=== PATIENT | male | born 1990 | race Caucasian/White ===

== ENCOUNTER 2020-08-09 03:55 | Emergency (ER) | payer MEDICAID, SELFPAY ==
[2020-08-09 04:05] VITALS: BP 119/79; PULSE 90; RESP 16; TEMP 37; O2SAT 97; BMI 29.7
--- NOTE | 2020-08-09 05:03 | CT_ITS ---
EXAMINATION: CTA OF THE NECK AND CT OF THE SOFT TISSUES OF THE NECK WITH IV CONTRAST CLINICAL INFORMATION: Neck erythema and pain. Evaluate for thrombus. History of IV drug abuse. COMPARISON: None TECHNIQUE: Axial images through the neck following 70 mL Omnipaque 350 intravenous contrast according to CTA protocol. Sagittal and coronal and oblique sagittal reconstructions on the technologist workstation were performed. Delayed 72nd soft tissue axial images through the neck were also performed. Sagittal and coronal reconstructed images on the technologist workstation were performed. Patient dose 5 4 2 mg/cm. FINDINGS: CTA: The visualized aortic arch is normal in caliber. The great vessels are normal. The right common, internal and external carotid arteries are patent without stenosis or thrombus. The left common, internal and external carotid arteries are patent without stenosis or thrombus. The vertebral arteries are patent without stenosis or thrombus. The left vertebral artery is dominant. The basilar artery is patent without thrombus or stenosis. Neck CT: There is soft tissue swelling over the left side of the neck with thickening of the skin and stranding of the subcutaneous fat. There may be a small amount of subcutaneous fluid. This is inseparable from the left sternocleidomastoid muscle. There is a small amount of air in the sternocleidomastoid muscle. The focal abscess is not appreciated. The bilateral internal jugular veins appear patent without thrombus. The left external jugular vein appears patent without thrombus. There are small collateral vessels seen in the left lower neck. There is shotty cervical lymphadenopathy. No enlarged lymph nodes are seen. The visualized intracranial structures are normal. There are inflammatory changes in the maxillary sinuses, left greater than right. The naso, king-and hypopharynx and larynx are normal. The salivary glands are normal. The thyroid gland is normal. There is a small superficial soft tissue calcification in the left cheek. Visualized superior mediastinum is normal. The visualized lung apices are clear. There is poor dentition. Bony structures are unremarkable. CT/CT soft tissue neck w con IMPRESSION: Normal CTA of the neck. Soft tissue inflammation of the left lateral neck involving the left sternocleidomastoid muscle. There may be some fluid in the subcutaneous soft tissues. A discrete abscess is not appreciated. The jugular veins are patent.
--- NOTE | 2020-08-09 05:05 | ED_ITS ---
HPI - General Adult General Chief complaint: General Medical Stated complaint: Dental pain Time Seen by Provider: 08/09/20 04:50 Source: patient Mode of arrival: ambulatory History of Present Illness HPI narrative: This is a 30-year-old male who presents complaints of tooth pain at the left upper molar with associated subjective fevers and chills. Patient is an IVDA and has a swelling to the left side of the neck after injection this morning when he says that he open ?messed up?. Otherwise, he denies any shortness of breath, chest pain/palpitations, any GI symptoms, or symptoms. Related Data Previous Rx's Medication Instructions Recorded amoxicillin-pot clavulanate 1 tab PO Q12H 7 Days #14 tab 08/09/20 [Augmentin] doxycycline hyclate 100 mg PO BID 7 Days #14 cap 08/09/20 Allergies Allergy/AdvReac Type Severity Reaction Status Date / Time shrimp [SHRIMP] Allergy Unknown UNKNOWN Verified 08/09/20 08:14 Review of Systems Review of Systems: Pertinent positives and negatives as stated in HPI 10 point review systems is otherwise negative. PMFSH Past Medical History Source: nursing notes reviewed Medical History Asthma IVDU (intravenous drug user) Social History Social History Smoked in Last 30 Days: Yes Use of substances other than those prescribed or required for medical reasons: Yes Substance Use Type: Crack/Cocaine and Opiates Substance Use Frequency: Daily Last Used Substance: Just Prior to Admission Advance Directives: No Advance Directives Information Provided: No Physical Exam Vital Signs: Vital Signs: Last Vital Signs Temp 97.8 F 08/09/20 07:08 Pulse 73 08/09/20 07:08 Resp 16 08/09/20 07:08 BP 100/63 08/09/20 07:08 Pulse Ox 98 08/09/20 07:08 Body Mass Index 29.7 VITAL SIGNS: Reviewed. GENERAL: Well developed, well nourished, in no acute distress. HEAD: Normocephalic/atraumatic, EYES: PERRLA, EOMI EARS: Ext canals without abnormality, TMs non-bulging and non-erythematous NOSE: Nares patent bilateral OROPHARYNX: no oral lesions noted, posterior pharynx clear NECK: Supple, no adenopathy, track ramirez noted along the external jugular at the left neck with slight swelling but no overlying erythema or induration and negative for expanding mass/swelling LUNGS: Normal breath sounds. No adventitious sounds or accessory muscle use. SpO2<97> CARDIOVASCULAR: Regular rate and rhythm without noted murmurs ABDOMEN: Soft, non-tender, non-distended with bowel sounds. MUSCULOSKELETAL: No tenderness, deformities, or effusions noted on gross inspection. EXTREMITIES: No cyanosis, clubbing or edema. SKIN: Inspection of the skin reveals no rashes, multiple track ramirez noted to bilateral upper extremities NEUROLOGIC: Alert and oriented x 4. Strength and sensation to light touch were grossly intact x 4. Course Course Course Narrative: This is a 30-year-old male with history and clinical presentation consistent with a cracked upper tooth on the left side no evidence madeline abscess or purulence and on evaluation of the left neck there is no expanding or pulsatile mass noted and airway is intact without evidence dyspnea or stridor Review of all investigations is negative for any acute findings to suggest systemic infection, and no noted murmurs on clinical exam. All results and findings were discussed with the patient at bedside and patient will be disc harged on antibiotics to cover tooth infection. Signbed out to DR Pearson: f/u CT scan to r/o thrombus/abscess at LEFT neck. Medical Decision Making Lab Data Result diagrams: 08/09/20 05:04 08/09/20 05:04 Labs: Lab Results 08/09/20 08/09/20 08/09/20 Range/Units 05:04 05:04 05:04 WBC 8.9 (4.8-10.8) X10*3/uL RBC 4.62 (4.60-5.80) X10*6/uL Hgb 12.9 L (14.0-18.0) g/dl Hct 38.7 L (42-52) % MCV 83.8 (80-98) fL MCH 27.9 (27.0-33.0) pg MCHC 33.3 (31.0-36.0) g/dl RDW 11.8 (11.0-16.0) % Plt Count 365 (160-400) X10*3/uL MPV 9.5 (9.4-12.4) fL Immature Gran % (Auto) 0.3 (0.0-0.4) % Neut % (Auto) 53.9 (45-73) % Lymph % (Auto) 39.1 (20-40) % [place] % (Auto) 6.2 (2-11) % Eos % (Auto) 0.3 (0-4) % Baso % (Auto) 0.2 (0-2) % Lymph # (Auto) 3.5 (1.2-4.9) X10*3/uL [place] # (Auto) 0.6 (0.1-1.2) X10*3/uL Eos # (Auto) 0.0 (0.0-0.4) X10*3/uL Baso # (Auto) 0.0 (0.0-0.2) X10*3/uL Abs Immat Gran (auto) 0.03 (0.00-0.03) X10*3/uL Absolute Neuts (auto) 4.8 (2.0-8.3) X10*3/uL Absolute Nucleated RBC 0.000 (0.0-0.012) X10*3/uL Nucleated RBC % (auto) 0.0 (0.0-0.2) /100WBC PT 13.3 H (10.8-13.0) SEC INR 1.1 (0.9-1.1) APTT 34.3 (24.1-38.0) SEC Sodium 139 (135-145) mmol/L Potassium 4.0 (3.3-5.1) mmol/l Chloride 102 (96-108) mmol/L Carbon Dioxide 24 (22-29) mmol/L Anion Gap 17 (12-20) BUN 14 (9-16) mg/dL Creatinine 0.79 (0.5-1.4) mg/dL Estim Creat Clear Calc 145.9 Estimated GFR > 60 Random Glucose 79 (60-115) mg/dL Lactic Acid (0.5-2.0) mmol/L Calcium 9.1 (8.4-10.2) mg/dL Total Bilirubin 0.4 (0.0-1.0) mg/dL Direct Bilirubin 0.2 (0.0-0.5) mg/dL AST 35 (5-37) U/L ALT 32 (0-40) U/L Alkaline Phosphatase 70 (39-117) U/L Total Protein 7.7 (6.5-8.0) g/dL Albumin 4.2 (3.5-5.0) g/dL 08/09/20 Range/Units 05:04 WBC (4.8-10.8) X10*3/uL RBC (4.60-5.80) X10*6/uL Hgb (14.0-18.0) g/dl Hct (42-52) % MCV (80-98) fL MCH (27.0-33.0) pg MCHC (31.0-36.0) g/dl RDW (11.0-16.0) % Plt Count (160-400) X10*3/uL MPV (9.4-12.4) fL Immature Gran % (Auto) (0.0-0.4) % Neut % (Auto) (45-73) % Lymph % (Auto) (20-40) % [place] % (Auto) (2-11) % Eos % (Auto) (0-4) % Baso % (Auto) (0-2) % Lymph # (Auto) (1.2-4.9) X10*3/uL [place] # (Auto) (0.1-1.2) X10*3/uL Eos # (Auto) (0.0-0.4) X10*3/uL Baso # (Auto) (0.0-0.2) X10*3/uL Abs Immat Gran (auto) (0.00-0.03) X10*3/uL Absolute Neuts (auto) (2.0-8.3) X10*3/uL Absolute Nucleated RBC (0.0-0.012) X10*3/uL Nucleated RBC % (auto) (0.0-0.2) /100WBC PT (10.8-13.0) SEC INR (0.9-1.1) APTT (24.1-38.0) SEC Sodium (135-145) mmol/L Potassium (3.3-5.1) mmol/l Chloride (96-108) mmol/L Carbon Dioxide (22-29) mmol/L Anion Gap (12-20) BUN (9-16) mg/dL Creatinine (0.5-1.4) mg/dL Estim Creat Clear Calc Estimated GFR Random Glucose (60-115) mg/dL Lactic Acid 1.3 (0.5-2.0) mmol/L Calcium (8.4-10.2) mg/dL Total Bilirubin (0.0-1.0) mg/dL Direct Bilirubin (0.0-0.5) mg/dL AST (5-37) U/L ALT (0-40) U/L Alkaline Phosphatase (39-117) U/L Total Protein (6.5-8.0) g/dL Albumin (3.5-5.0) g/dL Discharge Plan Discharge Clinical Impression: Dental caries into pulp Patient Disposition: Home, Self-Care Instructions: Toothache (ED), Mouth Care (ED) Additional Instructions: 1. Tylenol 1000 mg, orally, every 6 hours as needed pain control. Do not exceed 4000 mg within a 24 hours 2. Ibuprofen 400 mg, orally with milk or food, every 6 hours as needed for pain control. 3. Consider [id number] Anbesol as additional pain relief, but at the end of the day you need to follow-up with a dentist as soon as possible. Prescriptions: New amoxicillin-pot clavulanate [Augmentin] 875-125 mg tablet 1 tab PO Q12H 7 Days Qty: 14 RF: 0 doxycycline hyclate 100 mg capsule 100 mg PO BID 7 Days Qty: 14 RF: 0
[2020-08-09 05:09] LABS: Basophils Percent Auto 0.2 % (0-2); Eosinophils Percent Auto 0.3 % (0-4); Hematocrit 38.7 % (42-52); Hemoglobin 12.9 g/dl (14.0-18.0); Imm Gran Abs Auto 0.03 X10*3/uL (0.00-0.03); Imm Gran Pct Auto 0.3 % (0.0-0.4); Lymphocytes Absolute Auto 3.5 X10*3/uL (1.2-4.9); Lymphocytes Percent Auto 39.1 % (20-40); MANUAL DIFF FLAG NO; Mean Corpuscular HGB Conc 33.3 g/dl (31.0-36.0); Mean Corpuscular Hemoglobin 27.9 pg (27.0-33.0); Mean Corpuscular Volume 83.8 fL (80-98); Mean Platelet Volume 9.5 fL (9.4-12.4); Monocytes Absolute Auto 0.6 X10*3/uL (0.1-1.2); Monocytes Percent Auto 6.2 % (2-11); Neutrophils Absolute Auto 4.8 X10*3/uL (2.0-8.3); Neutrophils Percent Auto 53.9 % (45-73); Platelet Count 365 X10*3/uL (160-400); Red Blood Count 4.62 X10*6/uL (4.60-5.80); Red Cell Distribution Width 11.8 % (11.0-16.0); White Blood Count 8.9 X10*3/uL (4.8-10.8)
[2020-08-09 05:15] LABS: INTERNATIONAL NORM RATIO 1.1 (0.9-1.1); Prothrombin Time 13.3 SEC (10.8-13.0)
[2020-08-09 05:18] LABS: Partial Thromboplastin Time 34.3 SEC (24.1-38.0)
[2020-08-09 05:35] LABS: Lactic Acid 1.3 mmol/L (0.5-2.0)
[2020-08-09 05:41] LABS: Alanine Aminotransferase 32 U/L (0-40); Albumin Level 4.2 g/dL (3.5-5.0); Alkaline Phosphatase 70 U/L (39-117); Anion Gap 17 (12-20); Aspartate Amino Transferase 35 U/L (5-37); Bilirubin Direct 0.2 mg/dL (0.0-0.5); Bilirubin Total 0.4 mg/dL (0.0-1.0); Blood Urea Nitrogen 14 mg/dL (9-16); Calcium 9.1 mg/dL (8.4-10.2); Carbon Dioxide 24 mmol/L (22-29); Chloride 102 mmol/L (96-108); Creatinine Clr Calc Pharmacy 145.9; Estimated Glomerular Filt Rate > 60; Glucose Random 79 mg/dL (60-115); Sodium 139 mmol/L (135-145); Total Protein 7.7 g/dL (6.5-8.0)
[2020-08-09 07:08] VITALS: BP 100/63; PULSE 73; RESP 16; TEMP 36.6; O2SAT 98
[2020-08-09] MEDS: iohexoL 350 MG/ML 100 ML INFUS..BTL IV (08:11)
[2020-08-09] MEDS: Piperacillin Sodium/Tazobactam 3.375 GM in 0.9 % Sodium Chloride 50 ML IV (08:23)
--- NOTE | 2020-08-09 09:15 | MHC.RECOVSUP ---
Recovery Support note: Patient is a 30 year old [place] speaking male who presented to [facility] due to pain related to an injection site. This commercial insurance underwriter and the recovery support nurse met with patient in room 18 of the main ED to discuss his recovery and supports. Patient reports he is currently on methadone and states that this is working out well for him. Patient reports he has good supports in place and is not interested in additional resources at this time.
== END 2020-08-09 09:31 | disposition home or self-care (01) ==
PROVIDERS: Emergency Provider Student in an Organized Health Care Education/Training Program
DX: K02.63 Dental caries on smooth surface penetrating into pulp (principal); F19.90 Other psychoactive substance use, unspecified, uncomplicated
CPT/HCPCS: 36415; 70491; 70498; 80048; 80076; 83605; 85025; 85610; 85730; 87040; 96365; 99284; J2543; Q9967

== ENCOUNTER 2020-08-26 19:34 | Inpatient (IN) | payer MEDICAID, SELFPAY ==
[2020-08-26] VITALS (8 sets, daily range): BP systolic 97–146; BP diastolic 55–90; PULSE 63–94; RESP 12–18; TEMP 36.6–37.3; O2SAT 96–100; BMI 25.9
--- NOTE | ~2020-08-26 | XR_ITS ---
EXAMINATION: XR SOFT TISSUE NECK CLINICAL INDICATION: Broken needle right lower neck COMPARISON: None TECHNIQUE: 2 views of the soft tissue neck were obtained. FINDINGS: Soft tissue films of the neck demonstrate a normal larynx, pharynx and upper trachea. No soft tissue swelling. There is a small metallic needle fragment seen in the right supraclavicular fossa. Visualized lung apices unremarkable XR/XR soft tissue neck IMPRESSION: Linear metallic needle fragment in the right supraclavicular fossa
--- NOTE | 2020-08-26 19:50 | ED_ITS ---
HPI - General Adult General Chief complaint: General Medical Stated complaint: broken needle in the neck Time Seen by Provider: 08/26/20 19:44 Source: patient and EMS Mode of arrival: EMS Limitations: no limitations History of Present Illness HPI narrative: 30-year-old male with past medical history of substance abuse presents via EMS for broken needle in his neck. Patient was injecting a speed ball to the right jugular and the needle broke off at the base of the insulin syringe. He states that he can feel the needle in his neck. Onset (ago): hour(s) (Within the hour of arrival) Location: neck Pain Consistency: constant Relieving factors: none Associated symptoms: denies other symptoms Related Data Previous Rx's Medication Instructions Recorded amoxicillin-pot clavulanate 1 tab PO Q12H 7 Days #14 tab 08/09/20 [Augmentin] doxycycline hyclate 100 mg PO BID 7 Days #14 cap 08/09/20 Allergies Allergy/AdvReac Type Severity Reaction Status Date / Time shrimp [SHRIMP] Allergy Intermediate Swelling Verified 08/26/20 19:43 Review of Systems Review of Systems: Constitutional: No Fever, No Chills ENT/Mouth: No Ear Pain, No Hoarseness, No sore throat Eyes: No Eye Pain, No Swelling, No Redness, No Foreign Body Cardiovascular: No Chest Pain, No SOB Respiratory: No Cough, No Dyspnea Gastrointestinal: No Nausea, No Vomiting, No Diarrhea, No abdominal Pain Genitourinary: No Dysuria, No Hematuria Musculoskeletal: positive neck pain, No Myalgias, No Joint Swelling Skin: Multiple track ramirez to neck, arms consistent with IV drug use, No Skin lacerations, No rash Neuro: No Weakness, No Numbness, No Paresthesias, No Loss of Consciousness, No Dizziness, No Headache Psych: No Anxiety/Panic, No Depression Heme/Lymph: no easy bruising, no Lymphadenopathy Endocrine: No Polyuria, No Polydipsia Yes all other systems are reviewed and are negative PMFSH Past Medical History Attestation statement: The following information was validated with the patient. Source: old records reviewed Medical History Asthma IVDU (intravenous drug user) Social History Social History Alcohol intake: current Alcohol intake frequency: holidays/special occasions only Smoking Status: Current every day smoker Use of substances other than those prescribed or required for medical reasons: Yes Substance Use Type: Crack/Cocaine and Heroin Last Used Substance: Hours (ago) Any prior treatment program specific to substance use: Yes Advance Directives: No Advance Directives Information Provided: No Physical Exam Vital Signs: Vital Signs: Last Vital Signs Temp 98.0 F 08/26/20 22:50 Pulse 72 08/26/20 23:17 Resp 18 08/26/20 23:17 BP 109/69 08/26/20 23:17 Pulse Ox 98 08/26/20 23:17 Body Mass Index 25.9 Appearance: Alert. Oriented X3. Moderate emotional distress. Eyes: Pupils equal, round and reactive to light. ENT: Pharynx normal. Neck: Normal inspection. Neck supple. CVS: Normal heart rate and rhythm. Pulses normal. Respiratory: No respiratory distress. Breath sounds normal. Abdomen: Soft and nontender. Skin: Multiple track ramirez to neck and arms consistent with IV drug use. Skin warm and dry. Normal skin color. Normal skin turgor. Extremities: No lower extremity edema. Neuro: No motor deficit. No sensory deficit. Course Course Course Narrative: 30-year-old male with medical history of substance abuse prese nts with retained foreign body to the right jugular. States that he was injecting his BP fall and the needle broke off in his lodged in his neck. X-ray positive for foreign body. Call out to Dr. Bello. Plan is to prep for OR. Patient updated and agrees with this plan. At 9:39 p.m. at bedside. Patient to be transferred to the OR. Consultations Consultation #1: Eugenia Time: 20:00 Medical Decision Making Differential Diagnosis Differential Diagnosis: Retained foreign body Medical Records Medical records reviewed: Yes I reviewed the patient's medical records. Lab Data Lab results reviewed: Yes I reviewed the patient's lab results. Result diagrams: 08/26/20 20:19 Labs: Lab Results 08/26/20 08/26/20 08/26/20 Range/Units 20:11 20:11 20:12 PT (10.8-13.0) SEC INR (0.9-1.1) APTT (24.1-38.0) SEC Sodium (135-145) mmol/L Potassium (3.3-5.1) mmol/L Chloride (96-108) mmol/L Carbon Dioxide (22-29) mmol/L Anion Gap (12-20) BUN (9-16) mg/dL Creatinine (0.5-1.4) mg/dL Estim Creat Clear Calc Estimated GFR Random Glucose (60-115) mg/dL Calcium (8.4-10.2) mg/dL Total Bilirubin (0.0-1.0) mg/dL Direct Bilirubin (0.0-0.5) mg/dL AST (5-37) U/L ALT (0-40) U/L Alkaline Phosphatase (39-117) U/L Troponin I High Sens (<3.5-35.0) ng/L Total Protein (6.5-8.0) g/dL Albumin (3.5-5.0) g/dL Lipase (8-78) U/L Urine Color YELLOW Urine Appearance HAZY Urine pH 6.0 (5.0-8.0) Ur Specific [place] >= 1.030 H (1.005-1.025) Urine Protein 1+ H (NEG-TRACE) MG/DL Urine Glucose (UA) NEG (NEG) MG/DL Urine Ketones NEG (NEG) MG/DL Urine Blood NEG (NEG) Urine Nitrite NEG (NEG) Ur Leukocyte Esterase NEG (NEG) Urine RBC 0 (0) /HPF Urine WBC 0 (0-4) /HPF Ur Squamous Epith Cells NONE /LPF Calcium Oxalate Crystal 1+ /LPF Urine Bacteria 1+ /LPF Urine Sperm NOTED Urine Opiates Screen POSITIVE H (Not Detect) Ur Barbiturates Screen Not Detected (Not Detect) Ur Phencyclidine Scrn Not Detected (Not Detect) Ur Amphetamines Screen Not Detected (Not Detect) U Benzodiazepines Scrn Not Detected (Not Detect) Urine Cocaine Screen POSITIVE H (Not Detect) U Marijuana (THC) Screen POSITIVE H (Not Detect) COVID-19 ([place]) Negative (Negative) COVID-19 Clin Com See Note Blood Type Antibody Screen 08/26/20 08/26/20 08/26/20 Range/Units 20:19 20:19 20:19 PT 13.9 H (10.8-13.0) SEC INR 1.2 H (0.9-1.1) APTT 31.5 (24.1-38.0) SEC Sodium 138 (135-145) mmol/L Potassium 4.0 (3.3-5.1) mmol/L Chloride 102 (96-108) mmol/L Carbon Dioxide 24 (22-29) mmol/L Anion Gap 16 (12-20) BUN 13 (9-16) mg/dL Creatinine 0.99 (0.5-1.4) mg/dL Estim Creat Clear Calc 100.2 Estimated GFR > 60 Random Glucose 78 (60-115) mg/dL Calcium 8.9 (8.4-10.2) mg/dL Total Bilirubin 0.4 (0.0-1.0) mg/dL Direct Bilirubin 0.2 (0.0-0.5) mg/dL AST 26 (5-37) U/L ALT 21 (0-40) U/L Alkaline Phosphatase 74 (39-117) U/L Troponin I High Sens < 3.5 (<3.5-35.0) ng/L Total Protein 7.6 (6.5-8.0) g/dL Albumin 4.2 (3.5-5.0) g/dL Lipase 12 (8-78) U/L Urine Color Urine Appearance Urine pH (5.0-8.0) Ur Specific [place] (1.005-1.025) Urine Protein (NEG-TRACE) MG/DL Urine Glucose (UA) (NEG) MG/DL Urine Ketones (NEG) MG/DL Urine Blood (NEG) Urine Nitrite (NEG) Ur Leukocyte Esterase (NEG) Urine RBC (0) /HPF Urine WBC (0-4) /HPF Ur Squamous Epith Cells /LPF Calcium Oxalate Crystal /LPF Urine Bacteria /LPF Urine Sperm Urine Opiates Screen (Not Detect) Ur Barbiturates Screen (Not Detect) Ur Phencyclidine Scrn (Not Detect) Ur Amphetamines Screen (Not Detect) U Benzodiazepines Scrn (Not Detect) Urine Cocaine Screen (Not Detect) U Marijuana (THC) Screen (Not Detect) COVID-19 ([place]) (Negative) COVID-19 Clin Com Blood Type Antibody Screen 08/26/20 Range/Units 20:43 PT (10.8-13.0) SEC INR (0.9-1.1) APTT (24.1-38.0) SEC Sodium (135-145) mmol/L Potassium (3.3-5.1) mmol/L Chloride (96-108) mmol/L Carbon Dioxide (22-29) mmol/L Anion Gap (12-20) BUN (9-16) mg/dL Creatinine (0.5-1.4) mg/dL Estim Creat Clear Calc Estimated GFR Random Glucose (60-115) mg/dL Calcium (8.4-10.2) mg/dL Total Bilirubin (0.0-1.0) mg/dL Direct Bilirubin (0.0-0.5) mg/dL AST (5-37) U/L ALT (0-40) U/L Alkaline Phosphatase (39-117) U/L Troponin I High Sens (<3.5-35.0) ng/L Total Protein (6.5-8.0) g/dL Albumin (3.5-5.0) g/dL Lipase (8-78) U/L Urine Color Urine Appearance Urine pH (5.0-8.0) Ur Specific [place] (1.005-1.025) Urine Protein (NEG-TRACE) MG/DL Urine Glucose (UA) (NEG) MG/DL Urine Ketones (NEG) MG/DL Urine Blood (NEG) Urine Nitrite (NEG) Ur Leukocyte Esterase (NEG) Urine RBC (0) /HPF Urine WBC (0-4) /HPF Ur Squamous Epith Cells /LPF Calcium Oxalate Crystal /LPF Urine Bacteria /LPF Urine Sperm Urine Opiates Screen (Not Detect) Ur Barbiturates Screen (Not Detect) Ur Phencyclidine Scrn (Not Detect) Ur Amphetamines Screen (Not Detect) U Benzodiazepines Scrn (Not Detect) Urine Cocaine Screen (Not Detect) U Marijuana (THC) Screen (Not Detect) COVID-19 ([place]) (Negative) COVID-19 Clin Com Blood Type A Positive Antibody Screen NEGATIVE Imaging Data Neck soft tissue x-ray: Attestation: I personally reviewed and interpreted this imaging study as follows: Radiologist's impression: EXAMINATION: XR SOFT TISSUE NECK CLINICAL INDICATION: Broken needle right lower neck COMPARISON: None TECHNIQUE: 2 views of the soft tissue neck were obtained. FINDINGS: Soft tissue films of the neck demonstrate a normal larynx, pharynx and upper trachea. No soft tissue swelling. There is a small metallic needle fragment seen in the right supraclavicular fossa. Visualized lung apices unremarkable XR/XR soft tissue neck IMPRESSION: Linear metallic needle fragment in the right supraclavicular fossa ECG Data Attestation: I personally reviewed and interpreted this ECG as follows: Interpretation: Vent. rate 76 BPM CA interval 128 ms QRS duration 96 ms QT/QTc 404/454 ms P-R-T axes 25 -14 10 Normal sinus rhythm Normal ECG When compared with ECG of 10-APR-2019 13:05, No significant change was found Date August 26, 2020 time 8:27 p.m. Critical Care Time Critical Care Time Critical Care Time: Yes Total Critical Care Time: 45 Attestation: I have personally provided critical care time exclusive of time spent on separately billable procedures. Time includes review of laboratory data, radiology results, discussion with consultants, and monitoring for potential decompensation. Interventions were performed as documented. Discharge Plan Discharge Clinical Impression: Foreign body of neck, Retained foreign body of neck Patient Disposition: Admitted As Inpatient Interventions: Admission Worksheet (ED) Last Done: 08/26/20 21:46 Discharge Date/Time: 08/26/20 21:46
--- NOTE | 2020-08-26 20:07 | ECG_ITS ---
Test Reason : SURGERY Blood Pressure : / mmHG Vent. Rate : 076 BPM Atrial Rate : 076 BPM P-R Int : 128 ms QRS Dur : 096 ms QT Int : 404 ms P-R-T Axes : 025 -14 010 degrees QTc Int : 454 ms Normal sinus rhythm Normal ECG When compared with ECG of 10-APR-2019 13:05, No significant change was found Referred By: Lisa Hernandez Electronically Signed By:KIERRA SONG
[2020-08-26 20:27] LABS: Glucose Urine UA NEG (NEG); Leukocyte Esterase Urine NEG (NEG); Nitrite Urine NEG (NEG); Specific Gravity - Urine >= 1.030 (1.005-1.025); Urine Blood NEG (NEG); Urine Ketones NEG (NEG); Urine Protein 1+ MG/DL (NEG-TRACE)
[2020-08-26 20:28] LABS: Appearance Urine HAZY; Color Urine YELLOW
[2020-08-26 20:31] LABS: INTERNATIONAL NORM RATIO 1.2 (0.9-1.1); Prothrombin Time 13.9 SEC (10.8-13.0)
--- NOTE | 2020-08-26 20:31 | PC.NURSE ---
iv inserted, labs drawn, covid swab performed, cxr performed, ekg done, vss, pt currently watching tv- is aware he will goto surgery, will continue to monitor.
[2020-08-26 20:33] LABS: Partial Thromboplastin Time 31.5 SEC (24.1-38.0)
[2020-08-26 20:34] LABS: Bacteria Urine 1+ /LPF; Calcium Oxalate Crystals Urine 1+ /LPF; RBC Urine 0 /HPF (0); Sperm Urine NOTED; WBC Urine 0 /HPF (0-4)
[2020-08-26 20:56] LABS: COVID-19 Test Negative (Negative)
[2020-08-26 21:05] LABS: Alanine Aminotransferase 21 U/L (0-40); Albumin Level 4.2 g/dL (3.5-5.0); Alkaline Phosphatase 74 U/L (39-117); Anion Gap 16 (12-20); Aspartate Amino Transferase 26 U/L (5-37); Bilirubin Direct 0.2 mg/dL (0.0-0.5); Bilirubin Total 0.4 mg/dL (0.0-1.0); Blood Urea Nitrogen 13 mg/dL (9-16); Calcium 8.9 mg/dL (8.4-10.2); Carbon Dioxide 24 mmol/L (22-29); Chloride 102 mmol/L (96-108); Creatinine Clr Calc Pharmacy 100.2; Estimated Glomerular Filt Rate > 60; Glucose Random 78 mg/dL (60-115); Lipase 12 U/L (8-78); Sodium 138 mmol/L (135-145); Total Protein 7.6 g/dL (6.5-8.0)
[2020-08-26 21:05] LABS: Amphetamine Screen Urine Not Detected (Not Detect); Barbiturates, Urine Not Detected (Not Detect); Benzodiazepines Screen Urine Not Detected (Not Detect); Cannabinoid Screen Urine POSITIVE (Not Detect); Cocaine Screen Urine POSITIVE (Not Detect); Opiate Screen Urine POSITIVE (Not Detect); Phencyclidine Screen Urine Not Detected (Not Detect)
[2020-08-26 21:11] LABS: Troponin-I High Sensitivity < 3.5 ng/L (<3.5-35.0)
--- NOTE | 2020-08-26 21:24 | HO.ANESPROP2 ---
[facility] Past Medical History Medical History Asthma IVDU (intravenous drug user) Social History Social History Alcohol intake: current Alcohol intake frequency: holidays/special occasions only Smoking Status: Current every day smoker Use of substances other than those prescribed or required for medical reasons: Yes Substance Use Type: Crack/Cocaine and Heroin Last Used Substance: Hours (ago) Any prior treatment program specific to substance use: Yes Advance Directives: No Advance Directives Information Provided: No Meds Allergies Allergy/AdvReac Type Severity Reaction Status Date / Time shrimp [SHRIMP] Allergy Intermediate Swelling Verified 08/26/20 19:43 Exam Exam Date and Time: August 26, 20202123 Height,Weight and Vital Signs: Height 5 ft 6 in Weight 73 kg Last Vital Signs Temp 99.1 F 08/26/20 19:43 Pulse 88 08/26/20 19:43 Resp 18 08/26/20 19:43 BP 120/55 L 08/26/20 19:43 Pulse Ox 96 08/26/20 19:43 Pertinent Lab Results Pertinent Lab Results: Laboratory Tests 08/26/20 08/26/20 08/26/20 20:11 20:11 20:12 PT INR APTT Sodium Potassium Chloride Carbon Dioxide Anion Gap BUN Creatinine Estim Creat Clear Calc Estimated GFR Random Glucose Calcium Total Bilirubin Direct Bilirubin AST ALT Alkaline Phosphatase Troponin I High Sens Total Protein Albumin Lipase Urine Color YELLOW Urine Appearance HAZY Urine pH 6.0 Ur Specific [place] >= 1.030 H Urine Protein 1+ H Urine Glucose (UA) NEG Urine Ketones NEG Urine Blood NEG Urine Nitrite NEG Ur Leukocyte Esterase NEG Urine RBC 0 Urine WBC 0 Ur Squamous Epith Cells NONE Calcium Oxalate Crystal 1+ Urine Bacteria 1+ Urine Sperm NOTED Urine Opiates Screen POSITIVE H Ur Barbiturates Screen Not Detected Ur Phencyclidine Scrn Not Detected Ur Amphetamines Screen Not Detected U Benzodiazepines Scrn Not Detected Urine Cocaine Screen POSITIVE H U Marijuana (THC) Screen POSITIVE H COVID-19 (NAKUL) Negative COVID-19 Clin Com See Note Blood Type 08/26/20 08/26/20 08/26/20 20:19 20:19 20:19 PT 13.9 H INR 1.2 H APTT 31.5 Sodium 138 Potassium 4.0 Chloride 102 Carbon Dioxide 24 Anion Gap 16 BUN 13 Creatinine 0.99 Estim Creat Clear Calc 100.2 Estimated GFR > 60 Random Glucose 78 Calcium 8.9 Total Bilirubin 0.4 Direct Bilirubin 0.2 AST 26 ALT 21 Alkaline Phosphatase 74 Troponin I High Sens < 3.5 Total Protein 7.6 Albumin 4.2 Lipase 12 Urine Color Urine Appearance Urine pH Ur Specific [place] Urine Protein Urine Glucose (UA) Urine Ketones Urine Blood Urine Nitrite Ur Leukocyte Esterase Urine RBC Urine WBC Ur Squamous Epith Cells Calcium Oxalate Crystal Urine Bacteria Urine Sperm Urine Opiates Screen Ur Barbiturates Screen Ur Phencyclidine Scrn Ur Amphetamines Screen U Benzodiazepines Scrn Urine Cocaine Screen U Marijuana (THC) Screen COVID-19 (NAKUL) COVID-19 Clin Com Blood Type 08/26/20 20:43 PT INR APTT Sodium Potassium Chloride Carbon Dioxide Anion Gap BUN Creatinine Estim Creat Clear Calc Estimated GFR Random Glucose Calcium Total Bilirubin Direct Bilirubin AST ALT Alkaline Phosphatase Troponin I High Sens Total Protein Albumin Lipase Urine Color Urine Appearance Urine pH Ur Specific [place] Urine Protein Urine Glucose (UA) Urine Ketones Urine Blood Urine Nitrite Ur Leukocyte Esterase Urine RBC Urine WBC Ur Squamous Epith Cells Calcium Oxalate Crystal Urine Bacteria Urine Sperm Urine Opiates Screen Ur Barbiturates Screen Ur Phencyclidine Scrn Ur Amphetamines Screen U Benzodiazepines Scrn Urine Cocaine Screen U Marijuana (THC) Screen COVID-19 (NAKUL) COVID-19 Clin Com Blood Type A Positive Airway Mallampati Class: II TM Dist: >3cm Neck ROM: Full Loose/Missing/Broken Teeth: No Heart: RRR Lungs: CTA Assessment and Plan Assessment Anesthesia Assessment: Anesthesia Plan Discussed and Chart Reviewed Final Anesthetic Review NPO: Yes ASA Class: III and Emergency Final Preanesthetic Review: No Changes in Pt Med Stat, Meds/Allgs Chart Reviewed and Consent Obtained/Reviewed Patient Risk: Intermediate Procedure Risk: Low Anesthetic Plan Anesthetic Plan: GA Disposition: Standard PACU
--- NOTE | 2020-08-26 21:27 | MHC.SHP ---
Pre-Procedural Eval Section B Chief Complaint: broken needle in the neck Allergies: Allergies Allergy/AdvReac Type Severity Reaction Status Date / Time shrimp [SHRIMP] Allergy Intermediate Swelling Verified 08/26/20 19:43 Plan I have reviewed the history and physical and performed a pertinent physical examination on my patient. No changes have occurred unless specified.
--- NOTE | 2020-08-26 21:28 | P.HPVS_ITS ---
History of Present Illness History of Present Illness Date of Service: 08/26/20 Chief complaint: broken needle in the neck Narrative: Marc Johnson is a 30 year old male who earlier this evening was doing a speed ball and noted a needle to break off in the neck. He immediatedly reported to ER. Needle noted on xray Review of Systems Review of Systems: Yes all other systems are reviewed and are negative Constitutional: Constitutional: Reports no additional constitutional complaints ENT: Reports Normal hearing present Cardiovascular: Cardiovascular: Denies chest pain, Denies chest pain at rest, Denies chest pain with activity and Denies pedal edema Respiratory: Respiratory: Denies cough Gastrointestinal: Gastrointestinal: Denies abdominal pain Musculoskeletal: Musculoskeletal: Denies abnormal gait, Denies muscle cramps and Denies radiating pain into limb Integumentary/Breasts: Skin/Breast: Denies skin ulcer and Denies wounds Neurologic: Reports Normal hearing present and Denies abnormal gait Psychiatric: Psychiatric: Reports no additional psychiatric complaints [facility], [facility] Past Medical History Medical History Asthma IVDU (intravenous drug user) Social History Social History Alcohol intake: current Alcohol intake frequency: holidays/special occasions only Smoking Status: Current every day smoker Use of substances other than those prescribed or required for medical reasons: Yes Substance Use Type: Crack/Cocaine and Heroin Last Used Substance: Hours (ago) Any prior treatment program specific to substance use: Yes Advance Directives: No Advance Directives Information Provided: No Meds Allergies Allergy/AdvReac Type Severity Reaction Status Date / Time shrimp [SHRIMP] Allergy Intermediate Swelling Verified 08/26/20 19:43 Physical Exam Vital Signs: Vital Signs: Last Vital Signs Temp 99.1 F 08/26/20 19:43 Pulse 88 08/26/20 19:43 Resp 18 08/26/20 19:43 BP 120/55 L 08/26/20 19:43 Pulse Ox 96 08/26/20 19:43 Body Mass Index 25.9 Const: General: cooperative, healthy appearing and comfortable Orientation/consciousness: oriented to person, oriented to place and oriented to time HENMT: Head: Yes normal to inspection Neck: Neck: Yes normal visual inspection Carotids: no bruits Chest: Chest palpation & inspection: normal inspection of the chest Resp: Effort & Inspection: normal respiratory effort and able to speak in complete sentences Auscultation: clear to auscultation bilaterally, no crackles, no rales, no rhonchi and no wheezes Cardio: Rate: regular rate Rhythm: regular rhythm Heart sounds: S1 normal heart sound present and S2 normal heart sound present Bruits: no carotid bruits Peripheral pulses: Peripheral pulses 2+ throughout GI: Inspection: Yes normal to inspection Skin: Other: right neck track ramirez, indurated area Wounds: no wounds Hair: normal Neuro: General: oriented to person, oriented to place and oriented to time Cranial nerves: Yes CN's II-XII intact bilaterally and Yes Normal hearing present Cognition (Neuro): normal cognition Motor exam (neuro): 5/5 motor strength present throughout Extrem: Other: venous exam: No significant superficial varicosities or spider telangiectasias, minimal edema General: No clubbing, No cyanosis and No edema Psych: Appearance: grossly normal Mental Status: mental status grossly normal Speech and movement: Normal speech and movement present Results Results Labs: BMP 08/26/20 20:19 Sodium 138 Potassium 4.0 Chloride 102 Carbon Dioxide 24 BUN 13 Creatinine 0.99 Calcium 8.9 Liver Function 08/26/20 Range/Units 20:19 Total Bilirubin 0.4 (0.0-1.0) mg/dL Direct Bilirubin 0.2 (0.0-0.5) mg/dL AST 26 (5-37) U/L ALT 21 (0-40) U/L Alkaline Phosphatase 74 (39-117) U/L Albumin 4.2 (3.5-5.0) g/dL Urine 08/26/20 Range/Units 20:11 Urine Color YELLOW Urine Appearance HAZY Urine pH 6.0 (5.0-8.0) Ur Specific [place] >= 1.030 H (1.005-1.025) Urine Protein 1+ H (NEG-TRACE) MG/DL Urine Glucose (UA) NEG (NEG) MG/DL Assessment and Plan (1) Foreign body of neck: Status: Acute Right neck foreign body, most likely needle. Will need operative exploration due to location. Risk/benefits discussed with patient. OR team and Anesthesia notified. 50 minutes was spent with direct discussion with the patient, record assessment, ordering and reviewing imaging, independent assessment of imaging, and management of services, and operative planning.
--- NOTE | 2020-08-26 21:41 | PC.NURSE ---
patients significant other is in the ED waiting room for updates to be given when surgery is completed, surgeon was notified, her name is mahsa reeves.
--- NOTE | 2020-08-26 22:44 | W.PM.OPN ---
Operative Note Operative Note Date of Service: 08/26/20 Narrative: Operative note by [facility] Preoperative diagnosis: Right neck foreign body Postoperative diagnosis: Same Procedure: 1. Right neck exploration 2. Exposure of jugular vein and carotid artery 3. Removal of foreign body Surgeon:Nik Bello M.D. Research Environmental Scientist: María Anesthesia: General Specimens: 1 Drains: None Estimated blood loss: 25 mL Indications: 30-year-old gentleman presented to the emergency room with recent injection in the right neck of illegal drugs. He says it was a ?speed ball? needle was identified on x-ray. He now presents for operative intervention and removal of foreign body. Risks benefits complications were discussed in detail with the patient. He understood and consented. Procedure in detail: Patient was taken to the operating room prior to which timeout was called for patient identification site verification. Right neck was prepped and draped in standard surgical fashion. Incision was carried out over the external jugular in the premarked area which he had identified as the location of injection. There was noted to be multiple track ramirez in that area. Approximately a 5 cm incision was created. This was then expanded and external jugular vein was identified. We then loosened the tissue and fascia. Needle was a easily identified and removed. We opened up down to the external jugular and identified the carotid. No other foreign material was identified. Wound was irrigated thoroughly. Local was infiltrated in the subcu tissue. Deep layer was reapproximated using a 3-0 Vicryl suture. Skin was closed using a 4-0 running subcuticular stitch. Steri-Strips and a sterile dressing were applied. At the end of the case sponge instrument counts were correct. Patient tolerated the procedure well was returned to recovery with stable vitals. This note is constructed using voice recognition software. While every effort has been made to ensure accuracy, post exchange manager errors may have been included. Thank you for allowing me to participate in the care of your patient. Yours sincerely, Nik Bello MD, FACS, R.P.V.I.
[2020-08-26] MEDS: oxyCODONE HCl Immed Release 5 MG TABLET PO (22:58)
[2020-08-27] MEDS: 0.9 % Sodium Chloride Flush 3 ML SYRINGE IVFLUSH ×2 (00:39→08:01)
[2020-08-27] MEDS: Dextrose 5 % and 0.9 % NaCl 1,000 ML 80 ML IVCONT (01:24)
--- NOTE | 2020-08-27 01:43 | PC.NURSE ---
PT arrived to the unit 2315 via stretcher from OR. PT alert and oriented x 3. RR is regular. C/O soreness at the surgical site at the right side of the neck. PT states he is homeless and is staying at the snf on [facility] and has been there for 3-4 months. Pt states he has been doing heroin for a few years now and usually shoots up in his neck. PT states he does not want to do it anymore and is going to try to stop and wants to get in to a program. PT not on tele and hospital consult was put in. PT is resting comfortably and has had a few sandwiches and 2 ice creams. D5NS running at 80ml/hr and refused Heparin SQ.
[2020-08-27 03:13] VITALS: BP 102/47; PULSE 61; RESP 18; TEMP 36.9; O2SAT 96
[2020-08-27] MEDS: ceFAZolin Sodium/Dextrose,Iso 2 GM/50 ML PIGGYBACK IV (04:21)
[2020-08-27 06:01] LABS: MANUAL DIFF FLAG NO
[2020-08-27 06:10] LABS: Basophils Percent Auto 0.4 % (0-2); Eosinophils Absolute Auto 0.1 X10*3/uL (0.0-0.4); Eosinophils Percent Auto 1.1 % (0-4); Hemoglobin 11.3 g/dl (14.0-18.0); Imm Gran Abs Auto 0.03 X10*3/uL (0.00-0.03); Imm Gran Pct Auto 0.4 % (0.0-0.4); Lymphocytes Absolute Auto 3.4 X10*3/uL (1.2-4.9); Mean Corpuscular HGB Conc 32.3 g/dl (31.0-36.0); Mean Corpuscular Hemoglobin 27.6 pg (27.0-33.0); Mean Corpuscular Volume 85.6 fL (80-98); Mean Platelet Volume 10.2 fL (9.4-12.4); Monocytes Absolute Auto 0.6 X10*3/uL (0.1-1.2); Neutrophils Absolute Auto 3.7 X10*3/uL (2.0-8.3); Neutrophils Percent Auto 47.1 % (45-73); Platelet Count 317 X10*3/uL (160-400); Red Blood Count 4.09 X10*6/uL (4.60-5.80); Red Cell Distribution Width 12.8 % (11.0-16.0); White Blood Count 7.9 X10*3/uL (4.8-10.8)
[2020-08-27 07:58] VITALS: BP 105/66; PULSE 57; RESP 20; TEMP 36.5; O2SAT 99
[2020-08-27] MEDS: Heparin Sodium,Porcine 5,000 UNIT/ML VIAL 5000 UNIT SUBCUT (07:59)
[2020-08-27] MEDS: Morphine Sulfate 2 MG/ML CARTRIDGE IVPUSH (08:00)
--- NOTE | 2020-08-27 09:25 | HO.POSTANES ---
Post Anesthesia Evaluation Post Anesthesia Evaluation Vital Signs: Vital Signs Temp Pulse Resp BP Pulse Ox 08/27/20 07:58 97.7 F 57 20 105/66 99 08/27/20 03:13 98.5 F 61 18 102/47 L 96 08/26/20 23:17 72 18 109/69 98 08/26/20 23:05 70 18 123/72 98 08/26/20 23:00 70 18 116/70 98 08/26/20 22:55 65 18 113/71 98 08/26/20 22:50 98.0 F 63 12 109/69 100 08/26/20 22:41 97.8 F 74 18 97/57 L 97 08/26/20 21:50 98.4 F 71 17 111/72 98 Anesthesia: General Endotracheal-GETA Mental Status: Awake Pain Control: Satisfactory Nausea/Vomiting: None Hydration: Adequate Anesthesia-Related Issues: No Anes. Related Issues
--- NOTE | 2020-08-27 09:42 | MHC.CM.PN ---
MALE 30 DX POST OP PT IS INDEPENDENT, HOMELESS, ON METHADONE WITH NO PCP. NO HCP. DP RESUME METHADONE PROGRAM. PT WILL REQUIRE A CAB @ [place]. CM WILL FOLLOW.
--- NOTE | 2020-08-27 09:51 | PM.DS ---
DS: Providers Provider Date of Service: 08/27/20 Date of admission: 08/26/20 21:26 Primary care physician: Unknown Physician Consults: 08/26/20 22:40 Consult to Hospitalist Routine Consulting Provider: Hospitalist DS: Diagnosis Discharge Diagnosis (1) Foreign body of neck: Status: Acute DS: Medications Discharge Medications Home Medications: Previous Rx's Medication Instructions Recorded amoxicillin-pot clavulanate 1 tab PO Q12H 7 Days #14 tab 08/09/20 [Augmentin] doxycycline hyclate 100 mg PO BID 7 Days #14 cap 08/09/20 DS: Summary Hospital Course Hospital Course: s/p removal foreign body right neck. observed overnight. He was hemodynamically stable. Right neck appeared to be healing well. He was discharged home. Plan was for 2 week follow-up with me. Time Spent with Patient Time attestation: Total time spent providing and/or coordinating discharge services: Discharge coordination time: Greater than 30 minutes Physical Exam Vital Signs: Vital Signs: Last Vital Signs Temp 97.7 F 08/27/20 07:58 Pulse 57 08/27/20 07:58 Resp 20 08/27/20 07:58 BP 105/66 08/27/20 07:58 Pulse Ox 99 08/27/20 07:58 Body Mass Index 25.9 Const: General: cooperative, healthy appearing and no acute distress Orientation/consciousness: oriented to person, oriented to place and oriented to time HENMT: Head: Yes normal to inspection Neck: Other: right neck incision well healing Neck: Yes normal visual inspection and Yes full ROM Carotids: no bruits Chest: Chest palpation & inspection: normal inspection of the chest Resp: Effort & Inspection: normal respiratory effort and able to speak in complete sentences Auscultation: clear to auscultation bilaterally Cardio: Rate: regular rate Heart sounds: S1 normal heart sound present and S2 normal heart sound present GI: Inspection: Yes normal to inspection Skin: General skin exam: no rashes or lesions noted Wounds: no wounds Neuro: General: oriented to person, oriented to place, oriented to time and CN's II-XI intact bilaterally Extrem: General: Yes normal to inspection, Yes full ROM and Yes no clubbing, cyanosis or edema Psych: Appearance: grossly normal and well kempt Speech and movement: Normal speech and movement present Affect: normal affect DS: Data Data Completed and Pending Pending studies at discharge: Pending at discharge 08/26/20 22:48 Surgical [PTH] Routine Labs on day of discharge: Laboratory Tests 08/26/20 08/26/20 08/26/20 20:11 20:11 20:12 WBC RBC Hgb Hct MCV MCH MCHC RDW Plt Count MPV Immature Gran % (Auto) Neut % (Auto) Lymph % (Auto) Hale % (Auto) Eos % (Auto) Baso % (Auto) Lymph # (Auto) Hale # (Auto) Eos # (Auto) Baso # (Auto) Abs Immat Gran (auto) Absolute Neuts (auto) Absolute Nucleated RBC Nucleated RBC % (auto) PT INR APTT Sodium Potassium Chloride Carbon Dioxide Anion Gap BUN Creatinine Estim Creat Clear Calc Estimated GFR Random Glucose Calcium Total Bilirubin Direct Bilirubin AST ALT Alkaline Phosphatase Troponin I High Sens Total Protein Albumin Lipase Urine Color YELLOW Urine Appearance HAZY Urine pH 6.0 Ur Specific [place] >= 1.030 H Urine Protein 1+ H Urine Glucose (UA) NEG Urine Ketones NEG Urine Blood NEG Urine Nitrite NEG Ur Leukocyte Esterase NEG Urine RBC 0 Urine WBC 0 Ur Squamous Epith Cells NONE Calcium Oxalate Crystal 1+ Urine Bacteria 1+ Urine Sperm NOTED Urine Opiates Screen POSITIVE H Ur Barbiturates Screen Not Detected Ur Phencyclidine Scrn Not Detected Ur Amphetamines Screen Not Detected U Benzodiazepines Scrn Not Detected Urine Cocaine Screen POSITIVE H U Marijuana (THC) Screen POSITIVE H COVID-19 (NAKUL) Negative COVID-19 Clin Com See Note Blood Type Antibody Screen 08/26/20 08/26/20 08/26/20 20:19 20:19 20:19 WBC RBC Hgb Hct MCV MCH MCHC RDW Plt Count MPV Immature Gran % (Auto) Neut % (Auto) Lymph % (Auto) Hale % (Auto) Eos % (Auto) Baso % (Auto) Lymph # (Auto) Hale # (Auto) Eos # (Auto) Baso # (Auto) Abs Immat Gran (auto) Absolute Neuts (auto) Absolute Nucleated RBC Nucleated RBC % (auto) PT 13.9 H INR 1.2 H APTT 31.5 Sodium 138 Potassium 4.0 Chloride 102 Carbon Dioxide 24 Anion Gap 16 BUN 13 Creatinine 0.99 Estim Creat Clear Calc 100.2 Estimated GFR > 60 Random Glucose 78 Calcium 8.9 Total Bilirubin 0.4 Direct Bilirubin 0.2 AST 26 ALT 21 Alkaline Phosphatase 74 Troponin I High Sens < 3.5 Total Protein 7.6 Albumin 4.2 Lipase 12 Urine Color Urine Appearance Urine pH Ur Specific [place] Urine Protein Urine Glucose (UA) Urine Ketones Urine Blood Urine Nitrite Ur Leukocyte Esterase Urine RBC Urine WBC Ur Squamous Epith Cells Calcium Oxalate Crystal Urine Bacteria Urine Sperm Urine Opiates Screen Ur Barbiturates Screen Ur Phencyclidine Scrn Ur Amphetamines Screen U Benzodiazepines Scrn Urine Cocaine Screen U Marijuana (THC) Screen COVID-19 (NAKUL) COVID-19 Clin Com Blood Type Antibody Screen 08/26/20 08/27/20 20:43 05:30 WBC 7.9 RBC 4.09 L Hgb 11.3 L Hct 35.0 L MCV 85.6 MCH 27.6 MCHC 32.3 RDW 12.8 Plt Count 317 MPV 10.2 Immature Gran % (Auto) 0.4 Neut % (Auto) 47.1 Lymph % (Auto) 43.0 H Hale % (Auto) 8.0 Eos % (Auto) 1.1 Baso % (Auto) 0.4 Lymph # (Auto) 3.4 Hale # (Auto) 0.6 Eos # (Auto) 0.1 Baso # (Auto) 0.0 Abs Immat Gran (auto) 0.03 Absolute Neuts (auto) 3.7 Absolute Nucleated RBC 0.000 Nucleated RBC % (auto) 0.0 PT INR APTT Sodium Potassium Chloride Carbon Dioxide Anion Gap BUN Creatinine Estim Creat Clear Calc Estimated GFR Random Glucose Calcium Total Bilirubin Direct Bilirubin AST ALT Alkaline Phosphatase Troponin I High Sens Total Protein Albumin Lipase Urine Color Urine Appearance Urine pH Ur Specific [place] Urine Protein Urine Glucose (UA) Urine Ketones Urine Blood Urine Nitrite Ur Leukocyte Esterase Urine RBC Urine WBC Ur Squamous Epith Cells Calcium Oxalate Crystal Urine Bacteria Urine Sperm Urine Opiates Screen Ur Barbiturates Screen Ur Phencyclidine Scrn Ur Amphetamines Screen U Benzodiazepines Scrn Urine Cocaine Screen U Marijuana (THC) Screen COVID-19 (NAKUL) COVID-19 Clin Com Blood Type A Positive Antibody Screen NEGATIVE Discharge Plan Discharge Patient Disposition: Home, Self-Care Referrals: Physician,Unknown [Primary Care Provider] - Discharge Medications: Continued amoxicillin-pot clavulanate [Augmentin] 875-125 mg tablet 1 tab PO Q12H 7 Days Qty: 14 RF: 0 doxycycline hyclate 100 mg capsule 100 mg PO BID 7 Days Qty: 14 RF: 0 Discharge Orders: Discharge Order (Routine); Ordered 08/27/20 Ordered By: Nik Bello Diet: advance to usual diet Activity on Discharge: As tolerated Stand Alone Forms: Patient Portal Discharge page Activity Restrictions/Additional Instructions: May shower tomorrow Remove strips in 5 days See me in 2 weeks Visit Report Forms: Patient Portal Discharge page Care Plan Goals: wound to heal Health Concerns: stop IV drug abuse Plan of Treatment: Discuss with patient Refer for services if agrees
--- NOTE | 2020-08-27 09:54 | MHC.CM.PN ---
DC today via [employer] [facility] to Methadone clinic [address] [place] [address]. Voucher for Taxi has been provided for transport.
--- NOTE | 2020-08-27 10:19 | PM.EVENT ---
Event Note Date of Service: 08/27/20 Event Note: 30/m with IV drug use who attempted speed ball via right IJ and needle broke into neck. He was taken to surgery for removal post ask to see in case he goes into withdrawal. He is on Methadone. Saw him briefly as he's been discharged. He is doing well with no signs of withdrawal. exam: PFSH: IV drug use on methadone No alcohol ue Family:he says unremarkable. Past surgery: he mention no surgery other last night to remove needle General: AO X 3, no acute distress Resp: CTA bilateral CVS: S1,S2,RRR GI: +BS, NT, no distention Skin: No rash Neuro: motor grossly intact Psych: appropriate affect Labs reviewed and unreamarkable. A/P: 1. Foreign body (needle) large into the neck--removed by surgery. 2. Opiate dependence--to continue methadone. Counseled on cessation of illegal substance use.
== END 2020-08-27 10:30 | disposition home or self-care (01) | DRG 351 ==
LOC: HO.ED 21:39 → HO.IMC 22:15
PROVIDERS: Nurse Practitioner Family; Admitting Provider Surgery Vascular Surgery; Emergency Provider Internal Medicine; Visit Provider Surgery Vascular Surgery
PROC: 0JC40ZZ Extirpation of Matter from Right Neck Subcutaneous Tissue and Fascia, Open Approach (ICD-10-PCS; CPT 35301; principal; 2020-08-26 21:00)
DX: M79.5 Residual foreign body in soft tissue (principal); F11.10 Opioid abuse, uncomplicated; F17.210 Nicotine dependence, cigarettes, uncomplicated; Z20.822 Contact with and (suspected) exposure to COVID-19
CPT/HCPCS: 20100; 36415; 70360; 80048; 80076; 80307; 81001; 83690; 84484; 85025; 85610; 85730; 86850; 86900; 86901; 87635; 88300; 90471; 90715; 93005; 99285; 99291; J0690; J2270; J2405; J3010

== ENCOUNTER 2021-07-09 04:08 | Inpatient (IN) | payer OTHER, MEDICAID, SELFPAY ==
--- NOTE | 2021-07-09 | ECG_ITS ---
Test Reason : MED CLEAEANCE Blood Pressure : / mmHG Vent. Rate : 064 BPM Atrial Rate : 064 BPM P-R Int : 112 ms QRS Dur : 084 ms QT Int : 386 ms P-R-T Axes : 040 001 013 degrees QTc Int : 398 ms Normal sinus rhythm with sinus arrhythmia Normal ECG When compared with ECG of 26-AUG-2020 20:27, QT has shortened Referred By: Teddy Hein Electronically Signed By:SHWETA CHRISTIAN MD
[2021-07-09 04:19] VITALS: BP 117/62; PULSE 81; PULSE 86; RESP 20; TEMP 36.7; O2SAT 100; O2SAT 98; BMI 31.3
[2021-07-09 05:03] LABS: Appearance Urine CLEAR; Color Urine YELLOW; Glucose Urine UA NEG (NEG); Leukocyte Esterase Urine NEG (NEG); Nitrite Urine NEG (NEG); Urine Blood NEG (NEG); Urine Ketones NEG (NEG); Urine Protein NEG (NEG-TRACE)
[2021-07-09 05:11] LABS: COVID-19 Test Negative (Negative)
[2021-07-09 05:29] LABS: MANUAL DIFF FLAG NO
[2021-07-09 05:31] LABS: Basophils Percent Auto 0.6 % (0-2); Eosinophils Absolute Auto 0.3 X10*3/uL (0.0-0.4); Eosinophils Percent Auto 4.4 % (0-4); Hematocrit 29.6 % (42.0-52.0); Hemoglobin 9.3 g/dl (14.0-18.0); Imm Gran Abs Auto 0.02 X10*3/uL (0.00-0.03); Imm Gran Pct Auto 0.3 % (0.0-0.4); Lymphocytes Absolute Auto 2.1 X10*3/uL (1.2-4.9); Lymphocytes Percent Auto 30.4 % (20-40); Mean Corpuscular HGB Conc 31.4 g/dl (31.0-36.0); Mean Corpuscular Hemoglobin 24.2 pg (27.0-33.0); Mean Corpuscular Volume 77.1 fL (80.0-98.0); Mean Platelet Volume 9.5 fL (9.4-12.4); Monocytes Absolute Auto 0.5 X10*3/uL (0.1-1.2); Monocytes Percent Auto 7.9 % (2-11); Neutrophils Absolute Auto 3.9 x10*3/uL (2.0-8.3); Neutrophils Percent Auto 56.4 % (45-73); Platelet Count 366 X10*3/uL (160-400); Red Blood Count 3.84 X10*6/uL (4.60-5.80); Red Cell Distribution Width 13.7 % (11.0-16.0); White Blood Count 6.8 X10*3/uL (4.8-10.8)
[2021-07-09 05:34] LABS: Amphetamine Screen Urine Not Detected (Not Detect); Barbiturates, Urine Not Detected (Not Detect); Benzodiazepines Screen Urine Not Detected (Not Detect); Cannabinoid Screen Urine Not Detected (Not Detect); Cocaine Screen Urine POSITIVE (Not Detect); Fentanyl, urine POSITIVE (Not Detect); Opiate Screen Urine POSITIVE (Not Detect); Phencyclidine Screen Urine Not Detected (Not Detect)
[2021-07-09 05:36] LABS: Prothrombin Time 11.7 SEC (9.9-13.0)
[2021-07-09 05:55] LABS: Ethanol < 10 mg/dL
[2021-07-09 05:58] LABS: Acetaminophen LAB < 1 mcg/mL (<30); Alanine Aminotransferase 27 U/L (0-40); Albumin Level 3.6 g/dL (3.5-5.0); Alkaline Phosphatase 84 U/L (39-117); Anion Gap 12 (12-20); Aspartate Amino Transferase 29 U/L (5-37); Bilirubin Direct < 0.2 mg/dL (0.0-0.5); Bilirubin Total 0.2 mg/dL (0.0-1.0); Blood Urea Nitrogen 20 mg/dL (9-16); Calcium 8.7 mg/dL (8.4-10.2); Carbon Dioxide 24 mmol/L (22-29); Chloride 107 mmol/L (96-108); Creatinine Clr Calc Pharmacy 113.6; Estimated Glomerular Filt Rate > 60; Glucose Random 113 mg/dL (60-115); Magnesium 2.1 mg/dL (1.6-2.6); Potassium 3.7 mmol/L (3.3-5.1); Salicylate < 5.0 mg/dL (15-30); Sodium 139 mmol/L (135-145); Total Protein 7.2 g/dL (6.5-8.0)
--- NOTE | 2021-07-09 06:01 | ED.PSYCH ---
HPI - Psych General Chief Complaint: Psychiatric Symptoms <Teddy Hein MD - Last Filed: 07/09/21 06:10> Stated Complaint: BLISTER X4 DAYS <Teddy Hein MD - Last Filed: 07/09/21 06:10> Time Seen by Provider: 07/09/21 05:54 <Teddy Hein MD - Last Filed: 07/09/21 06:10> Source: patient <Teddy Hein MD - Last Filed: 07/09/21 06:10> Mode of arrival: EMS <Teddy Hein MD - Last Filed: 07/09/21 06:10> Limitations: no limitations <Teddy Hein MD - Last Filed: 07/09/21 06:10> History of Present Illness HPI Narrative: 31-year-old male who presents emergency department for evaluation of suicidal ideation and blisters on his feet. The patient is homeless and does have a history of polysubstance abuse. He told the nurses that he tried to kill himself twice today. He states that he overdosed but was given Narcan by a bystander. He states that he mixed heroin with cocaine in when dex and tried to injected into his arm to poison himself. States that he did this at around 5:00 p.m.. He also states that he has blisters on his feet that are painful. He denied fever, chills, chest pain, shortness of breath, nausea, vomiting, abdominal pain, frequency, urgency or dysuria. <Teddy Hein MD - Last Filed: 07/09/21 06:10> Related Data Home Medications: Home Medications Medication Instructions Recorded Confirmed No Known Home Meds 07/09/21 07/09/21 <Teddy Hein MD - Last Filed: 07/09/21 06:10> Allergies/Adverse Reactions: Allergies Allergy/AdvReac Type Severity Reaction Status Date / Time shrimp [SHRIMP] Allergy Intermediate Swelling Verified 07/09/21 04:24 <Teddy Hein MD - Last Filed: 07/09/21 06:10> Review of Systems Review of Systems: Yes all other systems are reviewed and are negative <Teddy Hein MD - Last Filed: 07/09/21 06:10> [facility] Past Medical History Medical History: Medical History Asthma IVDU (intravenous drug user) <Teddy Hein MD - Last Filed: 07/09/21 06:10> Social History Social History: Social History Household Members: Other Household Members Other:: lives in a halfway Housing: Homeless Do you presently have visiting nurse or other home services: No Alcohol intake: current Alcohol intake frequency: holidays/special occasions only Substance Use Type: Crack/Cocaine, Heroin and Opiates Advance Directives: No service: No Current occupational status: unemployed <Teddy Hein MD - Last Filed: 07/09/21 06:10> Physical Exam Vital Signs: Vital Signs: Last Vital Signs Temp 98.1 F 07/09/21 04:19 Pulse 86 07/09/21 04:19 Resp 20 07/09/21 04:19 BP 117/62 07/09/21 04:19 Pulse Ox 98 07/09/21 04:19 BMI result Body Mass Index 31.3 <Teddy Hein MD - Last Filed: 07/09/21 06:10> Vital Signs: Last Vital Signs Temp 98.1 F 07/09/21 04:19 Pulse 86 07/09/21 04:19 Resp 20 07/09/21 04:19 BP 117/62 07/09/21 04:19 Pulse Ox 98 07/09/21 04:19 BMI result Body Mass Index 31.3 <LYN Gutierrez - Last Filed: 07/09/21 10:59> Const: Other: Awake, alert, male patient, he does not appear to be distress, he is cooperative and answers all questions appropriately. <Teddy Hein MD - Last Filed: 07/09/21 06:10> HENMT: Head: Yes normal to inspection, Yes normocephalic and Yes atraumatic <Teddy Hein MD - Last Filed: 07/09/21 06:10> Ears: external ears normal <Teddy Hein MD - Last Filed: 07/09/21 06:10> General nose exam: Normal external nose present <Teddy Hein MD - Last Filed: 07/09/21 06:10> Face and sinus: Yes normal facial exam <MD Lawanda Childs Last Filed: 07/09/21 06:10> Mouth: Normal oral and palatal mucosa present <MD Lawanda Childs Last Filed: 07/09/21 06:10> Throat: Yes posterior oropharynx normal <Teddy Hein MD - Last Filed: 07/09/21 06:10> Eyes: General: appearance normal, both eyes and all related structures <Teddy Hein MD - Last Filed: 07/09/21 06:10> Pupils: Equal, round and reactive pupils present <MD Lawanda Childs Last Filed: 07/09/21 06:10> Neck: Neck: Yes normal visual inspection, Yes no lymphadenopathy, Yes trachea midline and Yes supple <Teddy Hein MD - Last Filed: 07/09/21 06:10> Chest: Chest palpation & inspection: normal inspection of the chest and normal palpation of entire chest wall <MD Lawanda Childs Last Filed: 07/09/21 06:10> Resp: Effort & Inspection: normal respiratory effort and able to speak in complete sentences <Teddy Hein MD - Last Filed: 07/09/21 06:10> Auscultation: clear to auscultation bilaterally <Teddy Hein MD - Last Filed: 07/09/21 06:10> Cardio: Rate: regular rate <MD Lawanda Childs Last Filed: 07/09/21 06:10> Rhythm: regular rhythm <MD Lawanda Childs Last Filed: 07/09/21 06:10> Heart sounds: S1 normal heart sound present, S2 normal heart sound present and no murmurs <MD Lawanda Childs Last Filed: 07/09/21 06:10> GI: Inspection: Yes normal to inspection <MD Lawanda Childs Last Filed: 07/09/21 06:10> Palpation (GI): Soft to palpation, nontender and no guarding <Teddy Hein MD - Last Filed: 07/09/21 06:10> Auscultation: normal bowel sounds <Teddy Hein MD - Last Filed: 07/09/21 06:10> : General: Yes no CVA tenderness <Teddy Hein MD - Last Filed: 07/09/21 06:10> Back/Spine/Pelvis: Back: no CVA tenderness <Teddy Hein MD - Last Filed: 07/09/21 06:10> Skin: Other: Track ramirez to both arms <Teddy Hein MD - Last Filed: 07/09/21 06:10> Neuro: Cranial nerves: Yes CN's II-XII intact bilaterally and Yes Equal, round and reactive pupils present <Teddy Hein MD - Last Filed: 07/09/21 06:10> Cognition (Neuro): normal cognition <Teddy Hein MD - Last Filed: 07/09/21 06:10> Motor exam (neuro): 5/5 motor strength present throughout <Teddy Hein MD - Last Filed: 07/09/21 06:10> Extrem: Other: Patient has multiple track ramirez on both arms, I do not see any obvious cellulitis or abscess formations at this time. The patient feet were tender to palpation, he does have calluses on the feet but no obvious blisters or cellulitis <Teddy Hein MD - Last Filed: 07/09/21 06:10> Psych: Appearance: grossly normal <Teddy Hein MD - Last Filed: 07/09/21 06:10> Speech and movement: Normal speech and movement present <Teddy Hein MD - Last Filed: 07/09/21 06:10> Affect: normal affect <Teddy Hein MD - Last Filed: 07/09/21 06:10> Attitude: cooperative <Teddy Hein MD - Last Filed: 07/09/21 06:10> Thought process: Normal thought process present <Teddy Hein MD - Last Filed: 07/09/21 06:10> Thought content: Suicidality present and no homicidality <Teddy Hein MD - Last Filed: 07/09/21 06:10> Course Course Course Narrative: 31-year-old male with a history polysubstance abuse, homelessness who presents emergency department stating that he tried to kill himself twice today by overdosing and injecting when neck is into his arms. Patient also complains of blisters on his feet. Initial vital signs were normal. Physical examination did reveal track ramirez on his arms and he does have tenderness to palpation of his feet but no obvious cellulitis. The patient's blisters are most likely secondary to him being homeless. Following tests were ordered: CBC, BMP, liver panel, drug screen urine, urinalysis, magnesium, acetaminophen salicylate alcohol levels, PT INR, COVID-19. 0608: Laboratory evaluation: Patient has anemia with an H&H of 9.3 and 29.7 with a low MCV. This is most likely secondary to malnutrition and iron deficiency. PT/INR was normal. CMP revealed an elevated BUN of 20 otherwise was unremarkable. Urinalysis was negative. Urine tox screen was positive for opiates, fentanyl and cocaine. Salicylate, acetaminophen and alcohol levels were below detectable limits. COVID-19 was negative. Patient was medically cleared and a N consult was ordered. <Teddy Hein MD - Last Filed: 07/09/21 06:10> Reevaluation(s) Reevaluation #1: Physician observation started at 6:08am. Patient placed in physician observation because patient is awaiting [facility] evaluation for the possible need of inpatient psych admission. At the time observation was started patient's vital signs were stable. Patient is alert. Neuro exam is difficult to assess, patient not cooperative. CV: RRR and lungs are clear. Will continue to monitor. <LYN Gutierrez - Last Filed: 07/09/21 10:59> Reevaluation #2: 9 am - Physician observation continued. [facility] went in to evaluate the patient and he became agitated. He yelled and cursed at them that he did not want to talk right. They will try again later. Will continue to monitor. <LYN Gutierrez - Last Filed: 07/09/21 10:59> MDM - Psych Lab Data Result diagrams: : 07/09/21 05:24 07/09/21 05:24 <Teddy Hein MD - Last Filed: 07/09/21 06:10> Labs: Lab Results 07/09/21 07/09/21 07/09/21 Range/Units 04:38 04:38 04:38 WBC (4.8-10.8) X10*3/uL RBC (4.60-5.80) X10*6/uL Hgb (14.0-18.0) g/dl Hct (42.0-52.0) % MCV (80.0-98.0) fL MCH (27.0-33.0) pg MCHC (31.0-36.0) g/dl RDW (11.0-16.0) % Plt Count (160-400) X10*3/uL MPV (9.4-12.4) fL Immature Gran % (Auto) (0.0-0.4) % Neut % (Auto) (45-73) % Lymph % (Auto) (20-40) % [place] % (Auto) (2-11) % Eos % (Auto) (0-4) % Baso % (Auto) (0-2) % Lymph # (Auto) (1.2-4.9) X10*3/uL [place] # (Auto) (0.1-1.2) X10*3/uL Eos # (Auto) (0.0-0.4) X10*3/uL Baso # (Auto) (0.0-0.2) X10*3/uL Abs Immat Gran (auto) (0.00-0.03) X10*3/uL Absolute Neuts (auto) (2.0-8.3) x10*3/uL Absolute Nucleated RBC (0.0-0.012) X10*3/uL Nucleated RBC % (auto) (0.0-0.2) /100WBC PT (9.9-13.0) SEC INR (0.9-1.1) Sodium (135-145) mmol/L Potassium (3.3-5.1) mmol/L Chloride (96-108) mmol/L Carbon Dioxide (22-29) mmol/L Anion Gap (12-20) BUN (9-16) mg/dL Creatinine (0.5-1.4) mg/dL Estim Creat Clear Calc Estimated GFR Random Glucose (60-115) mg/dL Calcium (8.4-10.2) mg/dL Magnesium (1.6-2.6) mg/dL Total Bilirubin (0.0-1.0) mg/dL Direct Bilirubin (0.0-0.5) mg/dL AST (5-37) U/L ALT (0-40) U/L Alkaline Phosphatase (39-117) U/L Total Protein (6.5-8.0) g/dL Albumin (3.5-5.0) g/dL Urine Color YELLOW Urine Appearance CLEAR Urine pH 7.0 (5.0-8.0) Ur Specific [place] 1.020 (1.005-1.025) Urine Protein NEG (NEG-TRACE) MG/DL Urine Glucose (UA) NEG (NEG) MG/DL Urine Ketones NEG (NEG) MG/DL Urine Blood NEG (NEG) Urine Nitrite NEG (NEG) Ur Leukocyte Esterase NEG (NEG) Salicylates (15-30) mg/dL Urine Opiates Screen POSITIVE H (Not Detect) Urine Fentanyl Screen POSITIVE H (Not Detect) Acetaminophen (<30) mcg/mL Ur Barbiturates Screen Not Detected (Not Detect) Ur Phencyclidine Scrn Not Detected (Not Detect) Ur Amphetamines Screen Not Detected (Not Detect) U Benzodiazepines Scrn Not Detected (Not Detect) Urine Cocaine Screen POSITIVE H (Not Detect) U Marijuana (THC) Screen Not Detected (Not Detect) Ethyl Alcohol mg/dL COVID-19 (NAKUL) Negative (Negative) COVID-19 Clin Com See Note 07/09/21 07/09/21 07/09/21 Range/Units 05:24 05:24 05:24 WBC 6.8 (4.8-10.8) X10*3/uL RBC 3.84 L (4.60-5.80) X10*6/uL Hgb 9.3 L (14.0-18.0) g/dl Hct 29.6 L (42.0-52.0) % MCV 77.1 L (80.0-98.0) fL MCH 24.2 L (27.0-33.0) pg MCHC 31.4 (31.0-36.0) g/dl RDW 13.7 (11.0-16.0) % Plt Count 366 (160-400) X10*3/uL MPV 9.5 (9.4-12.4) fL Immature Gran % (Auto) 0.3 (0.0-0.4) % Neut % (Auto) 56.4 (45-73) % Lymph % (Auto) 30.4 (20-40) % [place] % (Auto) 7.9 (2-11) % Eos % (Auto) 4.4 H (0-4) % Baso % (Auto) 0.6 (0-2) % Lymph # (Auto) 2.1 (1.2-4.9) X10*3/uL [place] # (Auto) 0.5 (0.1-1.2) X10*3/uL Eos # (Auto) 0.3 (0.0-0.4) X10*3/uL Baso # (Auto) 0.0 (0.0-0.2) X10*3/uL Abs Immat Gran (auto) 0.02 (0.00-0.03) X10*3/uL Absolute Neuts (auto) 3.9 (2.0-8.3) x10*3/uL Absolute Nucleated RBC 0.000 (0.0-0.012) X10*3/uL Nucleated RBC % (auto) 0.0 (0.0-0.2) /100WBC PT (9.9-13.0) SEC INR (0.9-1.1) Sodium 139 (135-145) mmol/L Potassium 3.7 (3.3-5.1) mmol/L Chloride 107 (96-108) mmol/L Carbon Dioxide 24 (22-29) mmol/L Anion Gap 12 (12-20) BUN 20 H (9-16) mg/dL Creatinine 1.03 (0.5-1.4) mg/dL Estim Creat Clear Calc 113.6 Estimated GFR > 60 Random Glucose 113 D (60-115) mg/dL Calcium 8.7 (8.4-10.2) mg/dL Magnesium 2.1 (1.6-2.6) mg/dL Total Bilirubin 0.2 (0.0-1.0) mg/dL Direct Bilirubin < 0.2 (0.0-0.5) mg/dL AST 29 (5-37) U/L ALT 27 (0-40) U/L Alkaline Phosphatase 84 (39-117) U/L Total Protein 7.2 (6.5-8.0) g/dL Albumin 3.6 (3.5-5.0) g/dL Urine Color Urine Appearance Urine pH (5.0-8.0) Ur Specific [place] (1.005-1.025) Urine Protein (NEG-TRACE) MG/DL Urine Glucose (UA) (NEG) MG/DL Urine Ketones (NEG) MG/DL Urine Blood (NEG) Urine Nitrite (NEG) Ur Leukocyte Esterase (NEG) Salicylates < 5.0 L (15-30) mg/dL Urine Opiates Screen (Not Detect) Urine Fentanyl Screen (Not Detect) Acetaminophen < 1 (<30) mcg/mL Ur Barbiturates Screen (Not Detect) Ur Phencyclidine Scrn (Not Detect) Ur Amphetamines Screen (Not Detect) U Benzodiazepines Scrn (Not Detect) Urine Cocaine Screen (Not Detect) U Marijuana (THC) Screen (Not Detect) Ethyl Alcohol < 10 mg/dL COVID-19 (NAKUL) (Negative) COVID-19 Clin Com 07/09/21 Range/Units 05:24 WBC (4.8-10.8) X10*3/uL RBC (4.60-5.80) X10*6/uL Hgb (14.0-18.0) g/dl Hct (42.0-52.0) % MCV (80.0-98.0) fL MCH (27.0-33.0) pg MCHC (31.0-36.0) g/dl RDW (11.0-16.0) % Plt Count (160-400) X10*3/uL MPV (9.4-12.4) fL Immature Gran % (Auto) (0.0-0.4) % Neut % (Auto) (45-73) % Lymph % (Auto) (20-40) % [place] % (Auto) (2-11) % Eos % (Auto) (0-4) % Baso % (Auto) (0-2) % Lymph # (Auto) (1.2-4.9) X10*3/uL [place] # (Auto) (0.1-1.2) X10*3/uL Eos # (Auto) (0.0-0.4) X10*3/uL Baso # (Auto) (0.0-0.2) X10*3/uL Abs Immat Gran (auto) (0.00-0.03) X10*3/uL Absolute Neuts (auto) (2.0-8.3) x10*3/uL Absolute Nucleated RBC (0.0-0.012) X10*3/uL Nucleated RBC % (auto) (0.0-0.2) /100WBC PT 11.7 (9.9-13.0) SEC INR 1.0 (0.9-1.1) Sodium (135-145) mmol/L Potassium (3.3-5.1) mmol/L Chloride (96-108) mmol/L Carbon Dioxide (22-29) mmol/L Anion Gap (12-20) BUN (9-16) mg/dL Creatinine (0.5-1.4) mg/dL Estim Creat Clear Calc Estimated GFR Random Glucose (60-115) mg/dL Calcium (8.4-10.2) mg/dL Magnesium (1.6-2.6) mg/dL Total Bilirubin (0.0-1.0) mg/dL Direct Bilirubin (0.0-0.5) mg/dL AST (5-37) U/L ALT (0-40) U/L Alkaline Phosphatase (39-117) U/L Total Protein (6.5-8.0) g/dL Albumin (3.5-5.0) g/dL Urine Color Urine Appearance Urine pH (5.0-8.0) Ur Specific [place] (1.005-1.025) Urine Protein (NEG-TRACE) MG/DL Urine Glucose (UA) (NEG) MG/DL Urine Ketones (NEG) MG/DL Urine Blood (NEG) Urine Nitrite (NEG) Ur Leukocyte Esterase (NEG) Salicylates (15-30) mg/dL Urine Opiates Screen (Not Detect) Urine Fentanyl Screen (Not Detect) Acetaminophen (<30) mcg/mL Ur Barbiturates Screen (Not Detect) Ur Phencyclidine Scrn (Not Detect) Ur Amphetamines Screen (Not Detect) U Benzodiazepines Scrn (Not Detect) Urine Cocaine Screen (Not Detect) U Marijuana (THC) Screen (Not Detect) Ethyl Alcohol mg/dL COVID-19 (NAKUL) (Negative) COVID-19 Clin Com <Teddy Hein MD - Last Filed: 07/09/21 06:10> Lab Results 07/09/21 07/09/21 07/09/21 Range/Units 04:38 04:38 04:38 WBC (4.8-10.8) X10*3/uL RBC (4.60-5.80) X10*6/uL Hgb (14.0-18.0) g/dl Hct (42.0-52.0) % MCV (80.0-98.0) fL MCH (27.0-33.0) pg MCHC (31.0-36.0) g/dl RDW (11.0-16.0) % Plt Count (160-400) X10*3/uL MPV (9.4-12.4) fL Immature Gran % (Auto) (0.0-0.4) % Neut % (Auto) (45-73) % Lymph % (Auto) (20-40) % [place] % (Auto) (2-11) % Eos % (Auto) (0-4) % Baso % (Auto) (0-2) % Lymph # (Auto) (1.2-4.9) X10*3/uL [place] # (Auto) (0.1-1.2) X10*3/uL Eos # (Auto) (0.0-0.4) X10*3/uL Baso # (Auto) (0.0-0.2) X10*3/uL Abs Immat Gran (auto) (0.00-0.03) X10*3/uL Absolute Neuts (auto) (2.0-8.3) x10*3/uL Absolute Nucleated RBC (0.0-0.012) X10*3/uL Nucleated RBC % (auto) (0.0-0.2) /100WBC PT (9.9-13.0) SEC INR (0.9-1.1) Sodium (135-145) mmol/L Potassium (3.3-5.1) mmol/L Chloride (96-108) mmol/L Carbon Dioxide (22-29) mmol/L Anion Gap (12-20) BUN (9-16) mg/dL Creatinine (0.5-1.4) mg/dL Estim Creat Clear Calc Estimated GFR Random Glucose (60-115) mg/dL Calcium (8.4-10.2) mg/dL Magnesium (1.6-2.6) mg/dL Total Bilirubin (0.0-1.0) mg/dL Direct Bilirubin (0.0-0.5) mg/dL AST (5-37) U/L ALT (0-40) U/L Alkaline Phosphatase (39-117) U/L Total Protein (6.5-8.0) g/dL Albumin (3.5-5.0) g/dL Urine Color YELLOW Urine Appearance CLEAR Urine pH 7.0 (5.0-8.0) Ur Specific [place] 1.020 (1.005-1.025) Urine Protein NEG (NEG-TRACE) MG/DL Urine Glucose (UA) NEG (NEG) MG/DL Urine Ketones NEG (NEG) MG/DL Urine Blood NEG (NEG) Urine Nitrite NEG (NEG) Ur Leukocyte Esterase NEG (NEG) Salicylates (15-30) mg/dL Urine Opiates Screen POSITIVE H (Not Detect) Urine Fentanyl Screen POSITIVE H (Not Detect) Acetaminophen (<30) mcg/mL Ur Barbiturates Screen Not Detected (Not Detect) Ur Phencyclidine Scrn Not Detected (Not Detect) Ur Amphetamines Screen Not Detected (Not Detect) U Benzodiazepines Scrn Not Detected (Not Detect) Urine Cocaine Screen POSITIVE H (Not Detect) U Marijuana (THC) Screen Not Detected (Not Detect) Ethyl Alcohol mg/dL COVID-19 (NAKUL) Negative (Negative) COVID-19 Clin Com See Note 07/09/21 07/09/21 07/09/21 Range/Units 05:24 05:24 05:24 WBC 6.8 (4.8-10.8) X10*3/uL RBC 3.84 L (4.60-5.80) X10*6/uL Hgb 9.3 L (14.0-18.0) g/dl Hct 29.6 L (42.0-52.0) % MCV 77.1 L (80.0-98.0) fL MCH 24.2 L (27.0-33.0) pg MCHC 31.4 (31.0-36.0) g/dl RDW 13.7 (11.0-16.0) % Plt Count 366 (160-400) X10*3/uL MPV 9.5 (9.4-12.4) fL Immature Gran % (Auto) 0.3 (0.0-0.4) % Neut % (Auto) 56.4 (45-73) % Lymph % (Auto) 30.4 (20-40) % [place] % (Auto) 7.9 (2-11) % Eos % (Auto) 4.4 H (0-4) % Baso % (Auto) 0.6 (0-2) % Lymph # (Auto) 2.1 (1.2-4.9) X10*3/uL [place] # (Auto) 0.5 (0.1-1.2) X10*3/uL Eos # (Auto) 0.3 (0.0-0.4) X10*3/uL Baso # (Auto) 0.0 (0.0-0.2) X10*3/uL Abs Immat Gran (auto) 0.02 (0.00-0.03) X10*3/uL Absolute Neuts (auto) 3.9 (2.0-8.3) x10*3/uL Absolute Nucleated RBC 0.000 (0.0-0.012) X10*3/uL Nucleated RBC % (auto) 0.0 (0.0-0.2) /100WBC PT (9.9-13.0) SEC INR (0.9-1.1) Sodium 139 (135-145) mmol/L Potassium 3.7 (3.3-5.1) mmol/L Chloride 107 (96-108) mmol/L Carbon Dioxide 24 (22-29) mmol/L Anion Gap 12 (12-20) BUN 20 H (9-16) mg/dL Creatinine 1.03 (0.5-1.4) mg/dL Estim Creat Clear Calc 113.6 Estimated GFR > 60 Random Glucose 113 D (60-115) mg/dL Calcium 8.7 (8.4-10.2) mg/dL Magnesium 2.1 (1.6-2.6) mg/dL Total Bilirubin 0.2 (0.0-1.0) mg/dL Direct Bilirubin < 0.2 (0.0-0.5) mg/dL AST 29 (5-37) U/L ALT 27 (0-40) U/L Alkaline Phosphatase 84 (39-117) U/L Total Protein 7.2 (6.5-8.0) g/dL Albumin 3.6 (3.5-5.0) g/dL Urine Color Urine Appearance Urine pH (5.0-8.0) Ur Specific [place] (1.005-1.025) Urine Protein (NEG-TRACE) MG/DL Urine Glucose (UA) (NEG) MG/DL Urine Ketones (NEG) MG/DL Urine Blood (NEG) Urine Nitrite (NEG) Ur Leukocyte Esterase (NEG) Salicylates < 5.0 L (15-30) mg/dL Urine Opiates Screen (Not Detect) Urine Fentanyl Screen (Not Detect) Acetaminophen < 1 (<30) mcg/mL Ur Barbiturates Screen (Not Detect) Ur Phencyclidine Scrn (Not Detect) Ur Amphetamines Screen (Not Detect) U Benzodiazepines Scrn (Not Detect) Urine Cocaine Screen (Not Detect) U Marijuana (THC) Screen (Not Detect) Ethyl Alcohol < 10 mg/dL COVID-19 (NAKUL) (Negative) COVID-19 Clin Com 07/09/21 Range/Units 05:24 WBC (4.8-10.8) X10*3/uL RBC (4.60-5.80) X10*6/uL Hgb (14.0-18.0) g/dl Hct (42.0-52.0) % MCV (80.0-98.0) fL MCH (27.0-33.0) pg MCHC (31.0-36.0) g/dl RDW (11.0-16.0) % Plt Count (160-400) X10*3/uL MPV (9.4-12.4) fL Immature Gran % (Auto) (0.0-0.4) % Neut % (Auto) (45-73) % Lymph % (Auto) (20-40) % [place] % (Auto) (2-11) % Eos % (Auto) (0-4) % Baso % (Auto) (0-2) % Lymph # (Auto) (1.2-4.9) X10*3/uL [place] # (Auto) (0.1-1.2) X10*3/uL Eos # (Auto) (0.0-0.4) X10*3/uL Baso # (Auto) (0.0-0.2) X10*3/uL Abs Immat Gran (auto) (0.00-0.03) X10*3/uL Absolute Neuts (auto) (2.0-8.3) x10*3/uL Absolute Nucleated RBC (0.0-0.012) X10*3/uL Nucleated RBC % (auto) (0.0-0.2) /100WBC PT 11.7 (9.9-13.0) SEC INR 1.0 (0.9-1.1) Sodium (135-145) mmol/L Potassium (3.3-5.1) mmol/L Chloride (96-108) mmol/L Carbon Dioxide (22-29) mmol/L Anion Gap (12-20) BUN (9-16) mg/dL Creatinine (0.5-1.4) mg/dL Estim Creat Clear Calc Estimated GFR Random Glucose (60-115) mg/dL Calcium (8.4-10.2) mg/dL Magnesium (1.6-2.6) mg/dL Total Bilirubin (0.0-1.0) mg/dL Direct Bilirubin (0.0-0.5) mg/dL AST (5-37) U/L ALT (0-40) U/L Alkaline Phosphatase (39-117) U/L Total Protein (6.5-8.0) g/dL Albumin (3.5-5.0) g/dL Urine Color Urine Appearance Urine pH (5.0-8.0) Ur Specific [place] (1.005-1.025) Urine Protein (NEG-TRACE) MG/DL Urine Glucose (UA) (NEG) MG/DL Urine Ketones (NEG) MG/DL Urine Blood (NEG) Urine Nitrite (NEG) Ur Leukocyte Esterase (NEG) Salicylates (15-30) mg/dL Urine Opiates Screen (Not Detect) Urine Fentanyl Screen (Not Detect) Acetaminophen (<30) mcg/mL Ur Barbiturates Screen (Not Detect) Ur Phencyclidine Scrn (Not Detect) Ur Amphetamines Screen (Not Detect) U Benzodiazepines Scrn (Not Detect) Urine Cocaine Screen (Not Detect) U Marijuana (THC) Screen (Not Detect) Ethyl Alcohol mg/dL COVID-19 ([facility]) (Negative) COVID-19 Clin Com <LYN Gutierrez - Last Filed: 07/09/21 10:59> Discharge Plan Discharge Clinical Impression: Suicidal ideation <Teddy Hein MD - Last Filed: 07/09/21 06:10> Prescriptions: No Action No Known Home Meds RF: 0 <Teddy Hein MD - Last Filed: 07/09/21 06:10>
--- NOTE | 2021-07-09 06:35 | PC.NURSE ---
Patient is currently in bed appears sleeping, no distress observed/reported, gait slow due to blister on left foot from wandering (homeless), behavior appropriate and cooperative, patient is currently not on medication, [facility] referral completed and confirmed and patient will be screened in the morning, VS at S, will continue to monitor.
--- NOTE | 2021-07-09 07:24 | PC.NURSE ---
patient appears to reamain asleep at present, respirations are even and unlabored, patient appears in no distress
--- NOTE | 2021-07-09 08:53 | PC.NURSE ---
attempted to wake client for bhn assessment, brought tea for client and client attempted to stop t/w's behavior by swearing and raising his voice, t/w and [facility] staff exited room after explaining to patient assessment will have to occur later.
[2021-07-09 11:58] VITALS: BP 128/70; PULSE 73; RESP 18; TEMP 36.4; O2SAT 98
--- NOTE | 2021-07-09 18:52 | PC.NURSE ---
client periodically yelling/ speaking loudly out of his room seemingly wanting staff to come to the bedside, came out of room and had said im not going upstairs i was very tired when that lady came to see me-i want some meds for withdrawal t/w conveyed the plan was for him to go inpatient, but did not argue this, just stated the plan.
[2021-07-09 19:50] VITALS: PULSE 87
[2021-07-09] MEDS: Buprenorphine/Naloxone 4/1 mg FILM 1 FILM SUBLINGUAL (19:59)
[2021-07-09 23:13] VITALS: BP 107/52; PULSE 80; RESP 18; TEMP 36.8; O2SAT 100
[2021-07-10] VITALS (9 sets, daily range): BP systolic 99–128; BP diastolic 50–70; PULSE 70–86; RESP 16–18; TEMP 35.9–37.2; O2SAT 96–99
[2021-07-10] MEDS: traZODone HCL 50 MG TABLET PO (00:04)
[2021-07-10] MEDS: cloNIDine HCL 0.1 MG TABLET PO ×3 (00:04→21:01)
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
[2021-07-10] MEDS: hydrOXYzine HCL 25 MG TABLET PO (06:08)
[2021-07-10] MEDS: Acetaminophen 325 MG TABLET 650 MG PO ×3 (06:08→21:01)
[2021-07-10] MEDS: LORazepam 1 MG TABLET PO ×4 (06:08→18:13)
[2021-07-10] MEDS: Buprenorphine/Naloxone 4/1 mg FILM 1 FILM SUBLINGUAL ×2 (13:02→16:20)
--- NOTE | 2021-07-10 15:46 | P.HPPS_ITS ---
HPI Date of Service: 07/10/21 Chief Complaint: Depression, opiate/stimulant use disorder, SI Sources of Information: patient interviewed, chart reviewed and crisis/core team assessment reviewed HPI Subjective Notes: Wilson Warning and Conditional Voluntary Healthcare Proxy: No Guardianship: No Medical Problems Affecting Mental Status: No Narrative: 31 yo male with reported SI with plan. Reports heroin/cocaine overdose with intent to . Pt is detoxing upon arrival to ER. Reports he stopped medications, and is homeless, without work and without hope. Reports sleep and appetite disruption as well. Today, pt is in withdrawal-COWS=11. Seen by addiction team and Suboxone initiated. Pt is a poor historian with tw and is not wanting to meet for any length of time due to withdrawal. Past Psychiatric History: IP: 8 EATS:3 Detox: 7 CSS:4 Trials: Pt could not recall. Per record Prozac, Prazosin Nakul [phone]--nothing on file Per [facility]-Olanzapine, Risperdal, Prazosin, Prozac Medical Evaluation Reviewed: Yes [facility] Medical History (Updated 07/10/21 @ 16:23 by Trinidad Martínez, LEAD SHAREPOINT DEVELOPER) Asthma Cocaine use disorder IVDU (intravenous drug user) Opioid use disorder, severe, dependence Severe recurrent major depression w/psychotic features, mood-congruent Family History: Addiction history, denies mental health history Social History: Born in [place], raised in [place]. Completed eleventh grade. Single, two children, age 7, 4 and is without contact with them No current employment Substance History: alcohol-age 18 cocaine-age 24-daily IV 3+ bags-last use ~ 2.5 months ago heroin-age 22, IV ~3 bundles per day Toxicology + opiates, fentanyl, cocaine Trauma History: Childhood-mother and step father Man he resided with in the past Loss of child's mom in childbirth 2017 Diagnostics Vital Signs (24Hr): Vital Signs - 24 hr 07/09/21 23:13 07/10/21 00:04 07/10/21 02:29 Temperature 98.2 F 97.6 F Pulse Rate 80 73 78 Respiratory Rate 18 18 Blood Pressure 107/52 L 128/70 124/68 Pulse Oximetry 100 97 07/10/21 06:00 07/10/21 11:11 Temperature 96.7 F L Pulse Rate 80 70 Respiratory Rate 18 Blood Pressure 107/54 L 107/58 L Pulse Oximetry 96 BMI result Body Mass Index 31.3 Labs Results: 07/09/21 05:24 07/09/21 05:24 Labs: Laboratory Results - last 48 hr 07/09/21 07/09/21 07/09/21 04:38 04:38 04:38 WBC RBC Hgb Hct MCV MCH MCHC RDW Plt Count MPV Immature Gran % (Auto) Neut % (Auto) Lymph % (Auto) [place] % (Auto) Eos % (Auto) Baso % (Auto) Lymph # (Auto) [place] # (Auto) Eos # (Auto) Baso # (Auto) Abs Immat Gran (auto) Absolute Neuts (auto) Absolute Nucleated RBC Nucleated RBC % (auto) PT INR Sodium Potassium Chloride Carbon Dioxide Anion Gap BUN Creatinine Estim Creat Clear Calc Estimated GFR Random Glucose Calcium Magnesium Total Bilirubin Direct Bilirubin AST ALT Alkaline Phosphatase Total Protein Albumin Urine Color YELLOW Urine Appearance CLEAR Urine pH 7.0 Ur Specific Mcalister 1.020 Urine Protein NEG Urine Glucose (UA) NEG Urine Ketones NEG Urine Blood NEG Urine Nitrite NEG Ur Leukocyte Esterase NEG Salicylates Urine Opiates Screen POSITIVE H Urine Fentanyl Screen POSITIVE H Acetaminophen Ur Barbiturates Screen Not Detected Ur Phencyclidine Scrn Not Detected Ur Amphetamines Screen Not Detected U Benzodiazepines Scrn Not Detected Urine Cocaine Screen POSITIVE H U Marijuana (THC) Screen Not Detected Ethyl Alcohol COVID-19 (NAKUL) Negative COVID-19 Clin Com See Note 07/09/21 07/09/21 07/09/21 05:24 05:24 05:24 WBC 6.8 RBC 3.84 L Hgb 9.3 L Hct 29.6 L MCV 77.1 L MCH 24.2 L MCHC 31.4 RDW 13.7 Plt Count 366 MPV 9.5 Immature Gran % (Auto) 0.3 Neut % (Auto) 56.4 Lymph % (Auto) 30.4 [place] % (Auto) 7.9 Eos % (Auto) 4.4 H Baso % (Auto) 0.6 Lymph # (Auto) 2.1 [place] # (Auto) 0.5 Eos # (Auto) 0.3 Baso # (Auto) 0.0 Abs Immat Gran (auto) 0.02 Absolute Neuts (auto) 3.9 Absolute Nucleated RBC 0.000 Nucleated RBC % (auto) 0.0 PT INR Sodium 139 Potassium 3.7 Chloride 107 Carbon Dioxide 24 Anion Gap 12 BUN 20 H Creatinine 1.03 Estim Creat Clear Calc 113.6 Estimated GFR > 60 Random Glucose 113 D Calcium 8.7 Magnesium 2.1 Total Bilirubin 0.2 Direct Bilirubin < 0.2 AST 29 ALT 27 Alkaline Phosphatase 84 Total Protein 7.2 Albumin 3.6 Urine Color Urine Appearance Urine pH Ur Specific Mcalister Urine Protein Urine Glucose (UA) Urine Ketones Urine Blood Urine Nitrite Ur Leukocyte Esterase Salicylates < 5.0 L Urine Opiates Screen Urine Fentanyl Screen Acetaminophen < 1 Ur Barbiturates Screen Ur Phencyclidine Scrn Ur Amphetamines Screen U Benzodiazepines Scrn Urine Cocaine Screen U Marijuana (THC) Screen Ethyl Alcohol < 10 COVID-19 (NAKUL) COVID-19 [employer] 07/09/21 05:24 WBC RBC Hgb Hct MCV MCH MCHC RDW Plt Count MPV Immature Gran % (Auto) Neut % (Auto) Lymph % (Auto) [place] % (Auto) Eos % (Auto) Baso % (Auto) Lymph # (Auto) [place] # (Auto) Eos # (Auto) Baso # (Auto) Abs Immat Gran (auto) Absolute Neuts (auto) Absolute Nucleated RBC Nucleated RBC % (auto) PT 11.7 INR 1.0 Sodium Potassium Chloride Carbon Dioxide Anion Gap BUN Creatinine Estim Creat Clear Calc Estimated GFR Random Glucose Calcium Magnesium Total Bilirubin Direct Bilirubin AST ALT Alkaline Phosphatase Total Protein Albumin Urine Color Urine Appearance Urine pH Ur Specific Mcalister Urine Protein Urine Glucose (UA) Urine Ketones Urine Blood Urine Nitrite Ur Leukocyte Esterase Salicylates Urine Opiates Screen Urine Fentanyl Screen Acetaminophen Ur Barbiturates Screen Ur Phencyclidine Scrn Ur Amphetamines Screen U Benzodiazepines Scrn Urine Cocaine Screen U Marijuana (THC) Screen Ethyl Alcohol COVID-19 (NAKUL) COVID-19 [employer] Meds/Allergies Meds Home Medications Acetaminophen (Acetaminophen 325 Mg Tablet) 650 mg PO Q6H PRN PRN Reason: Headache/Pain Mild Scale (1-3) Last Admin: 07/10/21 06:08 Dose: 650 mg Documented by: Al Hydroxide/Mg Hydroxide (Magnesium Hydrox/Alum Hydrox 30 Ml Oral.Susp) 30 ml PO Q6H PRN PRN Reason: Heartburn/Nausea Clonidine HCl (Clonidine Hcl 0.1 Mg Tablet) 0.1 mg PO TID PRN; Protocol PRN Reason: withdrawal Last Admin: 07/10/21 11:11 Dose: 0.1 mg Documented by: Haloperidol (Haloperidol 5 Mg Tablet) 5 mg PO TID PRN PRN Reason: agitation Hydroxyzine HCl (Hydroxyzine Hcl 25 Mg Tablet) 25 mg PO BEDTIME PRN PRN Reason: Anxiety Last Admin: 07/10/21 06:08 Dose: 25 mg Documented by: Lorazepam (Lorazepam 1 Mg Tablet) 1 mg PO Q4H PRN PRN Reason: withdrawal, agitation Last Admin: 07/10/21 11:14 Dose: 1 mg Documented by: Magnesium Hydroxide (Milk Of Magnesia 30 Ml Oral.Susp) 30 ml PO DAILY PRN PRN Reason: Constipation Trazodone HCl (Trazodone Hcl 50 Mg Tablet) 50 mg PO BEDTIME PRN PRN Reason: Insomnia Last Admin: 07/10/21 00:04 Dose: 50 mg Documented by: Allergies Allergies Allergy/AdvReac Type Severity Reaction Status Date / Time shrimp [SHRIMP] Allergy Intermediate Swelling Verified 07/09/21 04:24 Mental Status Exam Mental Status Exam Patient Appearance: Fatigued, Disheveled and Unkempt Patient Orientation: Person, Place, Time and Situation Level of Consciousness: Drowsy and Sedated Patient Behavior: Dependent, Passive, Sedated, Avoidant, Fatigued, Distractible, Isolative and Poor Eye Contact Mood Description: Flat Affect Description: Flat Patient Cognition Impaired: Yes Ability to Follow Directions: Fair Speech Pattern: Spontaneous Speech Memory Description: Remote Impaired and Episodic Impaired Hallucinations: Auditory (???) Thought Process: Slowed Thinking Thought Content: positive for Slowed Thinking and positive for Suicidal Ideation Depressive Symptoms: Thoughts of /Suicide Judgement: Poor Assessment & Plan Assessment & Plan (1) Severe recurrent major depression w/psychotic features, mood-congruent: Status: Acute Code(s): F33.3 - Major depressive disorder, recurrent, severe with psychotic symptoms (2) Opioid use disorder, severe, dependence: Status: Acute Code(s): F11.20 - Opioid dependence, uncomplicated (3) Cocaine use disorder: Status: Acute Code(s): F14.10 - Cocaine abuse, uncomplicated Assessment and Plan: 31 yo male reporting SI with plans. Pt has been overtaking heroin and cocaine in an attempt to end his life. He has stopped medications and identifies homelessness and inability to find work as stressors. Pt in active withdrawal. Plan: Addiction consult-Suboxone initiated COWS Risperdal 1 mg HS (used by history) Labs- A1c, Lipids, TSH, B12, Folate, T4 Collateral contacts Informed Consent: further education needed Reason for continued inpatient stay Substantial Risk for: harm to self, inability to function, rapid decompensation and med/psych decompensation
--- NOTE | 2021-07-10 18:12 | PM.EVENT ---
Event Note Date of Service: 07/10/21 Event Note: Addiction consult placed due to opioid withdrawals. COWS score 11. Attempted to meet with patient, but he had received lorazepam approximately 20 minutes before I met with him, and I was unable to complete full consult. He was resting in bed, with covers wrapped around him, lying on side. Withdrawal sx observed included restless legs, diaphoresis. Per chart review, Substance History: alcohol-age 18 cocaine-age 24-daily IV 3+ bags-last use ~ 2.5 months ago heroin-age 22, IV ~3 bundles per day Toxicology + opiates, fentanyl, cocaine Patient had received suboxone 4mg-1mg sl yesterday in ED, with positive effect for withdrawal management. PLAN: Order suboxone 4mg-1mg sl for now, with additional 4mg-1mg sl at 1600. Addiction consult service will see patient tomorrow, for further assessment and treatment.
[2021-07-10] MEDS: risperiDONE 1 MG TABLET PO (21:02)
[2021-07-11] MEDS: Acetaminophen 325 MG TABLET 650 MG PO (08:43)
[2021-07-11 08:45] VITALS: BP 112/62; PULSE 83
[2021-07-11] MEDS: cloNIDine HCL 0.1 MG TABLET PO ×2 (08:45→16:34)
[2021-07-11 09:10] LABS: Estimated Average Glucose 105 mg/dL; Hemoglobin A1c % 5.3 %
[2021-07-11 09:12] LABS: Cholesterol 179 mg/dL; HDL Cholesterol 51 mg/dL; LDL Cholesterol Calculated 95 mg/dl; Triglycerides 165 mg/dL
[2021-07-11 09:32] LABS: TSH reflex Free T4 0.42 uIU/mL (0.32-4.0); Thyroid Stimulating Hormone 0.41 uIU/mL (0.32-4.0)
[2021-07-11 09:47] LABS: Folate 14.2 ng/mL (> or = 4.0); Vitamin B12 196 pg/mL (200-900)
[2021-07-11] MEDS: Buprenorphine/Naloxone 8/2 mg FILM 1 FILM SUBLINGUAL ×2 (11:00→20:00)
--- NOTE | 2021-07-11 12:44 | HO.ADDICT_ITS ---
History of Present Illness Date of Service: 07/11/2021 Chief Complaint: Depression, opiate/stimulant use disorder, SI Reason for Consult: OUD eval and treatment Requesting physician: Trinidad Martínez Discussed with referring provider: No Sources of Information: patient interviewed and chart reviewed HPI Narrative: Patient is a 31 year old male who is currently psychiatrically admitted after presenting to [facility] with suicidal ideation and plan to overdose on heroin. Dx of OUD, cocaine use disorder and MDD Started on Suboxone yesterday by [facility]--unable to obtain full history due to patient's withdrawal sx. Received total of 8mg suboxone yesterday (07/10) Patient seen today by this senior writer and RSRN. Recieved 8mg Suboxone in the morning and reports significant improvement in symptoms. States he us currently using approximately a half pack of heroin daily IV Has been using since age 23. History of both methadone and buprenorphine. Longest period in recovery reported as being 2 years while on methadone Several ATS admissions Reports one opioid overdose Reports occasional cocaine use Denies ETOH or any other substance use Denies family history of addiciton Lives alone. Works fulltime at [employer] Identifies family and girlfriends as his main supports familiar with recovery supports an ow to access--previously a member of [facility]. Past Psychiatric History: IP: 8 EATS:3 Detox: 7 CSS:4 Trials: Pt could not recall. Per record Prozac, Prazosin Nakul [phone]--nothing on file Per [facility]-Olanzapine, Risperdal, Prazosin, Prozac Review of Systems Constitutional: Reports body ache(s) and Reports malaise Comments: restlessness Gastrointestinal: Denies loose stools and Denies nausea Psychiatric: Reports anxiety, Reports depression and Reports anhedonia Diagnostics Vital Signs (24Hr): Vital Signs - 24 hr 07/10/21 16:00 07/10/21 18:11 07/10/21 20:52 Temperature 98.3 F 98.8 F 99.0 F Pulse Rate 86 83 76 Respiratory Rate 17 16 17 Blood Pressure 99/50 L 109/52 L 120/63 Pulse Oximetry 99 98 99 07/10/21 21:01 07/11/21 08:45 Temperature Pulse Rate 79 83 Respiratory Rate Blood Pressure 120/63 112/62 Pulse Oximetry BMI result Body Mass Index 31.3 Labs Results: 07/09/21 05:24 07/09/21 05:24 Labs: Laboratory Results - last 48 hr 07/11/21 07/11/21 07/11/21 08:23 08:23 08:23 Estimat Average Glucose 105 Hemoglobin A1c % 5.3 Triglycerides 165 Cholesterol 179 LDL Cholesterol, Calc 95 HDL Cholesterol 51 Vitamin B12 196 L Folate 14.2 TSH 0.41 07/11/21 08:23 Estimat Average Glucose Hemoglobin A1c % Triglycerides Cholesterol LDL Cholesterol, Calc HDL Cholesterol Vitamin B12 Folate TSH 0.42 Mental Status Exam Mental Status Exam Patient Appearance: Appropriate (laying in bed) Patient Orientation: Person, Place, Time and Situation Level of Consciousness: Awake and Appropriate Patient Behavior: Appropriate Mood Description: Calm Affect Description: Blunted Patient Cognition Impaired: No Speech Pattern: Clear Thought Process: Goal Oriented Thought Content: positive for Goal Oriented Judgement: Fair Medications Medications Current Medications Acetaminophen (Acetaminophen 325 Mg Tablet) 650 mg PO Q6H PRN PRN Reason: Headache/Pain Mild Scale (1-3) Last Admin: 07/11/21 08:43 Dose: 650 mg Documented by: Al Hydroxide/Mg Hydroxide (Magnesium Hydrox/Alum Hydrox 30 Ml Oral.Susp) 30 ml PO Q6H PRN PRN Reason: Heartburn/Nausea Buprenorphine/Naloxone (Buprenorphine/Naloxone 8/2 Mg Film) 1 film SUBLINGUAL BID [facility] Last Admin: 07/11/21 11:00 Dose: 1 film Documented by: Clonidine HCl (Clonidine Hcl 0.1 Mg Tablet) 0.1 mg PO TID PRN; Protocol PRN Reason: withdrawal Last Admin: 07/11/21 08:45 Dose: 0.1 mg Documented by: Haloperidol (Haloperidol 5 Mg Tablet) 5 mg PO TID PRN PRN Reason: agitation Hydroxyzine HCl (Hydroxyzine Hcl 25 Mg Tablet) 25 mg PO BEDTIME PRN PRN Reason: Anxiety Last Admin: 07/10/21 06:08 Dose: 25 mg Documented by: Lorazepam (Lorazepam 1 Mg Tablet) 1 mg PO Q4H PRN PRN Reason: withdrawal, agitation Last Admin: 07/10/21 18:13 Dose: 1 mg Documented by: Magnesium Hydroxide (Milk Of Magnesia 30 Ml Oral.Susp) 30 ml PO DAILY PRN PRN Reason: Constipation Risperidone (Risperidone 1 Mg Tablet) 1 mg PO BEDTIME ADRIÁN Last Admin: 07/10/21 21:02 Dose: 1 mg Documented by: Trazodone HCl (Trazodone Hcl 50 Mg Tablet) 50 mg PO BEDTIME PRN PRN Reason: Insomnia Last Admin: 07/10/21 00:04 Dose: 50 mg Documented by: Allergies Allergies Allergy/AdvReac Type Severity Reaction Status Date / Time shrimp [SHRIMP] Allergy Intermediate Swelling Verified 07/09/21 04:24 Assessment & Plan Assessment & Plan (1) Opioid use disorder, severe, dependence: Status: Acute Code(s): F11.20 - Opioid dependence, uncomplicated Assessment and Plan: * suboxone increased to 8mg BID * Patient would like to continue treatment outpatient--SW to coordinate appt at discharge * Consider Hepatitis and HIV with next lab draw I spent ____40__ minutes with the patient and/or on the patient floor today, greater than?50% of which was spent counseling/coordinating care. [facility] Past Medical History Medical History (Updated 07/10/21 @ 16:23 by Trinidad Martínez APRN) Asthma Cocaine use disorder IVDU (intravenous drug user) Opioid use disorder, severe, dependence Severe recurrent major depression w/psychotic features, mood-congruent Social History Social History Household Members: Other Household Members Other:: lives in a fci Housing: Homeless Do you presently have visiting nurse or other home services: No Unable to assess alcohol history related to: Unknown Alcohol intake: current Alcohol intake frequency: holidays/special occasions only Patient Tobacco Use Status: Tobacco use Unknown Use of substances other than those prescribed or required for medical reasons: Yes Substance Use Type: Crack/Cocaine, Heroin and Opiates Substance Use Type Other:: Tests positive Opiates, Fentanyl, Cocaine Substance Use Frequency: Chronic Longstanding Last Used Substance: Just Prior to Admission Currently Displaying Signs/Symptoms of Drug Intoxication Withdrawal: Yes Any prior treatment program specific to substance use: Yes (Several EATS and Detox admins 2018 - 2018) Advance Directives: No Advance Directives Information Provided: No (declined) Advance Directives on File: No Do you have thoughts of harming others: None Do you have a plan to hurt others: No Plan Recently lost weight without trying: Yes How much weight loss: Unsure Eating poorly because of decreased appetite: No Nutrition screen score: 4 Nutrition Risks: Poor intake 0-25% >4 days Poor oral hygiene: Yes service: No Current occupational status: unemployed Sexual orientation: Did not discuss
--- NOTE | 2021-07-11 12:50 | PC.NURSE ---
Pt reports he smokes one pack of cigarettes daily, declines Nicotine patch, requesting Nicotine gum. Pt declined flu vaccine
[2021-07-11 13:17] LABS: COVID-19 Test Negative (Negative); IDNOW Serial# 9DD0AD1C
[2021-07-11 16:00] VITALS: PULSE 104
[2021-07-11 16:30] VITALS: BP 118/65; PULSE 104; TEMP 36.9
[2021-07-11] MEDS: LORazepam 1 MG TABLET PO (16:33)
[2021-07-11] MEDS: HaloperidoL 5 MG TABLET PO (16:33)
[2021-07-11 16:34] VITALS: BP 118/65; PULSE 104
--- NOTE | 2021-07-11 16:35 | P.PNPSI_ITS ---
Subjective Subjective Date of Service: 07/11/21 Reason For Visit: Depression, opiate/stimulant use disorder, SI Subjective Notes: Conditional Voluntary Interim History: Pt reports feeling improved. Suboxone initiated by addictions team. Pt plans to attend comprehensive care clinic. Pt reports yesterday was just gone-I felt terrible-today I am ready to leave. 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 Pt reports he will not have an ID for 2 weeks and asks if this will effect his ability to continue with Suboxone. Pt asks for discharge-wanting to return to work tomorrow-states he works for [employer], loves his job and wants to get back on track with his schedule. Medication Compliance: Yes Side effects from medications: No Attending Groups: No Review of Systems Acute medical concerns: No Medical Review of Systems: unchanged Review of Systems Psychiatric: Reports no additional psychiatric complaints Mental Status Exam Mental Status Exam Patient Appearance: Appropriate Patient Orientation: Person, Place, Time and Situation Level of Consciousness: Alert Patient Behavior: Talkative, Cooperative and Good Eye Contact Mood Description: Calm Affect Description: Calm Patient Cognition Impaired: No Ability to Follow Directions: Good Speech Pattern: Spontaneous Speech Memory Description: Intact Hallucinations: None Delusions: Not Present Thought Process: Goal Oriented Thought Content: positive for Goal Oriented Judgement: Good Diagnostics Vital Signs (24Hr): Vital Signs - 24 hr 07/10/21 18:11 07/10/21 20:52 07/10/21 21:01 Temperature 98.8 F 99.0 F Pulse Rate 83 76 79 Respiratory Rate 16 17 Blood Pressure 109/52 L 120/63 120/63 Pulse Oximetry 98 99 07/11/21 08:45 Temperature Pulse Rate 83 Respiratory Rate Blood Pressure 112/62 Pulse Oximetry BMI result Body Mass Index 31.3 Labs Results: 07/09/21 05:24 07/09/21 05:24 Labs: Laboratory Results - last 48 hr 07/11/21 07/11/21 07/11/21 08:23 08:23 08:23 Estimat Average Glucose 105 Hemoglobin A1c % 5.3 Triglycerides 165 Cholesterol 179 LDL Cholesterol, Calc 95 HDL Cholesterol 51 Vitamin B12 196 L Folate 14.2 TSH 0.41 COVID-19 (NAKUL) COVID-19 Clin Com 07/11/21 07/11/21 08:23 12:30 Estimat Average Glucose Hemoglobin A1c % Triglycerides Cholesterol LDL Cholesterol, Calc HDL Cholesterol Vitamin B12 Folate TSH 0.42 COVID-19 (NAKUL) Negative COVID-19 Clin Com See Note Medications Medications Current Medications Acetaminophen (Acetaminophen 325 Mg Tablet) 650 mg PO Q6H PRN PRN Reason: Headache/Pain Mild Scale (1-3) Last Admin: 07/11/21 08:43 Dose: 650 mg Documented by: Al Hydroxide/Mg Hydroxide (Magnesium Hydrox/Alum Hydrox 30 Ml Oral.Susp) 30 ml PO Q6H PRN PRN Reason: Heartburn/Nausea Buprenorphine/Naloxone (Buprenorphine/Naloxone 8/2 Mg Film) 1 film SUBLINGUAL BID ADRIÁN Last Admin: 07/11/21 11:00 Dose: 1 film Documented by: Clonidine HCl (Clonidine Hcl 0.1 Mg Tablet) 0.1 mg PO TID PRN; Protocol PRN Reason: withdrawal Last Admin: 07/11/21 08:45 Dose: 0.1 mg Documented by: Haloperidol (Haloperidol 5 Mg Tablet) 5 mg PO TID PRN PRN Reason: agitation Hydroxyzine HCl (Hydroxyzine Hcl 25 Mg Tablet) 25 mg PO BEDTIME PRN PRN Reason: Anxiety Last Admin: 07/10/21 06:08 Dose: 25 mg Documented by: Lorazepam (Lorazepam 1 Mg Tablet) 1 mg PO Q4H PRN PRN Reason: withdrawal, agitation Last Admin: 07/10/21 18:13 Dose: 1 mg Documented by: Magnesium Hydroxide (Milk Of Magnesia 30 Ml Oral.Susp) 30 ml PO DAILY PRN PRN Reason: Constipation Risperidone (Risperidone 1 Mg Tablet) 1 mg PO BEDTIME ADRIÁN Last Admin: 07/10/21 21:02 Dose: 1 mg Documented by: Trazodone HCl (Trazodone Hcl 50 Mg Tablet) 50 mg PO BEDTIME PRN PRN Reason: Insomnia Last Admin: 07/10/21 00:04 Dose: 50 mg Documented by: Allergies Allergies Allergy/AdvReac Type Severity Reaction Status Date / Time shrimp [SHRIMP] Allergy Intermediate Swelling Verified 07/09/21 04:24 Assessment & Plan Assessment & Plan (1) Severe recurrent major depression w/psychotic features, mood-congruent: Status: Acute Code(s): F33.3 - Major depressive disorder, recurrent, severe with psychotic symptoms Assessment and Plan: -Continue current plan of care -Pt requests discharge on 07/12. I spent minutes with the patient and/or on the patient floor today, greater than?50% of which was spent counseling/coordinating care. Patient educated on: medication risk/benefits and therapeutic strategies Informed Consent: understands Reason for contiued inpatient stay Substantial Risk for: inability to function and rapid decompensation
[2021-07-11] MEDS: traZODone HCL 50 MG TABLET PO (20:00)
[2021-07-11] MEDS: risperiDONE 1 MG TABLET PO (20:00)
[2021-07-12 06:00] VITALS: BP 109/54; PULSE 64; RESP 18; TEMP 36.7; O2SAT 100
[2021-07-12] MEDS: Buprenorphine/Naloxone 8/2 mg FILM 1 FILM SUBLINGUAL (08:30)
--- NOTE | 2021-07-12 17:35 | P.DS_ITS ---
DS: Providers Provider Date of Service: 07/12/21 Date of admission: 07/09/21 22:50 Date of discharge: 07/12/21 Primary care physician: Unknown Physician Admitting clinician: Trinidad Martínez Attending physician on admission: Timbo Faith Consults: 07/09/21 23:01 Addiction Medicine Routine Consulting Provider: Maddie Olivas Reason for consultation: s/p overdose Attending physician on discharge: Timbo Faith Discharging clinician: Trinidad Martínez DS: Diagnosis Discharge Diagnosis (1) Severe recurrent major depression w/psychotic features, mood-congruent: Status: Acute DS: Medications Discharge Medications Home Medications: Previous Rx's Medication Instructions Recorded buprenorphine 8 mg-naloxone 2 mg 1 film SUBLINGUAL BID #0 ea 07/12/21 sublingual film (Suboxone) buprenorphine 8 mg-naloxone 2 mg 1 film SUBLINGUAL BID 6 Days #12 ea 07/12/21 sublingual film (Suboxone) naloxone 4 mg/actuation nasal 4 mg INTRANASAL Q2M PRN #2 ea 07/12/21 spray (Narcan) risperidone 1 mg tablet 1 mg PO BEDTIME #30 tab 07/12/21 vitamin B complex 1 tab PO DAILY #30 tab 07/12/21 Mental Status Exam Mental Status Exam Patient Appearance: Appropriate Patient Orientation: Person, Place, Time and Situation Level of Consciousness: Alert Patient Behavior: Talkative, Cooperative and Good Eye Contact Mood Description: Calm Affect Description: Calm Patient Cognition Impaired: No Ability to Follow Directions: Good Speech Pattern: Spontaneous Speech Memory Description: Intact Hallucinations: None Delusions: Not Present Thought Process: Goal Oriented Thought Content: positive for Goal Oriented Judgement: Good Data Data Completed and Pending Completed studies during hospitalization [Text1]: 07/09/21 07/09/21 07/09/21 04:38 04:38 04:38 WBC RBC Hgb Hct MCV MCH MCHC RDW Plt Count MPV Immature Gran % (Auto) Neut % (Auto) Lymph % (Auto) Zavala % (Auto) Eos % (Auto) Baso % (Auto) Lymph # (Auto) Zavala # (Auto) Eos # (Auto) Baso # (Auto) Abs Immat Gran (auto) Absolute Neuts (auto) Absolute Nucleated RBC Nucleated RBC % (auto) PT INR Sodium Potassium Chloride Carbon Dioxide Anion Gap BUN Creatinine Estim Creat Clear Calc Estimated GFR Random Glucose Estimat Average Glucose Hemoglobin A1c % Calcium Magnesium Total Bilirubin Direct Bilirubin AST ALT Alkaline Phosphatase Total Protein Albumin Triglycerides Cholesterol LDL Cholesterol, Calc HDL Cholesterol Vitamin B12 Folate TSH Urine Color YELLOW Urine Appearance CLEAR Urine pH 7.0 Ur Specific [place] 1.020 Urine Protein NEG Urine Glucose (UA) NEG Urine Ketones NEG Urine Blood NEG Urine Nitrite NEG Ur Leukocyte Esterase NEG Salicylates Urine Opiates Screen POSITIVE H Urine Fentanyl Screen POSITIVE H Acetaminophen Ur Barbiturates Screen Not Detected Ur Phencyclidine Scrn Not Detected Ur Amphetamines Screen Not Detected U Benzodiazepines Scrn Not Detected Urine Cocaine Screen POSITIVE H U Marijuana (THC) Screen Not Detected Ethyl Alcohol COVID-19 (NAKUL) Negative COVID-19 Clin Com See Note 07/09/21 07/09/21 07/09/21 05:24 05:24 05:24 WBC 6.8 RBC 3.84 L Hgb 9.3 L Hct 29.6 L MCV 77.1 L MCH 24.2 L MCHC 31.4 RDW 13.7 Plt Count 366 MPV 9.5 Immature Gran % (Auto) 0.3 Neut % (Auto) 56.4 Lymph % (Auto) 30.4 Zavala % (Auto) 7.9 Eos % (Auto) 4.4 H Baso % (Auto) 0.6 Lymph # (Auto) 2.1 Zavala # (Auto) 0.5 Eos # (Auto) 0.3 Baso # (Auto) 0.0 Abs Immat Gran (auto) 0.02 Absolute Neuts (auto) 3.9 Absolute Nucleated RBC 0.000 Nucleated RBC % (auto) 0.0 PT INR Sodium 139 Potassium 3.7 Chloride 107 Carbon Dioxide 24 Anion Gap 12 BUN 20 H Creatinine 1.03 Estim Creat Clear Calc 113.6 Estimated GFR > 60 Random Glucose 113 D Estimat Average Glucose Hemoglobin A1c % Calcium 8.7 Magnesium 2.1 Total Bilirubin 0.2 Direct Bilirubin < 0.2 AST 29 ALT 27 Alkaline Phosphatase 84 Total Protein 7.2 Albumin 3.6 Triglycerides Cholesterol LDL Cholesterol, Calc HDL Cholesterol Vitamin B12 Folate TSH Urine Color Urine Appearance Urine pH Ur Specific Verm[place] Urine Protein Urine Glucose (UA) Urine Ketones Urine Blood Urine Nitrite Ur Leukocyte Esterase Salicylates < 5.0 L Urine Opiates Screen Urine Fentanyl Screen Acetaminophen < 1 Ur Barbiturates Screen Ur Phencyclidine Scrn Ur Amphetamines Screen U Benzodiazepines Scrn Urine Cocaine Screen U Marijuana (THC) Screen Ethyl Alcohol < 10 COVID-19 (NAKUL) COVID-19 [employer] Com 07/09/21 07/11/21 07/11/21 05:24 08:23 08:23 WBC RBC Hgb Hct MCV MCH MCHC RDW Plt Count MPV Immature Gran % (Auto) Neut % (Auto) Lymph % (Auto) Zavala % (Auto) Eos % (Auto) Baso % (Auto) Lymph # (Auto) Zavala # (Auto) Eos # (Auto) Baso # (Auto) Abs Immat Gran (auto) Absolute Neuts (auto) Absolute Nucleated RBC Nucleated RBC % (auto) PT 11.7 INR 1.0 Sodium Potassium Chloride Carbon Dioxide Anion Gap BUN Creatinine Estim Creat Clear Calc Estimated GFR Random Glucose Estimat Average Glucose 105 Hemoglobin A1c % 5.3 Calcium Magnesium Total Bilirubin Direct Bilirubin AST ALT Alkaline Phosphatase Total Protein Albumin Triglycerides 165 Cholesterol 179 LDL Cholesterol, Calc 95 HDL Cholesterol 51 Vitamin B12 Folate TSH 0.41 Urine Color Urine Appearance Urine pH Ur Specific Verm[place] Urine Protein Urine Glucose (UA) Urine Ketones Urine Blood Urine Nitrite Ur Leukocyte Esterase Salicylates Urine Opiates Screen Urine Fentanyl Screen Acetaminophen Ur Barbiturates Screen Ur Phencyclidine Scrn Ur Amphetamines Screen U Benzodiazepines Scrn Urine Cocaine Screen U Marijuana (THC) Screen Ethyl Alcohol COVID-19 (NAKUL) COVID-19 [place] 07/11/21 07/11/21 07/11/21 08:23 08:23 12:30 WBC RBC Hgb Hct MCV MCH MCHC RDW Plt Count MPV Immature Gran % (Auto) Neut % (Auto) Lymph % (Auto) Zavala % (Auto) Eos % (Auto) Baso % (Auto) Lymph # (Auto) Zavala # (Auto) Eos # (Auto) Baso # (Auto) Abs Immat Gran (auto) Absolute Neuts (auto) Absolute Nucleated RBC Nucleated RBC % (auto) PT INR Sodium Potassium Chloride Carbon Dioxide Anion Gap BUN Creatinine Estim Creat Clear Calc Estimated GFR Random Glucose Estimat Average Glucose Hemoglobin A1c % Calcium Magnesium Total Bilirubin Direct Bilirubin AST ALT Alkaline Phosphatase Total Protein Albumin Triglycerides Cholesterol LDL Cholesterol, Calc HDL Cholesterol Vitamin B12 196 L Folate 14.2 TSH 0.42 Urine Color Urine Appearance Urine pH Ur Specific Verm[place] Urine Protein Urine Glucose (UA) Urine Ketones Urine Blood Urine Nitrite Ur Leukocyte Esterase Salicylates Urine Opiates Screen Urine Fentanyl Screen Acetaminophen Ur Barbiturates Screen Ur Phencyclidine Scrn Ur Amphetamines Screen U Benzodiazepines Scrn Urine Cocaine Screen U Marijuana (THC) Screen Ethyl Alcohol COVID-19 (NAKUL) Negative COVID-19 Clin Com See Note DS: Summary Hospital Course Hospital Course: Admission to adult psychiatry to address symptoms of recurrent major depression with psychotic features. Care plan, medication regime and out patient plan of care prior to admission were reviewed. Education was provided regarding management of symptoms, medication and side effects. Nursing, addictions and social work specialist worked with Marc on collateral contacts, plan of care, education regarding management of symptoms, medications and discharge planning. Suboxone and Risperidone were titrated during Marc's brief admission. Time spent discussing smoking cessation with patient: 3 to 10 minutes Status at Discharge Functional status at discharge: independent ambulation Overall status at discharge: patient is progressing back to baseline Time Spent with Patient Time attestation: Total time spent providing and/or coordinating discharge services: 30 Time spent: Less than 30 minutes Discharge Plan Discharge Patient Disposition: Home, Self-Care Discharge Diagnosis: Major Depression, Recurrent Opiate Use Disorder Cocaine Use Disorder Referrals: Dr. Cathryn Amaya (suboxone) [Other] - 07/18/21 1:30 pm (The initial suboxone appointment takes about 1 hour) Batsheva Real MD [Physician] - 08/03/21 9:30 am (in office) Discharge Medications: New risperidone 1 mg Tablet 1 mg PO BEDTIME Qty: 30 RF: 0 buprenorphine-naloxone [Suboxone] 8-2 mg Film 1 film sublingual BID Qty: 0 RF: 0 Narcan 4 mg/actuation spray,non-aerosol 4 mg intranasal Q2M PRN (Reason: opioid overdose) Qty: 2 RF: 0 buprenorphine-naloxone [Suboxone] 8-2 mg film 1 film sublingual BID 6 Days Qty: 12 RF: 0 vitamin B complex Tablet 1 tab PO DAILY Qty: 30 RF: 0 No Action buprenorphine-naloxone [Suboxone] 8-2 mg film 3 film sublingual DAILY 7 Days Qty: 21 RF: 0 hydroxyzine pamoate [Vistaril] 25 mg capsule 25 mg PO TID PRN (Reason: itching) 10 Days Qty: 30 RF: 0 clonidine HCl 0.1 mg tablet 0.1 mg PO TID 10 Days Qty: 30 RF: 0 Discharge Orders: Discharge Order (Routine); Ordered 07/12/21 Ordered By: Trinidad Martínez Diet: advance to usual diet Activity on Discharge: As tolerated Stand Alone Forms: Patient Portal Discharge page, Community Support Care Plan Goals: Mood stabilization Sobriety Health Concerns: Major Depression Cocaine Use Disorder Opiate Use Disorder Plan of Treatment: Attend scheduled appointments Take medications as directed Assessment: non-suicidal, non-psychotic Discharge Date/Time: 07/12/21 13:00
== END 2021-07-12 13:00 | disposition home or self-care (01) | DRG 751 ==
LOC: HO.ED 05:54 → HO.PM5 23:01
PROVIDERS: Psychiatry & Neurology Psychiatry; Admitting Provider Clinical Nurse Specialist Psychiatric/Mental Health, Adult; Emergency Provider Emergency Medicine Emergency Medical Services; Visit Provider Clinical Nurse Specialist Psychiatric/Mental Health, Adult
DX: F33.3 Major depressive disorder, recurrent, severe with psychotic symptoms (principal); R45.851 Suicidal ideations; F11.23 Opioid dependence with withdrawal; F14.10 Cocaine abuse, uncomplicated; Z59.01 Sheltered homelessness; Z20.822 Contact with and (suspected) exposure to COVID-19; Z79.899 Other long term (current) drug therapy
CPT/HCPCS: 36415; 80048; 80061; 80076; 80143; 80179; 80307; 81003; 82077; 82607; 82746; 83036; 83735; 84443; 85025; 85610; 87635; 93005; 99285

== ENCOUNTER 2021-07-18 13:50 | Outpatient (REF) | payer MEDICAID, SELFPAY ==
[2021-07-18 18:15] LABS: Fentanyl, urine POSITIVE (Not Detect)
== END 2021-07-18 13:51 | disposition home or self-care (01) ==
LOC: HO.LNP 13:50
PROVIDERS: Visit Provider Internal Medicine
DX: F11.20 Opioid dependence, uncomplicated (principal); Z79.899 Other long term (current) drug therapy
CPT/HCPCS: 80305; 80307; 99202

== ENCOUNTER → 2021-07-26 10:21 | Outpatient (BNVA) | payer MEDICAID, SELFPAY | DX: Z51.81 Encounter for therapeutic drug level monitoring (principal); F11.20 Opioid dependence, uncomplicated | CPT/HCPCS: 80305 ==

== ENCOUNTER → 2021-08-09 13:38 | Outpatient (BNVA) | payer MEDICAID, SELFPAY | PROVIDERS: Visit Provider Internal Medicine | DX: F11.20 Opioid dependence, uncomplicated (principal) | CPT/HCPCS: 80305; 99212 ==

== ENCOUNTER → 2021-08-16 15:18 | Outpatient (BNVA) | payer MEDICAID, SELFPAY | PROVIDERS: Visit Provider Internal Medicine | DX: Z51.81 Encounter for therapeutic drug level monitoring (principal); F11.20 Opioid dependence, uncomplicated; F14.90 Cocaine use, unspecified, uncomplicated | CPT/HCPCS: 80305; 99211 ==

== ENCOUNTER → 2021-08-25 13:29 | Outpatient (BNVA) | payer MEDICAID, SELFPAY | PROVIDERS: Visit Provider Internal Medicine | DX: Z51.81 Encounter for therapeutic drug level monitoring (principal); F11.20 Opioid dependence, uncomplicated | CPT/HCPCS: 80305 ==

== ENCOUNTER 2021-08-31 10:15 | Outpatient (REF) | payer MEDICAID, SELFPAY ==
[2021-09-04 06:58] LABS: Buprenorphine NEGATIVE
[2021-09-04 06:59] LABS: Naloxone NEGATIVE; Norbuprenorphine NEGATIVE
== END 2021-08-31 10:16 | disposition home or self-care (01) ==
LOC: HO.LAB 10:15
PROVIDERS: Visit Provider Internal Medicine
DX: F11.20 Opioid dependence, uncomplicated (principal)
CPT/HCPCS: 80305; 80348; 80362

== ENCOUNTER 2021-10-19 13:30 | Outpatient (REF) | payer MEDICAID, SELFPAY ==
[2021-10-19 19:10] LABS: Fentanyl, urine POSITIVE (Not Detect)
== END 2021-10-19 13:31 | disposition home or self-care (01) ==
LOC: HO.LNP 13:30
PROVIDERS: Visit Provider Internal Medicine
DX: F11.20 Opioid dependence, uncomplicated (principal); Z51.81 Encounter for therapeutic drug level monitoring; Z79.899 Other long term (current) drug therapy
CPT/HCPCS: 80305; 80307; 99212

== ENCOUNTER → 2021-10-26 11:30 | Outpatient (BNVA) | payer MEDICAID, SELFPAY | PROVIDERS: Visit Provider Internal Medicine | DX: F11.20 Opioid dependence, uncomplicated (principal); F14.10 Cocaine abuse, uncomplicated | CPT/HCPCS: 99212 ==

== ENCOUNTER → 2021-11-01 14:13 | Outpatient (BNVA) | payer MEDICAID, SELFPAY | PROVIDERS: Visit Provider Internal Medicine | DX: Z51.81 Encounter for therapeutic drug level monitoring (principal); F11.20 Opioid dependence, uncomplicated | CPT/HCPCS: 80305; 99212 ==

== ENCOUNTER 2021-11-15 09:03 | Emergency (ER) | payer MEDICAID, SELFPAY ==
--- NOTE | ~2021-11-15 | XR_ITS ---
EXAMINATION: XR HAND, LEFT CLINICAL INFORMATION: Second finger injury. COMPARISON: None TECHNIQUE: PA, lateral, and oblique views of the left hand. FINDINGS: There is a fracture of the tuft of the distal phalanx of the second finger with a 3 x 2 mm fragment with approximately 3 mm volar displacement. There is cortical thickening along the diaphysis of the proximal phalanx of the third finger with a 3 x 4 mm lucency along the ulnar cortex. Best visualized on oblique radiographs there is an immediately adjacent 2 mm osseous fragment. There is mild soft tissue edema at the base of the finger. Remaining bones of the hand are intact and in alignment. Joint spaces are maintained. Remaining soft tissues are unremarkable. XR/XR hand LT min 3V IMPRESSION: Distal tuft fracture of the second finger with 2 - 3 mm volar displacement of fragment. Abnormal diaphyseal cortical thickening of the third proximal phalanx with a 3 x 4 mm cystic lucency along the ulnar cortex. Suspicious for a chronic process with differential considerations including chronic infection/Hector abscess, osteoid osteoma, eosinophilic granuloma.
[2021-11-15 09:16] VITALS: BP 130/70; BP 138/74; PULSE 86; PULSE 88; RESP 16; TEMP 36.6; O2SAT 100; O2SAT 98; BMI 25.8
[2021-11-15] MEDS: Lidocaine HCl 2 % MPF 5 ML VIAL SUBCUT (10:37)
[2021-11-15] MEDS: Diphth,Pertus(ACell),Tet Adult 0.5 ML SYRINGE IM (10:37)
--- NOTE | 2021-11-15 10:40 | ED.WOUNDLAC ---
HPI - Wound/Laceration General Chief Complaint: Skin/Abscess/Foreign Body Stated Complaint: FINGER LAC S/P SLAMMED IN DOOR Time Seen by Provider: 11/15/21 09:46 Source: patient and EMS Mode of arrival: EMS Limitations: no limitations History of Present Illness HPI narrative: 31-year-old male who has a past medical history of substance abuse reports that he last used IV drugs at 05:00 prior to arrival presenting to the ED after he reports he slammed his finger in the door accidentally overnight and since then he has been having pain and he has a laceration as well. He reports that he is not up-to-date on tetanus. He denies any paresthesias or any other symptoms complaints or concerns at this time. Onset (ago): hour(s) (Prior to arrival) Extremity Location: left: hand (Index finger) Place: home Patient tetanus UTD: No Context: accidental Associated symptoms: pain Related Data Previous Rx's Medication Instructions Recorded naloxone 4 mg/actuation nasal 4 mg INTRANASAL Q2M PRN #2 ea 07/12/21 spray (Narcan) risperidone 1 mg tablet 1 mg PO BEDTIME #30 tab 07/12/21 vitamin B complex 1 tab PO DAILY #30 tab 07/12/21 clonidine HCl 0.1 mg tablet 0.1 mg PO TID 10 Days #30 tab 07/18/21 hydroxyzine pamoate 25 mg capsule 25 mg PO TID PRN 10 Days #30 cap 07/18/21 (Vistaril) docusate sodium 100 mg capsule 100 mg PO BID 30 Days #60 cap 08/16/21 (Colace) buprenorphine 8 mg-naloxone 2 mg 2 film SUBLINGUAL DAILY 9 Days #18 11/01/21 sublingual film (Suboxone) ea cephalexin 500 mg capsule 500 mg PO Q6H 10 Days #40 cap 11/15/21 Allergies Allergy/AdvReac Type Severity Reaction Status Date / Time shrimp [SHRIMP] Allergy Intermediate Swelling Verified 11/01/21 14:14 Review of Systems Review of Systems: Constitutional : No Fever, No Chills, Cardiovascular : No Chest Pain, No SOB Respiratory : No Dyspnea Gastrointestinal : No abdominal pain Musculoskeletal : No Joint Swelling Skin : positive skin laceration, No Foreign bodies, No rash, No surrounding erythema Neuro : No Weakness, No Numbness/tingling Psych : No SI/HI/thoughts of self injury Yes all other systems are reviewed and are negative FORMERLY [facility], [facility] Past Medical History Attestation statement: The following information was validated with the patient. Medical History Asthma Cocaine use disorder IVDU (intravenous drug user) Opioid use disorder, severe, dependence Severe recurrent major depression w/psychotic features, mood-congruent Social History Social History Household Members: Other Household Members Other:: lives [place] [facility] Housing: Homeless Do you presently have visiting nurse or other home services: No Unable to assess alcohol history related to: Unknown Alcohol intake: current Alcohol intake frequency: holidays/special occasions only Patient Tobacco Use Status: Tobacco use Unknown Substance Use Type: Crack/Cocaine, Heroin and Opiates Advance Directives: No Advance Directives Information Provided: No service: No Current occupational status: unemployed Sexual orientation: Did not discuss Physical Exam Vital Signs: Vital Signs: Last Vital Signs Temp 97.9 F 11/15/21 09:16 Pulse 88 11/15/21 09:16 Resp 16 11/15/21 09:16 BP 130/70 11/15/21 09:16 Pulse Ox 100 11/15/21 09:16 BMI result Body Mass Index 25.8 vital signs have been reviewed as normal and appeared to be correct. Blood pressure normal Heart rate normal. Respiration rate normal. Temperature normal. Oxygen saturation normal. Appearance: Alert. Oriented X3. No acute distress. Head: Normal external exam. Normocephalic. Atraumatic. Eyes: PERRLA. EOMI. Conjunctiva and sclera normal. Eyelids normal. ENT: Pharynx normal. Uvula midline. Moist mucous membranes. Neck: Normal inspection. Neck supple. FROM. CVS: Normal heart rate and rhythm. Respiratory: No respiratory distress. Painless inspiration. Skin: Skin warm and dry. Normal skin color. Normal skin turgor. No rashes/lesions/lacerations noted. Extremities: To left hand index finger patient has intermediate 1 cm laceration with soft tissue swelling no foreign bodies noted. He also has bony tenderness to the distal phalanx no obvious deformities noted. No obvious ligamentous or tendon injury noted. He has full range of motion of the finger. Otherwise all other extremities exhibit normal range of motion nontender no signs of infection. Neuro: Oriented X 3. No motor deficit. No sensory deficit. Reflexes normal. Normal steady gait. No focal neuro deficits noted. Vascular: + radial pulses/+ 2 distal pedal pulses/+2 dorsalis pedis b/l. Normal cap refill. No cyanosis noted to upper extremity nails and lower extremity toes nails. Course Course Course Narrative: 31-year-old male who has a past medical history of substance abuse reports that he last used IV drugs at 05:00 prior to arrival presenting to the ED after he reports he slammed his finger in the door accidentally overnight and since then he has been having pain and he has a laceration as well. He reports that he is not up-to-date on tetanus. He denies any paresthesias or any other symptoms complaints or concerns at this time. X-ray obtained revealed distal tuft fracture of the 2nd finger with 2-3 mm or valvular displacement of fragments. Also noted that he has an abnormal diaphyseal cortical thickening of the third proximal phalanx with a 3 x 4 mm cystic lucency along the ulnar cortex. Suspicious for a chronic process with differential considerations including chronic infection/Hector abscess, osteoid osteoma, eosinophilic granuloma. Therefore placed a picture in the chart on the 3rd phalanx it does not appear that there is a infection at this time therefore this may be more related to osteoid osteoma or a CT no feel granuloma does not appear like an abscess or infection at this time. I went to suture the patient although he is at a me refusing reporting he 100% refuses and that I cannot force him to get stitches Arlen the RN was at bedside when he was discussing this he reports that he feels really bad that we opened up the suture kit and took out the lidocaine by he does not want the sutures 100% he is refusing therefore at this time will place a nonadherent dressing and treat with p.o. antibiotics as patient is refusing IV antibiotics as well along with instructions to follow-up with orthopedics and to return if any new or worsening symptoms. Patient understands agrees with this plan. MDM - Wound/Laceration Medical Records Attestation: I reviewed the patient's medical records. Imaging Data Left hand x-ray: Attestation: I personally reviewed and interpreted this imaging study as follows: Radiologist's impression: FINDINGS: There is a fracture of the tuft of the distal phalanx of the second finger with a 3 x 2 mm fragment with approximately 3 mm volar displacement. There is cortical thickening along the diaphysis of the proximal phalanx of the third finger with a 3 x 4 mm lucency along the ulnar cortex. Best visualized on oblique radiographs there is an immediately adjacent 2 mm osseous fragment. There is mild soft tissue edema at the base of the finger. Remaining bones of the hand are intact and in alignment. Joint spaces are maintained. Remaining soft tissues are unremarkable. XR/XR hand LT min 3V IMPRESSION: Distal tuft fracture of the second finger with 2 - 3 mm volar displacement of fragment. ? Abnormal diaphyseal cortical thickening of the third proximal phalanx with a 3 x 4 mm cystic lucency along the ulnar cortex. Suspicious for a chronic process with differential considerations including chronic infection/Hector abscess, osteoid osteoma, eosinophilic granuloma. Discharge Plan Discharge Clinical Impression: Laceration of left index finger, Phalanx, distal fracture of finger Patient Disposition: Home, Self-Care Instructions: Finger Fracture (ED), Finger Laceration (ED) Prescriptions: New cephalexin 500 mg capsule 500 mg PO Q6H 10 Days Qty: 40 0RF No Action docusate sodium [Colace] 100 mg capsule 100 mg PO BID 30 Days Qty: 60 11RF risperidone 1 mg Tablet 1 mg PO BEDTIME Qty: 30 0RF Narcan 4 mg/actuation spray,non-aerosol 4 mg intranasal Q2M PRN (Reason: opioid overdose) Qty: 2 0RF Rx Instructions: spray 1 dose into ONE nostril; alternate nostrils w each dose until help arrives vitamin B complex Tablet 1 tab PO DAILY Qty: 30 0RF buprenorphine-naloxone [Suboxone] 8-2 mg film 2 film sublingual DAILY 9 Days Qty: 18 0RF Rx Instructions: place 1 strip/tab under (each) side of tongue hydroxyzine pamoate [Vistaril] 25 mg capsule 25 mg PO TID PRN (Reason: itching) 10 Days Qty: 30 0RF clonidine HCl 0.1 mg tablet 0.1 mg PO TID 10 Days Qty: 30 0RF Referrals: Jelena Juárez MD [Physician] - 2 weeks Physician,Unknown J [Primary Care Provider] - (your pcp as needed) Print Language: Estonian
[2021-11-15] MEDS: cephALEXin 500 MG CAPSULE PO (10:57)
--- NOTE | 2021-11-15 11:01 | PC.NURSE ---
PT REFUSING TO HAVE L 2ND FINGER SUTURED. PT STATED 6 TIMES, I AM REFUSING, NO I DONT WANT IT. PT ALSO C/O OF PAIN TO SAME DIGIT AND ASKING FOR PAIN MEDICATION. PT WAS EDUCATED ON PROCEDURE AND IF WE BLOCK FINGER THE PAIN WILL DECREASE. PT CONTINUES TO REFUSE THE PROCEDURE.
[2021-11-15] MEDS: Naloxone HCl Nasal TAKE HOME 4 MG SPRAY NOSTRILALT (11:09)
== END 2021-11-15 11:11 | disposition home or self-care (01) ==
PROVIDERS: Emergency Provider Emergency Medicine
DX: S62.631A Displaced fracture of distal phalanx of left index finger, initial encounter for closed fracture (principal); S61.211A Laceration without foreign body of left index finger without damage to nail, initial encounter; F11.20 Opioid dependence, uncomplicated; J45.909 Unspecified asthma, uncomplicated; W23.0XXA Caught, crushed, jammed, or pinched between moving objects, initial encounter; Y93.9 Activity, unspecified; Y92.009 Unspecified place in unspecified non-institutional (private) residence as the place of occurrence of the external cause; Y99.9 Unspecified external cause status
CPT/HCPCS: 73130; 80305; 90471; 90715; 99212; 99283; 99284

== ENCOUNTER → 2021-11-29 11:45 | Outpatient (BNVA) | payer MEDICAID, SELFPAY | PROVIDERS: Visit Provider Internal Medicine | DX: Z51.81 Encounter for therapeutic drug level monitoring (principal); F11.20 Opioid dependence, uncomplicated; F14.10 Cocaine abuse, uncomplicated | CPT/HCPCS: 80305; 99212 ==

== ENCOUNTER 2021-12-17 03:14 | Emergency (ER) | payer MEDICAID, SELFPAY ==
[2021-12-17 03:20] VITALS: BP 113/68; PULSE 93; RESP 17; TEMP 36.6; O2SAT 99; BMI 25.8
[2021-12-17 04:00] LABS: COVID-19 Test Negative (Negative)
[2021-12-17 04:09] LABS: MANUAL DIFF FLAG NO
[2021-12-17 04:11] LABS: Basophils Absolute Auto 0.1 X10*3/uL (0.0-0.2); Basophils Percent Auto 0.6 % (0-2); Eosinophils Absolute Auto 0.1 X10*3/uL (0.0-0.4); Eosinophils Percent Auto 1.2 % (0-4); Hematocrit 24.6 % (42.0-52.0); Hemoglobin 7.2 g/dl (14.0-18.0); Imm Gran Abs Auto 0.03 X10*3/uL (0.00-0.03); Imm Gran Pct Auto 0.4 % (0.0-0.4); Lymphocytes Percent Auto 24.2 % (20-40); Mean Corpuscular HGB Conc 29.3 g/dl (31.0-36.0); Mean Corpuscular Hemoglobin 19.4 pg (27.0-33.0); Mean Corpuscular Volume 66.1 fL (80.0-98.0); Mean Platelet Volume 10.6 fL (9.4-12.4); Monocytes Absolute Auto 0.6 X10*3/uL (0.1-1.2); Monocytes Percent Auto 7.2 % (2-11); Neutrophils Absolute Auto 5.5 x10*3/uL (2.0-8.3); Neutrophils Percent Auto 66.4 % (45-73); Platelet Count 451 X10*3/uL (160-400); Red Blood Count 3.72 X10*6/uL (4.60-5.80); Red Cell Distribution Width 14.4 % (11.0-16.0); White Blood Count 8.2 X10*3/uL (4.8-10.8)
[2021-12-17 04:29] LABS: Ethanol 32 mg/dL
[2021-12-17 04:33] LABS: Acetaminophen LAB < 1 mcg/mL (<30); Anion Gap 15 (12-20); Blood Urea Nitrogen 14 mg/dL (9-16); Calcium 9.1 mg/dL (8.4-10.2); Carbon Dioxide 20 mmol/L (22-29); Chloride 105 mmol/L (96-108); Creatinine Clr Calc Pharmacy 118.4; Estimated Glomerular Filt Rate > 60; Glucose Random 115 mg/dL (60-115); Potassium 3.9 mmol/L (3.3-5.1); Salicylate < 5.0 mg/dL (15-30); Sodium 136 mmol/L (135-145)
--- NOTE | 2021-12-17 06:32 | PC.NURSE ---
Patient slept through the night, no distress observed/reported, medication rec competed, behavior non concerning at this time, [facility] referral completed/confirmed/pending evaluation in the morning, VSS, will continue to monitor.
--- NOTE | 2021-12-17 06:42 | ED.PSYCH ---
HPI - Psych General Chief Complaint: Psychiatric Symptoms Stated Complaint: Crisis Time Seen by Provider: 12/17/21 06:42 Source: patient Mode of arrival: ambulatory Limitations: no limitations History of Present Illness MD complaint: suicidal ideation, feels depressed and substance abuse Onset (ago): week(s) Duration: getting worse History of same: Yes Relieving factors: none Exacerbating factors: drug use Context: recent drug abuse and significant life stressor Associated psychiatric symptoms: depression and suicidal ideation Associated symptoms: denies other symptoms Treatments prior to arrival: none If self harm: admits thoughts of self harm Related Data Home Medications Medication Instructions Recorded Confirmed buprenorphine 8 mg-naloxone 2 mg 3 strip SUBLINGUAL DAILY 12/17/21 12/17/21 sublingual film (Suboxone) Allergies Allergy/AdvReac Type Severity Reaction Status Date / Time shrimp [SHRIMP] Allergy Intermediate Swelling Verified 11/15/21 11:52 Review of Systems Review of Systems: Constitutional : No Fever, No Chills ENT/Mouth : No Ear Pain, No Nasal Congestion, No sore throat Eyes: No Eye Pain, No Swelling, No Redness Cardiovascular : No Chest Pain, No SOB Respiratory : No Cough, No Sputum, No Dyspnea Gastrointestinal : No Nausea, No Vomiting, No Diarrhea, No Hematochezia, No Melena Genitourinary : No Dysuria, No Urinary Frequency, No Hematuria Musculoskeletal : No Myalgias Skin : No Skin Lesions, No rash Neuro : No Weakness, No Numbness, No Paresthesias, No Dizziness, No Headache Psych : positive Anxiety, positive Depression, positive SI no HI Heme/Lymph: No Lymphadenopathy Endocrine : No Polyuria, No Polydipsia All other systems reviewed and are negative [facility] Past Medical History Attestation statement: The following information was validated with the patient. Medical History Asthma Cocaine use disorder IVDU (intravenous drug user) Opioid use disorder, severe, dependence Severe recurrent major depression w/psychotic features, mood-congruent Social History Social History Household Members: Other Household Members Other:: lives in a senior care Housing: Homeless Do you presently have visiting nurse or other home services: No Unable to assess alcohol history related to: Unknown Alcohol intake: current Alcohol intake frequency: holidays/special occasions only Patient Tobacco Use Status: Tobacco use Unknown Substance Use Type: Crack/Cocaine, Heroin and Opiates Advance Directives: No service: No Current occupational status: unemployed Sexual orientation: Did not discuss Physical Exam Vital Signs: Vital Signs: Last Vital Signs Temp 98.7 F 12/17/21 14:22 Pulse 74 12/17/21 14:22 Resp 15 12/17/21 14:22 BP 160/50 H 12/17/21 14:22 Pulse Ox 99 12/17/21 14:22 BMI result Body Mass Index 25.8 Appearance: Alert. Oriented X3. No acute distress. Agitated at times but then easily redirected Eyes: Pupils equal, round and reactive to light. ENT: Pharynx normal. Neck: Normal inspection. Neck supple. CVS: Normal heart rate and rhythm. Pulses normal. Respiratory: No respiratory distress. Breath sounds normal. Abdomen: Soft and nontender. Skin: Skin warm and dry. Normal skin color. Normal skin turgor. Extremities: No lower extremity edema. No calf ttp Neuro: Oriented X 3. No motor deficit. No sensory deficit. CN 2-12 intact Course Course Course Narrative: Physician observation started at 707am. Patient placed in physician observation because the patient needed more time for N to assess the need for psych admission. At the time observation was started the patient's vitals were stable, patient is alert and oriented but slightly agitated, Neuro: nonfocal, CV RRR, Lungs clear. Repeat CBC planned for 9am. refusing repeat labs H/H remains stable, no GIB symptoms refusing rectal exam. VS stable, last hemoglobin 9.2 MDM - Psych MDM Narrative Medical decision making narrative: 31 yo male with hx of substance abuse and depression he is homeless at this time and feeling depressed with SI - found to be anemic he denies GIB symptoms. He is refusing rectal exam. Will repeat CBC. No other sources of acute blood loss anemia on history at this time. Repeat labs ordered. Dispo per repeat tests and N consult. Lab Data Result diagrams: 12/17/21 14:09 12/17/21 04:03 Labs: Lab Results 12/17/21 12/17/21 12/17/21 Range/Units 03:38 04:02 04:02 WBC 8.2 (4.8-10.8) X10*3/uL RBC 3.72 L (4.60-5.80) X10*6/uL Hgb 7.2 L D (14.0-18.0) g/dl Hct 24.6 L (42.0-52.0) % MCV 66.1 L (80.0-98.0) fL MCH 19.4 L (27.0-33.0) pg MCHC 29.3 L (31.0-36.0) g/dl RDW 14.4 (11.0-16.0) % Plt Count 451 H (160-400) X10*3/uL MPV 10.6 (9.4-12.4) fL Immature Gran % (Auto) 0.4 (0.0-0.4) % Neut % (Auto) 66.4 (45-73) % Lymph % (Auto) 24.2 (20-40) % [place] % (Auto) 7.2 (2-11) % Eos % (Auto) 1.2 (0-4) % Baso % (Auto) 0.6 (0-2) % Lymph # (Auto) 2.0 (1.2-4.9) X10*3/uL [place] # (Auto) 0.6 (0.1-1.2) X10*3/uL Eos # (Auto) 0.1 (0.0-0.4) X10*3/uL Baso # (Auto) 0.1 (0.0-0.2) X10*3/uL Abs Immat Gran (auto) 0.03 (0.00-0.03) X10*3/uL Absolute Neuts (auto) 5.5 (2.0-8.3) x10*3/uL Absolute Nucleated RBC 0.000 (0.0-0.012) X10*3/uL Nucleated RBC % (auto) 0.0 (0.0-0.2) /100WBC Sodium (135-145) mmol/L Potassium (3.3-5.1) mmol/L Chloride (96-108) mmol/L Carbon Dioxide (22-29) mmol/L Anion Gap (12-20) BUN (9-16) mg/dL Creatinine (0.5-1.4) mg/dL Estim Creat Clear Calc Estimated GFR Random Glucose (60-115) mg/dL Calcium (8.4-10.2) mg/dL Total Bilirubin (0.0-1.0) mg/dL Direct Bilirubin (0.0-0.5) mg/dL AST (5-37) U/L ALT (0-40) U/L Alkaline Phosphatase (39-117) U/L Total Protein (6.5-8.0) g/dL Albumin (3.5-5.0) g/dL Salicylates (15-30) mg/dL Acetaminophen (<30) mcg/mL Ethyl Alcohol 32 mg/dL COVID-19 (NAKUL) Negative (Negative) COVID-19 Clin Com See Note 12/17/21 12/17/21 Range/Units 04:03 14:09 WBC 8.9 (4.8-10.8) X10*3/uL RBC 3.69 L (4.60-5.80) X10*6/uL Hgb 7.2 L (14.0-18.0) g/dl Hct 24.2 L (42.0-52.0) % MCV 65.6 L (80.0-98.0) fL MCH 19.5 L (27.0-33.0) pg MCHC 29.8 L (31.0-36.0) g/dl RDW 14.4 (11.0-16.0) % Plt Count TNP (160-400) X10*3/uL MPV 9.9 (9.4-12.4) fL Immature Gran % (Auto) (0.0-0.4) % Neut % (Auto) (45-73) % Lymph % (Auto) (20-40) % [place] % (Auto) (2-11) % Eos % (Auto) (0-4) % Baso % (Auto) (0-2) % Lymph # (Auto) (1.2-4.9) X10*3/uL [place] # (Auto) (0.1-1.2) X10*3/uL Eos # (Auto) (0.0-0.4) X10*3/uL Baso # (Auto) (0.0-0.2) X10*3/uL Abs Immat Gran (auto) (0.00-0.03) X10*3/uL Absolute Neuts (auto) (2.0-8.3) x10*3/uL Absolute Nucleated RBC 0.020 H (0.0-0.012) X10*3/uL Nucleated RBC % (auto) 0.2 (0.0-0.2) /100WBC Sodium 136 (135-145) mmol/L Potassium 3.9 (3.3-5.1) mmol/L Chloride 105 (96-108) mmol/L Carbon Dioxide 20 L (22-29) mmol/L Anion Gap 15 (12-20) BUN 14 (9-16) mg/dL Creatinine 0.86 (0.5-1.4) mg/dL Estim Creat Clear Calc 118.4 Estimated GFR > 60 Random Glucose 115 (60-115) mg/dL Calcium 9.1 (8.4-10.2) mg/dL Total Bilirubin 0.2 (0.0-1.0) mg/dL Direct Bilirubin < 0.2 (0.0-0.5) mg/dL AST 23 (5-37) U/L ALT 16 (0-40) U/L Alkaline Phosphatase 87 (39-117) U/L Total Protein 8.0 (6.5-8.0) g/dL Albumin 3.8 (3.5-5.0) g/dL Salicylates < 5.0 L (15-30) mg/dL Acetaminophen < 1 (<30) mcg/mL Ethyl Alcohol mg/dL COVID-19 (NAKUL) (Negative) COVID-19 Clin Com Discharge Plan Discharge Clinical Impression: Active substance abuse Depression Qualifiers: Depression Type: unspecified Qualified Code(s): F32.A - Depression, unspecified Anemia Qualifiers: Anemia type: unspecified type Qualified Code(s): D64.9 - Anemia, unspecified Patient Disposition: Still a Patient Prescriptions: No Action buprenorphine-naloxone [Suboxone] 8-2 mg film 3 strip sublingual DAILY 0RF
[2021-12-17 06:57] LABS: Alanine Aminotransferase 16 U/L (0-40); Albumin Level 3.8 g/dL (3.5-5.0); Alkaline Phosphatase 87 U/L (39-117); Aspartate Amino Transferase 23 U/L (5-37); Bilirubin Direct < 0.2 mg/dL (0.0-0.5); Bilirubin Total 0.2 mg/dL (0.0-1.0)
--- NOTE | 2021-12-17 09:27 | PC.NURSE ---
pt is refusing lab draw at this time. phlebotomy will return.
--- NOTE | 2021-12-17 09:33 | PC.NURSE ---
pt's sister is visiting in his room.
--- NOTE | 2021-12-17 09:38 | PC.NURSE ---
pt's ajztin-et-hnd cyndee forrest ([phone]) states that she can be called anytime regarding any info or update of pt. her visit was short with the pt.
--- NOTE | 2021-12-17 12:43 | PC.NURSE ---
phlebotomy at bedside to do lab work.
--- NOTE | 2021-12-17 12:48 | PC.NURSE ---
lab work done by phlebotomy, pt tolerated well.
--- NOTE | 2021-12-17 13:26 | PC.NURSE ---
per the lab dept - blood work hemolysized.
--- NOTE | 2021-12-17 13:44 | PC.NURSE ---
pt refused his suboxone (3 films) states that he used drugs earlier this am prior to arrival and has not taken his suboxone in a couple days. pt also states that he takes his suboxone sublingual tid.
[2021-12-17 14:17] LABS: Hematocrit 24.2 % (42.0-52.0); Hemoglobin 7.2 g/dl (14.0-18.0); Mean Corpuscular HGB Conc 29.8 g/dl (31.0-36.0); Mean Corpuscular Hemoglobin 19.5 pg (27.0-33.0); Mean Corpuscular Volume 65.6 fL (80.0-98.0); Mean Platelet Volume 9.9 fL (9.4-12.4); NRBC Pct Auto 0.2 /100WBC (0.0-0.2); PLT CLUMP 1; Red Blood Count 3.69 X10*6/uL (4.60-5.80); Red Cell Distribution Width 14.4 % (11.0-16.0)
--- NOTE | 2021-12-17 14:17 | PC.NURSE ---
lab work re-drawn by program medical director.
[2021-12-17 14:20] LABS: White Blood Count 8.9 X10*3/uL (4.8-10.8)
[2021-12-17 14:22] VITALS: BP 160/50; PULSE 74; RESP 15; TEMP 37.1; O2SAT 99
[2021-12-17 16:03] LABS: Amphetamine Screen Urine Not Detected (Not Detect); Barbiturates, Urine Not Detected (Not Detect); Benzodiazepines Screen Urine Not Detected (Not Detect); Cannabinoid Screen Urine Not Detected (Not Detect); Cocaine Screen Urine POSITIVE (Not Detect); Fentanyl, urine POSITIVE (Not Detect); Opiate Screen Urine POSITIVE (Not Detect); Phencyclidine Screen Urine Not Detected (Not Detect)
--- NOTE | 2021-12-17 17:37 | PC.NURSE ---
Patient was assessed by this nurse and niesha Degroot for c/o calf pain. PA wanted open abcess patient refused to allow PA to do so.
--- NOTE | 2021-12-17 18:57 | MHC.CARE ---
Pt is a 31 y/o Kazakh speaking, male who is previously known to the CARE Team through prior ED visits and Recovery Team interventions.? Today, pt self presents to the ED with depression and SI.? Upon arrival he stated he attempted to complete suicide.? He was under the influence at the time, his Toxicology screen was positive for Fentanyl, Cocaine, and opiates.? Upon arrival he cited relationship issues, homelessness, and drug use as the triggers for his SI.? Pt has been medically cleared and is being assessed by the CARE Team to determine appropriate treatment recommendations.? Pt has a hx of substance use.? No known hx of suicide attempts. Pt is alert and oriented x 4 and is assessed for risk in his room in the behavioral health pod of the ED.? He appears neat and well groomed, his eye contact is intermittent, and his speech is unremarkable.? He reports his sleep is good, and though he doesn?t comment on his appetite he is observed crushing handfuls of khoa crackers into a milk carton and eating them.? His room has khoa cracker wrappers strewn about the floor.? He describes his mood as fine, stating that he had recently gotten out of a bad relationship but continues to think about his former partner, which he knows is bad for him.? He reported that he recently had a relapse and had previously been doing well on suboxone.? His affect is blunt, he is at times abrasive and abrupt.? He is not help seeking.? Recovery resources, and referrals were offered but he declined all.? He denies SI, HI, , AVH, and self-harm urges.? He reports 2 previous incidents of attempts by way of overdose.? He stated these were ?Years ago.?? He stated that his SI yesterday was in the context of substance use (and the recent relapse), relationship issues, and ?other? stressors.? Pt was asked about homelessness and he denied being homeless stating that he has a home in [place] he can go to.? He does not appear to be delusional or experiencing symptoms of psychosis. Pt reports that he has no collaterals to contact.? There are no collaterals in pt?s chart. Clinical was discussed with CARE Fur Glosser Tiburcio Womack [facility], Ms. Womack voiced concerns regarding pt?s statements and suggested that this physician underwriter confer with [facility].? This physician underwriter speaks with Dr. Watts regarding the case.? Dr. Watts requests that we press pt for collaterals and keep him in the ED until we can secure reliable collaterals.
== END 2021-12-17 18:31 | disposition home or self-care (01) ==
PROVIDERS: Emergency Medicine; Emergency Provider Emergency Medicine Emergency Medical Services
DX: F33.1 Major depressive disorder, recurrent, moderate (principal); R45.851 Suicidal ideations; D64.9 Anemia, unspecified; F14.10 Cocaine abuse, uncomplicated; F11.10 Opioid abuse, uncomplicated; Z79.899 Other long term (current) drug therapy; Z20.822 Contact with and (suspected) exposure to COVID-19
CPT/HCPCS: 36415; 80048; 80076; 80143; 80179; 80307; 82077; 82272; 85025; 85027; 87635; 99284

== ENCOUNTER 2021-12-19 11:24 | Emergency (ER) | payer MEDICAID, SELFPAY ==
[2021-12-19 11:36] VITALS: BP 126/84; PULSE 76; O2SAT 99
[2021-12-19 12:25] VITALS: BP 112/59; PULSE 79; RESP 18; TEMP 37.2; O2SAT 97; BMI 26.3
--- NOTE | 2021-12-19 12:59 | ED_ITS ---
HPI - General Adult General Chief complaint: Skin/Abscess/Foreign Body Stated complaint: bilateral leg abscess Time Seen by Provider: 12/19/21 12:35 Source: patient Mode of arrival: ambulatory Limitations: no limitations History of Present Illness HPI narrative: Patient is a 31 year old male presenting to the emergency department today with an abscess on both of his legs. Patient states that he is an IV drug user and has had these abscesses on his legs for awhile now. Patient states that he has antibiotics waiting for him at the pharmacy but he doesn't want to go get them. Patient denies any dizziness, lightheadedness, abdominal pain, nausea, vomiting, fever, chills, blurry vision, double vision, loss of vision, chest pain, difficulty breathing, shortness of breath, back pain, night sweats, pain with urination, increased urinary frequency, increased urinary urgency, blood in his urine or stool, syncope or a near syncopal episode, recent trauma or falls, bowel incontinence, bladder incontinence, bowel retention, bladder retention, or any other complaints at this time. Onset (ago): week(s) Location: left, right and lower extremity Radiation: non-radiation Severity: mild Severity scale (1-10): 3 Quality: constant Pain Consistency: constant Relieving factors: none Exacerbating factors: none Associated symptoms: denies other symptoms Treatments prior to arrival: none Related Data Home Medications Medication Instructions Recorded Confirmed buprenorphine 8 mg-naloxone 2 mg 3 strip SUBLINGUAL DAILY 12/17/21 12/17/21 sublingual film (Suboxone) Previous Rx's Medication Instructions Recorded doxycycline hyclate 100 mg capsule 100 mg PO BID 7 Days #14 cap 12/17/21 cephalexin 500 mg capsule 500 mg PO Q6H 7 Days #28 cap 12/19/21 Allergies Allergy/AdvReac Type Severity Reaction Status Date / Time shrimp [SHRIMP] Allergy Intermediate Swelling Verified 11/15/21 11:52 Review of Systems Constitutional: Constitutional: Reports no additional constitutional complaints, Denies chills, Denies fever(s) and Denies night sweats Eyes: Eyes: Reports no additional eye complaints, Denies blurry vision, Denies change in vision, Denies diplopia, Denies eye discharge, Denies loss of vision and Denies eye pain ENT: Denies dizziness Cardiovascular: Cardiovascular: Reports no additional cardiovascular complaints, Denies chest pain, Denies lightheadedness, Denies Loss of Consciousness and Denies dyspnea Respiratory: Respiratory: Reports no additional respiratory complaints and Denies dyspnea Gastrointestinal: Gastrointestinal: Reports no additional gastrointestinal complaints, Denies abdominal pain, Denies melena, Denies hematochezia, Denies change in bowel habits and Denies change in stool character Genitourinary: Genitourinary: Reports no additional male genitourinary complaints, Denies hematuria, Denies oliguria, Denies difficulty urinating, Denies dysuria, Denies urinary frequency, Denies urinary hesitancy, Denies urinary incontinence and Denies urinary urgency Musculoskeletal: Musculoskeletal: Reports no additional musculoskeletal complaints, Denies numbness and Denies tingling Integumentary/Breasts: Comments: abscesses to both lower legs Neurologic: Denies dizziness, Denies loss of vision, Denies numbness and Denies tingling Psychiatric: Psychiatric: Reports no additional psychiatric complaints Endocrine: Endocrine: Reports no additional endocrine complaints Hematologic/Lymphatic: Hematologic/Lymphatic: Reports no additional hematologic/lymphatic complaints Allergic/Immunologic: Allergic/Immunologic: Reports no additional allergic/immunologic complaints [facility] Past Medical History Attestation statement: The following information was validated with the patient. Source: old records reviewed Medical History Asthma Cocaine use disorder IVDU (intravenous drug user) Opioid use disorder, severe, dependence Severe recurrent major depression w/psychotic features, mood-congruent Social History Social History Household Members: Other Household Members Other:: lives in a prison Housing: Homeless Do you presently have visiting nurse or other home services: No Unable to assess alcohol history related to: Unknown Alcohol intake: current Alcohol intake frequency: holidays/special occasions only Patient Tobacco Use Status: Tobacco use Unknown Substance Use Type: Crack/Cocaine, Heroin and Opiates Advance Directives: No Advance Directives Information Provided: No service: No Current occupational status: unemployed Sexual orientation: Did not discuss Physical Exam ED Vital Signs: Vital Signs - 24 hr 12/19/21 12:25 Temperature 99 F Pulse Rate 79 Respiratory Rate 18 Blood Pressure 112/59 L Pulse Oximetry 97 BMI result Body Mass Index 26.3 Const General: cooperative, no acute distress, alert and awake Nutritional Appearance: well nourished Orientation/consciousness: patient oriented x3 Limitations: no limitations HENMT Head: Yes normal to inspection and Yes atraumatic Ears: hearing grossly normal bilaterally and external ears normal General nose exam: Normal external nose present, no nasal discharge noted and no epistaxis Face and sinus: Yes normal facial exam, No abrasion and No laceration Mouth: Normal oral and palatal mucosa present, no drooling and no muffled voice Eyes General: appearance normal, both eyes and all related structures Periorbital: periorbital findings normal Eyelids: Yes eyelids normal Conjunctivae: conjunctivae normal Pupils: Equal, round and reactive pupils present EOM: EOMs intact bilaterally Neck Neck: Yes normal visual inspection, Yes full ROM and Yes no lymphadenopathy Chest Chest palpation & inspection: normal inspection of the chest Resp Effort & Inspection: normal respiratory effort and able to speak in complete sentences Auscultation: clear to auscultation bilaterally Cardio Rate: regular rate Rhythm: regular rhythm GI Inspection: Yes normal to inspection Skin Other: 3 cm x 2cm abscess to the medial aspect of the left lower leg, 1cm x 1cm abscess to the medial aspect of the right lower leg Neuro General: patient oriented x3 and moves all extremities Cranial nerves: Yes Equal, round and reactive pupils present Cognition (Neuro): normal cognition Motor exam (neuro): 5/5 motor strength present throughout Sensory Exam: Normal double simultaneous stimulation for sensation Coordination: [id number] test normal Extrem General: Yes normal to inspection, Yes full ROM and Yes capillary refill normal Psych Appearance: grossly normal Mental Status: mental status grossly normal Affect: normal affect Attitude: cooperative Thought process: Normal thought process present Thought content: Normal thought content present Insight: Good insight present (Psych) Procedures Abscess I/D Site: lower extremity Side (if applicable): left Local Anesthetic: lidocaine 2% Amount of anesthesia used (mL): 5 Technique: incised with blade Amount of fluid expressed (mL): 20 Sent for culture/gram staining?: No Irrigation: No Packing used?: none Medical Decision Making MDM Narrative Medical decision making narrative: Patient is a 31 year old male presenting to the emergency department today with abscesses to his lower legs. Patient's physical exam showed abscesses to the bilateral lower legs as noted. I explained my physical exam findings to the patient. I answered all questions asked by the patient. Patient stated that he wants the larger one on the left lower leg drained but not the one on his right leg. Patient's abscess was drained, per his request, as detailed in the procedure note, without incident. I stressed the importance of the patient taking his medication as prescribed. I stressed the importance of the patient following up with his primary care provider. I stressed the importance of the patient returning to the emergency department immediately if his symptoms were to worsen or if he were to develop any dizziness, shortness of breath, difficulty breathing, chest pain, blurry vision, loss of vision, nausea, vomiting, abdominal pain, fever, chills, back pain, or any other complaints. Patient verbalized agreement and understanding with this treatment plan and discharge. Differential Diagnosis Differential Diagnosis: abscess Medical Records Medical records reviewed: Yes I reviewed the patient's medical records. Discharge Plan Discharge Clinical Impression: Abscess of skin or subcutaneous tissue Patient Disposition: Home, Self-Care Instructions: Abscess (ED) Additional Instructions: Follow up with your primary care provider. Return to the emergency department immediately if your symptoms worsen or if you develop any dizziness, shortness of breath, difficulty breathing, chest pain, blurry vision, loss of vision, nausea, vomiting, abdominal pain, fever, chills, back pain, or any other complaints. Prescriptions: New cephalexin 500 mg capsule 500 mg PO Q6H 7 Days Qty: 28 0RF No Action buprenorphine-naloxone [Suboxone] 8-2 mg film 3 strip sublingual DAILY 0RF doxycycline hyclate 100 mg capsule 100 mg PO BID 7 Days Qty: 14 0RF Referrals: [facility] Family Medicine [Provider Group] [facility] Primary [facility] [Provider Group] [facility] Primary [facility] [Provider Group] Interventions: ED Discharge Assessment Last Done: 12/19/21 13:38 Discharge Date/Time: 12/19/21 13:41 Print Language: Croatian
[2021-12-19] MEDS: cephALEXin 500 MG CAPSULE PO (13:16)
[2021-12-19] MEDS: Lidocaine HCl 2 % MPF 5 ML VIAL INFILTRATI (13:40)
== END 2021-12-19 13:41 | disposition home or self-care (01) ==
PROVIDERS: Emergency Provider Emergency Medicine
DX: L02.416 Cutaneous abscess of left lower limb (principal); F11.10 Opioid abuse, uncomplicated; F33.1 Major depressive disorder, recurrent, moderate; F14.10 Cocaine abuse, uncomplicated; Z79.899 Other long term (current) drug therapy
CPT/HCPCS: 10060; 99282; 99284

== ENCOUNTER → 2022-01-02 10:54 | Outpatient (BNVA) | payer MEDICAID, SELFPAY | PROVIDERS: Visit Provider Internal Medicine | DX: Z51.81 Encounter for therapeutic drug level monitoring (principal); F11.20 Opioid dependence, uncomplicated | CPT/HCPCS: 80305; 99212 ==

== ENCOUNTER 2022-02-24 10:10 | Emergency (ER) | payer MEDICAID, SELFPAY ==
[2022-02-24 10:15] VITALS: BP 124/80; PULSE 72; O2SAT 97
[2022-02-24 10:28] VITALS: BP 139/61; PULSE 70; RESP 18; TEMP 36.8; O2SAT 99; BMI 25.0
[2022-02-24 11:13] LABS: COVID-19 Test Negative (Negative)
--- NOTE | 2022-02-24 13:24 | ED_ITS ---
HPI - Abdominal Pain General Chief Complaint: Abdominal Pain Stated Complaint: abd pain x 1hr Time Seen by Provider: 02/24/22 10:19 Source: patient Mode of arrival: ambulatory Limitations: no limitations History of Present Illness HPI narrative: 32-year-old male who is an IV drug user reports he also is alcohol dependent presenting to the ED with complaints of nausea with diffuse abdominal pain and diarrhea that started this morning. He reports that he drinks approximately 4 beers and vodka last night. He reports that he did not actually vomit. He reports associated chills. Denies any fevers, dizziness, headaches, neck pain/stiffness, trouble swallowing or breathing, chest pain or shortness of breath, flank pain, dysuria, hematuria, abnormal penile discharge, rashes, recent travel or sick contacts, recent antibiotic usage, others with similar symptoms, possible bad food exposure or any other symptoms complaints or concerns at this time. 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) Pain Consistency: constant Location: diffuse Severity: severe Pain scale (0-10): 10 Quality: aching Radiation: none Migration to: no migration Exacerbating factors: nothing Relieving factors: nothing Associated symptoms: nausea Related Data Previous Rx's Medication Instructions Recorded doxycycline hyclate 100 mg capsule 100 mg PO BID 7 days #14 caps 12/17/21 cephalexin 500 mg capsule 500 mg PO Q6H 7 days #28 caps 12/19/21 buprenorphine 300 mg/1.5 mL 300 mg (1.5 mL) subcut ONCE 30 01/02/22 solution,exten.rel.subcutaneous days #1.5 mL syringe (Sublocade) buprenorphine 8 mg-naloxone 2 mg 3 film sublingual DAILY 7 days #21 01/02/22 sublingual film (Suboxone) ea Allergies Allergy/AdvReac Type Severity Reaction Status Date / Time shrimp [SHRIMP] Allergy Intermediate Swelling Verified 01/02/22 11:02 Review of Systems Review of Systems Constitutional : No Fever, No Chills, No Night Sweats, No Fatigue, No Malaise Cardiovascular : No Chest Pain, No SOB Respiratory : No Cough, No Sputum, No Wheezing, No Dyspnea Gastrointestinal : + Nausea, No Vomiting, + Diarrhea, + abdominal Pain, No Hematochezia, No Melena Genitourinary : No irregular bleeding, No Dysuria, No Urinary Frequency, No Hematuria,No Urinary Incontinence, No Urgency, No Flank Pain Musculoskeletal : No joint pain, No Myalgias, No Joint Swelling Skin : No Skin Lesions, No rash Neuro : No Weakness, No Numbness, No Paresthesias, No Loss of Consciousness, No Dizziness, No Headache Heme/Lymph: No Lymphadenopathy Endocrine : No Temperature Intolerance Yes all other systems are reviewed and are negative [facility] Past Medical History Attestation statement: The following information was validated with the patient. Source: old records reviewed and nursing notes reviewed Medical History Asthma Cocaine use disorder IVDU (intravenous drug user) Opioid use disorder, severe, dependence Severe recurrent major depression w/psychotic features, mood-congruent Social History Social History Household Members: Other Household Members Other:: lives in a long term Housing: Homeless Do you presently have visiting nurse or other home services: No Unable to assess alcohol history related to: Unknown Alcohol intake: current Alcohol intake frequency: holidays/special occasions only Patient Tobacco Use Status: Tobacco use Unknown Substance Use Type: Crack/Cocaine, Heroin and Opiates Advance Directives: No Advance Directives Information Provided: No service: No Current occupational status: unemployed Sexual orientation: Did not discuss Physical Exam ED Vital Signs: Vital Signs - 24 hr 02/24/22 10:28 Temperature 98.2 F Pulse Rate 70 Respiratory Rate 18 Blood Pressure 139/61 Pulse Oximetry 99 BMI result Body Mass Index 25.0 Vital signs have been reviewed and all within normal limits Appearance: Alert. Oriented X3. No acute distress. Head: Normal external exam. Normocephalic. Eyes: PERRLA. EOMI. Conjunctiva and sclera normal. Eyelids normal. ENT: Pharynx normal. Uvula midline. Moist mucous membranes. No trismus noted. No drooling noted. No muffled voice noted. Neck: Normal inspection. Neck supple. FROM. No adenopathy. No meningeal signs. CVS: Normal heart rate and rhythm. Heart sound normal. No murmurs noted. Pulses normal throughout. Respiratory: No respiratory distress. Painless inspiration. Breath sounds normal. No wheezes/rales/rhonchi noted. Chest nontender. No accessory muscle usage noted or decreased air movement noted. Abdomen: Soft and diffusely tender with guarding. Nondistended. No rigidity. Bowel sounds normal in all 4 quadrants. No distention noted. No organomegaly noted. No visible injury noted. No rebound tenderness. Negative Rovsing sign. Negative obturator's sign. Negative psoas sign. Negative Walden sign. Back: No CVA tenderness. Full range of motion noted. Skin: Skin warm and dry. Normal skin color. Normal skin turgor. No rashes/lesions/lacerations noted. Extremities: Extremities exhibit normal range of motion. Extremities nontender. Neuro: Oriented X 3. No motor deficit. No sensory deficit. Reflexes normal. Normal steady gait. CN's II-XII intact bilaterally? Course Course Course Narrative: 32-year-old male who is an IV drug user reports he also is alcohol dependent presenting to the ED with complaints of nausea with diffuse abdominal pain and diarrhea that started this morning. He reports that he drinks approximately 4 beers and vodka last night. He reports that he did not actually vomit. He reports associated chills. We attempted to get an IV on the patient an IV labs although we were unsu ccessful therefore were going to try with an ultrasound-guided and patient reports that he did not want to be here any longer that he was hungry and he just wanted to leave I tried to convince him to stay for at least a CT scan of his abdomen to rule out any acute processes and patient is adamant that he would like to leave due to he is hungry. Patient is alert oriented x3. He can make his own medical decisions. Not in any acute distress Patient eloped at this time. MDM - Abdominal Pain Medical Records Attestation: I reviewed the patient's medical records. Lab Data Attestation: I reviewed the patient's lab results. Labs: Lab Results 02/24/22 Range/Units 10:30 COVID-19 (NAKUL) Negative (Negative) COVID-19 Clin Com See Note Discharge Plan Discharge Clinical Impression: Abdominal pain, Nausea, Diarrhea Patient Disposition: Elopement Prescriptions: No Action cephalexin 500 mg capsule 500 mg PO Q6H 7 Days Qty: 28 0RF doxycycline hyclate 100 mg capsule 100 mg PO BID 7 Days Qty: 14 0RF buprenorphine-naloxone [Suboxone] 8-2 mg film 3 film sublingual DAILY 7 Days Qty: 21 0RF Sublocade 300 mg/1.5 mL solution, extended rel syringe 300 mg subcut ONCE 30 Days Qty: 1.5 1RF
== END 2022-02-24 13:36 | disposition left against medical advice (07) ==
PROVIDERS: Emergency Provider Emergency Medicine
DX: R10.9 Unspecified abdominal pain (principal); R11.2 Nausea with vomiting, unspecified; Z20.822 Contact with and (suspected) exposure to COVID-19; Z79.899 Other long term (current) drug therapy
CPT/HCPCS: 87635; 99283

== ENCOUNTER 2022-05-05 02:24 | Emergency (ER) | payer MEDICAID, SELFPAY ==
[2022-05-05 02:29] VITALS: BP 113/71; PULSE 81; RESP 16; TEMP 36.9; O2SAT 100; BMI 24.2
[2022-05-05 02:54] LABS: Appearance Urine Clear; Color Urine Yellow; Glucose Urine UA Negative (Negative); Leukocyte Esterase Urine Trace (Negative); Nitrite Urine Negative (Negative); PH 5.5 (5.0-9.0); Specific Gravity - Urine >= 1.030 (1.005-1.025); UMIC TRIGGER UA YES; Urine Blood Negative (Negative); Urine Ketones Trace mg/dL (Negative); Urine Protein Trace mg/dL (Neg-Trace)
[2022-05-05 02:57] LABS: Bacteria Urine None Seen (None Seen); Hyaline Casts Urine 0-2 /LPF (0-2); RBC Urine 0-2 /HPF (0-2); Squamous Epithelial Cell Urine 0-2 /HPF (0-2)
[2022-05-05 03:07] LABS: COVID-19 Test Negative (Negative)
--- NOTE | 2022-05-05 03:09 | ED_ITS ---
HPI - Psych General Chief Complaint: Psychiatric Symptoms Stated Complaint: si Time Seen by Provider: 05/05/22 03:06 Source: patient Mode of arrival: EMS History of Present Illness HPI Narrative: 32-year-old male who presents via EMS with complaints of suicidal ideation without a plan or intent at this time and associated polysubstance use. Patient is requesting detox and denies any other constitutional symptoms. Related Data Home Medications Medication Instructions Recorded Confirmed No Known Home Meds 05/05/22 05/05/22 Allergies Allergy/AdvReac Type Severity Reaction Status Date / Time shrimp [SHRIMP] Allergy Intermediate Swelling Verified 01/02/22 11:02 Review of Systems Review of Systems: Pertinent positives and negatives as per the HPI 10 point review of systems is otherwise negative. PMFSH Past Medical History Source: nursing notes reviewed Medical History Asthma Cocaine use disorder IVDU (intravenous drug user) Opioid use disorder, severe, dependence Severe recurrent major depression w/psychotic features, mood-congruent Social History Social History Household Members: Other Household Members Other:: lives in a half-way Housing: Homeless Do you presently have visiting nurse or other home services: No Unable to assess alcohol history related to: Unknown Alcohol intake: current Alcohol intake frequency: holidays/special occasions only Patient Tobacco Use Status: Tobacco use Unknown Substance Use Type: Crack/Cocaine, Heroin and Opiates Advance Directives: No Advance Directives Information Provided: No service: No Current occupational status: unemployed Sexual orientation: Did not discuss Physical Exam Vital Signs: Vital Signs: Last Vital Signs Temp 98.3 F 05/05/22 11:16 Pulse 71 05/05/22 11:16 Resp 16 05/05/22 11:16 BP 100/54 L 05/05/22 11:16 Pulse Ox 100 05/05/22 11:16 O2 Del Method 05/05/22 11:16 BMI result Body Mass Index 24.2 VITAL SIGNS: Reviewed. GENERAL: Well developed, well nourished, in no acute distress. HEAD: Normocephalic/atraumatic EYES: PERRLA, EOMI EARS: Ext canals without abnormality OROPHARYNX: no oral lesions noted, posterior pharynx clear LUNGS: Normal breath sounds. No adventitious sounds or accessory muscle use. SpO2<100> CARDIOVASCULAR: Regular rate and rhythm without noted murmurs ABDOMEN: Soft, non-tender, non-distended with bowel sounds. MUSCULOSKELETAL: No tenderness, deformities, or effusions noted on gross ins pection. EXTREMITIES: No cyanosis, clubbing or edema. SKIN: Inspection of the skin reveals no rashes NEUROLOGIC: Alert and oriented x 4. Strength and sensation to light touch were grossly intact x 4. Course Course Course Narrative: 32-year-old male with history and clinical presentation consistent with polysubstance use and complaints of suicidal ideation. Patient is declining labs at this time and demanding methadone and detox. Evaluation by the behavioral team who recommends that he is cleared of risk and is currently additionally declining resources from the recovery team after he received a 1 time dose of 20 mg of methadone. Patient states that his SI was in the context of his withdrawals and is now denying any suicidal ideation, homicidal ideation or self-harm. He is otherwise discharged home in stable condition. Patient states that he has an appointment for intake for methadone program. His EKG and information was faxed over by the recovery team. MDM - Psych Lab Data Labs: Lab Results 05/05/22 05/05/22 05/05/22 Range/Units 02:44 02:44 02:44 Urine Color Yellow Urine Appearance Clear Urine pH 5.5 (5.0-9.0) Ur Specific [place] >= 1.030 H (1.005-1.025) Urine Protein Trace (Neg-Trace) mg/dL Urine Glucose (UA) Negative (Negative) mg/dL Urine Ketones Trace (Negative) mg/dL Urine Blood Negative (Negative) Urine Nitrite Negative (Negative) Ur Leukocyte Esterase Trace H (Negative) Urine RBC 0-2 (0-2) /HPF Urine WBC 11-20 H (0-5) /HPF Ur Squamous Epith Cells 0-2 (0-2) /HPF Urine Bacteria None Seen (None Seen) Hyaline Casts 0-2 (0-2) /LPF Urine Opiates Screen POSITIVE H (Not Detect) Urine Fentanyl Screen POSITIVE H (Not Detect) Ur Barbiturates Screen Not Detected (Not Detect) Ur Phencyclidine Scrn Not Detected (Not Detect) Ur Amphetamines Screen Not Detected (Not Detect) U Benzodiazepines Scrn Not Detected (Not Detect) Urine Cocaine Screen POSITIVE H (Not Detect) U Marijuana (THC) Screen POSITIVE H (Not Detect) COVID-19 (NAKUL) Negative (Negative) COVID-19 Clin Com See Note ECG Data Attestation: I personally reviewed and interpreted this ECG as follows: Prior ECG tracings: available for review Interpretation: Normal sinus rhythm with sinus arrhythmia, HR-65, no STEMI, NC/QRS/QTC are within normal limits. Discharge Plan Discharge Clinical Impression: Substance use disorder Patient Disposition: Home, Self-Care Instructions: Polysubstance Abuse (ED) Additional Instructions: Please follow-up as scheduled with your methadone program. Return to the ER for any worsening of symptoms. Prescriptions: No Action No Known Home Meds
[2022-05-05 03:15] LABS: Amphetamine Screen Urine Not Detected (Not Detect); Barbiturates, Urine Not Detected (Not Detect); Benzodiazepines Screen Urine Not Detected (Not Detect); Cannabinoid Screen Urine POSITIVE (Not Detect); Cocaine Screen Urine POSITIVE (Not Detect); Fentanyl, urine POSITIVE (Not Detect); Opiate Screen Urine POSITIVE (Not Detect); Phencyclidine Screen Urine Not Detected (Not Detect)
[2022-05-05] MEDS: Ibuprofen 800 MG TABLET PO (03:41)
--- NOTE | 2022-05-05 04:14 | PC.NURSE ---
Patient extremely hard stick, attempted x 3 third attempt was by phlebotomy with no success, provider notified/okayed to discontinue the lab ordered, patient is in bed appears resting, [facility] referral completed/confirmed/pending ETA, med rec completed, patient is currently not on any medication, patient's hands were swollen from IV drug use, provider made aware/ordered doxy
--- NOTE | 2022-05-05 04:18 | PC.NURSE ---
Patient extremely hard stick, attempted x 3 third attempt was by phlebotomy with no success, provider notified/okayed to discontinue the lab ordered, patient is in bed appears resting, [facility] referral completed/confirmed/pending ETA, med rec completed, patient is currently not on any medication, patient's hands were swollen from IV drug use, provider made aware/ordered doxy 100 mg BID, VSS, will continue to monitor.
[2022-05-05] MEDS: Acetaminophen 325 MG TABLET 975 MG PO (05:43)
[2022-05-05 08:44] VITALS: PULSE 76
--- NOTE | 2022-05-05 08:52 | PC.NURSE ---
CARE TEAM (ESTELA) AT BEDSIDE, PT AWARE OF PLAN OF CARE. PT IS SCREAMING OCCASIONAL AT THIS PROVIDER.
--- NOTE | 2022-05-05 08:59 | ECG_ITS ---
Test Reason : withdrawing Blood Pressure : / mmHG Vent. Rate : 065 BPM Atrial Rate : 065 BPM P-R Int : 124 ms QRS Dur : 088 ms QT Int : 412 ms P-R-T Axes : 035 -10 015 degrees QTc Int : 428 ms Normal sinus rhythm with sinus arrhythmia Normal ECG When compared with ECG of 09-JUL-2021 16:25, No significant change was found Referred By: Sofia Rosales Electronically Signed By:XUAN MCWILLIAMS MD
--- NOTE | 2022-05-05 09:16 | MHC.CARE ---
CARE Team attempts to meet with pt.? Pt is belligerent and profane.? He refuses to speak with CARE Team as he is ?Sick? and withdrawing.? Pt requests methadone and is insistent on leaving. CARE Team meets with Pt?s nurse who advises CARE Team that pt scored a 15 on the COW scale.? CARE Team meets with ED provider for the pod and Recovery team.? Provider will provide methadone but requires an EKG first.? CARE Team advises pt that he will receive methadone but must cooperate with an EKG prior to receiving the methadone.? Pt agrees to cooperate with the EKG. CARE Team will meet with pt after he receives Methadone.
[2022-05-05] MEDS: methADONE HCl 20 MG/2 ML ORAL.CONC PO (09:58)
--- NOTE | 2022-05-05 10:27 | PC.NURSE ---
PT IS IN EXCEPTIONALLY GOOD SPIRITS NOW THAT HE HAS GOTTEN HIS METHADONE. PT IS TAKING A SHOWER AND HIS ROOM AND BED CLEANSED BY [facility] OF [employer] AND FOOD PACKING ON THE FLOOR AND TABLE.
--- NOTE | 2022-05-05 10:35 | PC.NURSE ---
PT IS SPEAKING WITH CARE TEAM (ESTELA) AT THIS TIME.
--- NOTE | 2022-05-05 11:06 | MHC.RECOVSUP ---
Recovery Support note: Patient is a 32 year old Ivorian speaking male who presented to [facility] [place] [place] ED due to SI in the context of substance use. Patient was seen by the CARE Team and cleared for discharge. Patient was unable to be assessed earlier due to the severity of his withdrawal symptoms. Patient was given 20mg of methadone and reported a significant improvement in symptoms. Patient is interested in connected with an outpatient methadone clinic. Patient reports he has a photo on his food stamp card however does not have a license. Instructed patient to bring his food stamp card to his intake appointment at [facility]. Patient reports he contacted [facility] and has an appointment. This law writer will send patient information to their facility.
[2022-05-05 11:16] VITALS: BP 100/54; PULSE 71; RESP 16; TEMP 36.8; O2SAT 100
[2022-05-05 11:47] VITALS: BP 108/66
--- NOTE | 2022-05-05 12:10 | MHC.CARE ---
Pt is a 32 y/o, single, Turkmen speaking male who is previously known to the CARE Team via prior ED visits.? Today, pt presented to the Ed via ambulance with chief compliant of suicidal ideation without plan and intent appearing to be triggered by polysubstance use. Pt has been medically cleared and is being assessed by the CARE Team to determine appropriate treatment recommendations. Pt has an extensive hx of inpt hospitalizations, ATS, CSS, and detox. Past documented hx of Major Depressive d/o, unspecified anxiety d/o, and opioid use d/o.? No known hx of substance use or suicide attempts.? Pt is alert and oriented x4 and is assessed in his room in the behavioral health pod of the ED.? He has received methadone and appears more comfortable and engages easily.? His eye contact and speech are unremarkable and he demonstrates a wide range of affect.? He reports fair sleep and poor appetite today, stating he is nauseous.? He does not appear delusional or experiencing symptoms of psychosis.? He denies SI, HI, , and self-harm urges and states that his SI was in the context of his withdrawals.? He stated that ?everyone feels like dying when they?re withdrawing.?? Judgement is poor.? Insight, memory, impulse control and concentration appear good. Pt is denying SI.? Recovery resources were offered but he has declined all resources related to Recovery.? Pt was advised that he could contact this facility should he change his mind. Plan is for pt to be discharged home.? This plan was discussed with and agreed upon by Luciana Jacobo [facility] and ED Provider Dr. Rosales.
== END 2022-05-05 11:58 | disposition home or self-care (01) ==
PROVIDERS: Emergency Provider Internal Medicine
DX: F33.1 Major depressive disorder, recurrent, moderate (principal); R45.851 Suicidal ideations; F14.90 Cocaine use, unspecified, uncomplicated; F11.90 Opioid use, unspecified, uncomplicated; Z20.822 Contact with and (suspected) exposure to COVID-19; Z79.899 Other long term (current) drug therapy
CPT/HCPCS: 80307; 81001; 87635; 93005; 99284; 99285

== ENCOUNTER 2022-11-16 03:03 | Emergency (ER) | payer OTHER, MEDICAID, SELFPAY ==
[2022-11-16] VITALS (7 sets, daily range): BP systolic 94–120; BP diastolic 47–70; PULSE 56–84; RESP 10–16; TEMP 36.2–36.9; O2SAT 98–100; BMI 26.2
--- NOTE | 2022-11-16 03:15 | PC.NURSE ---
pt biba. pt placed on gambling monitor. pt expresses SI with plan. storage battery charger made aware dr blancas made aware of pt status. 1:1 sitter initiated
[2022-11-16 03:26] LABS: Glucose, Whole Blood 147 mg/dL (60-115)
--- NOTE | 2022-11-16 03:26 | ECG_ITS ---
Test Reason : OD Blood Pressure : / mmHG Vent. Rate : 073 BPM Atrial Rate : 073 BPM P-R Int : 128 ms QRS Dur : 098 ms QT Int : 438 ms P-R-T Axes : 037 -08 024 degrees QTc Int : 482 ms Normal sinus rhythm Prolonged QT Abnormal ECG When compared with ECG of 05-MAY-2022 09:17, QT has lengthened Referred By: Rohan Puga Electronically Signed By:Maverick Girard
--- NOTE | 2022-11-16 03:26 | ED_ITS ---
HPI - Overdose General Chief Complaint: Overdose Stated Complaint: substance abuse, difficulty ambulating Time Seen by Provider: 11/16/22 03:15 Source: patient Mode of arrival: ambulatory Limitations: no limitations History of Present Illness HPI Narrative: Patient history of polysubstance abuse use IV cocaine and heroin and takes gabapentin on a regular basis comes here for be depressed and used 3 bags of heroin and some cocaine tablets of 800 mg of gabapentin earlier today patient uses same amount of gabapentin and heroin and cocaine almost every day patient is homeless feels like suicidal with plan of overdosing on heroin and cocaine Related Data Home Medications Medication Instructions Recorded Confirmed No Known Home Meds 05/05/22 05/05/22 Allergies Allergy/AdvReac Type Severity Reaction Status Date / Time shrimp [SHRIMP] Allergy Intermediate Swelling Verified 01/02/22 11:02 Review of Systems Review of Systems: Yes all other systems are reviewed and are negative PMFSH Past Medical History Medical History Asthma Cocaine use disorder IVDU (intravenous drug user) Opioid use disorder, severe, dependence Severe recurrent major depression w/psychotic features, mood-congruent Social History Social History Household Members: Other Household Members Other:: lives in a residential Housing: Homeless Do you presently have visiting nurse or other home services: No Unable to assess alcohol history related to: Unknown Alcohol intake: current Alcohol intake frequency: holidays/special occasions only Patient Tobacco Use Status: Tobacco use Unknown Substance Use Type: Crack/Cocaine, Heroin and Opiates Advance Directives: No Advance Directives Information Provided: Yes service: No Current occupational status: unemployed Sexual orientation: Did not discuss Physical Exam Vital Signs: Vital Signs: Last Vital Signs Temp 98.1 F 11/16/22 05:35 Pulse 68 11/16/22 05:35 Resp 12 11/16/22 05:35 BP 102/53 L 11/16/22 05:35 Pulse Ox 98 11/16/22 05:35 O2 Del Method Room Air 11/16/22 05:35 BMI result Body Mass Index 26.2 Appearance: Alert. Oriented X3. No acute distress. Eyes: PERRLA, No Nystagmus ENT: Pharynx normal. Oral Mucosa moist Neck: Normal inspection. Neck supple. CVS: Normal heart rate and rhythm. Pulses normal. Respiratory: No respiratory distress. Equal air entry bilateral, no wheezing/rales/rhonchi Abdomen: Soft and nontender. Bowel sounds are present, no mass palpable, no CVA tenderness Skin: Skin warm and dry. Normal skin color. Normal skin turgor. IVDA track ramirez++ Extremities: No lower extremity edema. No calf tenderness psych: Sleepy feels depressed denied any SI at this time no hallucination or delusion Neuro: Oriented X 3. No motor deficit. No sensory deficit.No cerebellar signs , cranial nerves II-XII intact Medical Decision Making Medical Decision Making [facility] Narrative: 06:35 Patient with polysubstance abuse with history of depression feel suicidal taking gabapentin also patient refused to give blood vitals are stable medically cleared for care team evaluation Lab Data [facility] Lab Attestation statement: I reviewed the patient's lab results. Labs: Lab Results 11/16/22 Range/Units 03:22 POC Glucose 147 H (60-115) mg/dL Independent Interpretation I performed an independent interpretation of an: EKG Interpretation: Normal sinus rhythm heart rate 73 beats per minute slightly prolonged QTc interval [address] wave changes no acute ischemic Discharge Plan Discharge Clinical Impression: Cocaine use disorder, Opioid use disorder, severe, dependence, Depression with suicidal ideation Patient Disposition: Still a Patient Prescriptions: No Action No Known Home Meds
--- NOTE | 2022-11-16 03:43 | MHC.EDTECH ---
patient refusing labs; asked for food and drink, provider said it was ok, ice water and sandwich given
--- NOTE | 2022-11-16 04:13 | MHC.EDTECH ---
PT was Changed over into hospital attire and all belongings are in decon
--- NOTE | 2022-11-16 05:48 | PC.NURSE ---
pt continues to refuse blood work at this time. this rn attempted to express importance of blood work. dr blancas made aware
[2022-11-16 06:56] LABS: Amphetamine Screen Urine Not Detected (Not Detect); Barbiturates, Urine Not Detected (Not Detect); Benzodiazepines Screen Urine Not Detected (Not Detect); Cannabinoid Screen Urine Not Detected (Not Detect); Cocaine Screen Urine POSITIVE (Not Detect); Fentanyl, urine POSITIVE (Not Detect); Opiate Screen Urine POSITIVE (Not Detect); Phencyclidine Screen Urine Not Detected (Not Detect)
--- NOTE | 2022-11-16 07:10 | PC.NURSE ---
assumed care of this pt at 0700. pt in no apparent distress and is sleeping at this time. rr even/unlabored. 1:1 sitter at bedside. wctm
--- NOTE | 2022-11-16 09:15 | PC.NURSE ---
gary notified this RN that pt is asking for his methadone. this RN spoke to pt to confirm methadone clinic. pt calm, cooperative, but sleepy. still refusing labs. will call methadone clinic
--- NOTE | 2022-11-16 09:27 | PC.NURSE ---
this RN spoke with [facility] RN.verification completed and sent to pharmacy.
--- NOTE | 2022-11-16 09:58 | HE.PHANOTE ---
Re: methadone verification 80 mg last dose on 11/15/22 @[facility] ([phone]) verified by unique benedict rn
--- NOTE | 2022-11-16 10:42 | PC.NURSE ---
pt awake and asking for food. given pbj sandwich, khoa crackers, apple sauce, pudding, cheese stick, and milk. pt appreciative and resting quietly
[2022-11-16] MEDS: methADONE HCl 20 MG/2 ML ORAL.CONC 80 MG PO (11:40)
--- NOTE | 2022-11-16 16:05 | PC.NURSE ---
refusing required bloodwork for detox placement.
--- NOTE | 2022-11-16 16:37 | MHC.RECOVRN ---
This production underwriter met w/ patient, patient is pending care team evaluation for SI with intent to overdose. Patient reports to t/w no longer feeling suicidal, patient requests detox and support with substance use. Patient reports daily heroin/CHARLIE use, IV, 5 bundles daily heroin and IV CHARLIE. Patient reports has overdosed in the past, last overdose approximately 2 years ago. Patient inquiring about [address] process. Patient has been on MAT in the past and has been to treatment in the past. T/W reached out to care team, reviewed that patient is no longer reporting SI, however, will still need mental health evaluation prior to detox bedsearch process as detoxes require psych eval when patient reports SI.
[2022-11-16 16:40] LABS: Ethanol < 10 mg/dL
--- NOTE | 2022-11-16 17:18 | ED_ITS ---
HPI - General Adult General Chief complaint: Overdose Stated complaint: substance abuse, difficulty ambulating Time Seen by Provider: 11/16/22 03:15 Source: patient Mode of arrival: ambulatory Limitations: no limitations Related Data Home Medications Medication Instructions Recorded Confirmed methadone 10 mg/mL oral concentrate 80 mg PO DAILY 11/16/22 11/16/22 Allergies Allergy/AdvReac Type Severity Reaction Status Date / Time shrimp [SHRIMP] Allergy Intermediate Swelling Verified 01/02/22 11:02 [facility]LY [facility] Past Medical History Medical History Asthma Cocaine use disorder IVDU (intravenous drug user) Opioid use disorder, severe, dependence Severe recurrent major depression w/psychotic features, mood-congruent Social History Social History Household Members: Other Household Members Other:: lives in a care home Housing: Homeless Do you presently have visiting nurse or other home services: No Unable to assess alcohol history related to: Unknown Alcohol intake: current Alcohol intake frequency: a few times a week Patient Tobacco Use Status: Tobacco use Unknown Smoked in Last 30 Days: Yes Use of substances other than those prescribed or required for medical reasons: Yes Substance Use Type: Crack/Cocaine, Heroin and Marijuana Advance Directives: No Advance Directives Information Provided: Yes service: No Current occupational status: unemployed Sexual orientation: Did not discuss Physical Exam ED Vital Signs: Vital Signs - 24 hr 11/16/22 03:13 11/16/22 03:34 11/16/22 05:35 Temperature 98.4 F 97.9 F 98.1 F Pulse Rate 61 65 68 Respiratory Rate 11 L 10 L 12 Blood Pressure 114/62 103/66 102/53 L Pulse Oximetry 99 99 98 Oxygen Delivery Method Room Air Room Air Room Air 11/16/22 07:06 11/16/22 11:07 11/16/22 13:47 Temperature 97.2 F 97.7 F Pulse Rate 68 62 65 Respiratory Rate 10 L 10 L 11 L Blood Pressure 94/47 L 99/59 L 102/61 Pulse Oximetry 99 99 99 Oxygen Delivery Method Room Air Room Air Room Air 11/16/22 16:00 Temperature 98.2 F Pulse Rate 56 Respiratory Rate 16 Blood Pressure 106/55 L Pulse Oximetry 98 Oxygen Delivery Method Room Air BMI result Body Mass Index 26.2 Course Course Course Narrative: 5:18 p.m. Patient seen by the care team and the patient expresses desire for voluntary Section 35 tomorrow morning. He has family in support of this. The patient will be discharged with plan for voluntary Section 35 Medications Administered Generic Name Dose Route Start Last Admin Trade Name Nithin PRN Reason Stop Dose Admin Methadone HCl 80 mg 11/16/22 11:30 11/16/22 11:40 Methadone Hcl 20 Mg/2 Ml Oral.Conc PO 80 mg DAILY ADRIÁN Administration Medical Decision Making Lab Data Labs: Lab Results 11/16/22 11/16/22 11/16/22 Range/Units 03:22 06:41 16:17 POC Glucose 147 H (60-115) mg/dL Urine Opiates Screen POSITIVE H (Not Detect) Urine Fentanyl Screen POSITIVE H (Not Detect) Ur Barbiturates Screen Not Detected (Not Detect) Ur Phencyclidine Scrn Not Detected (Not Detect) Ur Amphetamines Screen Not Detected (Not Detect) U Benzodiazepines Scrn Not Detected (Not Detect) Urine Cocaine Screen POSITIVE H (Not Detect) U Marijuana (THC) Screen Not Detected (Not Detect) Ethyl Alcohol < 10 mg/dL Discharge Plan Discharge Clinical Impression: Cocaine use disorder, Opioid use disorder, severe, dependence, Depression with suicidal ideation Patient Disposition: Home, Self-Care Instructions: Opioid Use Disorder (ED) Additional Instructions: You may go to the court house tomorrow to voluntarily section 35 yourself as planned Return to the ER for any new or worsening symptoms Prescriptions: No Action methadone 10 mg/mL Concentrate 80 mg PO DAILY
--- NOTE | 2022-11-16 17:29 | MHC.RECOVSUP ---
Met with pt in ED6 for potential ATS. Pt informs he is not interested in ATS at this time and is planning to Section 35 himself tomorrow. T/W provided pt with resources and pt had no additional questions or concerns at this time.
== END 2022-11-16 17:52 | disposition home or self-care (01) ==
PROVIDERS: Internal Medicine; Emergency Provider Emergency Medicine
DX: R45.851 Suicidal ideations (principal); F11.20 Opioid dependence, uncomplicated; F19.10 Other psychoactive substance abuse, uncomplicated; F33.3 Major depressive disorder, recurrent, severe with psychotic symptoms; Z79.899 Other long term (current) drug therapy
CPT/HCPCS: 36415; 80307; 82077; 82947; 93005; 99285; S9485

== ENCOUNTER 2022-11-24 02:55 | Emergency (ER) | payer MEDICAID, SELFPAY ==
--- NOTE | 2022-11-24 03:20 | ED_ITS ---
HPI - Psych General Chief Complaint: ETOH/Substance Use Stated Complaint: Seizure Time Seen by Provider: 11/24/22 03:13 Source: patient Mode of arrival: EMS Limitations: no limitations History of Present Illness HPI Narrative: Patient with History of substance abuse cocaine heroin today took 12 tablets of 800 mg of gabapentin usually take 10-15 tablets of gabapentin daily. requesting to go to detox or to Section 35 himself denied any SI Related Data Home Medications Medication Instructions Recorded Confirmed methadone 10 mg/mL oral concentrate 80 mg PO DAILY 11/16/22 11/16/22 Allergies Allergy/AdvReac Type Severity Reaction Status Date / Time shrimp [SHRIMP] Allergy Intermediate Swelling Verified 01/02/22 11:02 Review of Systems Review of Systems: Yes all other systems are reviewed and are negative PMFSH Past Medical History Medical History Asthma Cocaine use disorder IVDU (intravenous drug user) Opioid use disorder, severe, dependence Severe recurrent major depression w/psychotic features, mood-congruent Social History Social History Household Members: Other Household Members Other:: lives in a nursing home Housing: Homeless Do you presently have visiting nurse or other home services: No Unable to assess alcohol history related to: Unknown Alcohol intake: current Alcohol intake frequency: a few times a week Patient Tobacco Use Status: Tobacco use Unknown Use of substances other than those prescribed or required for medical reasons: Yes Substance Use Type: IV Drugs and Opiates Advance Directives: No Advance Directives Information Provided: No service: No Current occupational status: unemployed Sexual orientation: Did not discuss Physical Exam Vital Signs: Vital Signs: Last Vital Signs Temp 98.2 F 11/24/22 03:42 Pulse 82 11/24/22 03:42 Resp 18 11/24/22 03:42 BP 112/66 11/24/22 03:42 Pulse Ox 100 11/24/22 03:42 O2 Del Method Room Air 11/24/22 03:42 BMI result Body Mass Index 27.4 Appearance: Alert. Oriented X3. No acute distress. Eyes: PERRLA, No Nystagmus ENT: Pharynx normal. Oral Mucosa moist Neck: Normal inspection. Neck supple. CVS: Normal heart rate and rhythm. Pulses normal. Respiratory: No respiratory distress. Equal air entry bilateral, no wheezing/rales/rhonchi Abdomen: Soft and nontender. Bowel sounds are present, no mass palpable, no CVA tenderness Skin: Skin warm and dry. Normal skin color. Normal skin turgor. Extremities: No lower extremity edema. No calf tenderness IVDA track ramirez++ psych: Normal mood no SI or HI Neuro: Oriented X 3. No motor deficit. No sensory deficit.No cerebellar signs , cranial nerves II-XII intact Medical Decision Making Lab Data 11/24/22 04:12 11/24/22 04:12 Labs: Lab Results 11/24/22 11/24/22 11/24/22 Range/Units 03:40 04:12 04:12 WBC 6.5 (4.8-10.8) X10*3/uL RBC 4.18 L (4.60-5.80) X10*6/uL Hgb 9.0 L D (14.0-18.0) g/dl Hct 29.5 L D (42.0-52.0) % MCV 70.6 L (80.0-98.0) fL MCH 21.5 L (27.0-33.0) pg MCHC 30.5 L (31.0-36.0) g/dl RDW 18.4 H (11.0-16.0) % Plt Count 400 (160-400) X10*3/uL MPV 9.8 (9.4-12.4) fL Immature Gran % (Auto) 0.3 (0.0-0.4) % Neut % (Auto) 59.6 (45-73) % Lymph % (Auto) 28.5 (20-40) % [place] % (Auto) 9.0 (2-11) % Eos % (Auto) 2.0 (0-4) % Baso % (Auto) 0.6 (0-2) % Lymph # (Auto) 1.9 (1.2-4.9) X10*3/uL [place] # (Auto) 0.6 (0.1-1.2) X10*3/uL Eos # (Auto) 0.1 (0.0-0.4) X10*3/uL Baso # (Auto) 0.0 (0.0-0.2) X10*3/uL Abs Immat Gran (auto) 0.02 (0.00-0.03) X10*3/uL Absolute Neuts (auto) 3.9 (2.0-8.3) x10*3/uL Absolute Nucleated RBC 0.000 (0.0-0.012) X10*3/uL Nucleated RBC % (auto) 0.0 (0.0-0.2) /100WBC Sodium 139 (135-145) mmol/L Potassium 3.7 (3.3-5.1) mmol/L Chloride 105 (96-108) mmol/L Carbon Dioxide 25 (22-29) mmol/L Anion Gap 13 (12-20) BUN 13 (9-16) mg/dL Creatinine 0.83 (0.5-1.4) mg/dL Estim Creat Clear Calc 127.2 Estimated GFR > 60 Random Glucose 104 (60-115) mg/dL Calcium 8.6 (8.4-10.2) mg/dL Total Bilirubin 0.2 (0.0-1.0) mg/dL AST 36 (5-37) U/L ALT 33 (0-40) U/L Alkaline Phosphatase 96 (39-117) U/L Total Protein 7.3 (6.5-8.0) g/dL Albumin 3.6 (3.5-5.0) g/dL Urine Opiates Screen POSITIVE H (Not Detect) Urine Fentanyl Screen POSITIVE H (Not Detect) Ur Barbiturates Screen Not Detected (Not Detect) Ur Phencyclidine Scrn Not Detected (Not Detect) Ur Amphetamines Screen Not Detected (Not Detect) U Benzodiazepines Scrn Not Detected (Not Detect) Urine Cocaine Screen POSITIVE H (Not Detect) U Marijuana (THC) Screen Not Detected (Not Detect) Ethyl Alcohol < 10 mg/dL Discharge Plan Discharge Clinical Impression: Polysubstance abuse Patient Disposition: Still a Patient Prescriptions: No Action methadone 10 mg/mL Concentrate 80 mg PO DAILY
--- NOTE | 2022-11-24 03:36 | ECG_ITS ---
Test Reason : OVERDOSE Blood Pressure : / mmHG Vent. Rate : 071 BPM Atrial Rate : 071 BPM P-R Int : 146 ms QRS Dur : 102 ms QT Int : 454 ms P-R-T Axes : 047 -06 013 degrees QTc Int : 493 ms Normal sinus rhythm with sinus arrhythmia Nonspecific T wave abnormality Prolonged QT Abnormal ECG When compared with ECG of 16-NOV-2022 03:46, No significant change was found Referred By: Rohan Puga Electronically Signed By:SHWETA CHRISTIAN MD
[2022-11-24 03:42] VITALS: BP 112/66; PULSE 82; RESP 18; TEMP 36.8; O2SAT 100; BMI 27.4
[2022-11-24 03:56] LABS: Amphetamine Screen Urine Not Detected (Not Detect); Barbiturates, Urine Not Detected (Not Detect); Benzodiazepines Screen Urine Not Detected (Not Detect); Cannabinoid Screen Urine Not Detected (Not Detect); Cocaine Screen Urine POSITIVE (Not Detect); Fentanyl, urine POSITIVE (Not Detect); Opiate Screen Urine POSITIVE (Not Detect); Phencyclidine Screen Urine Not Detected (Not Detect)
[2022-11-24 04:16] LABS: MANUAL DIFF FLAG NO
[2022-11-24 04:18] LABS: Basophils Percent Auto 0.6 % (0-2); Eosinophils Absolute Auto 0.1 X10*3/uL (0.0-0.4); Hematocrit 29.5 % (42.0-52.0); Imm Gran Abs Auto 0.02 X10*3/uL (0.00-0.03); Imm Gran Pct Auto 0.3 % (0.0-0.4); Lymphocytes Absolute Auto 1.9 X10*3/uL (1.2-4.9); Lymphocytes Percent Auto 28.5 % (20-40); Mean Corpuscular HGB Conc 30.5 g/dl (31.0-36.0); Mean Corpuscular Hemoglobin 21.5 pg (27.0-33.0); Mean Corpuscular Volume 70.6 fL (80.0-98.0); Mean Platelet Volume 9.8 fL (9.4-12.4); Monocytes Absolute Auto 0.6 X10*3/uL (0.1-1.2); Neutrophils Absolute Auto 3.9 x10*3/uL (2.0-8.3); Neutrophils Percent Auto 59.6 % (45-73); Platelet Count 400 X10*3/uL (160-400); Red Blood Count 4.18 X10*6/uL (4.60-5.80); Red Cell Distribution Width 18.4 % (11.0-16.0); White Blood Count 6.5 X10*3/uL (4.8-10.8)
[2022-11-24 04:38] LABS: Alanine Aminotransferase 33 U/L (0-40); Albumin Level 3.6 g/dL (3.5-5.0); Alkaline Phosphatase 96 U/L (39-117); Anion Gap 13 (12-20); Aspartate Amino Transferase 36 U/L (5-37); Bilirubin Total 0.2 mg/dL (0.0-1.0); Blood Urea Nitrogen 13 mg/dL (9-16); Calcium 8.6 mg/dL (8.4-10.2); Carbon Dioxide 25 mmol/L (22-29); Chloride 105 mmol/L (96-108); Creatinine Clr Calc Pharmacy 127.2; Estimated Glomerular Filt Rate > 60; Ethanol < 10 mg/dL; Glucose Random 104 mg/dL (60-115); Potassium 3.7 mmol/L (3.3-5.1); Sodium 139 mmol/L (135-145); Total Protein 7.3 g/dL (6.5-8.0)
--- NOTE | 2022-11-24 07:57 | PC.NURSE ---
pt intermittently sleeping, taking po intake while awaiting breakfast. he is waiting for care team assessment
--- NOTE | 2022-11-24 08:48 | MHC.CARE ---
Pt is a 32 yearold , single, Tuvaluan speaking male who is previously known to the CARE Team via prior ED visits.? Pt presented to [facility] ED early this morning reporting want helping for substance use, wanting to section 35 himself and vague SI. Pt presents as alert and orientated though somewhat groggy likely due to substance use and minimal sleep. Pt is not endorsing current SI/HI/VH/AH. Pt is advocating for detox admission at this time.? Pt reports ongoing opiate and cocaine use. Pt has hx of ATS, [facility] and [facility] admissions. Pt does not recall his last ATS admission. Pt last in [facility] admission was in June 2021 for 3 days on M5. Pt has a historical diagnosis of major depressive disorder and opioid use disorder. Pt is currently recieving medication assisted treatment at [facility] since 2020.? Plan for recovery to be consulted on case, Pt is advocating for detox admission at this time. Case reviewed with Dr. Payan?
--- NOTE | 2022-11-24 09:47 | MHC.RECOVRN ---
Met with pt in [id number] to discuss substance use and desire for treatment. Pt interested in Sect 35, educated regarding that process. Pt would like to explore possibility of [facility] prior to sectioning self. Pt reports 5 bundles heroin daily, as well as cocaine, IV. T/w left message with [facility] inquiring about bed availability, awaiting return call.
--- NOTE | 2022-11-24 09:50 | PC.NURSE ---
spoke with recovery advocate eating breakfast
--- NOTE | 2022-11-24 10:54 | MHC.RECOVSUP ---
PT informs he is willing to go to [facility] or [facility] if [facility] is not available.
--- NOTE | 2022-11-24 14:00 | PC.NURSE ---
CALLED FOR METHADONE DOSE AND LAST DOSE
--- NOTE | 2022-11-24 14:28 | MHC.RECOVSUP ---
Pt declined ATS during his phone screen and is being dc with intent to section himself.
--- NOTE | 2022-11-24 14:29 | PC.NURSE ---
refused detox intake, verbally agitated and aggressive with staff , discharged with security to get belongings
== END 2022-11-24 14:28 | disposition home or self-care (01) ==
PROVIDERS: Emergency Provider Internal Medicine
DX: T40.1X1A Poisoning by heroin, accidental (unintentional), initial encounter (principal); Y92.9 Unspecified place or not applicable; F14.10 Cocaine abuse, uncomplicated; I49.8 Other specified cardiac arrhythmias; Z71.51 Drug abuse counseling and surveillance of drug abuser; Z79.899 Other long term (current) drug therapy
CPT/HCPCS: 36415; 80053; 80307; 85025; 93005; 99285

== ENCOUNTER 2023-02-07 00:23 | Inpatient (IN) | payer MEDICAID, SELFPAY ==
[2023-02-07] VITALS (7 sets, daily range): BP systolic 104–138; BP diastolic 55–84; PULSE 56–97; RESP 1–18; TEMP 36–36.9; O2SAT 97–100; BMI 28.2; BMI 28.5
--- NOTE | ~2023-02-07 | CT_ITS ---
EXAMINATION: CT CHEST WITHOUT CONTRAST CLINICAL INFORMATION: Possible lung nodule on chest x-ray COMPARISON: Chest x-ray from the same day TECHNIQUE: Multidetector volumetric CT imaging of the chest was done. Axial MIP volume rendering provided. Sagittal and coronal reformatted images were obtained. This CT examination was performed using dose optimization techniques as appropriate, variously including the following: *Automated exposure control *Adjustment of mA and/or kV according to patient size (this includes techniques or standardized protocols for targeted exams where dose is matched to indication/reason for exam; i.e. extremities or head) *Use of iterative reconstruction technique DLP: 243 mGy-cm FINDINGS: LUNGS: There is a focal, nodular region of consolidation in the lateral right middle lobe measuring approximately 3 cm with surrounding groundglass opacity. A few tiny foci of internal gas are suspicious for sequelae of cavitation. Additional cavitary nodule is present in the posterolateral basilar right lower lobe measuring approximately 1.8 cm. MEDIASTINUM: The visualized thyroid gland is unremarkable. No appreciable lymphadenopathy, though assessment is limited without intravenous contrast. Cardiac size is within normal limits; no pericardial effusion. CORONARY ARTERY CALCIFICATION: None visualized on this study. PLEURA: No pneumothorax or pleural effusion. AXILLA: No lymphadenopathy. UPPER ABDOMEN: Unremarkable. OSSEOUS STRUCTURES: Unremarkable. CT/CT chest wo IV con IMPRESSION: Focal nodular consolidation in the lateral right middle lobe measuring approximately 3 cm with surrounding groundglass opacity. A few tiny foci of internal gas are suspicious for sequelae of cavitation. Additional cavitary nodule in the posterolateral basilar right lower lobe measuring approximately 1.8 cm. Given the history of IV drug abuse, appearance is most suspicious for septic emboli. This was discussed with Dr. Lobo on 02/07/2023 2:42 AM.
--- NOTE | ~2023-02-07 | XR_ITS ---
EXAMINATION: XR CHEST CLINICAL INFORMATION: Right chest/rib pain COMPARISON: 04/07/2019 TECHNIQUE: Frontal view of the chest was obtained. FINDINGS: Lung volumes are symmetric. No focal consolidation is seen. There is a questionable subtle, approximately 2 cm nodular density overlying the lateral right chest, though this could reflect overlying scapular shadow. No evidence of pneumothorax, pleural effusion, or pulmonary edema. The cardiomediastinal contour is unremarkable. No acute osseous findings are seen. XR/XR chest 1V IMPRESSION: Questionable lateral right lung nodule. In the setting of right-sided pain, further workup with chest CT is recommended. This was discussed with Dr. Morris on 02/07/2023 2:02 AM.
--- NOTE | 2023-02-07 00:40 | MHC.EDTECH ---
pt changed over with security present. belongings secured in decon.
--- NOTE | 2023-02-07 01:05 | ECG_ITS ---
Test Reason : CP Blood Pressure : / mmHG Vent. Rate : 079 BPM Atrial Rate : 079 BPM P-R Int : 148 ms QRS Dur : 096 ms QT Int : 432 ms P-R-T Axes : 042 -21 002 degrees QTc Int : 495 ms Normal sinus rhythm Minimal voltage criteria for LVH, may be normal variant ( R in aVL ) Nonspecific T wave abnormality Prolonged QT Abnormal ECG When compared with ECG of 24-NOV-2022 03:47, No significant change was found Referred By: Diana Morris Electronically Signed By:Maevrick Girard
--- NOTE | 2023-02-07 01:09 | ED.ALCOHOL ---
HPI - Alcohol General Chief Complaint: ETOH/Substance Use Stated Complaint: etoh Time Seen by Provider: 02/07/23 00:36 Source: patient Mode of arrival: EMS Limitations: no limitations History of Present Illness HPI narrative: Patient comes to the emergency room complaining of sharp right-sided chest pain for couple of days. Patient denies shortness of breath, denies trauma. Patient admits that he has been using alcohol, heroin and cocaine. Patient is requesting to be seen by the care team or the asset recovery specialist as he was to go to detox. Related Data Home Medications Medication Instructions Recorded Confirmed methadone 10 mg/mL oral concentrate 80 mg PO DAILY 11/16/22 11/16/22 Allergies Allergy/AdvReac Type Severity Reaction Status Date / Time shrimp [SHRIMP] Allergy Intermediate Swelling Verified 02/07/23 00:45 Review of Systems Review of Systems: Constitutional : No Weight loss, No Fever, No Chills, No Night Sweats, No Fatigue, No Malaise ENT/Mouth : No Hearing loss, No Ear Pain, No Nasal Congestion, No Sinus Pain, No Hoarseness, No sore throat, No Rhinorrhea, No Swallowing Difficulty Eyes: No Eye Pain, No Swelling, No Redness, No Foreign Body, No Discharge, No Vision Changes Cardiovascular : Complaining of right-sided Chest Pain for couple of days, No SOB, No Dyspnea on Exertion, No Orthopnea, No Edema, No Palpitations Respiratory : No Cough, No Sputum, No Wheezing, No Smoke Exposure, No Dyspnea Gastrointestinal : No Nausea, No Vomiting, No Diarrhea, No Constipation, No abdominal Pain, No Hematochezia, No Melena Genitourinary : no irregular bleeding, No Dysuria, No Urinary Frequency, No Hematuria, No Urinary Incontinence, No Urgency, No Flank Pain, No Urinary Flow Changes, No Hesitancy Musculoskeletal : No joint pain, No Myalgias, No Joint Swelling Skin : No Skin Lesions, No rash Neuro : No Weakness, No Numbness, No Paresthesias, No Loss of Consciousness, No Dizziness, No Headache Psych : No Anxiety/Panic, No Depression, No SI/HI/AH/VH, admits to using alcohol heroin and cocaine Heme/Lymph: No Bruising, No Bleeding,No Lymphadenopathy Endocrine : No Polyuria, No Polydipsia, No Temperature Intolerance PMFSH Past Medical History Medical History Asthma Cocaine use disorder IVDU (intravenous drug user) Opioid use disorder, severe, dependence Severe recurrent major depression w/psychotic features, mood-congruent Social History Social History Household Members: Other Household Members Other:: lives in a residential Housing: Homeless Do you presently have visiting nurse or other home services: No Unable to assess alcohol history related to: Unknown Alcohol intake: current Alcohol intake frequency: a few times a week Patient Tobacco Use Status: Tobacco use Unknown Substance Use Type: IV Drugs and Opiates Advance Directives: No Advance Directives Information Provided: Yes service: No Current occupational status: unemployed Sexual orientation: Did not discuss Physical Exam ED Vital Signs: Vital Signs - 24 hr 02/07/23 00:31 Temperature 97.7 F Pulse Rate 87 Respiratory Rate 17 Blood Pressure 126/80 Pulse Oximetry 100 Oxygen Delivery Method Room Air BMI result Body Mass Index 28.2 Const Other: Appearance: Alert. Oriented X3. No acute distress. Eyes: Pupils equal, round and reactive to light. ENT: Pharynx normal. Neck: Normal inspection. Neck supple. No lymph nodes noted. No crepitus CVS: Normal heart rate and rhythm. Pulses normal. Normal S1 and S2 Respiratory: No respiratory distress. Breath sounds normal. No Wheezing. No rales Abdomen: Soft and nontender. No rigidity. No distention. Skin: Skin warm and dry. Normal skin color. Normal skin turgor. Extremities: No lower extremity edema. No Lacerations. No Rash Neuro: Oriented X 3. No motor deficit. No sensory deficit. Moving all extremities. No slurred speech. CN 2 through 12 grossly intact Psych: calm, cooperative, normal affect, coherent Course Course Course Narrative: -all of patient's labs pending -EKG pending -care team consult pending Medical Decision Making Medical Decision Making MDM Narrative: -I reviewed patient's labs, sodium is slightly low at 134, patient asymptomatic, no need for repletion -I discussed the x-ray findings with [facility], there may be a scapular shadow versus nodule, we will proceed with a noncontrast CT scan of the chest -care team consult pending, patient seems to be serious regarding his recovery -physician observation started at 02:00 -no signs of alcohol or narcotics withdrawal -sign-out given to Dr. Lobo Differential Diagnosis Differential Diagnoses: The differential diagnosis associated with the presentation includes (Alcohol intoxication, substance abuse, depression) Admission/Observation Consideration of admission/observation: Escalation of care including admission/observation considered (Patient will stay overnight in the emergency room, waiting to be seen by the care team or the asset recovery specialist) Lab Data MDM Lab Attestation statement: I reviewed the patient's lab results. 02/07/23 01:24 02/07/23 01:23 Labs: Lab Results 02/07/23 02/07/23 02/07/23 Range/Units 01:11 01:23 01:23 WBC (4.8-10.8) X10*3/uL RBC (4.60-5.80) X10*6/uL Hgb (14.0-18.0) g/dl Hct (42.0-52.0) % MCV (80.0-98.0) fL MCH (27.0-33.0) pg MCHC (31.0-36.0) g/dl RDW (11.0-16.0) % Plt Count (160-400) X10*3/uL MPV (9.4-12.4) fL Immature Gran % (Auto) (0.0-0.4) % Neut % (Auto) (45-73) % Lymph % (Auto) (20-40) % [place] % (Auto) (2-11) % Eos % (Auto) (0-4) % Baso % (Auto) (0-2) % Lymph # (Auto) (1.2-4.9) X10*3/uL [place] # (Auto) (0.1-1.2) X10*3/uL Eos # (Auto) (0.0-0.4) X10*3/uL Baso # (Auto) (0.0-0.2) X10*3/uL Abs Immat Gran (auto) (0.00-0.03) X10*3/uL Absolute Neuts (auto) (2.0-8.3) x10*3/uL Absolute Nucleated RBC (0.0-0.012) X10*3/uL Nucleated RBC % (auto) (0.0-0.2) /100WBC Sodium 134 L (135-145) mmol/L Potassium 3.5 (3.3-5.1) mmol/L Chloride 103 (96-108) mmol/L Carbon Dioxide 19 L (22-29) mmol/L Anion Gap 16 (12-20) BUN 19 H (9-16) mg/dL Creatinine 0.87 (0.5-1.4) mg/dL Estim Creat Clear Calc 125.8 Estimated GFR > 60 Random Glucose 98 (60-115) mg/dL Calcium 9.4 D (8.4-10.2) mg/dL Magnesium 2.3 (1.6-2.6) mg/dL Total Bilirubin 0.5 (0.0-1.0) mg/dL Direct Bilirubin 0.3 (0.0-0.5) mg/dL AST 34 (5-37) U/L ALT 28 (0-40) U/L Alkaline Phosphatase 89 (39-117) U/L Troponin I High Sens < 2.7 (<3.5-35.0) ng/L Total Protein 8.9 H (6.5-8.0) g/dL Albumin 4.1 (3.5-5.0) g/dL Urine Opiates Screen POSITIVE H (Not Detect) Urine Fentanyl Screen POSITIVE H (Not Detect) Ur Barbiturates Screen Not Detected (Not Detect) Ur Phencyclidine Scrn Not Detected (Not Detect) Ur Amphetamines Screen Not Detected (Not Detect) U Benzodiazepines Scrn Not Detected (Not Detect) Urine Cocaine Screen POSITIVE H (Not Detect) U Marijuana (THC) Screen Not Detected (Not Detect) Ethyl Alcohol mg/dL 02/07/23 02/07/23 Range/Units 01:24 01:24 WBC 8.5 (4.8-10.8) X10*3/uL RBC 4.58 L (4.60-5.80) X10*6/uL Hgb 10.5 L (14.0-18.0) g/dl Hct 33.1 L (42.0-52.0) % MCV 72.3 L (80.0-98.0) fL MCH 22.9 L (27.0-33.0) pg MCHC 31.7 (31.0-36.0) g/dl RDW 16.7 H (11.0-16.0) % Plt Count 489 H (160-400) X10*3/uL MPV 9.9 (9.4-12.4) fL Immature Gran % (Auto) 0.4 (0.0-0.4) % Neut % (Auto) 68.2 (45-73) % Lymph % (Auto) 22.0 (20-40) % [place] % (Auto) 8.6 (2-11) % Eos % (Auto) 0.4 (0-4) % Baso % (Auto) 0.4 (0-2) % Lymph # (Auto) 1.9 (1.2-4.9) X10*3/uL [place] # (Auto) 0.7 (0.1-1.2) X10*3/uL Eos # (Auto) 0.0 (0.0-0.4) X10*3/uL Baso # (Auto) 0.0 (0.0-0.2) X10*3/uL Abs Immat Gran (auto) 0.03 (0.00-0.03) X10*3/uL Absolute Neuts (auto) 5.8 (2.0-8.3) x10*3/uL Absolute Nucleated RBC 0.000 (0.0-0.012) X10*3/uL Nucleated RBC % (auto) 0.0 (0.0-0.2) /100WBC Sodium (135-145) mmol/L Potassium (3.3-5.1) mmol/L Chloride (96-108) mmol/L Carbon Dioxide (22-29) mmol/L Anion Gap (12-20) BUN (9-16) mg/dL Creatinine (0.5-1.4) mg/dL Estim Creat Clear Calc Estimated GFR Random Glucose (60-115) mg/dL Calcium (8.4-10.2) mg/dL Magnesium (1.6-2.6) mg/dL Total Bilirubin (0.0-1.0) mg/dL Direct Bilirubin (0.0-0.5) mg/dL AST (5-37) U/L ALT (0-40) U/L Alkaline Phosphatase (39-117) U/L Troponin I High Sens (<3.5-35.0) ng/L Total Protein (6.5-8.0) g/dL Albumin (3.5-5.0) g/dL Urine Opiates Screen (Not Detect) Urine Fentanyl Screen (Not Detect) Ur Barbiturates Screen (Not Detect) Ur Phencyclidine Scrn (Not Detect) Ur Amphetamines Screen (Not Detect) U Benzodiazepines Scrn (Not Detect) Urine Cocaine Screen (Not Detect) U Marijuana (THC) Screen (Not Detect) Ethyl Alcohol 95 mg/dL Independent Interpretation I performed an independent interpretation of an: Plain X-Ray (I reviewed x-ray imaging with Radiology, scapular shadow versus nodule) Radiology Impression Discussion of test interpretation with radiology: I have reviewed the radiologist's reading. (Scapular shadow versus nodule, CT scan recommended, pending) Critical Care Time Critical Care Time Critical Care Time: Yes Total Critical Care Time: 30 Attestation: I have personally provided critical care time. Time includes review of lab data, radiology results, discussion with consultants, and monitoring for potential decompensation. Intervention performed as documented. Discharge Plan Discharge Clinical Impression: Polysubstance abuse, Atypical chest pain Patient Disposition: Still a Patient Prescriptions: No Action methadone 10 mg/mL Concentrate 80 mg PO DAILY
[2023-02-07 01:27] LABS: MANUAL DIFF FLAG NO
[2023-02-07 01:27] LABS: Amphetamine Screen Urine Not Detected (Not Detect); Barbiturates, Urine Not Detected (Not Detect); Benzodiazepines Screen Urine Not Detected (Not Detect); Cannabinoid Screen Urine Not Detected (Not Detect); Cocaine Screen Urine POSITIVE (Not Detect); Fentanyl, urine POSITIVE (Not Detect); Opiate Screen Urine POSITIVE (Not Detect); Phencyclidine Screen Urine Not Detected (Not Detect)
[2023-02-07 01:29] LABS: Basophils Percent Auto 0.4 % (0-2); Eosinophils Percent Auto 0.4 % (0-4); Hematocrit 33.1 % (42.0-52.0); Hemoglobin 10.5 g/dl (14.0-18.0); Imm Gran Abs Auto 0.03 X10*3/uL (0.00-0.03); Imm Gran Pct Auto 0.4 % (0.0-0.4); Lymphocytes Absolute Auto 1.9 X10*3/uL (1.2-4.9); Mean Corpuscular HGB Conc 31.7 g/dl (31.0-36.0); Mean Corpuscular Hemoglobin 22.9 pg (27.0-33.0); Mean Corpuscular Volume 72.3 fL (80.0-98.0); Mean Platelet Volume 9.9 fL (9.4-12.4); Monocytes Absolute Auto 0.7 X10*3/uL (0.1-1.2); Monocytes Percent Auto 8.6 % (2-11); Neutrophils Absolute Auto 5.8 x10*3/uL (2.0-8.3); Neutrophils Percent Auto 68.2 % (45-73); Platelet Count 489 X10*3/uL (160-400); Red Blood Count 4.58 X10*6/uL (4.60-5.80); Red Cell Distribution Width 16.7 % (11.0-16.0); White Blood Count 8.5 X10*3/uL (4.8-10.8)
[2023-02-07 01:42] LABS: Ethanol 95 mg/dL
[2023-02-07 01:44] LABS: Alanine Aminotransferase 28 U/L (0-40); Albumin Level 4.1 g/dL (3.5-5.0); Alkaline Phosphatase 89 U/L (39-117); Anion Gap 16 (12-20); Aspartate Amino Transferase 34 U/L (5-37); Bilirubin Direct 0.3 mg/dL (0.0-0.5); Bilirubin Total 0.5 mg/dL (0.0-1.0); Blood Urea Nitrogen 19 mg/dL (9-16); Calcium 9.4 mg/dL (8.4-10.2); Carbon Dioxide 19 mmol/L (22-29); Chloride 103 mmol/L (96-108); Creatinine Clr Calc Pharmacy 125.8; Estimated Glomerular Filt Rate > 60; Glucose Random 98 mg/dL (60-115); Magnesium 2.3 mg/dL (1.6-2.6); Potassium 3.5 mmol/L (3.3-5.1); Sodium 134 mmol/L (135-145); Total Protein 8.9 g/dL (6.5-8.0)
[2023-02-07 01:55] LABS: Troponin-I High Sensitivity < 2.7 ng/L (<3.5-35.0)
--- NOTE | 2023-02-07 03:29 | PC.NURSE ---
Pt with poor vascular access sites. #22 PIV initiated to left foot per Trevon HOOK and Yamil keller.
--- NOTE | 2023-02-07 03:30 | P.HPHOSP_ITS ---
History of Present Illness Date of Service: 02/07/23 Chief Complaint: Chest pain This is a 33-year-old male with pertinent history of IV substance use disorder, mood disorder presents to the emergency department for evaluation of chest discomfort. Patient states that chest discomfort started 5 days prior to prese ntation. It is worse with deep inspiration. Patient also has been having associated productive cough that started 2 days prior to presentation. Endorses sweats and chills. Denies fever, chills, palpitations, shortness of breath, abdominal pain, changes in urinary or bowel habits. Patient admits to IV substance use 1 day prior to presentation. In the emergency department, CT concerning for septic emboli Review of Systems Constitutional: Constitutional: Reports chills, Reports fatigue and Reports malaise Respiratory: Respiratory: Reports cough, Reports pain on inspiration and Reports pain with cough Gastrointestinal: Gastrointestinal: Reports no additional gastrointestinal co mplaints Genitourinary: Genitourinary: Reports no additional male genitourinary complaints Endocrine: Endocrine: Reports fatigue PMFSH Medical History Asthma Cocaine use disorder IVDU (intravenous drug user) Opioid use disorder, severe, dependence Severe recurrent major depression w/psychotic features, mood-congruent Pertinent family history: No family history of early CAD Social History Household Members: Other Household Members Other:: lives in a group home Housing: Homeless Do you presently have visiting nurse or other home services: No Unable to assess alcohol history related to: Unknown Alcohol intake: current Alcohol intake frequency: a few times a week Patient Tobacco Use Status: Tobacco use Unknown Substance Use Type: IV Drugs and Opiates Advance Directives: No Advance Directives Information Provided: Yes service: No Current occupational status: unemployed Sexual orientation: Did not discuss Meds Allergies Allergy/AdvReac Type Severity Reaction Status Date / Time shrimp [SHRIMP] Allergy Intermediate Swelling Verified 02/07/23 00:45 Active Medications: Current Medications Vancomycin HCl (Vancomycin/Ns) 2,000 mg in 500 mls @ 250 mls/hr IV ONCE ONE; Protocol Stop: 02/07/23 05:14 Pharmacy Consult (Consult Rx Vancomycin Dosing) 1 each MISCELLANE DAILY PRN PRN Reason: Consult order Home Medications Medication Instructions Recorded Confirmed Last Taken Type methadone 10 mg/mL oral concentrate 80 mg PO DAILY 11/16/22 11/16/22 11/15/22 History Physical Exam Vital Signs and Narrative: Vital Signs: Last Vital Signs Temp 97.7 F 02/07/23 00:31 Pulse 87 02/07/23 00:31 Resp 17 02/07/23 00:31 BP 126/80 02/07/23 00:31 Pulse Ox 100 02/07/23 00:31 O2 Del Method Room Air 02/07/23 00:31 BMI result Body Mass Index 28.2 Middle-aged male lying in bed in mild distress Neck supple, no JVD Regular rate and rhythm, S1-S2 heard Right-sided crackles without wheezing Abdomen soft nontender, no guarding, no rigidity Patient is awake, alert and oriented to self, place, time and person ; no focal motor deficit Skin: Multiple IV ramirez seen Psych: Normal mood No pedal edema Results Labs 02/07/23 01:24 02/07/23 01:23 Labs: Laboratory Results - last 24 hr 02/07/23 02/07/23 02/07/23 01:11 01:23 01:23 MCV MCH MCHC RDW Plt Count MPV Immature Gran % (Auto) Neut % (Auto) Lymph % (Auto) [place] % (Auto) Eos % (Auto) Baso % (Auto) Lymph # (Auto) [place] # (Auto) Eos # (Auto) Baso # (Auto) Abs Immat Gran (auto) Absolute Neuts (auto) Absolute Nucleated RBC Nucleated RBC % (auto) Anion Gap 16 Estim Creat Clear Calc 125.8 Estimated GFR > 60 Random Glucose 98 Calcium 9.4 D Magnesium 2.3 Total Bilirubin 0.5 Direct Bilirubin 0.3 AST 34 ALT 28 Alkaline Phosphatase 89 Troponin I High Sens < 2.7 Total Protein 8.9 H Albumin 4.1 Urine Opiates Screen POSITIVE H Urine Fentanyl Screen POSITIVE H Ur Barbiturates Screen Not Detected Ur Phencyclidine Scrn Not Detected Ur Amphetamines Screen Not Detected U Benzodiazepines Scrn Not Detected Urine Cocaine Screen POSITIVE H U Marijuana (THC) Screen Not Detected Ethyl Alcohol 02/07/23 02/07/23 01:24 01:24 MCV 72.3 L MCH 22.9 L MCHC 31.7 RDW 16.7 H Plt Count 489 H MPV 9.9 Immature Gran % (Auto) 0.4 Neut % (Auto) 68.2 Lymph % (Auto) 22.0 [place] % (Auto) 8.6 Eos % (Auto) 0.4 Baso % (Auto) 0.4 Lymph # (Auto) 1.9 [place] # (Auto) 0.7 Eos # (Auto) 0.0 Baso # (Auto) 0.0 Abs Immat Gran (auto) 0.03 Absolute Neuts (auto) 5.8 Absolute Nucleated RBC 0.000 Nucleated RBC % (auto) 0.0 Anion Gap Estim Creat Clear Calc Estimated GFR Random Glucose Calcium Magnesium Total Bilirubin Direct Bilirubin AST ALT Alkaline Phosphatase Troponin I High Sens Total Protein Albumin Urine Opiates Screen Urine Fentanyl Screen Ur Barbiturates Screen Ur Phencyclidine Scrn Ur Amphetamines Screen U Benzodiazepines Scrn Urine Cocaine Screen U Marijuana (THC) Screen Ethyl Alcohol 95 Imaging Radiologist's Impressions: Impressions Chest X-Ray 02/07/23 01:37 IMPRESSION: Questionable lateral right lung nodule. In the setting of right-sided pain, further workup with chest CT is recommended. This was discussed with Dr. Morris on 02/07/2023 2:[address] 02/07/23 02:20 IMPRESSION: Focal nodular consolidation in the lateral right middle lobe measuring approximately 3 cm with surrounding groundglass opacity. A few tiny foci of internal gas are suspicious for sequelae of cavitation. Additional cavitary nodule in the posterolateral basilar right lower lobe measuring approximately 1.8 cm. Given the history of IV drug abuse, appearance is most suspicious for septic emboli. This was discussed with Dr. Lobo on 02/07/2023 2:42 AM. Assessment and Plan (1) Septic embolism: Status: Acute Plan This is a 33-year-old male with pertinent history of IV substance use disorder, mood disorder presents to the emergency department for evaluation of chest discomfort. #. Septic emboli in a patient with IV substance use disorder. Will admit patient and initiate empiric IV antibiotics. Consulting Infectious Disease, appreciate assistance. Obtaining transthoracic echocardiogram. Follow blood cultures. #. Mood disorder. Continue home mood stabilizers #. Substance use disorder. UDS positive for opiates, fentanyl and cocaine. Monitor for withdrawal. Consulting addiction team #. Microcytic anemia. Obtaining iron panel Med rec pending DVT prophylaxis: Lovenox Full code Regular diet Admit as inpatient and will require two night minimum hospital stay for IV antibiotics Time Spent With Patient Time: Total time managing care of this patient today ____ minutes. Quality Stroke Does the patient have a stroke diagnosis?: No VTE Prior VTE?: No VTE Risk Level:: Medical - moderate - high VTE Device Contraindication: Treatment Not Indicated VTE Drug Contraindication: N/A - Med Ordered
[2023-02-07 03:44] LABS: Lactic Acid 1.2 mmol/L (0.5-2.0)
[2023-02-07] MEDS: Piperacillin Sodium/Tazobactam 3.375 GM in 0.9 % Sodium Chloride 50 ML IV (03:59)
[2023-02-07] MEDS: Ketorolac Tromethamine 30 MG/ML VIAL IVPUSH (04:20)
[2023-02-07] MEDS: vancomycin/NS 2,000 MG/500 ML PLAST..BAG 250 MG IV (04:22)
--- NOTE | 2023-02-07 04:35 | PC.NURSE ---
Phlebotomy at bedside for lab draw. Pt requesting to not have labs drawn at this time because of multiple sticks earlier in visit d/t poor vasculature and recent labs resulted ~0120. Dr. Graves made aware and AM lab orders changed to 02/08.
--- NOTE | 2023-02-07 06:50 | PHA.PROG ---
Admission Date/Time: February 07, 2023 03:28 Indication: Resp Infection Weight in k.647 kg Adjusted body weight in K.647 kg [place] body weight in K.1 kg Obesity Dosing Indication % IBW: 123% Serum Creatinine - Last 168 Hours 02/07/23 01:23 Creatinine 0.87 Estimated CrCl and GFR - Last 168 Hours 02/07/23 01:23 Estim Creat Clear Calc 125.8 Estimated GFR > 60 Vancomycin Loading Dose: 2000 mg Current Vancomycin Dosing Regimen: 1500 mg Q12H Date and Time for next Vancomycin Level to be drawn: 02/08 @ 1400 Pharmacist Comments on Vancomycin Plan: Patient received and adequate load dose in the ER on 02/07 @ 0422. Maintenance dose vancomycin 1500 mg Q12H is scheduled to start 02/07 @ 1600. Expected AUC is 579 with a trough 17. Level will be drawn prior to 4th dose Pharmacy to monitor renal function daily Bee Roberto PharmD Vancomycin dosing will take advantage of [employer] as a clinical decision support tool that uses Bayesian modeling to calculate individual patient's pharmacokinetic parameters and forecast the patient's drug concentration time course with the target goal AUC 24 range of 400 - 600 mg/L/hr.
--- NOTE | 2023-02-07 07:51 | PHA.MEDREC ---
Pharmacy Consult ? Medication Reconciliation Pharmacy has completed the medication reconciliation.
[2023-02-07] MEDS: 0.9 % Sodium Chloride Flush 3 ML SYRINGE IVFLUSH ×3 (08:12→20:55)
[2023-02-07] MEDS: Enoxaparin Sodium 40 MG/0.4 ML SYRINGE SUBCUT (08:13)
--- NOTE | 2023-02-07 08:17 | PC.NURSE ---
pt ate breakfast, and then went back to sleep. Intermittent cough. no complaints at this time, will cont to raul
--- NOTE | 2023-02-07 09:51 | MHC.RECOVRN ---
Briefly met with pt in ED15 after consult placed to Addiction Medicine for substance use. Pt admitted to [facility] for septic embolism after presented to ED with chest pain. Pt laying in bed, asleep, wakes to voice and quickly falls back to sleep, unable to engage in conversation. Pt is able to report he is on methadone, 80 mg daily through [facility]. Has not been verified. Will return when pt more awake to further discuss substance use.
--- NOTE | 2023-02-07 10:58 | HE.PHANOTE ---
re methadone [facility] last dose methadone 80mg 02/06 @[id number] cindi
[2023-02-07] MEDS: methADONE HCl 20 MG/2 ML ORAL.CONC 80 MG PO (11:13)
[2023-02-07] MEDS: Piperacillin Sodium/Tazobactam 4.5 GM in 0.9 % Sodium Chloride 100 ML IV ×2 (11:14→16:59)
[2023-02-07] MEDS: vancomycin HCL 1,500 MG in 0.9 % Sodium Chloride 500 ML 333.33 MG IV (15:03)
--- NOTE | 2023-02-07 16:25 | W.PM.IDCN ---
History of Present Illness Data of Consult Service Date: 02/07/23 Requesting physician: Carlie Waters Primary Care Provider: Unknown Physician HPI Reason for consult: possible septic emboli He presents with chest discomfort and fatigue for a day. He uses IV drugs. I had seen him in the past for Suboxone. Review of Systems Review of Systems: Yes all other systems are reviewed and are negative PMFSH Past Medical History Medical History Asthma Cocaine use disorder IVDU (intravenous drug user) Opioid use disorder, severe, dependence Severe recurrent major depression w/psychotic features, mood-congruent Family History Family history: reviewed and not pertinent Social History Social History Household Members: None Household Members Other:: lives in a senior care Housing: Apartment Do you presently have visiting nurse or other home services: No Unable to assess alcohol history related to: Unknown Alcohol intake: current Alcohol intake frequency: a few times a week Patient Tobacco Use Status: Current everyday Tobacco user Tobacco use type: Cigarette Cigarettes Per Day: 7 Substance Use Type: Crack/Cocaine and Heroin service: No Current occupational status: unemployed Sexual orientation: Did not discuss Meds Allergies Allergy/AdvReac Type Severity Reaction Status Date / Time shrimp [SHRIMP] Allergy Intermediate Swelling Verified 02/07/23 00:45 Active Medications: Current Medications Acetaminophen (Acetaminophen 325 Mg Tablet) 650 mg PO Q6H PRN PRN Reason: Pain, Mild (Pain Scale 1-3) Enoxaparin Sodium (Enoxaparin Sodium 40 Mg/0.4 Ml Syringe) 40 mg SUBCUT Q24H [facility] Last Admin: 02/07/23 08:13 Dose: 40 mg Piperacillin Sod/Tazobactam (Sod 4.5 gm/ Sodium Chloride) 100 mls @ 200 mls/hr IV Q6H [facility] Last Infusion: 02/07/23 12:00 Dose: Infused Vancomycin HCl 1,500 mg/ (Sodium Chloride) 500 mls @ 333.333 mls/hr IV Q12H [facility] Last Admin: 02/07/23 15:03 Dose: 333.33 mls/hr Melatonin (Melatonin 3 Mg Tablet) 6 mg PO BEDTIME PRN PRN Reason: Insomnia Methadone HCl (Methadone Hcl 20 Mg/2 Ml Oral.Conc) 80 mg PO DAILY [facility] Last Admin: 02/07/23 11:13 Dose: 80 mg Ondansetron HCl (Ondansetron Hcl 4 Mg/2 Ml Vial) 4 mg IVPUSH Q8H PRN PRN Reason: Nausea and Vomiting Pharmacy Consult (Consult Rx Vancomycin Dosing) 1 each MISCELLANE DAILY PRN PRN Reason: Consult order Pharmacy Consult (Consult Rx Perform Med Rec) 1 each MISCELLANE ONCE PRN PRN Reason: Consult order Sodium Chloride (0.9 % Sodium Chloride Flush 3 Ml Syringe) 3 ml IVFLUSH QSHIFT [facility] Last Admin: 02/07/23 15:04 Dose: 3 ml Home Medications Medication Instructions Recorded Confirmed Last Taken Type methadone 10 mg/mL oral concentrate 80 mg PO DAILY 11/16/22 02/07/23 02/06/23 History Physical Exam Vital Signs: Vital Signs: Last Vital Signs Temp 96.8 F 02/07/23 15:21 Pulse 65 02/07/23 15:21 Resp 18 02/07/23 15:21 BP 113/56 L 02/07/23 15:21 Pulse Ox 100 02/07/23 15:21 O2 Del Method Room Air 02/07/23 15:21 BMI result Body Mass Index 28.5 Const: General: cooperative HEENT: Head: Yes normal to inspection Face and sinus: Yes normal facial exam Mouth: Normal oral and palatal mucosa present Teeth and gingiva: dentition normal Eyes: General: appearance normal, both eyes and all related structures Pupils: Equal, round and reactive pupils present Resp: Effort & Inspection: normal respiratory effort Cardio: Rate: regular rate Rhythm: regular rhythm GI: Palpation (GI): Soft to palpation and nontender : General: Yes no CVA tenderness Back/Spine/Pelvis: Back: no CVA tenderness Skin: General skin exam: no rashes or lesions noted Neuro: General: moves all extremities Cranial nerves: Yes Equal, round and reactive pupils present Extrem: General: Yes normal to inspection Psych: Appearance: grossly normal Results Labs 02/07/23 01:24 02/07/23 01:23 Labs: Short CBC 02/07/23 Range/Units 01:24 WBC 8.5 (4.8-10.8) X10*3/uL Hgb 10.5 L (14.0-18.0) g/dl Hct 33.1 L (42.0-52.0) % Plt Count 489 H (160-400) X10*3/uL BMP 02/07/23 01:23 Sodium 134 L Potassium 3.5 Chloride 103 Carbon Dioxide 19 L BUN 19 H Creatinine 0.87 Calcium 9.4 D Liver Function 02/07/23 Range/Units 01:23 Total Bilirubin 0.5 (0.0-1.0) mg/dL Direct Bilirubin 0.3 (0.0-0.5) mg/dL AST 34 (5-37) U/L ALT 28 (0-40) U/L Alkaline Phosphatase 89 (39-117) U/L Albumin 4.1 (3.5-5.0) g/dL Assessment and Plan (1) Polysubstance abuse: Status: Acute (2) Atypical chest pain: Status: Acute (3) Septic embolism: Status: Acute Possible endocarditis Possible staph aureus or Group B strep. Plan Continue Vancomycin. Stop Zosyn Check echo. Time Spent With Patient Time: Total time managing care of this patient today ____ minutes.
--- NOTE | 2023-02-07 16:55 | P.PNIM_ITS ---
Subjective Subjective Date of Service: 02/07/23 Interval History: seen and examined this morning follow up for chest pain, pulmonary septic emboli did not sleep well overnight still with mild inspiratory chest pain Review of Systems Review of Systems: Yes all other systems are reviewed and are negative Constitutional Constitutional: Denies chills and Denies fever(s) ENT Ears, Nose, Mouth, and Throat: Denies dizziness Cardiovascular Cardiovascular: Reports chest pain, Denies palpitations and Denies dyspnea Respiratory Respiratory: Denies cough and Denies dyspnea Gastrointestinal Gastrointestinal: Denies abdominal pain Neurologic Neurologic: Denies dizziness Endocrine Endocrine: Denies palpitations Physical Exam Vital Signs: Vital Signs: Last Vital Signs Temp 96.8 F 02/07/23 15:21 Pulse 65 02/07/23 15:21 Resp 18 02/07/23 15:21 BP 113/56 L 02/07/23 15:21 Pulse Ox 100 02/07/23 15:21 O2 Del Method Room Air 02/07/23 15:21 BMI result Body Mass Index 28.5 Const: Other: sleepy but easily arousable to verbal stimuli, answering all questions approrpriately General: cooperative, comfortable, alert and awake Nutritional Appearance: average body habitus Orientation/consciousness: patient oriented x3 Resp: Effort & Inspection: normal respiratory effort, able to speak in complet e sentences, no respiratory distress and no use of accessory muscles Cardio: Rate: regular rate Heart sounds: S1 normal heart sound present and S2 normal heart sound present GI: Inspection: No distended Palpation (GI): Soft to palpation and nontender Neuro: General: patient oriented x3, moves all extremities and CN's II-XI intact bilaterally Extrem: General: Yes no pedal edema Objective Data Active Medications Acetaminophen (Acetaminophen 325 Mg Tablet) 650 mg PO Q6H PRN PRN Reason: Pain, Mild (Pain Scale 1-3) Enoxaparin Sodium (Enoxaparin Sodium 40 Mg/0.4 Ml Syringe) 40 mg SUBCUT Q24H [facility] Last Admin: 02/07/23 08:13 Dose: 40 mg Documented By: JUAN Piperacillin Sod/Tazobactam (Sod 4.5 gm/ Sodium Chloride) 100 mls @ 200 mls/hr IV Q6H [facility] Last Infusion: 02/07/23 12:00 Dose: 0 mls/hr Documented By: BATSHEVA Vancomycin HCl 1,500 mg/ (Sodium Chloride) 500 mls @ 333.333 mls/hr IV Q12H [facility] Last Infusion: 02/07/23 16:51 Dose: 0 mls/hr Documented By: BATSHEVA Melatonin (Melatonin 3 Mg Tablet) 6 mg PO BEDTIME PRN PRN Reason: Insomnia Methadone HCl (Methadone Hcl 20 Mg/2 Ml Oral.Conc) 80 mg PO DAILY [facility] Last Admin: 02/07/23 11:13 Dose: 80 mg Documented By: BATSHEVA Ondansetron HCl (Ondansetron Hcl 4 Mg/2 Ml Vial) 4 mg IVPUSH Q8H PRN PRN Reason: Nausea and Vomiting Pharmacy Consult (Consult Rx Vancomycin Dosing) 1 each MISCELLANE DAILY PRN PRN Reason: Consult order Pharmacy Consult (Consult Rx Perform Med Rec) 1 each MISCELLANE ONCE PRN PRN Reason: Consult order Sodium Chloride (0.9 % Sodium Chloride Flush 3 Ml Syringe) 3 ml IVFLUSH QSHIFT [facility] Last Admin: 02/07/23 15:04 Dose: 3 ml Documented By: BATSHEVA Labs 02/07/23 01:24 02/07/23 01:23 Labs: Laboratory Results - last 24 hr 02/07/23 02/07/23 02/07/23 01:11 01:23 01:23 MCV MCH MCHC RDW Plt Count MPV Immature Gran % (Auto) Neut % (Auto) Lymph % (Auto) [place] % (Auto) Eos % (Auto) Baso % (Auto) Lymph # (Auto) [place] # (Auto) Eos # (Auto) Baso # (Auto) Abs Immat Gran (auto) Absolute Neuts (auto) Absolute Nucleated RBC Nucleated RBC % (auto) Anion Gap 16 Estim Creat Clear Calc 125.8 Estimated GFR > 60 Random Glucose 98 Lactic Acid Calcium 9.4 D Magnesium 2.3 Total Bilirubin 0.5 Direct Bilirubin 0.3 AST 34 ALT 28 Alkaline Phosphatase 89 Troponin I High Sens < 2.7 Total Protein 8.9 H Albumin 4.1 Urine Opiates Screen POSITIVE H Urine Fentanyl Screen POSITIVE H Ur Barbiturates Screen Not Detected Ur Phencyclidine Scrn Not Detected Ur Amphetamines Screen Not Detected U Benzodiazepines Scrn Not Detected Urine Cocaine Screen POSITIVE H U Marijuana (THC) Screen Not Detected Ethyl Alcohol 02/07/23 02/07/23 02/07/23 01:24 01:24 03:31 MCV 72.3 L MCH 22.9 L MCHC 31.7 RDW 16.7 H Plt Count 489 H MPV 9.9 Immature Gran % (Auto) 0.4 Neut % (Auto) 68.2 Lymph % (Auto) 22.0 [place] % (Auto) 8.6 Eos % (Auto) 0.4 Baso % (Auto) 0.4 Lymph # (Auto) 1.9 [place] # (Auto) 0.7 Eos # (Auto) 0.0 Baso # (Auto) 0.0 Abs Immat Gran (auto) 0.03 Absolute Neuts (auto) 5.8 Absolute Nucleated RBC 0.000 Nucleated RBC % (auto) 0.0 Anion Gap Estim Creat Clear Calc Estimated GFR Random Glucose Lactic Acid 1.2 Calcium Magnesium Total Bilirubin Direct Bilirubin AST ALT Alkaline Phosphatase Troponin I High Sens Total Protein Albumin Urine Opiates Screen Urine Fentanyl Screen Ur Barbiturates Screen Ur Phencyclidine Scrn Ur Amphetamines Screen U Benzodiazepines Scrn Urine Cocaine Screen U Marijuana (THC) Screen Ethyl Alcohol 95 Assessment and Plan (1) Septic embolism: Status: Acute (2) Atypical chest pain: Status: Acute Plan This is a 33-year-old male IV substance use disorder, mood disorder presents to the emergency department for evaluation of chest discomfort. Pulmonary septic emboli related to IVDU continue IV vanco, can d/c zosyn per ID ID following echo pending to eval for endocarditis follow blood cultures. Polysubstance use disorder. UDS positive for opiates, fentanyl and cocaine no withdrawal at this time. will continue baseline dose of methadone addiction medicine consult pending chronic Microcytic anemia H/H appears to be within baseline DVT prophylaxis: Lovenox Full code Regular diet requires ongoing inpatient admission for IV antibiotics for the management of septic emboli and echocardiogram to rule out infective endocarditis Time Spent With Patient Time: Total time managing care of this patient today ____ minutes. Quality Stroke Does the patient have a stroke diagnosis?: No VTE Prior VTE?: No VTE Risk Level:: Medical - moderate - high VTE Device Contraindication: Treatment Not Indicated VTE Drug Contraindication: N/A - Med Ordered
[2023-02-08 03:34] VITALS: BP 114/55; PULSE 76; RESP 16; TEMP 36.5; O2SAT 99
[2023-02-08] MEDS: vancomycin HCL 1,500 MG in 0.9 % Sodium Chloride 500 ML 333.33 MG IV ×2 (03:37→16:27)
--- NOTE | 2023-02-08 07:00 | CA_ITS ---
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 The visually estimated ejection fraction is between 55-60%. Diastolic function is normal for age. - Mildly increased right ventricular cavity size. There is normal right ventricular systolic function. - The left atrium is normal in size. The right atrium is mildly dilated. - There is mild to moderate tricuspid valve regurgitation. Findings Left Ventricle Normal left ventricular size, thickness, systolic function, and wall motion. The visually estimated ejection fraction is between 55-60%. Diastolic function is normal for age. Right Ventricle Mildly increased right ventricular cavity size. There is normal right ventricular systolic function. Atria The left atrium is normal in size. The right atrium is mildly dilated. Aortic Valve Normal aortic valve structure and function. There is no aortic valve stenosis. There is no aortic valve regurgitation. Mitral Valve The mitral valve appears normal. There is no mitral valve regurgitation. There is no mitral valve stenosis. Pulmonic Valve The pulmonic valve is normal. There is trace pulmonic valve regurgitation. Tricuspid Valve Normal tricuspid valve structure. There is mild to moderate tricuspid valve regurgitation. Normal right atrial pressure. There is no evidence of pulmonary hypertension. Great Vessels All visible segments of the aorta are normal in size. Venous The inferior vena cava is normal in size and collapses greater than 50% with inspiration. Pericardium/Pleural There is no evidence of pericardial effusion. Prior Study Comparison No prior study available for comparison. Measurements 2D Linear Measurements IVSd: 1.01 0.6-0.9/0.6-1.0 cm LVIDd: 4.86 3.9-5.3/4.2-5.9 cm LVIDd Index: 2.52 2.4-3.2/2.2-3.1 cm/m2 LVIDs: 3.03 2.0-3.6 cm LVPWd: 0.87 0.7-1.1 cm LA Diam: 3.90 2.7-3.8/3.0-4.0 cm LAIDs Index: 2.02 1.5-2.3 cm/m2 LV Mass: 199.05 67-162/88-224 g LV Mass Index: 103.13 43-95/49-115 g/m2 LVOT Diam: 2.40 3.0+(-)1.3 cm 2D Systolic Function EF 4C: 63.20 >55% Mitral Valve MV Pk E: 0.69 MV PK A: 0.39 MV Decel Time: 257.00 E/A: 1.80 E'Lateral: 20.40 E'Medial: 12.00 E/E' Med: 5.80 E/E' Lat: 3.40 PHT: 75.00 MVA PHT: 2.93 Decel [place]: 2.70 Aortic Valve AoV Pk Marcelo: 1.36 AoV Pk Grad: 7.00 CRYSTAL: 4.97 LVOT LVOT Pk Marcelo: 1.31 LVOT Mn Marcelo: 1.03 LVOT VTI: 0.30 LVOT Pk Grad: 7.00 LVOT Mn Grad: 5.00 LVOT Diam: 2.40 LVOT Area: 4.52 Diastolic Function MV Pk E: 0.69 MV Pk A: 0.39 E/A: 1.80 E'Medial: 12.00 E/E' Med: 5.80 E' Laterial: 20.40 E/E' Lat: 3.40 Right Ventricle TAPSE (mm): 18.70 TVS' Marcelo: 14.80 Tricuspid Valve TR Pk Marceol: 2.62 TR Pk Grad: 27.00 RA Press: 3.00 RVSP: 30.00 Great Vessels Aorta Sinus of Valsalva: 3.00 2.0-3.5 cm Ao Asc: 2.90 2.1-3.4 cm Pulmonary Veins Pulm Vein S/D 0.90 Pulmonary Valve PV Pk Marcelo: 0.97 Peak PV Grad: 4.00 Updated in Other Vendor System with Status of Final Maverick Girard MD electronically signed on 02/08/2023 4:15:25 PM with status of Final
[2023-02-08 07:38] VITALS: BP 116/56; PULSE 58; RESP 16; TEMP 36.4; O2SAT 96
[2023-02-08] MEDS: methADONE HCl 20 MG/2 ML ORAL.CONC 80 MG PO (08:18)
[2023-02-08] MEDS: Enoxaparin Sodium 40 MG/0.4 ML SYRINGE SUBCUT (08:18)
[2023-02-08] MEDS: 0.9 % Sodium Chloride Flush 3 ML SYRINGE IVFLUSH (08:22)
--- NOTE | 2023-02-08 10:47 | MHC.CM.PN ---
This content writer met with patient for discharge planning needs. Patient was frequently falling asleep during conversation, at times difficult to understand. From home, no services in the home prior to hospitalization. No PCP. D/C plan- home no services may need transportation @ d/c. CM will continue to follow for d/c planning needs.
[2023-02-08 11:07] VITALS: BP 116/59; PULSE 52; RESP 16; TEMP 36.2; O2SAT 95
[2023-02-08 15:03] VITALS: BP 107/58; PULSE 53; RESP 20; TEMP 36.1; O2SAT 98
--- NOTE | 2023-02-08 15:09 | PC.NURSE ---
Pt refusing blood draw for creatinine level LYN Waters notified
--- NOTE | 2023-02-08 15:14 | HO.PM.IMPN ---
Subjective Subjective Date of Service: 02/08/23 Interval History: seen and examined this morning follow up for pulmonary septic emboli reports improvement in pleuritic chest pain, no fever declined labs today Review of Systems Review of Systems: Yes all other systems are reviewed and are negative Constitutional Constitutional: Denies chills and Denies fever(s) ENT Ears, Nose, Mouth, and Throat: Denies dizziness Cardiovascular Cardiovascular: Denies chest pain, Denies palpitations and Denies dyspnea Respiratory Respiratory: Reports pain on inspiration and Denies dyspnea Neurologic Neurologic: Denies dizziness Endocrine Endocrine: Denies palpitations Physical Exam Vital Signs: Vital Signs: Last Vital Signs Temp 97.0 F 02/08/23 15:03 Pulse 53 02/08/23 15:03 Resp 20 02/08/23 15:03 BP 107/58 L 02/08/23 15:03 Pulse Ox 98 02/08/23 15:03 O2 Del Method Room Air 02/08/23 15:03 BMI result Body Mass Index 28.5 Const: General: cooperative, comfortable, alert and awake Nutritional Appearance: average body habitus Orientation/consciousness: patient oriented x3 Resp: Effort & Inspection: normal respiratory effort, able to speak in complete sentences, no respiratory distress and no use of accessory muscles Cardio: Rate: regular rate Heart sounds: S1 normal heart sound present and S2 normal heart sound present GI: Inspection: No distended Palpation (GI): Soft to palpation and nontender Neuro: General: patient oriented x3, moves all extremities and CN's II-XI intact bilaterally Extrem: General: Yes no pedal edema Objective Data Active Medications Acetaminophen (Acetaminophen 325 Mg Tablet) 650 mg PO Q6H PRN PRN Reason: Pain, Mild (Pain Scale 1-3) Enoxaparin Sodium (Enoxaparin Sodium 40 Mg/0.4 Ml Syringe) 40 mg SUBCUT Q24H [facility] Last Admin: 02/08/23 08:18 Dose: 40 mg Documented By: PAUL Vancomycin HCl 1,500 mg/ (Sodium Chloride) 500 mls @ 333.333 mls/hr IV Q12H [facility] Last Infusion: 02/08/23 05:27 Dose: 0 mls/hr Documented By: OZORALB Melatonin (Melatonin 3 Mg Tablet) 6 mg PO BEDTIME PRN PRN Reason: Insomnia Methadone HCl (Methadone Hcl 20 Mg/2 Ml Oral.Conc) 80 mg PO DAILY [facility] Last Admin: 02/08/23 08:18 Dose: 80 mg Documented By: PAUL Ondansetron HCl (Ondansetron Hcl 4 Mg/2 Ml Vial) 4 mg IVPUSH Q8H PRN PRN Reason: Nausea and Vomiting Pharmacy Consult (Consult Rx Vancomycin Dosing) 1 each MISCELLANE DAILY PRN PRN Reason: Consult order Pharmacy Consult (Consult Rx Perform Med Rec) 1 each MISCELLANE ONCE PRN PRN Reason: Consult order Sodium Chloride (0.9 % Sodium Chloride Flush 3 Ml Syringe) 3 ml IVFLUSH QSHIFT [facility] Last Admin: 02/08/23 08:22 Dose: 3 ml Documented By: PAUL Labs 02/07/23 01:24 02/07/23 01:23 Microbiology Microbiology Results: Microbiology 02/07/23 03:37 Blood Culture - Preliminary Blood - Venous No growth after 24 hours. 02/07/23 03:32 Blood Culture - Preliminary Blood - Venous No growth after 24 hours. Assessment and Plan (1) Polysubstance abuse: Status: Acute (2) Septic embolism: Status: Acute Plan This is a 33-year-old male with history of IVDU, mood disorder presents to the emergency department for evaluation of chest discomfort. Pulmonary septic emboli related to IVDU continue IV vanco, can d/c zosyn per ID ID following echo pending to eval for endocarditis blood cultures negative to date Polysubstance use disorder. UDS positive for opiates, fentanyl and cocaine no withdrawal at this time. will continue baseline dose of methadone addiction medicine following chronic Microcytic anemia H/H appears to be within baseline refused labs DVT prophylaxis: Lovenox Full code Regular diet requires ongoing inpatient admission for IV antibiotics for the management of septic emboli and echocardiogram to rule out infective endocarditis Time Spent With Patient Time: Total time managing care of this patient today ____ minutes. Quality Stroke Does the patient have a stroke diagnosis?: No VTE Prior VTE?: No VTE Risk Level:: Medical - moderate - high VTE Device Contraindication: Treatment Not Indicated VTE Drug Contraindication: N/A - Med Ordered
[2023-02-08 15:32] LABS: Vancomycin Trough 10.2 mcg/mL (10.0-20.0)
--- NOTE | 2023-02-08 15:51 | HE.PHANOTE ---
Addendum entered by Cailin Myers hector 02/08/23 18:29: SCr came back at 0.81 showing slight improvement in renal function from yesterdays 0.87. Plan is still to continue same regiment and recheck level tomorrow @1400. Original Note: SCr pending @1552 on 02/08. Will recheck in about an hour to ensure renal function is still stable but trough came back at 10.2. This is therapeutic but only barely. Will recheck level tomorrow at 1400 after 2 more doses to 3ensure efficacy and expect to see trough of about 11.6 at that time.
[2023-02-08 16:15] LABS: Anion Gap 11 (12-20); Blood Urea Nitrogen 11 mg/dL (9-16); Calcium 8.5 mg/dL (8.4-10.2); Carbon Dioxide 23 mmol/L (22-29); Chloride 107 mmol/L (96-108); Creatinine Clr Calc Pharmacy 135.8; Estimated Glomerular Filt Rate > 60; Glucose Random 104 mg/dL (60-115); Iron 10 mcg/dL (45-160); Percent Iron Saturation 4 % (15-50); Potassium 4.2 mmol/L (3.3-5.1); Sodium 137 mmol/L (135-145); Total Iron Binding Capacity 268 mcg/dL (228-428); Unsaturated Iron Binding 258 ug/dL
[2023-02-08 19:07] VITALS: BP 106/58; PULSE 61; RESP 18; TEMP 36.4; O2SAT 99
[2023-02-09 03:37] VITALS: BP 111/56; PULSE 64; RESP 16; TEMP 36.4; O2SAT 97
--- NOTE | 2023-02-09 03:38 | PC.NURSE ---
Pt refused 0400 Vanco dose, stating he doesn't want anymore antibiotics going through his IV. Offered to put a new IV in and pt refused. Educated pt on importance of antibiotics, pt still refused. Dr. Star lopez.
--- NOTE | 2023-02-09 06:29 | PC.NURSE ---
Pt refused morning labs, Dr. Graves aware.
[2023-02-09 07:43] VITALS: BP 99/52; PULSE 70; RESP 16; TEMP 36.9; O2SAT 98
--- NOTE | 2023-02-09 08:15 | PC.NURSE ---
Pt refused morning lab draw LYN Waters notified
[2023-02-09] MEDS: methADONE HCl 20 MG/2 ML ORAL.CONC 80 MG PO (08:28)
[2023-02-09] MEDS: Enoxaparin Sodium 40 MG/0.4 ML SYRINGE SUBCUT (08:28)
--- NOTE | 2023-02-09 10:42 | P.DS_ITS ---
DS: Providers Provider Date of Service: 02/09/23 Date of admission: 02/07/23 03:28 Date of discharge: 02/09/23 Primary care physician: Unknown Physician Consults: 02/07/23 01:09 Consult to Care Team Routine Comment: Reason for consultation: detox 02/07/23 03:54 Addiction Medicine Stat Consulting Provider: Addiction Covering Reason for consultation: susbtance use disorder 02/07/23 03:59 Consult to Infectious Diseases Routine Consulting Provider: [facility] Infectious Disease Reason for consultation: Septic emboli Attending physician on discharge: Mark Duenas Discharging clinician: Carlie Waters DS: Diagnosis Discharge Diagnosis (1) Polysubstance abuse: Status: Acute (2) Septic embolism: Status: Acute DS: Summary Hospital Course Hospital Course: From H&P on day of admission This is a 33-year-old male with pertinent history of IV substance use disorder, mood disorder presents to the emergency department for evaluation of chest discomfort.? Patient states that chest discomfort started 5 days prior to presentation.? It is worse with deep inspiration.? Patient also has been having associated productive cough that started 2 days prior to presentation.? Endorses sweats and chills.? Denies fever, chills, palpitations, shortness of breath, abdominal pain, changes in urinary or bowel habits.? Patient admits to IV substance use 1 day prior to presentation. In the emergency department, CT concerning for septic emboli Pulmonary septic emboli related to IVDU. initially treated with IV vanco and Zosyn. He was seen in consultation by Infectious Diseases who recommended to stop Zosyn and continue vancomycin. Echocardiogram was obtained and showed no evidence of vegetation to indicate endocarditis. Blood cultures have remained negative for 48 hours. He has remained afebrile, had no leukocytosis on admission. Has had no productive phlegm or hypoxia and is currently saturating at 98% on room air. He will be discharged home to complete course of antibiotics. Per discussion with ID no indications rule out TB at this time as no phlegm production. Recommended to follow-up with PCP for repeat imaging to ensure resolution of infection. Polysubstance use disorder.? UDS positive for opiates, fentanyl and cocaine. No evidence of withdrawal at this time. was continued on baseline dose of methadone. He was seen by addiction medicine and resources were provided. chronic Microcytic anemia H/H appears to be within baseline. iron was checked and was low at 10, given acute infection, will hold off iron transfusion. patient declined repeat labs. would recommend outpatient follow up. Time Spent with Patient Time attestation: Total time managing care of this patient today ____ minutes. Discharge coordination time: Greater than 30 minutes Quality: Safe Use of Opioids Does Pt have an Active Cancer Diagnosis on the Problem List?: No Quality: Stroke Does the patient have a stroke diagnosis?: No Physical Exam Vital Signs: Vital Signs: Last Vital Signs Temp 98.5 F 02/09/23 07:43 Pulse 70 02/09/23 07:43 Resp 16 02/09/23 07:43 BP 99/52 L 02/09/23 07:43 Pulse Ox 98 02/09/23 07:43 O2 Del Method Room Air 02/09/23 07:43 BMI result Body Mass Index 28.5 Const: General: cooperative, comfortable, alert and awake Nutritional Appearance: average body habitus Orientation/consciousness: patient oriented x3 Resp: Effort & Inspection: normal respiratory effort, able to speak in complete sentences, no respiratory distress and no use of accessory muscles Cardio: Rate: regular rate Heart sounds: S1 normal heart sound present and S2 normal heart sound present GI: Inspection: No distended Palpation (GI): Soft to palpation and nontender Neuro: General: patient oriented x3, moves all extremities and CN's II-XI intact bilaterally Extrem: General: Yes no pedal edema DS: Data Data Completed and Pending Completed studies during hospitalization [Text1]: Procedures Detoxification Services for Substance Abuse Treatment (07/09/21) Extirpation of Matter from Right Neck Subcutaneous Tissue and Fascia, Open Approach (08/26/20) Labs on day of discharge: Laboratory Results - last 24 hr 02/08/23 02/08/23 02/08/23 14:56 Unknown Unknown Sodium 137 Potassium 4.2 Chloride 107 Carbon Dioxide 23 Anion Gap 11 L BUN 11 Creatinine 0.81 Estim Creat Clear Calc 135.8 Estimated GFR > 60 Random Glucose 104 Calcium 8.5 D Iron 10 L Cancelled TIBC 268 Cancelled % Saturation 4 L Cancelled Unsat Iron Binding 258 Cancelled Vancomycin Trough 10.2 Preliminary micro results at discharge 02/07/23 03:37 Blood Culture - Preliminary Blood - Venous No growth after 48 hours. 02/07/23 03:32 Blood Culture - Preliminary Blood - Venous No growth after 48 hours. Discharge Plan Discharge Anticipated Discharge Date/Time: 02/09/23 12:11 Patient Disposition: Home, Self-Care Discharge Diagnosis: Pulmonary septic emboli Referrals: Physician,Unknown J [Primary Care Provider] - 1 Week Discharge Medications: New doxycycline hyclate 100 mg tablet 100 mg PO BID 14 Days Qty: 28 0RF amoxicillin-pot clavulanate 875-125 mg tablet 1 tab PO BID 14 Days Qty: 28 0RF Continued methadone 10 mg/mL Concentrate 80 mg PO DAILY Discharge Orders: Discharge Order (Routine); Ordered 02/09/23 Ordered By: Carlie Waters Activity on Discharge: As tolerated Stand Alone Forms: Patient Portal Discharge page Care Plan Goals: complete resolution of infection Health Concerns: Pulmonary septic emboli Polysubstance abuse Iron deficiency anemia Plan of Treatment: complete course of antibiotics as prescribed Recommend to completely avoid any drug use call to schedule follow-up appointment with PCP for close monitoring of anemia and repeat imaging to ensure resolution of infection Assessment: see discharge summary
--- NOTE | 2023-02-09 13:48 | MHC.CM.PN ---
DP: PT HAS BEEN MEDICALLY CLEARED FOR DC HOME, NO SERVICES. PT HAS OWN RIDE HOME
== END 2023-02-09 12:24 | disposition home or self-care (01) | DRG 134 ==
LOC: HO.ED 03:29 → HO.EDOVER 03:36 → HO.S3 09:24
PROVIDERS: Emergency Medicine; Admitting Provider Student in an Organized Health Care Education/Training Program; Emergency Provider Emergency Medicine; Visit Provider Physician Assistant Medical
DX: I26.99 Other pulmonary embolism without acute cor pulmonale (principal); D50.9 Iron deficiency anemia, unspecified; F11.20 Opioid dependence, uncomplicated; F17.210 Nicotine dependence, cigarettes, uncomplicated; F19.10 Other psychoactive substance abuse, uncomplicated; Z71.6 Tobacco abuse counseling
CPT/HCPCS: 36415; 71045; 71250; 80048; 80076; 80202; 80307; 83540; 83605; 83735; 84484; 85025; 87040; 93005; 93306; 99221; 99285; J1650; J1885; J2543; J3370; J3371

== ENCOUNTER → 2023-02-07 01:05 | Outpatient (BNV) | payer MEDICAID, SELFPAY | PROVIDERS: Admitting Provider Student in an Organized Health Care Education/Training Program; Emergency Provider Emergency Medicine; Visit Provider Internal Medicine Cardiovascular Disease | DX: I45.81 Long QT syndrome (principal) | CPT/HCPCS: 93010 ==

== ENCOUNTER 2023-02-07 03:28 | Outpatient (BNV) | payer MEDICAID, SELFPAY | END 2023-02-08 07:00 | PROVIDERS: Admitting Provider Student in an Organized Health Care Education/Training Program; Emergency Provider Emergency Medicine; Visit Provider Internal Medicine Cardiovascular Disease | DX: I36.1 Nonrheumatic tricuspid (valve) insufficiency (principal) | CPT/HCPCS: 93306 ==

== ENCOUNTER → 2023-02-07 03:28 | Outpatient (BNV) | payer MEDICAID, SELFPAY | PROVIDERS: Admitting Provider Student in an Organized Health Care Education/Training Program; Emergency Provider Emergency Medicine; Visit Provider Internal Medicine | DX: F19.10 Other psychoactive substance abuse, uncomplicated (principal); R07.89 Other chest pain; I76 Septic arterial embolism | CPT/HCPCS: 99222 ==

== ENCOUNTER → 2023-02-07 03:28 | Outpatient (BNV) | payer MEDICAID, SELFPAY | PROVIDERS: Admitting Provider Student in an Organized Health Care Education/Training Program; Emergency Provider Emergency Medicine; Visit Provider Student in an Organized Health Care Education/Training Program | DX: F19.10 Other psychoactive substance abuse, uncomplicated (principal); I76 Septic arterial embolism | CPT/HCPCS: 99222; 99232; 99239; 99499 ==

== ENCOUNTER 2023-02-10 00:39 | Emergency (ER) | payer OTHER, MEDICAID, SELFPAY ==
[2023-02-10 00:42] VITALS: BP 121/80; PULSE 78; RESP 16; TEMP 36.7; O2SAT 100; BMI 27.4
--- NOTE | 2023-02-10 00:54 | ECG_ITS ---
Test Reason : SUBSTANCE USE Blood Pressure : / mmHG Vent. Rate : 076 BPM Atrial Rate : 076 BPM P-R Int : 150 ms QRS Dur : 102 ms QT Int : 436 ms P-R-T Axes : 037 -19 023 degrees QTc Int : 490 ms Normal sinus rhythm Minimal voltage criteria for LVH, may be normal variant ( R in aVL ) Nonspecific T wave abnormality Prolonged QT Abnormal ECG When compared with ECG of 07-FEB-2023 01:18, No significant change was found Referred By: Diana Morris Electronically Signed By:Maverick Girard
--- NOTE | 2023-02-10 00:55 | ED_ITS ---
HPI - Psych General Chief Complaint: Psychiatric Symptoms Stated Complaint: Crisis Time Seen by Provider: 02/10/23 00:42 Source: patient Mode of arrival: EMS Limitations: no limitations History of Present Illness HPI Narrative: Patient comes to the emergency room via ambulance. Patient walked into a police station, told them that he wanted to commit suicide by overdosing with 11 bags of heroin. EMS called 911. Patient complaining of depression, suicidal ideation, no homicidal ideation. Of note, patient was discharged a few hours ago, patient was admitted for 3 days for chest discomfort and was diagnosed with pulmonary emboli. Patient states that he has been unable to picker/puller his medications at the pharmacy. Related Data Home Medications Medication Instructions Recorded Confirmed methadone 10 mg/mL oral concentrate 80 mg PO DAILY 11/16/22 02/07/23 Previous Rx's Medication Instructions Recorded amoxicillin 875 mg-potassium 1 tab PO BID 14 days #28 tabs 02/09/23 clavulanate 125 mg tablet doxycycline hyclate 100 mg tablet 100 mg PO BID 14 days #28 tabs 02/09/23 Allergies Allergy/AdvReac Type Severity Reaction Status Date / Time shrimp [SHRIMP] Allergy Intermediate Swelling Verified 02/07/23 00:45 Review of Systems Review of Systems: Constitutional : No Weight loss, No Fever, No Chills, No Night Sweats, No Fatigue, No Malaise ENT/Mouth : No Hearing loss, No Ear Pain, No Nasal Congestion, No Sinus Pain, No Hoarseness, No sore throat, No Rhinorrhea, No Swallowing Difficulty Eyes: No Eye Pain, No Swelling, No Redness, No Foreign Body, No Discharge, No Vision Changes Cardiovascular : Complaining of mild chest discomfort for a few days now, No Chest Pain, No SOB, No Dyspnea on Exertion, No Orthopnea, No Edema, No Palpitations Respiratory : No Cough, No Sputum, No Wheezing, No Smoke Exposure, No Dyspnea Gastrointestinal : No Nausea, No Vomiting, No Diarrhea, No Constipation, No abdominal Pain, No Hematochezia, No Melena Genitourinary : no irregular bleeding, No Dysuria, No Urinary Frequency, No Hematuria, No Urinary Incontinence, No Urgency, No Flank Pain, No Urinary Flow Changes, No Hesitancy Musculoskeletal : No joint pain, No Myalgias, No Joint Swelling Skin : No Skin Lesions, No rash Neuro : No Weakness, No Numbness, No Paresthesias, No Loss of Consciousness, No Dizziness, No Headache Psych : Complain of depression, no anxiety, complaining suicidal ideation, no homicidal ideation., admits to IV drug abuse Heme/Lymph: No Bruising, No Bleeding,No Lymphadenopathy Endocrine : No Polyuria, No Polydipsia, No Temperature Intolerance PMFSH Past Medical History Medical History Asthma Cocaine use disorder IVDU (intravenous drug user) Opioid use disorder, severe, dependence Severe recurrent major depression w/psychotic features, mood-congruent Social History Social History Household Members: None Household Members Other:: lives in a intermediate Housing: Apartment Do you presently have visiting nurse or other home services: No Unable to assess alcohol history related to: Unknown Alcohol intake: current Alcohol intake frequency: a few times a week Patient Tobacco Use Status: Current everyday Tobacco user Tobacco use type: Cigarette Cigarettes Per Day: 7 Substance Use Type: Crack/Cocaine and Heroin service: No Current occupational status: unemployed Sexual orientation: Did not discuss Physical Exam Vital Signs: Vital Signs: Last Vital Signs Temp 98.1 F 02/10/23 00:42 Pulse 78 02/10/23 00:42 Resp 16 02/10/23 00:42 BP 121/80 02/10/23 00:42 Pulse Ox 100 02/10/23 00:42 O2 Del Method Room Air 02/10/23 00:42 BMI result Body Mass Index 27.4 Const: Other: Appearance: Alert. Oriented X3. No acute distress. Eyes: Pupils equal, round and reactive to light. ENT: Pharynx normal. Neck: Normal inspection. Neck supple. No lymph nodes noted. No crepitus CVS: Normal heart rate and rhythm. Pulses normal. Normal S1 and S2 Respiratory: No respiratory distress. Breath sounds normal. No Wheezing. No rales Abdomen: Soft and nontender. No rigidity. No distention. Skin: Skin warm and dry. Normal skin color. Normal skin turgor. Extremities: No lower extremity edema. No Lacerations. No Rash Neuro: Oriented X 3. No motor deficit. No sensory deficit. Moving all extremities. No slurred speech. CN 2 through 12 grossly intact Psych: calm, cooperative, normal affect Course Course Course Narrative: -of patient's labs pending -EKG pending -care Team consult pending -physician observation started at 10:05 I was informed by the patient's nurse and tech that the patient is refusing blood work, only accepted ETOH level, does not want troponin Medical Decision Making Medical Decision Making MDM Narrative: -EKG my interpretation: Normal sinus rhythm, heart rate 76, no ST segment depression or elevation, no T-wave inversion, QTC 490 -as mentioned above, patient refusing labs, within not have a CBC, chemistry or troponin. Only ETOH level is pending. Care team consult pending. Lab Data Labs: Lab Results 02/10/23 02/10/23 02/10/23 Range/Units 01:00 01:00 01:00 Urine Color Dark Yellow Urine Appearance Cloudy Urine pH 5.5 (5.0-9.0) Ur Specific [place] 1.020 (1.005-1.025) Urine Protein 30 (1+) H (Neg-Trace) mg/dL Urine Glucose (UA) Negative (Negative) mg/dL Urine Ketones Trace (Negative) mg/dL Urine Blood Trace H (Negative) Urine Nitrite Negative (Negative) Ur Leukocyte Esterase Small (1+) H (Negative) Urine RBC 3-5 H (0-2) /HPF Urine WBC 11-20 (0-5) /HPF Ur Squamous Epith Cells 3-5 (0-2) /HPF Urine Bacteria 1+ (None Seen) Hyaline Casts >20 (0-2) /LPF Granular Casts Present Urine Opiates Screen POSITIVE H (Not Detect) Urine Fentanyl Screen POSITIVE H (Not Detect) Ur Barbiturates Screen Not Detected (Not Detect) Ur Phencyclidine Scrn Not Detected (Not Detect) Ur Amphetamines Screen Not Detected (Not Detect) U Benzodiazepines Scrn Not Detected (Not Detect) Urine Cocaine Screen POSITIVE H (Not Detect) U Marijuana (THC) Screen Not Detected (Not Detect) COVID-19 ([place]) Negative (Negative) COVID-19 Clin Com See Note Discharge Plan Discharge Clinical Impression: Polysubstance abuse, Depression Patient Disposition: Still a Patient Prescriptions: No Action doxycycline hyclate 100 mg tablet 100 mg PO BID 14 Days Qty: 28 0RF amoxicillin-pot clavulanate 875-125 mg tablet 1 tab PO BID 14 Days Qty: 28 0RF methadone 10 mg/mL Concentrate 80 mg PO DAILY
[2023-02-10 01:12] LABS: Appearance Urine Cloudy; Color Urine Dark Yellow; Glucose Urine UA Negative (Negative); Leukocyte Esterase Urine Small (1+) (Negative); Nitrite Urine Negative (Negative); PH 5.5 (5.0-9.0); UMIC TRIGGER UA YES; Urine Blood Trace (Negative); Urine Ketones Trace mg/dL (Negative); Urine Protein 30 (1+) mg/dL (Neg-Trace)
[2023-02-10 01:24] LABS: Amphetamine Screen Urine Not Detected (Not Detect); Barbiturates, Urine Not Detected (Not Detect); Benzodiazepines Screen Urine Not Detected (Not Detect); Cannabinoid Screen Urine Not Detected (Not Detect); Cocaine Screen Urine POSITIVE (Not Detect); Fentanyl, urine POSITIVE (Not Detect); Opiate Screen Urine POSITIVE (Not Detect); Phencyclidine Screen Urine Not Detected (Not Detect)
[2023-02-10 01:34] LABS: Bacteria Urine 1+ (None Seen); Granular Casts Urine Present; Hyaline Casts Urine >20 /LPF (0-2)
[2023-02-10 01:38] LABS: COVID-19 Test Negative (Negative); IDNOW Serial# 6674DD1D
--- NOTE | 2023-02-10 01:44 | MHC.EDTECH ---
PATIENT REFUSED ALL BLOOD WORK EXCEPT ETNOL WHICH PATIENT WANTED A FINGER STICK ,RN AND PROVIDER AWARE ETNOL DRAWN AND SENT TO LAB .
[2023-02-10 01:58] LABS: Ethanol 12 mg/dL
[2023-02-10 01:59] LABS: Anion Gap 20 (12-20); Blood Urea Nitrogen 19 mg/dL (9-16); Calcium 9.6 mg/dL (8.4-10.2); Carbon Dioxide 20 mmol/L (22-29); Chloride 103 mmol/L (96-108); Creatinine Clr Calc Pharmacy 81.9; Estimated Glomerular Filt Rate > 60; Glucose Random 91 mg/dL (60-115); Potassium 4.5 mmol/L (3.3-5.1); Sodium 138 mmol/L (135-145)
[2023-02-10 02:11] LABS: Troponin-I High Sensitivity 9.2 ng/L (<3.5-35.0)
[2023-02-10 05:48] VITALS: RESP 16
--- NOTE | 2023-02-10 05:56 | PC.NURSE ---
Patient slept intermittently, no distress observed/reported, care consult ordered, pending evaluation, med rec completed/pending evaluation, behavior non concerning, VSS, will continue to monitor.
--- NOTE | 2023-02-10 07:07 | PC.NURSE ---
patient seems to have arisen for the day came out to ask for condiments fro tray, awaiting clinic to open so t/w may verify methadone, patient appears in no distress
--- NOTE | 2023-02-10 07:38 | HE.PHANOTE ---
RE: methadone Patient discharged yesterday 02/09; last three 80mg doses given here at [facility] [place], before that methadone verification received from [facility] last dose 02/06/23 for 80mg.
--- NOTE | 2023-02-10 07:59 | PHA.MEDREC ---
Pharmacy Consult ? Medication Reconciliation Pharmacy has completed the medication reconciliation. reviewed med rec done by nursing.
[2023-02-10] MEDS: Amoxicillin/Potassium Clav 875 MG TABLET PO ×2 (12:07→20:40)
[2023-02-10] MEDS: Doxycycline Monohydrate 100 MG CAPSULE PO ×2 (12:07→20:40)
[2023-02-10] MEDS: methADONE HCl 20 MG/2 ML ORAL.CONC 80 MG PO (12:07)
[2023-02-10 16:47] VITALS: BP 97/57; PULSE 51; RESP 16; TEMP 36.3; O2SAT 97
--- NOTE | 2023-02-10 20:27 | PC.NURSE ---
Pt. Refused blood work.
[2023-02-11 01:48] VITALS: RESP 16
--- NOTE | 2023-02-11 06:45 | PC.NURSE ---
Patient slept through the night, no distress observed/reported, disposition per care team is voluntary EATS bed search, medication compliant, patient is on antibiotic for pulmonary septic emboli, VSS, will continue to monitor.
[2023-02-11 08:23] VITALS: BP 103/45; PULSE 54; RESP 18; O2SAT 98
[2023-02-11] MEDS: Amoxicillin/Potassium Clav 875 MG TABLET PO (10:05)
[2023-02-11] MEDS: Doxycycline Monohydrate 100 MG CAPSULE PO (10:05)
[2023-02-11 14:07] VITALS: BP 111/60; PULSE 59; RESP 15; TEMP 36.2; O2SAT 99
[2023-02-11] MEDS: methADONE HCl 20 MG/2 ML ORAL.CONC 80 MG PO (14:13)
--- NOTE | 2023-02-11 14:48 | MHC.RECOVRN ---
Met with pt in [facility] after pt cleared by CARE Team and requesting ATS. Pt laying in bed, awake, alert, easily engages in conversation. Pt is currently receiving 80 mg methadone daily. Pt had recently been admitted to [facility] for septic emboli. Pt reports using heroin, 11 bags, and cocaine, $60, INH, on day of discharge from [facility]. Pt then presented to ED for SI. Discussed tx options with pt, pt aware he may not be a candidate for ATS due to using one time after dc from the hospital. Pt reports [facility] himself in the past and would like to do the same. Pt requesting discharge, stay with mother edilia, and present to court house in the morning. RN and provider aware.
== END 2023-02-11 14:41 | disposition home or self-care (01) ==
PROVIDERS: Emergency Provider Emergency Medicine
DX: F19.10 Other psychoactive substance abuse, uncomplicated (principal); F32.89 Other specified depressive episodes; R45.851 Suicidal ideations; F14.90 Cocaine use, unspecified, uncomplicated; F11.20 Opioid dependence, uncomplicated; Z20.822 Contact with and (suspected) exposure to COVID-19
CPT/HCPCS: 36415; 80048; 80307; 81001; 84484; 87635; 93005; 99285; S9485

== ENCOUNTER → 2023-02-10 00:54 | Outpatient (BNV) | payer MEDICAID, SELFPAY | PROVIDERS: Emergency Provider Emergency Medicine; Visit Provider Internal Medicine Cardiovascular Disease | DX: F19.10 Other psychoactive substance abuse, uncomplicated (principal) | CPT/HCPCS: 93010 ==

== ENCOUNTER 2023-03-28 13:15 | Emergency (ER) | payer MEDICAID, SELFPAY ==
--- NOTE | 2023-03-28 13:16 | ED_ITS ---
HPI - Overdose General Chief Complaint: ETOH/Substance Use Stated Complaint: overdose Time Seen by Provider: 03/28/23 13:16 Source: patient and EMS History of Present Illness HPI Narrative: 33-year-old male with past medical history of asthma, IVDA/substance abuse, depression with psychotic features, on Methadone presenting to the ED via EMS for suspected overdose. Patient was found unresponsive in friends bathroom. 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 Patient states he believes he syncopized, remembers falling asleep. Denies illicit substance use or EtOH. denies known fall/injury, headache, CP/SOB MD complaint: accidental overdose Related Data Home Medications Medication Instructions Recorded Confirmed methadone 10 mg/mL oral concentrate 80 mg PO DAILY 11/16/22 02/10/23 Previous Rx's Medication Instructions Recorded amoxicillin 875 mg-potassium 1 tab PO BID 14 days #28 tabs 02/09/23 clavulanate 125 mg tablet doxycycline hyclate 100 mg tablet 100 mg PO BID 14 days #28 tabs 02/09/23 Allergies Allergy/AdvReac Type Severity Reaction Status Date / Time shrimp [SHRIMP] Allergy Intermediate Swelling Verified 02/07/23 00:45 Review of Systems Review of Systems: Constitutional: No Fever, No Chills, No Fatigue, No Malaise Cardiovascular: No Chest Pain, No SOB, No Palpitations Respiratory: No Cough, No Sputum, No Dyspnea Gastrointestinal: No Nausea, No Vomiting, No Diarrhea, No Constipation, No Abdominal pain Musculoskeletal: No joint pain, No Myalgias, No Joint Swelling Skin: No Skin Lesions, No rash Neuro: No Weakness, + Loss of Consciousness, No Dizziness, No Headache Psych: No Anxiety/Panic, No Depression, No SI/HI/AH/VH, No Social Issues Yes all other systems are reviewed and are negative Constitutional: Constitutional: Reports as per HPI [facility] Past Medical History Attestation statement: The following information was validated with the patient. Source: old records reviewed Medical History Asthma Cocaine use disorder IVDU (intravenous drug user) Opioid use disorder, severe, dependence Severe recurrent major depression w/psychotic features, mood-congruent Social History Social History Household Members: None Household Members Other:: lives in a assisted Housing: Apartment Do you presently have visiting nurse or other home services: No Unable to assess alcohol history related to: Unknown Alcohol intake: current Alcohol intake frequency: a few times a week Patient Tobacco Use Status: Current everyday Tobacco user Tobacco use type: Cigarette Cigarettes Per Day: 7 Substance Use Type: Crack/Cocaine and Heroin Advance Directives: No service: No Current occupational status: unemployed Sexual orientation: Did not discuss Physical Exam Vital Signs: Vital Signs: Last Vital Signs Temp 98.4 F 03/28/23 13:21 Pulse 124 H 03/28/23 13:46 Resp 16 03/28/23 13:46 BP 125/77 03/28/23 13:46 Pulse Ox 95 03/28/23 13:46 O2 Del Method Room Air 03/28/23 13:46 BMI result Body Mass Index 28.2 Const: Other: Lethargic/appears under the influence however easily arousable General: cooperative and no acute distress Orientation/consciousness: patient oriented x3 Limitations: no limitations HEENT: Head: Yes normal to inspection and Yes atraumatic Ears: hearing grossly normal bilaterally General nose exam: Normal external nose present Face and sinus: Yes normal facial exam Eyes: General: appearance normal, both eyes and all related structures EOM: EOMs intact bilaterally Neck: Neck: Yes normal visual inspection and Yes no meningeal signs Resp: Effort & Inspection: normal respiratory effort and no respiratory distress Auscultation: clear to auscultation bilaterally Cardio: Rate: regular rate Heart sounds: S1 normal heart sound present and S2 normal heart sound present GI: Inspection: Yes normal to inspection Palpation (GI): Soft to palpation, nontender, no guarding and not rigid Back/Spine/Pelvis: Other: No midline cervical/thoracic/lumbar spinous tenderness/step-off or deformity Skin: Rashes: no rashes Wounds: no wounds Neuro: General: patient oriented x3, tone normal, moves all extremities, no meningeal signs and CN's II-XI intact bilaterally Cranial nerves: Yes CN's II-XII intact bilaterally Gait exam (Neuro): Normal gait present Extrem: General: Yes normal to inspection Course Course Course Narrative: -1440--patient has remained awake and alert since EMS arrival, not requiring Narcan or other intervention. Safe for discharge home at this time, has sober/safe ride picking him up from the emergency department > patient did admit to nurse he used 2 bags of heroin and 2 bags of cocaine > will discharge with Narcan to go >> recovery spoke with patient and gave him information for recovery coaches Results discussed with patient including worrisome signs and symptoms and strict return precautions, and when to return to the emergency department. They verba lized understanding and feel safe for discharge at this time. Medical Decision Making Medical Decision Making [facility] Narrative: 33-year-old male with past medical history of asthma, IVDA/substance abuse, depression with psychotic features, on Methadone presenting to the ED via EMS for suspected overdose. On exam tachycardic, lethargic/appears under the influence however easily arousable, diaphoretic, no evidence of trauma. Concern for accidental overdose/substance abuse vs ?Syncope (although of lower suspicion). Low suspicion for PE/ACS infectious or metabolic etiologies. Plan: EKG, labs, tox screen, observe and re-evaluate, SUDE eval Please refer to course for remaining clinical decision making, interpretation of labs/imaging results, and discussions with consultants and/or family members. Differential Diagnosis Differential Diagnoses: The differential diagnosis associated with the presentation includes As above Admission/Observation Consideration of admission/observation: Escalation of care including admission/observation considered Consult Healthcare Provider Management of the patient was discussed with: Behavioral Health Provider Lab Data [facility] Lab Attestation statement: I reviewed the patient's lab results. 03/28/23 14:11 03/28/23 14:11 Labs: Lab Results 03/28/23 Range/Units 14:11 WBC 5.9 (4.8-10.8) X10*3/uL RBC 4.78 (4.60-5.80) X10*6/uL Hgb 11.1 L (14.0-18.0) g/dl Hct 34.6 L (42.0-52.0) % MCV 72.4 L (80.0-98.0) fL MCH 23.2 L (27.0-33.0) pg MCHC 32.1 (31.0-36.0) g/dl RDW 16.4 H (11.0-16.0) % Plt Count 193 D (160-400) X10*3/uL MPV 10.7 (9.4-12.4) fL Immature Gran % (Auto) 0.5 H (0.0-0.4) % Neut % (Auto) 80.2 H (45-73) % Lymph % (Auto) 9.1 L (20-40) % B[place] % (Auto) 9.7 (2-11) % Eos % (Auto) 0.2 (0-4) % Baso % (Auto) 0.3 (0-2) % Lymph # (Auto) 0.5 L (1.2-4.9) X10*3/uL [place] # (Auto) 0.6 (0.1-1.2) X10*3/uL Eos # (Auto) 0.0 (0.0-0.4) X10*3/uL Baso # (Auto) 0.0 (0.0-0.2) X10*3/uL Abs Immat Gran (auto) 0.03 (0.00-0.03) X10*3/uL Absolute Neuts (auto) 4.7 (2.0-8.3) x10*3/uL Absolute Nucleated RBC 0.000 (0.0-0.012) X10*3/uL Nucleated RBC % (auto) 0.0 (0.0-0.2) /100WBC Independent Interpretation I performed an independent interpretation of an: EKG (EKG sinus tachycardia rate 103. W[place] interval 134. QTC 455. No STEMI) Independent Historian Clinical information obtained from an independent historian. History obtained from or confirmed by: EMS External Record Review External record reviewed: Inpatient record, Office record, Outpatient record, Prior outpatient labs, Prior outpatient radiology, Primary care record and Outside ED record Tests considered The following testing was considered but not selected: As above Social Determinants Patient?s care significantly limited by Social Determinants of Health including: Alcoholism and drug addiction in family, Problems related to primary support group and Other Social Determinant of Health Discharge Plan Discharge Clinical Impression: Overdose Patient Disposition: Home, Self-Care Instructions: Adult Overdose (ED) Additional Instructions: you overdosed today You could have Avoid alcohol and drug use this can kill you Follow-up with resource recovery specialist is Consider detox Prescriptions: No Action doxycycline hyclate 100 mg tablet 100 mg PO BID 14 Days Qty: 28 0RF amoxicillin-pot clavulanate 875-125 mg tablet 1 tab PO BID 14 Days Qty: 28 0RF methadone 10 mg/mL Concentrate 80 mg PO DAILY Referrals: [facility] [Provider Group] [facility] [Outside]
[2023-03-28 13:17] VITALS: BP 144/71; PULSE 110; O2SAT 96
[2023-03-28 13:21] VITALS: BP 127/60; PULSE 117; RESP 19; TEMP 36.9; O2SAT 95
--- NOTE | 2023-03-28 13:28 | ECG_ITS ---
Test Reason : OVERDOSE Blood Pressure : / mmHG Vent. Rate : 103 BPM Atrial Rate : 103 BPM P-R Int : 134 ms QRS Dur : 094 ms QT Int : 348 ms P-R-T Axes : 034 -14 -03 degrees QTc Int : 455 ms Sinus tachycardia Otherwise normal ECG When compared with ECG of 10-FEB-2023 01:27, Heart rate has increased QT has shortened Nonspecific T wave abnormality is no longer Present Referred By: Leonora Perez Electronically Signed By:SAM BELTRAN
[2023-03-28 13:46] VITALS: BP 125/77; PULSE 124; RESP 16; O2SAT 95; BMI 28.2
[2023-03-28 14:19] LABS: MANUAL DIFF FLAG NO
[2023-03-28 14:25] LABS: Basophils Percent Auto 0.3 % (0-2); Eosinophils Percent Auto 0.2 % (0-4); Hematocrit 34.6 % (42.0-52.0); Hemoglobin 11.1 g/dl (14.0-18.0); Imm Gran Abs Auto 0.03 X10*3/uL (0.00-0.03); Imm Gran Pct Auto 0.5 % (0.0-0.4); Lymphocytes Absolute Auto 0.5 X10*3/uL (1.2-4.9); Lymphocytes Percent Auto 9.1 % (20-40); Mean Corpuscular HGB Conc 32.1 g/dl (31.0-36.0); Mean Corpuscular Hemoglobin 23.2 pg (27.0-33.0); Mean Corpuscular Volume 72.4 fL (80.0-98.0); Mean Platelet Volume 10.7 fL (9.4-12.4); Monocytes Absolute Auto 0.6 X10*3/uL (0.1-1.2); Monocytes Percent Auto 9.7 % (2-11); Neutrophils Absolute Auto 4.7 x10*3/uL (2.0-8.3); Neutrophils Percent Auto 80.2 % (45-73); Platelet Count 193 X10*3/uL (160-400); Red Blood Count 4.78 X10*6/uL (4.60-5.80); Red Cell Distribution Width 16.4 % (11.0-16.0); White Blood Count 5.9 X10*3/uL (4.8-10.8)
[2023-03-28 14:44] LABS: Acetaminophen LAB < 17 mcg/mL (<30); Salicylate < 5.0 mg/dL (15-30)
[2023-03-28 14:45] LABS: Alanine Aminotransferase 36 U/L (0-40); Albumin Level 4.3 g/dL (3.5-5.0); Alkaline Phosphatase 82 U/L (39-117); Anion Gap 15 (12-20); Aspartate Amino Transferase 36 U/L (5-37); Bilirubin Direct 0.2 mg/dL (0.0-0.5); Bilirubin Total 0.6 mg/dL (0.0-1.0); Blood Urea Nitrogen 16 mg/dL (9-16); Calcium 9.3 mg/dL (8.4-10.2); Carbon Dioxide 22 mmol/L (22-29); Chloride 104 mmol/L (96-108); Estimated Glomerular Filt Rate > 60; Ethanol < 10 mg/dL; Glucose Random 93 mg/dL (60-115); Magnesium 1.8 mg/dL (1.6-2.6); Potassium 4.6 mmol/L (3.3-5.1); Sodium 136 mmol/L (135-145); Total Protein 8.2 g/dL (6.5-8.0)
[2023-03-28] MEDS: Naloxone HCl Nasal TAKE HOME 4 MG SPRAY 8 MG NOSTRILALT (14:46)
[2023-03-28 14:53] LABS: Troponin-I High Sensitivity < 2.7 ng/L (<3.5-35.0)
--- NOTE | 2023-03-28 16:08 | MHC.RECOVSUP ---
Met with pt in [facility] who is here for [facility]UANA[facility]. Pt reports taking about 3 bags of heroin intravenously and is on 70mg Methadone.Pt informs he was just in [place] and is not getting his Methadone from a clinic in [place]. Pt is not interested in ATS at this time as he is starting work again for the first time through [employer]. T/W reviewed harm reduction and pt has no other questions or concerns at this time.
== END 2023-03-28 14:52 | disposition home or self-care (01) ==
PROVIDERS: Physician Assistant; Emergency Provider Emergency Medicine
DX: T40.1X1A Poisoning by heroin, accidental (unintentional), initial encounter (principal); T40.5X1A Poisoning by cocaine, accidental (unintentional), initial encounter; R40.4 Transient alteration of awareness; Y92.9 Unspecified place or not applicable; F19.10 Other psychoactive substance abuse, uncomplicated; F11.20 Opioid dependence, uncomplicated
CPT/HCPCS: 36415; 80048; 80076; 80143; 80179; 80307; 83735; 84484; 85025; 93005; 99284

== ENCOUNTER 2023-04-23 03:06 | Emergency (ER) | payer OTHER, MEDICAID, SELFPAY ==
--- NOTE | ~2023-04-23 | CT_ITS ---
EXAMINATION: CT HEAD WITHOUT CONTRAST CT CERVICAL SPINE WITHOUT CONTRAST CLINICAL INFORMATION: Following loss of consciousness, patient on drugs. COMPARISON: CT head from 04/07/2019 TECHNIQUE: Contiguous axial imaging was performed from the skull base to vertex without intravenous administration of contrast. Contiguous axial imaging was performed from the upper chest through the skull base without intravenous administration of contrast. Coronal and sagittal reformats were obtained at the acquisition workstation. This CT examination was performed using dose optimization techniques as appropriate, variously including the following: *Automated exposure control. *Adjustment of mA and/or kV according to patient size (this includes techniques or standardized protocols for targeted exams where dose is matched to indication/reason for exam; i.e. extremities or head). *Use of iterative reconstruction technique. DLP: 1383 mGy-cm FINDINGS: Head: There is no evidence of acute intracranial hemorrhage or edematous territorial infarction. Kasper-white matter differentiation is preserved. There is no abnormal attenuation within the brain parenchyma. The ventricles are normal in morphology and size. No evidence for obstructive hydrocephalus. No abnormal mass effect or midline shift. No extra-axial fluid collections. No acute soft tissue or osseous abnormalities. The mastoid air cells and visualized paranasal sinuses are clear. Cervical Spine: The atlantooccipital and atlantoaxial articulations remain well aligned. Straightening of the normal cervical lordosis. Otherwise, there is anatomic alignment of the vertebral bodies and posterior elements. No evidence of acute fracture or subluxation. The vertebral body heights and disc spaces are maintained. There is no prevertebral soft tissue swelling. The thyroid gland and remaining cervical soft tissues are within normal limits. The lung apices demonstrate no abnormalities. CT/CT cervical spine wo IV con IMPRESSION: No acute intracranial pathology.
--- NOTE | ~2023-04-23 | XR_ITS ---
EXAMINATION: XR CHEST CLINICAL INFORMATION: Chest pain COMPARISON: 02/07/2023 TECHNIQUE: Frontal view of the chest was obtained. FINDINGS: Lung volumes are symmetric. No focal consolidation is seen. Lateral right midlung nodule seen on 02/07/2023 radiograph is less conspicuous currently. No evidence of pneumothorax, pleural effusion, or pulmonary edema. The cardiomediastinal contour is unremarkable. No acute osseous findings are seen. XR/XR chest 1V IMPRESSION: No acute cardiopulmonary findings. Lateral right midlung nodule seen previously is less conspicuous currently.
--- NOTE | 2023-04-23 03:10 | ECG_ITS ---
Test Reason : od Blood Pressure : / mmHG Vent. Rate : 078 BPM Atrial Rate : 078 BPM P-R Int : 150 ms QRS Dur : 098 ms QT Int : 410 ms P-R-T Axes : 029 -24 004 degrees QTc Int : 467 ms Normal sinus rhythm Minimal voltage criteria for LVH, may be normal variant ( R in aVL ) Nonspecific T wave abnormality Prolonged QT Abnormal ECG When compared with ECG of 28-MAR-2023 13:33, No significant change was found Referred By: Elaine Pearson Electronically Signed By:SAM BELTRAN
[2023-04-23 03:18] VITALS: BP 115/72; PULSE 80; O2SAT 96
[2023-04-23 03:21] VITALS: BP 110/63; PULSE 77; RESP 16; TEMP 37; O2SAT 97; BMI 28.2
--- NOTE | 2023-04-23 03:40 | PC.NURSE ---
ekg obtained; tech attempting blood draw. pending 1:1 sitter director of infection prevention aware.
[2023-04-23 03:47] LABS: MANUAL DIFF FLAG NO
[2023-04-23 03:49] LABS: Appearance Urine Clear; Color Urine Yellow; Glucose Urine UA Negative (Negative); Leukocyte Esterase Urine Negative (Negative); Nitrite Urine Negative (Negative); PH 5.5 (5.0-9.0); Specific Gravity - Urine 1.015 (1.005-1.025); Urine Blood Negative (Negative); Urine Ketones Negative (Negative); Urine Protein Negative (Neg-Trace)
[2023-04-23 03:52] LABS: Basophils Percent Auto 0.2 % (0-2); Eosinophils Absolute Auto 0.1 X10*3/uL (0.0-0.4); Eosinophils Percent Auto 1.1 % (0-4); Hematocrit 31.6 % (42.0-52.0); Hemoglobin 10.1 g/dl (14.0-18.0); Imm Gran Abs Auto 0.02 X10*3/uL (0.00-0.03); Imm Gran Pct Auto 0.3 % (0.0-0.4); Lymphocytes Absolute Auto 2.6 X10*3/uL (1.2-4.9); Lymphocytes Percent Auto 40.3 % (20-40); Mean Corpuscular Hemoglobin 23.8 pg (27.0-33.0); Mean Corpuscular Volume 74.5 fL (80.0-98.0); Mean Platelet Volume 10.2 fL (9.4-12.4); Monocytes Absolute Auto 0.7 X10*3/uL (0.1-1.2); Monocytes Percent Auto 10.7 % (2-11); Neutrophils Percent Auto 47.4 % (45-73); Platelet Count 293 X10*3/uL (160-400); Red Blood Count 4.24 X10*6/uL (4.60-5.80); Red Cell Distribution Width 16.7 % (11.0-16.0); White Blood Count 6.4 X10*3/uL (4.8-10.8)
[2023-04-23 03:55] LABS: Amphetamine Screen Urine Not Detected (Not Detect); Barbiturates, Urine Not Detected (Not Detect); Benzodiazepines Screen Urine Not Detected (Not Detect); Cannabinoid Screen Urine Not Detected (Not Detect); Cocaine Screen Urine POSITIVE (Not Detect); Fentanyl, urine POSITIVE (Not Detect); Opiate Screen Urine POSITIVE (Not Detect); Phencyclidine Screen Urine Not Detected (Not Detect)
[2023-04-23 04:00] LABS: Anion Gap 18 (12-20); Blood Urea Nitrogen 9 mg/dL (9-16); Calcium 9.1 mg/dL (8.4-10.2); Carbon Dioxide 21 mmol/L (22-29); Chloride 106 mmol/L (96-108); Creatinine Clr Calc Pharmacy 122.9; Estimated Glomerular Filt Rate > 60; Glucose Random 85 mg/dL (60-115); Potassium 3.7 mmol/L (3.3-5.1); Sodium 141 mmol/L (135-145)
--- NOTE | 2023-04-23 04:06 | PC.NURSE ---
Addendum entered by Cayla Cruz 04/23/23 04:06: 1:1 sitter at bedside. pt calm and cooperative. continues to reports SI with plan to OD. Original Note: food and liquids provided.
[2023-04-23 04:11] LABS: Troponin-I High Sensitivity < 2.7 ng/L (<3.5-35.0)
--- NOTE | 2023-04-23 05:02 | PC.NURSE ---
sitter at bedside. pt sleeping in stretcher; nsr on monitor; respirations even and unlabored.
[2023-04-23 06:06] LABS: Troponin-I High Sensitivity < 2.7 ng/L (<3.5-35.0)
--- NOTE | 2023-04-23 07:01 | ED_ITS ---
HPI - General Adult General Chief complaint: Overdose Stated complaint: chest pain after od, SI Time Seen by Provider: 04/23/23 06:39 Source: patient, EMS and RN notes reviewed Mode of arrival: EMS Limitations: no limitations History of Present Illness HPI narrative: 33-year-old male with pmhx significant for asthma, cocaine use disorder, opioid use disorder, MDD with psychiatric features, and septic embolism presenting to the ED today via EMS with chest pain and SI, s/p heroin and cocaine OD at 1900 yesterday. Reports feeling depressed secondary to loss of his significant other and on the verge of being homeless . Reports drinking 3 beers prior to arrival. Patient endorsing substernal chest pain worse with palpation at present. Seeking detox. Denies SI or plan at present. Denies HI. Denies auditory, visual, tactile hallucinations. Denies fever, chills, headache, dizziness, palpitations, shortness of breath, LE swelling or pain. History limited due to patient's acute intoxication. Related Data Home Medications Medication Instructions Recorded Confirmed methadone 10 mg/mL oral concentrate 75 mg PO DAILY 11/16/22 04/23/23 Allergies Allergy/AdvReac Type Severity Reaction Status Date / Time shrimp [SHRIMP] Allergy Intermediate Swelling Verified 04/23/23 03:26 Review of Systems 2 Review of Systems: Constitutional: No fever, chills, fatigue, night sweats, weight changes ENT/Mouth: No ear pain, hearing loss, nasal congestion, sinus pain, rhinorrhea, sore throat Eyes: No eye pain, swelling, redness, vision changes, discharge Cardio: + chest pain, No palpitations, GUERRERO, orthopnea, peripheral edema Pulm: No SOB, cough, sputum, wheezing, dyspnea, hemoptysis GI: No nausea, vomiting, hematemesis, abdominal pain, diarrhea, constipation, hematochezia, melena : No irregular bleeding, dysuria, frequency, urgency, hesitancy, hematuria, flank pain, urinary flow changes, urinary incontinence or retention MSK: No back pain, neck pain, joint pain, myalgias Skin: No lesions, rashes Neuro: No weakness, numbness, paresthesias, LOC, dizziness, headache Psych: No anxiety/panic, + depression, No SI/HI, AH/VH All other systems reviewed and are negative. [facility] Past Medical History Attestation statement: The following information was validated with the patient. Source: old records reviewed and nursing notes reviewed Medical History Cocaine use disorder Opioid use disorder, severe, dependence Severe recurrent major depression w/psychotic features, mood-congruent IVDU (intravenous drug user) Asthma Social History Social History Household Members: None Household Members Other:: lives in a [facility] Housing: Apartment Do you presently have visiting nurse or other home services: No Unable to assess alcohol history related to: Unknown Alcohol intake: current Alcohol intake frequency: holidays/special occasions only Alcohol type: beer Patient Tobacco Use Status: Current everyday Tobacco user Tobacco use type: Cigarette Cigarettes Per Day: 7 Smoked in Last 30 Days: Yes Use of substances other than those prescribed or required for medical reasons: Yes Substance Use Type: Crack/Cocaine and Heroin Advance Directives: No Advance Directives Information Provided: No Healthcare Proxy: No Guardian: No service: No Current occupational status: unemployed Sexual orientation: Did not discuss Physical Exam ED Vital Signs: Vital Signs - 24 hr 04/23/23 03:21 Temperature 98.6 F Pulse Rate 77 Respiratory Rate 16 Blood Pressure 110/63 Pulse Oximetry 97 Oxygen Delivery Method Room Air BMI result Body Mass Index 28.2 VSS Const General: cooperative, no acute distress, alert and tired appearing Nutritional Appearance: average body habitus Orientation/consciousness: patient oriented x3 Limitations: altered mental status (Acute intoxication) [facility] Head: Yes normal to inspection, Yes No palpable skull fracture present, Yes normocephalic, Yes atraumatic, No abrasion, No Acuna's sign, No hematoma, No laceration, No raccoon eyes and No periorbital ecchymosis Ears: hearing grossly normal bilaterally General nose exam: Normal external nose present and Normal septum present Face and sinus: Yes normal facial exam Eyes General: appearance normal, both eyes and all related structures EOM: EOMs intact bilaterally Neck Neck: Yes normal visual inspection, Yes full ROM, Yes no meningeal signs, No positive Brudzinski's sign and No positive Kernig's sign Chest Other: Anterior lateral and posterior chest wall without overlying ecchymosis, rash, deformity. + diffusely tender to palpation over the anterior chest wall. No crepitus. Chest palpation & inspection: normal inspection of the chest Resp Effort & Inspection: normal respiratory effort, able to speak in complete sentences, no grunting, no nasal flaring, no pursed lip breathing, not tachypneic, no tracheal deviation, no tripod positioning, no use of accessory muscles and symmetric chest movement Auscultation: clear to auscultation bilaterally Cardio Rate: regular rate Rhythm: regular rhythm Heart sounds: S1 normal heart sound present and S2 normal heart sound present Peripheral pulses: Peripheral pulses 2+ throughout GI Inspection: Yes normal to inspection and No abdominal wall ecchymosis Palpation (GI): Soft to palpation, nontender, no guarding, hepatosplenomegaly present and No Rebound tenderness present Back/Spine/Pelvis Other: Patient does not have C-collar in place. Thoracic/Lumbar Spine: thoracic and lumbar spine normal to inspection Skin Other: + Multiple abrasions noted to bilateral ankles and shins. No active bleeding. No surrounding erythema or cellulitic changes. General skin exam: no rashes or lesions noted Neuro Other: Unable to assess gait due to patient's acute mental status. General: patient oriented x3, moves all extremities and no meningeal signs Cranial nerves: Yes CN's II-XII intact bilaterally Extrem General: Yes full ROM, Yes capillary refill normal, Yes no pedal edema and Yes no calf tenderness Psych Appearance: disheveled Course Course Course Narrative: 07-- CBC without leukocytosis. Chronically anemic when compared to priors. Chemistry without acute electrolyte abnormality requiring intervention. Troponin negative x2. EKG with normal sinus rhyth with a rate of 78 bpm, QT 410, no acute ischemic changes > unlikely ACS. Urine negative for infection. Urine drug screen positive for opiates, fentanyl, and cocaine. CXR without cardiopulmonary findings, old lateral right mid-lung nodule has not seen on previous imaging. Results discussed with patient. > upon my initial review of patient's vital signs are stable. Patient is afebrile, not tachycardic and normotensive > no concern for infection. 0715-- on my initial examination of the patient, patient with slurred speech, fatigued. Admits to feeling depressed due to current life stressors and tells me he tried to overdose on multiple medications to an attempt to commit suicide. Patient tells me he believes he fell to the ground when he overdosed > cannot tell me if he hit his head. Not on AC. He is currently denying SI or HI. Denies auditory, tactile, visual hallucinations. Tells me he is seeking detox and wants help > CT head/C-spine ordered due to unknown head strike > care team and addiction med consults ordered 1027-- CT head/brain without acute intracranial pathology. CT C-spine without acute fracture. > medically cleared for care team > physician observation initiated at 1029 1621-- Detox bed search per care team. Case signed out to my colleague Irasema Forbes NP. Medications Administered Generic Name Dose Route Start Last Admin Trade Name Freq PRN Reason Stop Dose Admin Methadone HCl 75 mg 04/24/23 09:00 04/23/23 14:11 Methadone Hcl 20 Mg/2 Ml Oral.Conc PO 75 mg DAILY ADRIÁN Administration Medical Decision Making Medical Decision Making [facility] Narrative: 33-year-old male with pmhx significant for asthma, cocaine use disorder, opioid use disorder, MDD with psychiatric features, and septic embolism presenting to the ED today via EMS s/p heroin and cocaine use in SI attempt at 1900 yesterday. VSS. RRR. Lungs CTA bilaterally. Anterior chest wall tender to palpation without crepitus or deformity. No midline spinous tenderness. No paraspinal tenderness. No step-off or deformity. Clinical concern for overdose vs acute intoxication vs polysubstance use. Concern for cardiac arrhythmia vs ASC. Concern for MSK sprain/strain vs fracture. 19:25: The care team evaluated the patient. Patient has a bed available at [facility] which she will be going in the next 10 minutes. Transfer has been made available to the patient for care team. Differential Diagnosis Differential Diagnoses: The differential diagnosis associated with the presentation includes As above. Admission/Observation Not indicated. Lab Data [facility] Lab Attestation statement: I reviewed the patient's lab results. As above. 04/23/23 03:40 04/23/23 03:40 Labs: Lab Results 04/23/23 04/23/23 04/23/23 Range/Units 03:40 03:41 05:41 WBC 6.4 (4.8-10.8) X10*3/uL RBC 4.24 L (4.60-5.80) X10*6/uL Hgb 10.1 L (14.0-18.0) g/dl Hct 31.6 L (42.0-52.0) % MCV 74.5 L (80.0-98.0) fL MCH 23.8 L (27.0-33.0) pg MCHC 32.0 (31.0-36.0) g/dl RDW 16.7 H (11.0-16.0) % Plt Count 293 D (160-400) X10*3/uL MPV 10.2 (9.4-12.4) fL Immature Gran % (Auto) 0.3 (0.0-0.4) % Neut % (Auto) 47.4 (45-73) % Lymph % (Auto) 40.3 H (20-40) % [place] % (Auto) 10.7 (2-11) % Eos % (Auto) 1.1 (0-4) % Baso % (Auto) 0.2 (0-2) % Lymph # (Auto) 2.6 (1.2-4.9) X10*3/uL [place] # (Auto) 0.7 (0.1-1.2) X10*3/uL Eos # (Auto) 0.1 (0.0-0.4) X10*3/uL Baso # (Auto) 0.0 (0.0-0.2) X10*3/uL Abs Immat Gran (auto) 0.02 (0.00-0.03) X10*3/uL Absolute Neuts (auto) 3.0 (2.0-8.3) x10*3/uL Absolute Nucleated RBC 0.000 (0.0-0.012) X10*3/uL Nucleated RBC % (auto) 0.0 (0.0-0.2) /100WBC Sodium 141 (135-145) mmol/L Potassium 3.7 (3.3-5.1) mmol/L Chloride 106 (96-108) mmol/L Carbon Dioxide 21 L (22-29) mmol/L Anion Gap 18 (12-20) BUN 9 (9-16) mg/dL Creatinine 0.89 (0.5-1.4) mg/dL Estim Creat Clear Calc 122.9 Estimated GFR > 60 Random Glucose 85 (60-115) mg/dL Calcium 9.1 (8.4-10.2) mg/dL Troponin I High Sens < 2.7 < 2.7 (<3.5-35.0) ng/L Urine Color Yellow Urine Appearance Clear Urine pH 5.5 (5.0-9.0) Ur Specific [place] 1.015 (1.005-1.025) Urine Protein Negative (Neg-Trace) mg/dL Urine Glucose (UA) Negative (Negative) mg/dL Urine Ketones Negative (Negative) mg/dL Urine Blood Negative (Negative) Urine Nitrite Negative (Negative) Ur Leukocyte Esterase Negative (Negative) Urine Opiates Screen POSITIVE H (Not Detect) Urine Fentanyl Screen POSITIVE H (Not Detect) Ur Barbiturates Screen Not Detected (Not Detect) Ur Phencyclidine Scrn Not Detected (Not Detect) Ur Amphetamines Screen Not Detected (Not Detect) U Benzodiazepines Scrn Not Detected (Not Detect) Urine Cocaine Screen POSITIVE H (Not Detect) U Marijuana (THC) Screen Not Detected (Not Detect) Independent Interpretation I performed an independent interpretation of an: EKG, Plain X-Ray and CT Scan Interpretation: EKG with NSR at a rate of 78 bpm, QT 410, no acute ischemic changes. Chest x-ray without infiltration or consolidation, positive for lateral right nodule, agree with radiologist's interpretation. CT head/C-spine without intracranial pathology or fracture, agree with radiologist's interpretation. Radiology Impression Discussion of test interpretation with radiology: I have reviewed the radiologist's reading. Radiologist Impression: XR chest 1V IMPRESSION: No acute cardiopulmonary findings. Lateral right midlung nodule seen previously is less conspicuous currently. CT head/brain/c spine wo IV con IMPRESSION: No acute intracranial pathology. Independent Historian Clinical information obtained from an independent historian. History obtained from or confirmed by: EMS External Record Review External record reviewed: Inpatient record Prescription Management I considered prescription management with: Other (Methadone) Chronic Conditions Patient?s care impacted by: Other (Polysubstance use) Social Determinants Patient?s care significantly limited by Social Determinants of Health including: Other Social Determinant of Health Critical Care Time Critical Care Time Critical Care Time: No Discharge Plan Discharge Clinical Impression: Polysubstance abuse, Drug overdose, Lung nodule Patient Disposition: Home, Self-Care Instructions: Polysubstance Abuse (ED), Pulmonary Nodules (ED), Adult Overdose (ED) Additional Instructions: Your lab work today is reassuring. Your EKG was normal. Your chest x-ray showed an old, on changing a pulmonary nodule. Please follow- up with a billet worker or your primary care physician for this. You may need serial chest x-rays to follow progression or even biopsy. DO NOT DO DRUGS. THIS ALMOST KILLED YOU TODAY. You have been provided with 1 dose of Narcan to take home. Follow up their primary care physician as needed. Return to the emergency department if his symptoms persist or worsen. In the case of an emergency call 911. Prescriptions: No Action methadone 10 mg/mL Concentrate 75 mg PO DAILY
--- NOTE | 2023-04-23 07:15 | PC.NURSE ---
alert, speech clear, sitter at bedside, pleasant and eating breakfast
--- NOTE | 2023-04-23 08:19 | HE.PHANOTE ---
RE METHADONE PT RECEIVES 75 MG METHADONE FROM [facility], LAST DOSED 04/22/23 @0900 DEMETRIO
--- NOTE | 2023-04-23 08:20 | PC.NURSE ---
client reports lives with mother, using drugs when he has money to do so . not on any meds he cares about excepting methadone verified with clinic and faxed to pharmacy.
--- NOTE | 2023-04-23 10:28 | MHC.RECOVRN ---
Addendum entered by Emely Dumas 04/23/23 11:20: Correction: Pt also reports 1-2 beers daily. Original Note: Met with pt in [facility] after pt cleared by CARE Team and expressed interest in ATS. Pt laying in bed, asleep, wakes to voice. Pt reports using heroin, 5 bags daily, IV, as well as cocaine 0.3 grams daily, IV. Denies other substances. Pt reports currently going to [facility] x 7 months and receiving 75 mg methadone daily. Discussed ATS, pt is interested, however, if no bed availability plans to dc home. T/w will conduct bedsearch. Pt denies other questions or concerns for t/w.
--- NOTE | 2023-04-23 11:32 | MHC.RECOVRN ---
[facility] reports availability. Referral sent for review.
[2023-04-23] MEDS: methADONE HCl 20 MG/2 ML ORAL.CONC 75 MG PO (14:11)
--- NOTE | 2023-04-23 15:53 | MHC.RECOVRN ---
Pt accepted to [facility] for 8PM admission.
[2023-04-23] MEDS: Naloxone HCl Nasal TAKE HOME 4 MG SPRAY 8 MG NOSTRILALT (19:27)
--- NOTE | 2023-04-23 19:50 | MHC.RECOVSUP ---
? Reason for consult Recovery support o Current location: [facility] o Identified substance use concern: Heroin - Overdose - Seeking ATS (detox) - Support ? Intervention: o Community resources provided o Harm reduction discussion ? Plan: o Patient to follow up with [facility] after discharge ? Additional information:Meet with Patient we talk about recovery and harm reduction Patient has a bed At [facility] and was sent on a lyft
== END 2023-04-23 19:40 | disposition home or self-care (01) ==
PROVIDERS: Emergency Medicine; Emergency Provider Emergency Medicine
DX: T40.1X1A Poisoning by heroin, accidental (unintentional), initial encounter (principal); T40.5X1A Poisoning by cocaine, accidental (unintentional), initial encounter; R07.89 Other chest pain; R00.2 Palpitations; F33.1 Major depressive disorder, recurrent, moderate; R51.9 Headache, unspecified; M54.2 Cervicalgia; Y92.9 Unspecified place or not applicable; R45.851 Suicidal ideations; R91.1 Solitary pulmonary nodule; Z71.51 Drug abuse counseling and surveillance of drug abuser; Z79.899 Other long term (current) drug therapy; F17.210 Nicotine dependence, cigarettes, uncomplicated; Z71.6 Tobacco abuse counseling
CPT/HCPCS: 36415; 70450; 71045; 72125; 80048; 80307; 81003; 84484; 85025; 93005; 99285; S9485

== ENCOUNTER 2023-05-04 01:40 | Emergency (ER) | payer OTHER, SELFPAY ==
--- NOTE | 2023-05-04 | ECG_ITS ---
Test Reason : CHEST PAIN Blood Pressure : / mmHG Vent. Rate : 085 BPM Atrial Rate : 085 BPM P-R Int : 142 ms QRS Dur : 094 ms QT Int : 394 ms P-R-T Axes : 037 -14 002 degrees QTc Int : 468 ms Normal sinus rhythm Normal ECG When compared with ECG of 23-APR-2023 03:37, No significant change was found Referred By: Generic ED Physician Electronically Signed By:XUAN MCWILLIAMS MD
--- NOTE | ~2023-05-04 | XR_ITS ---
EXAMINATION: XR CHEST CLINICAL INFORMATION: Chest pain/pneumonia COMPARISON: 04/23/2023 TECHNIQUE: Frontal view of the chest was obtained. FINDINGS: No significant abnormality is noted involving the heart, lungs, mediastinum, bony thorax or soft tissues. XR/XR chest 1V IMPRESSION: Unremarkable examination.
[2023-05-04 01:45] VITALS: BP 128/78; PULSE 88; RESP 18; TEMP 37; O2SAT 95; BMI 30.7
--- NOTE | 2023-05-04 01:57 | ED.CHESTPAIN ---
HPI - Chest Pain General Chief Complaint: Chest Pain Stated Complaint: Chest Pain after drug use Time Seen by Provider: 05/04/23 01:53 Source: patient Mode of arrival: EMS Limitations: no limitations History of Present Illness HPI narrative: Patient With history of polysubstance abuse, depression had usual dose of cocaine dope IV 1 hour prior to arrival after taking that patient felt heat feeling on his face and the chest tightness lasted for about 20 minutes no shortness of breath patient asking to talk to care team as does not feel safe and he is homeless. Denies any specific plan denies any SI or HI Related Data Home Medications Medication Instructions Recorded Confirmed methadone 10 mg/mL oral concentrate 75 mg PO DAILY 11/16/22 05/04/23 Allergies Allergy/AdvReac Type Severity Reaction Status Date / Time shrimp [SHRIMP] Allergy Intermediate Swelling Verified 04/23/23 03:26 Review of Systems Review of Systems: Yes all other systems are reviewed and are negative PMFSH Past Medical History Medical History Cocaine use disorder Opioid use disorder, severe, dependence Severe recurrent major depression w/psychotic features, mood-congruent IVDU (intravenous drug user) Asthma Social History Social History Household Members: None Household Members Other:: lives in a half-way Housing: Apartment Do you presently have visiting nurse or other home services: No Unable to assess alcohol history related to: Unknown Alcohol intake: current Alcohol intake frequency: holidays/special occasions only Alcohol type: beer Patient Tobacco Use Status: Current everyday Tobacco user Tobacco use type: Cigarette Cigarettes Per Day: 7 Smoked in Last 30 Days: Yes Use of substances other than those prescribed or required for medical reasons: Yes Substance Use Type: Crack/Cocaine and Heroin Substance Use Frequency: Daily Last Used Substance: Just Prior to Admission Advance Directives: No Advance Directives Information Provided: No service: No Current occupational status: unemployed Sexual orientation: Did not discuss Physical Exam Vital Signs: Vital Signs: Last Vital Signs Temp 98.1 F 05/04/23 02:42 Pulse 90 05/04/23 02:42 Resp 16 05/04/23 04:00 BP 120/77 05/04/23 02:42 Pulse Ox 96 05/04/23 02:42 O2 Del Method Room Air 05/04/23 02:42 BMI result Body Mass Index 30.7 Appearance: Alert. Oriented X3. No acute distress. Eyes: PERRLA, No Nystagmus ENT: Pharynx normal. Oral Mucosa moist Neck: Normal inspection. Neck supple. CVS: Normal heart rate and rhythm. Pulses normal. Respiratory: No respiratory distress. Equal air entry bilateral, no wheezing/rales/rhonchi Abdomen: Soft and nontender. Bowel sounds are present, no mass palpable, no CVA tenderness Skin: Skin warm and dry. Normal skin color. Normal skin turgor. Extremities: No lower extremity edema. No calf tenderness Neuro: Oriented X 3. No motor deficit. No sensory deficit.No cerebellar signs , cranial nerves II-XII intact Medications Administered Discontinued Medications Generic Name Dose Route Start Last Admin Trade Name Freq PRN Reason Stop Dose Admin Cephalexin HCl 500 mg 05/04/23 04:05 05/04/23 04:14 Cephalexin 500 Mg Capsule PO 05/04/23 04:06 500 mg ONCE ONE Administration Doxycycline Monohydrate 100 mg 05/04/23 04:05 05/04/23 04:14 Doxycycline Monohydrate 100 Mg Capsule PO 05/04/23 04:06 100 mg ONCE ONE Administration Medical Decision Making Medical Decision Making [facility] Narrative: Patient with atypical chest pain with no delta change in troponin EKG normal after cocaine use likely from coronary artery spasm nonobstructive patient does not feel safe feels suicidal will get care team involved medically cleared Patient with IVDA multiple sites of information specially on the right dorsum of the hand possibly infected history of septic emboli in the past has elevated WBC count and decreased bicarb likely the cause of infection at this time patient is not septic will give patient doxycycline and Keflex for 10 days as was given in the past for septic emboli chest x-ray negative Differential Diagnosis Differential Diagnoses: The differential diagnosis associated with the presentation includes Cocaine induced chest pain/polysubstance abuse/depression/homeless/septic emboli Admission/Observation Consideration of admission/observation: Escalation of care including admission/observation considered Lab Data [facility] Lab Attestation statement: I reviewed the patient's lab results. 05/04/23 02:53 05/04/23 02:22 Labs: Lab Results 05/04/23 05/04/23 05/04/23 Range/Units 02:22 02:23 02:30 WBC (4.8-10.8) X10*3/uL RBC (4.60-5.80) X10*6/uL Hgb (14.0-18.0) g/dl Hct (42.0-52.0) % MCV (80.0-98.0) fL MCH (27.0-33.0) pg MCHC (31.0-36.0) g/dl RDW (11.0-16.0) % Plt Count (160-400) X10*3/uL MPV (9.4-12.4) fL Absolute Nucleated RBC (0.0-0.012) X10*3/uL Nucleated RBC % (auto) (0.0-0.2) /100WBC Sodium 141 (135-145) mmol/L Potassium 4.4 (3.3-5.1) mmol/L Chloride 107 (96-108) mmol/L Carbon Dioxide 14 L (22-29) mmol/L Anion Gap 24 H (12-20) BUN 24 H (9-16) mg/dL Creatinine 1.10 (0.5-1.4) mg/dL Estim Creat Clear Calc 100.1 Estimated GFR > 60 Random Glucose 88 (60-115) mg/dL Calcium 10.2 D (8.4-10.2) mg/dL Total Bilirubin 0.5 (0.0-1.0) mg/dL AST 48 H (5-37) U/L ALT 34 (0-40) U/L Alkaline Phosphatase 97 (39-117) U/L Troponin I High Sens 10.0 D (<3.5-35.0) ng/L Total Protein 9.0 H (6.5-8.0) g/dL Albumin 4.7 (3.5-5.0) g/dL Urine Opiates Screen (Not Detect) Urine Fentanyl Screen (Not Detect) Ur Barbiturates Screen (Not Detect) Ur Phencyclidine Scrn (Not Detect) Ur Amphetamines Screen (Not Detect) U Benzodiazepines Scrn (Not Detect) Urine Cocaine Screen (Not Detect) U Marijuana (THC) Screen (Not Detect) Ethyl Alcohol < 10 mg/dL COVID-19 (NAKUL) Negative (Negative) COVID-19 Clin Com See Note 05/04/23 05/04/23 05/04/23 Range/Units 02:37 02:53 04:50 WBC 13.1 H (4.8-10.8) X10*3/uL RBC 4.95 (4.60-5.80) X10*6/uL Hgb 11.9 L (14.0-18.0) g/dl Hct 36.5 L (42.0-52.0) % MCV 73.7 L (80.0-98.0) fL MCH 24.0 L (27.0-33.0) pg MCHC 32.6 (31.0-36.0) g/dl RDW 16.1 H (11.0-16.0) % Plt Count 357 (160-400) X10*3/uL MPV 9.7 (9.4-12.4) fL Absolute Nucleated RBC 0.000 (0.0-0.012) X10*3/uL Nucleated RBC % (auto) 0.0 (0.0-0.2) /100WBC Sodium (135-145) mmol/L Potassium (3.3-5.1) mmol/L Chloride (96-108) mmol/L Carbon Dioxide (22-29) mmol/L Anion Gap (12-20) BUN (9-16) mg/dL Creatinine (0.5-1.4) mg/dL Estim Creat Clear Calc Estimated GFR Random Glucose (60-115) mg/dL Calcium (8.4-10.2) mg/dL Total Bilirubin (0.0-1.0) mg/dL AST (5-37) U/L ALT (0-40) U/L Alkaline Phosphatase (39-117) U/L Troponin I High Sens < 2.7 D (<3.5-35.0) ng/L Total Protein (6.5-8.0) g/dL Albumin (3.5-5.0) g/dL Urine Opiates Screen POSITIVE H (Not Detect) Urine Fentanyl Screen POSITIVE H (Not Detect) Ur Barbiturates Screen Not Detected (Not Detect) Ur Phencyclidine Scrn Not Detected (Not Detect) Ur Amphetamines Screen Not Detected (Not Detect) U Benzodiazepines Scrn Not Detected (Not Detect) Urine Cocaine Screen POSITIVE H (Not Detect) U Marijuana (THC) Screen Not Detected (Not Detect) Ethyl Alcohol mg/dL COVID-19 (NAKUL) (Negative) COVID-19 Clin Com Independent Interpretation I performed an independent interpretation of an: EKG Interpretation: Normal sinus rhythm heart rate 85 beats per minute normal interval normal axis no acute ST-T no acute ischemia Discharge Plan Discharge Clinical Impression: Polysubstance abuse, Atypical chest pain, Infected wound Patient Disposition: Still a Patient Prescriptions: No Action methadone 10 mg/mL Concentrate 75 mg PO DAILY
--- NOTE | 2023-05-04 01:57 | MHC.EDTECH ---
BIB EMS with C/O chest pain and felling suicidal. vital taken, pt is changed into hospital attire and belonging is in [facility] Room. Pt is resting 1:1 sitter at bedside.
--- NOTE | 2023-05-04 02:41 | MHC.EDTECH ---
PATIENT WAS A DIFFICULT DRAW ,FINGER STICK DONE TO GET BLOOD ,AND WAS SENT TO LAB .
[2023-05-04 02:42] VITALS: BP 120/77; PULSE 90; RESP 13; TEMP 36.7; O2SAT 96
[2023-05-04 02:44] LABS: Alanine Aminotransferase 34 U/L (0-40); Albumin Level 4.7 g/dL (3.5-5.0); Alkaline Phosphatase 97 U/L (39-117); Bilirubin Total 0.5 mg/dL (0.0-1.0); Blood Urea Nitrogen 24 mg/dL (9-16); Calcium 10.2 mg/dL (8.4-10.2); Carbon Dioxide 14 mmol/L (22-29); Chloride 107 mmol/L (96-108); Creatinine Clr Calc Pharmacy 100.1; Estimated Glomerular Filt Rate > 60; Ethanol < 10 mg/dL; Glucose Random 88 mg/dL (60-115); Sodium 141 mmol/L (135-145)
--- NOTE | 2023-05-04 02:45 | MHC.EDTECH ---
vital retaken, blood work completed, urine sample sent ,pt is on clinical research monitor pt is resting in bed eating a sandwich with a beverage.1:1 sitter at bed side
[2023-05-04 02:50] LABS: COVID-19 Test Negative (Negative); IDNOW Serial# 6674DD1D
[2023-05-04 02:50] LABS: Potassium 4.4 mmol/L (3.3-5.1)
[2023-05-04 02:51] LABS: Anion Gap 24 (12-20)
[2023-05-04 02:54] LABS: Amphetamine Screen Urine Not Detected (Not Detect); Barbiturates, Urine Not Detected (Not Detect); Benzodiazepines Screen Urine Not Detected (Not Detect); Cannabinoid Screen Urine Not Detected (Not Detect); Cocaine Screen Urine POSITIVE (Not Detect); Fentanyl, urine POSITIVE (Not Detect); Opiate Screen Urine POSITIVE (Not Detect); Phencyclidine Screen Urine Not Detected (Not Detect)
[2023-05-04 02:58] LABS: Hematocrit 36.5 % (42.0-52.0); Hemoglobin 11.9 g/dl (14.0-18.0); Mean Corpuscular HGB Conc 32.6 g/dl (31.0-36.0); Mean Corpuscular Volume 73.7 fL (80.0-98.0); Mean Platelet Volume 9.7 fL (9.4-12.4); Platelet Count 357 X10*3/uL (160-400); Red Blood Count 4.95 X10*6/uL (4.60-5.80); Red Cell Distribution Width 16.1 % (11.0-16.0); White Blood Count 13.1 X10*3/uL (4.8-10.8)
[2023-05-04 03:01] LABS: Aspartate Amino Transferase 48 U/L (5-37)
[2023-05-04 04:00] VITALS: RESP 16
[2023-05-04] MEDS: cephALEXin 500 MG CAPSULE PO ×3 (04:14→12:30)
[2023-05-04] MEDS: Doxycycline Monohydrate 100 MG CAPSULE PO (04:14)
[2023-05-04 05:17] LABS: Troponin-I High Sensitivity < 2.7 ng/L (<3.5-35.0)
--- NOTE | 2023-05-04 05:59 | PC.NURSE ---
Patient just got transferred from main ED for conditional SI, no distress observed/reported, independent ambulation, med rec completed by main ED RN pending provider's approval, care consult ordered/pending evaluation, labs completed/resulted, VSS, will continue to monitor.
[2023-05-04 10:44] VITALS: BP 104/60; PULSE 62; RESP 15; TEMP 36.1; O2SAT 99
--- NOTE | 2023-05-04 11:04 | HE.PHANOTE ---
METHADONE CONFIRMATION FORM RECEIVED PATIENT LAST RECEIVED 75MG ON 05/03
--- NOTE | 2023-05-04 12:18 | ED.CHESTPAIN ---
HPI - Chest Pain General Chief Complaint: Chest Pain Stated Complaint: Chest Pain after drug use Time Seen by Provider: 05/04/23 01:53 Source: patient Mode of arrival: EMS Limitations: no limitations Related Data Home Medications Medication Instructions Recorded Confirmed methadone 10 mg/mL oral concentrate 75 mg PO DAILY 11/16/22 05/04/23 Previous Rx's Medication Instructions Recorded cephalexin 500 mg capsule 500 mg PO QID 10 days #40 caps 05/04/23 doxycycline hyclate 100 mg tablet 100 mg PO BID #20 tabs 05/04/23 Allergies Allergy/AdvReac Type Severity Reaction Status Date / Time shrimp [SHRIMP] Allergy Intermediate Swelling Verified 04/23/23 03:26 PMFSH Past Medical History Medical History Cocaine use disorder Opioid use disorder, severe, dependence Severe recurrent major depression w/psychotic features, mood-congruent IVDU (intravenous drug user) Asthma Social History Social History Household Members: None Household Members Other:: lives in a skilled nursing Housing: Apartment Do you presently have visiting nurse or other home services: No Unable to assess alcohol history related to: Unknown Alcohol intake: current Alcohol intake frequency: holidays/special occasions only Alcohol type: beer Patient Tobacco Use Status: Current everyday Tobacco user Tobacco use type: Cigarette Cigarettes Per Day: 7 Smoked in Last 30 Days: Yes Use of substances other than those prescribed or required for medical reasons: Yes Substance Use Type: Crack/Cocaine and Heroin Substance Use Frequency: Daily Last Used Substance: Just Prior to Admission Advance Directives: No Advance Directives Information Provided: No service: No Current occupational status: unemployed Sexual orientation: Did not discuss Physical Exam Vital Signs: Vital Signs: Last Vital Signs Temp 97.0 F 05/04/23 10:44 Pulse 62 05/04/23 10:44 Resp 15 05/04/23 10:44 BP 104/60 05/04/23 10:44 Pulse Ox 99 05/04/23 10:44 O2 Del Method Room Air 05/04/23 10:44 BMI result Body Mass Index 30.7 Medications Administered Generic Name Dose Route Start Last Admin Trade Name Freq PRN Reason Stop Dose Admin Cephalexin HCl 500 mg 05/04/23 09:00 05/04/23 09:15 Cephalexin 500 Mg Capsule PO 05/14/23 09:00 500 mg QID ADRIÁN Administration Discontinued Medications Generic Name Dose Route Start Last Admin Trade Name Nithin PRN Reason Stop Dose Admin Cephalexin HCl 500 mg 05/04/23 04:05 05/04/23 04:14 Cephalexin 500 Mg Capsule PO 05/04/23 04:06 500 mg ONCE ONE Administration Doxycycline Monohydrate 100 mg 05/04/23 04:05 05/04/23 04:14 Doxycycline Monohydrate 100 Mg Capsule PO 05/04/23 04:06 100 mg ONCE ONE Administration Medical Decision Making Lab Data 05/04/23 02:53 05/04/23 02:22 Labs: Lab Results 05/04/23 05/04/23 05/04/23 Range/Units 02:22 02:23 02:30 WBC (4.8-10.8) X10*3/uL RBC (4.60-5.80) X10*6/uL Hgb (14.0-18.0) g/dl Hct (42.0-52.0) % MCV (80.0-98.0) fL MCH (27.0-33.0) pg MCHC (31.0-36.0) g/dl RDW (11.0-16.0) % Plt Count (160-400) X10*3/uL MPV (9.4-12.4) fL Absolute Nucleated RBC (0.0-0.012) X10*3/uL Nucleated RBC % (auto) (0.0-0.2) /100WBC Sodium 141 (135-145) mmol/L Potassium 4.4 (3.3-5.1) mmol/L Chloride 107 (96-108) mmol/L Carbon Dioxide 14 L (22-29) mmol/L Anion Gap 24 H (12-20) BUN 24 H (9-16) mg/dL Creatinine 1.10 (0.5-1.4) mg/dL Estim Creat Clear Calc 100.1 Estimated GFR > 60 Random Glucose 88 (60-115) mg/dL Calcium 10.2 D (8.4-10.2) mg/dL Total Bilirubin 0.5 (0.0-1.0) mg/dL AST 48 H (5-37) U/L ALT 34 (0-40) U/L Alkaline Phosphatase 97 (39-117) U/L Troponin I High Sens 10.0 D (<3.5-35.0) ng/L Total Protein 9.0 H (6.5-8.0) g/dL Albumin 4.7 (3.5-5.0) g/dL Urine Opiates Screen (Not Detect) Urine Fentanyl Screen (Not Detect) Ur Barbiturates Screen (Not Detect) Ur Phencyclidine Scrn (Not Detect) Ur Amphetamines Screen (Not Detect) U Benzodiazepines Scrn (Not Detect) Urine Cocaine Screen (Not Detect) U Marijuana (THC) Screen (Not Detect) Ethyl Alcohol < 10 mg/dL COVID-19 ([facility]) Negative (Negative) COVID-19 Clin Com See Note 05/04/23 05/04/23 05/04/23 Range/Units 02:37 02:53 04:50 WBC 13.1 H (4.8-10.8) X10*3/uL RBC 4.95 (4.60-5.80) X10*6/uL Hgb 11.9 L (14.0-18.0) g/dl Hct 36.5 L (42.0-52.0) % MCV 73.7 L (80.0-98.0) fL MCH 24.0 L (27.0-33.0) pg MCHC 32.6 (31.0-36.0) g/dl RDW 16.1 H (11.0-16.0) % Plt Count 357 (160-400) X10*3/uL MPV 9.7 (9.4-12.4) fL Absolute Nucleated RBC 0.000 (0.0-0.012) X10*3/uL Nucleated RBC % (auto) 0.0 (0.0-0.2) /100WBC Sodium (135-145) mmol/L Potassium (3.3-5.1) mmol/L Chloride (96-108) mmol/L Carbon Dioxide (22-29) mmol/L Anion Gap (12-20) BUN (9-16) mg/dL Creatinine (0.5-1.4) mg/dL Estim Creat Clear Calc Estimated GFR Random Glucose (60-115) mg/dL Calcium (8.4-10.2) mg/dL Total Bilirubin (0.0-1.0) mg/dL AST (5-37) U/L ALT (0-40) U/L Alkaline Phosphatase (39-117) U/L Troponin I High Sens < 2.7 D (<3.5-35.0) ng/L Total Protein (6.5-8.0) g/dL Albumin (3.5-5.0) g/dL Urine Opiates Screen POSITIVE H (Not Detect) Urine Fentanyl Screen POSITIVE H (Not Detect) Ur Barbiturates Screen Not Detected (Not Detect) Ur Phencyclidine Scrn Not Detected (Not Detect) Ur Amphetamines Screen Not Detected (Not Detect) U Benzodiazepines Scrn Not Detected (Not Detect) Urine Cocaine Screen POSITIVE H (Not Detect) U Marijuana (THC) Screen Not Detected (Not Detect) Ethyl Alcohol mg/dL COVID-19 ([facility]) (Negative) COVID-19 Clin Com Discharge Plan Discharge Clinical Impression: Polysubstance abuse, Atypical chest pain, Infected wound Patient Disposition: Still a Patient Prescriptions: New cephalexin 500 mg capsule 500 mg PO QID 10 Days Qty: 40 0RF doxycycline hyclate 100 mg tablet 100 mg PO BID Qty: 20 0RF No Action methadone 10 mg/mL Concentrate 75 mg PO DAILY ED Observation ED Observation Admit Diagnostic Studies: Mental health evaluation Comment: patient seen by crisis patient is well-known to the crisis team they deemed him safe to go home I will discharge the patient home at this time.
[2023-05-04] MEDS: methADONE HCl 20 MG/2 ML ORAL.CONC 75 MG PO (12:30)
== END 2023-05-04 12:45 | disposition home or self-care (01) ==
PROVIDERS: Emergency Provider Internal Medicine
DX: F19.10 Other psychoactive substance abuse, uncomplicated (principal); R07.89 Other chest pain; L08.9 Local infection of the skin and subcutaneous tissue, unspecified; Z11.52 Encounter for screening for COVID-19; F11.20 Opioid dependence, uncomplicated; F33.3 Major depressive disorder, recurrent, severe with psychotic symptoms; F17.210 Nicotine dependence, cigarettes, uncomplicated
CPT/HCPCS: 36415; 71045; 80053; 80307; 84484; 85027; 87635; 93005; 99285; S9485

== ENCOUNTER 2023-05-11 04:19 | Emergency (ER) | payer MEDICAID, SELFPAY ==
[2023-05-11 04:18] VITALS: BP 118/80; PULSE 80; O2SAT 98
[2023-05-11 04:23] VITALS: BP 104/59; PULSE 71; RESP 16; TEMP 36.1; O2SAT 98; BMI 29.8
--- NOTE | 2023-05-11 04:30 | PC.NURSE ---
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
--- NOTE | 2023-05-11 04:46 | ED_ITS ---
HPI - General Adult General Chief complaint: Skin/Abscess/Foreign Body Stated complaint: abscess si Source: patient Mode of arrival: EMS Limitations: no limitations History of Present Illness HPI narrative: Patient with history of substance abuse use cocaine and heroin since clean for last 7 days but use it again today, got an apartment on 05/23 want to stay clean until that time denies any significant depression or SI is requesting go to detox patient noticed soft tissue swelling on the left forearm after injecting into the vein is swelling came immediately and drained serosanguineous fluid no fever no surrounding redness Related Data Home Medications Medication Instructions Recorded Confirmed methadone 10 mg/mL oral concentrate 75 mg PO DAILY 11/16/22 05/04/23 Previous Rx's Medication Instructions Recorded cephalexin 500 mg capsule 500 mg PO QID 10 days #40 caps 05/04/23 doxycycline hyclate 100 mg tablet 100 mg PO BID #20 tabs 05/04/23 Allergies Allergy/AdvReac Type Severity Reaction Status Date / Time shrimp [SHRIMP] Allergy Intermediate Swelling Verified 04/23/23 03:26 Review of Systems 2 Review of Systems: Yes all other systems are reviewed and are negative PMFSH Past Medical History Medical History Cocaine use disorder Opioid use disorder, severe, dependence Severe recurrent major depression w/psychotic features, mood-congruent IVDU (intravenous drug user) Asthma Social History Social History Household Members: None Household Members Other:: lives in a halfway Housing: Apartment Do you presently have visiting nurse or other home services: No Unable to assess alcohol history related to: Unknown Alcohol intake: current Alcohol intake frequency: does not drink Alcohol type: beer Patient Tobacco Use Status: Current everyday Tobacco user Tobacco use type: Cigarette Cigarettes Per Day: 7 Smoked in Last 30 Days: No Use of substances other than those prescribed or required for medical reasons: Yes Substance Use Type: Heroin Advance Directives: No Advance Directives Information Provided: Yes service: No Current occupational status: unemployed Sexual orientation: Did not discuss Physical Exam ED Vital Signs: Vital Signs - 24 hr 05/11/23 04:23 05/11/23 06:03 Temperature 97 F 97.0 F Pulse Rate 71 75 Respiratory Rate 16 16 Blood Pressure 104/59 L 115/58 L Pulse Oximetry 98 97 Oxygen Delivery Method Room Air Room Air BMI result Body Mass Index 29.8 Appearance: Alert. Oriented X3. No acute distress. Eyes: PERRLA, No Nystagmus ENT: Pharynx normal. Oral Mucosa moist Neck: Normal inspection. Neck supple. CVS: Normal heart rate and rhythm. Pulses normal. Respiratory: No respiratory distress. Equal air entry bilateral, no wheezing/rales/rhonchi Abdomen: Soft and nontender. Bowel sounds are present, no mass palpable, no CVA tenderness Skin: Skin warm and dry. Normal skin color. Normal skin turgor. Extremities: No lower extremity edema. No calf tenderness soft tissue swelling left forearm IVDA track ramirez++ psych: Stable mood no SI HI no hallucinations delusions Neuro: Oriented X 3. No motor deficit. No sensory deficit.No cerebellar signs , cranial nerves II-XII intact Medications Administered Discontinued Medications Generic Name Dose Route Start Last Admin Trade Name Freq PRN Reason Stop Dose Admin Cephalexin HCl 500 mg 05/11/23 04:26 05/11/23 05:29 Cephalexin 500 Mg Capsule PO 05/11/23 04:27 500 mg ONCE ONE Administration Doxycycline Monohydrate 100 mg 05/11/23 04:26 05/11/23 05:29 Doxycycline Monohydrate 100 Mg Capsule PO 05/11/23 04:27 100 mg ONCE ONE Administration Medical Decision Making Medical Decision Making [facility] Narrative: Patient with polysubstance abuse rectal to detox get care team involved for detox placement will give p.o. antibiotics doxycycline Keflex for cellulitic mass on left forearm needle aspiration of that swelling reveals serosanguineous fluid only no pus discharge Lab Data [facility] Lab Attestation statement: I reviewed the patient's lab results. 05/11/23 05:09 05/11/23 05:09 Labs: Lab Results 05/11/23 Range/Units 05:09 WBC 9.7 (4.8-10.8) X10*3/uL RBC 4.70 (4.60-5.80) X10*6/uL Hgb 11.3 L (14.0-18.0) g/dl Hct 35.3 L (42.0-52.0) % MCV 75.1 L (80.0-98.0) fL MCH 24.0 L (27.0-33.0) pg MCHC 32.0 (31.0-36.0) g/dl RDW 16.1 H (11.0-16.0) % Plt Count 381 (160-400) X10*3/uL MPV 10.6 (9.4-12.4) fL Immature Gran % (Auto) 0.3 (0.0-0.4) % Neut % (Auto) 69.5 (45-73) % Lymph % (Auto) 23.2 (20-40) % [place] % (Auto) 6.6 (2-11) % Eos % (Auto) 0.1 (0-4) % Baso % (Auto) 0.3 (0-2) % Lymph # (Auto) 2.3 (1.2-4.9) X10*3/uL [place] # (Auto) 0.6 (0.1-1.2) X10*3/uL Eos # (Auto) 0.0 (0.0-0.4) X10*3/uL Baso # (Auto) 0.0 (0.0-0.2) X10*3/uL Abs Immat Gran (auto) 0.03 (0.00-0.03) X10*3/uL Absolute Neuts (auto) 6.8 (2.0-8.3) x10*3/uL Absolute Nucleated RBC 0.000 (0.0-0.012) X10*3/uL Nucleated RBC % (auto) 0.0 (0.0-0.2) /100WBC Sodium 135 (135-145) mmol/L Potassium 3.4 D (3.3-5.1) mmol/L Chloride 101 (96-108) mmol/L Carbon Dioxide 21 L (22-29) mmol/L Anion Gap 16 (12-20) BUN 22 H (9-16) mg/dL Creatinine 0.95 (0.5-1.4) mg/dL Estim Creat Clear Calc 118.1 Estimated GFR > 60 Random Glucose 106 (60-115) mg/dL Calcium 9.4 D (8.4-10.2) mg/dL Total Bilirubin 0.7 (0.0-1.0) mg/dL AST 41 H (5-37) U/L ALT 41 H (0-40) U/L Alkaline Phosphatase 114 (39-117) U/L Total Protein 8.7 H (6.5-8.0) g/dL Albumin 4.4 (3.5-5.0) g/dL Ethyl Alcohol < 10 mg/dL Discharge Plan Discharge Clinical Impression: Polysubstance abuse, Cellulitis Patient Disposition: Still a Patient Prescriptions: No Action methadone 10 mg/mL Concentrate 75 mg PO DAILY cephalexin 500 mg capsule 500 mg PO QID 10 Days Qty: 40 0RF doxycycline hyclate 100 mg tablet 100 mg PO BID Qty: 20 0RF
[2023-05-11] MEDS: Doxycycline Monohydrate 100 MG CAPSULE PO (05:29)
[2023-05-11] MEDS: cephALEXin 500 MG CAPSULE PO (05:29)
--- NOTE | 2023-05-11 05:32 | PC.NURSE ---
pt reports ivda; abcess to bilat forearm. pt denies pain/fever. no redness/warmth noted. pt denies si/hi. reports would like detox as he has a new lease and wants to be clean before moving in. changed over by security on arrival belongings in . pt medicated per sep.
[2023-05-11 05:54] LABS: MANUAL DIFF FLAG NO
[2023-05-11 05:55] LABS: Basophils Percent Auto 0.3 % (0-2); Eosinophils Percent Auto 0.1 % (0-4); Hematocrit 35.3 % (42.0-52.0); Hemoglobin 11.3 g/dl (14.0-18.0); Imm Gran Abs Auto 0.03 X10*3/uL (0.00-0.03); Imm Gran Pct Auto 0.3 % (0.0-0.4); Lymphocytes Absolute Auto 2.3 X10*3/uL (1.2-4.9); Lymphocytes Percent Auto 23.2 % (20-40); Mean Corpuscular Volume 75.1 fL (80.0-98.0); Mean Platelet Volume 10.6 fL (9.4-12.4); Monocytes Absolute Auto 0.6 X10*3/uL (0.1-1.2); Monocytes Percent Auto 6.6 % (2-11); Neutrophils Absolute Auto 6.8 x10*3/uL (2.0-8.3); Neutrophils Percent Auto 69.5 % (45-73); Platelet Count 381 X10*3/uL (160-400); Red Cell Distribution Width 16.1 % (11.0-16.0); White Blood Count 9.7 X10*3/uL (4.8-10.8)
[2023-05-11 06:03] VITALS: BP 115/58; PULSE 75; RESP 16; TEMP 36.1; O2SAT 97
[2023-05-11 06:13] LABS: Alanine Aminotransferase 41 U/L (0-40); Albumin Level 4.4 g/dL (3.5-5.0); Alkaline Phosphatase 114 U/L (39-117); Anion Gap 16 (12-20); Aspartate Amino Transferase 41 U/L (5-37); Bilirubin Total 0.7 mg/dL (0.0-1.0); Blood Urea Nitrogen 22 mg/dL (9-16); Calcium 9.4 mg/dL (8.4-10.2); Carbon Dioxide 21 mmol/L (22-29); Chloride 101 mmol/L (96-108); Creatinine Clr Calc Pharmacy 118.1; Estimated Glomerular Filt Rate > 60; Ethanol < 10 mg/dL; Glucose Random 106 mg/dL (60-115); Potassium 3.4 mmol/L (3.3-5.1); Sodium 135 mmol/L (135-145); Total Protein 8.7 g/dL (6.5-8.0)
--- NOTE | 2023-05-11 08:58 | MHC.RECOVRN ---
Met with pt in ED13 after consult placed to Addiction Medicine for ATS. Pt sitting in bed, awake, alert, easily engages in conversation. Pt reports using heroin/fentanyl, every 4 or 5 days, approx 4 bags IV. Pt also uses cocaine every 4 or 5 days, approx $80, IV. Pt reports use has significantly decreased since initiating methadone 2 months ago. Pt is currently on 80 mg through [facility]. Pt reports he just signed a lease for his first apartment and is looking forward to having his own place and being in recovery. Pt reports he has spoken to his brother and would like to discharge and present to the courthouse to obtain a Sect [facility] (either by his brother or himself). Pt reports if he goes to ATS he knows he would be too tempted to discharge, he would like to go somewhere where he cannot leave. Pt reports one Sect 35 years ago. Plan for pt to discharge, go to [facility] for methadone dose, and then present to the court. Pt denies other questions or concerns. Discussed with ED provider.
== END 2023-05-11 08:56 | disposition home or self-care (01) ==
PROVIDERS: Emergency Provider Internal Medicine
DX: L03.114 Cellulitis of left upper limb (principal); F11.10 Opioid abuse, uncomplicated; F14.10 Cocaine abuse, uncomplicated; F17.210 Nicotine dependence, cigarettes, uncomplicated; Z71.6 Tobacco abuse counseling; Z79.899 Other long term (current) drug therapy
CPT/HCPCS: 36415; 80053; 80307; 85025; 99283; 99284

== ENCOUNTER 2023-08-27 11:06 | Emergency (ER) | payer MEDICAID, SELFPAY ==
[2023-08-27 11:19] VITALS: BP 110/62; PULSE 74; O2SAT 98
== END 2023-08-27 13:10 | disposition left against medical advice (07) ==
PROVIDERS: Emergency Provider Emergency Medicine
DX: M79.601 Pain in right arm (principal); Z53.21 Procedure and treatment not carried out due to patient leaving prior to being seen by health care provider

== ENCOUNTER 2023-09-24 22:05 | Emergency (ER) | payer MEDICAID, SELFPAY ==
--- NOTE | 2023-09-24 | ECG_ITS ---
Test Reason : SEPSIS Blood Pressure : / mmHG Vent. Rate : 057 BPM Atrial Rate : 057 BPM P-R Int : 136 ms QRS Dur : 096 ms QT Int : 432 ms P-R-T Axes : 026 -09 004 degrees QTc Int : 420 ms Sinus bradycardia Otherwise normal ECG When compared with ECG of 04-MAY-2023 01:47, Vent. rate has decreased BY 28 BPM Referred By: Generic ED Physician Electronically Signed By:Maverick Girard
[2023-09-24 22:10] VITALS: BP 111/63; PULSE 66; RESP 18; TEMP 36.7; O2SAT 100; BMI 25.2
[2023-09-24 23:46] LABS: MANUAL DIFF FLAG NO
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
[2023-09-24 23:53] LABS: Basophils Percent Auto 0.3 % (0-2); Eosinophils Absolute Auto 0.2 X10*3/uL (0.0-0.4); Eosinophils Percent Auto 2.5 % (0-4); Hematocrit 29.2 % (42.0-52.0); Hemoglobin 9.2 g/dl (14.0-18.0); Imm Gran Abs Auto 0.02 X10*3/uL (0.00-0.03); Imm Gran Pct Auto 0.3 % (0.0-0.4); Lymphocytes Absolute Auto 1.8 X10*3/uL (1.2-4.9); Lymphocytes Percent Auto 27.7 % (20-40); Mean Corpuscular HGB Conc 31.5 g/dl (31.0-36.0); Mean Corpuscular Hemoglobin 23.3 pg (27.0-33.0); Mean Corpuscular Volume 73.9 fL (80.0-98.0); Mean Platelet Volume 11.1 fL (9.4-12.4); Monocytes Absolute Auto 0.7 X10*3/uL (0.1-1.2); Monocytes Percent Auto 11.2 % (2-11); Neutrophils Absolute Auto 3.7 x10*3/uL (2.0-8.3); Platelet Count 250 X10*3/uL (160-400); Red Blood Count 3.95 X10*6/uL (4.60-5.80); Red Cell Distribution Width 15.3 % (11.0-16.0); White Blood Count 6.4 X10*3/uL (4.8-10.8)
[2023-09-25 00:01] LABS: Alanine Aminotransferase 20 U/L (0-40); Albumin Level 3.6 g/dL (3.5-5.0); Alkaline Phosphatase 97 U/L (39-117); Anion Gap 11 (12-20); Aspartate Amino Transferase 21 U/L (5-37); Bilirubin Total 0.3 mg/dL (0.0-1.0); Blood Urea Nitrogen 8 mg/dL (9-16); Calcium 8.5 mg/dL (8.4-10.2); Carbon Dioxide 25 mmol/L (22-29); Chloride 102 mmol/L (96-108); Creatinine Clr Calc Pharmacy 130.5; Estimated Glomerular Filt Rate > 60; Glucose Random 103 mg/dL (60-115); Potassium 3.9 mmol/L (3.3-5.1); Sodium 134 mmol/L (135-145)
[2023-09-25 00:13] LABS: COVID-19 Test Negative (Negative); IDNOW Serial# 58CA691E
[2023-09-25] MEDS: Doxycycline Monohydrate 100 MG CAPSULE PO ×2 (01:01→08:26)
[2023-09-25] MEDS: Lidocaine HCl 1 % 20 ML VIAL 5 ML SUBCUT (01:02)
[2023-09-25 01:20] VITALS: BP 109/53; PULSE 68; RESP 18; TEMP 37; O2SAT 100
[2023-09-25 01:35] LABS: Ethanol < 10 mg/dL
[2023-09-25] MEDS: Ibuprofen 800 MG TABLET PO (02:49)
[2023-09-25 02:51] VITALS: BP 111/62; PULSE 64; RESP 16; TEMP 37.1; O2SAT 97
[2023-09-25 06:08] VITALS: BP 101/49; PULSE 70; RESP 16; TEMP 36.8; O2SAT 99
[2023-09-25 07:11] VITALS: BP 101/47; PULSE 69; RESP 16; TEMP 36.5; O2SAT 99
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
[2023-09-25 08:15] LABS: Appearance Urine Clear; Color Urine Yellow; Glucose Urine UA Negative (Negative); Leukocyte Esterase Urine Negative (Negative); Nitrite Urine Negative (Negative); PH 6.5 (5.0-9.0); Urine Blood Negative (Negative); Urine Ketones Negative (Negative); Urine Protein Negative (Neg-Trace)
[2023-09-25 08:21] LABS: Amphetamine Screen Urine Not Detected (Not Detect); Barbiturates, Urine Not Detected (Not Detect); Benzodiazepines Screen Urine Not Detected (Not Detect); Cannabinoid Screen Urine Not Detected (Not Detect); Cocaine Screen Urine POSITIVE (Not Detect); Fentanyl, urine POSITIVE (Not Detect); Opiate Screen Urine POSITIVE (Not Detect); Phencyclidine Screen Urine Not Detected (Not Detect)
[2023-09-25] MEDS: Naloxone HCl Nasal TAKE HOME 4 MG SPRAY 8 MG NOSTRILALT (09:01)
== END 2023-09-25 09:09 | disposition home or self-care (01) ==
PROVIDERS: Emergency Medicine; Emergency Provider Student in an Organized Health Care Education/Training Program
DX: L03.113 Cellulitis of right upper limb (principal); L02.413 Cutaneous abscess of right upper limb; R45.851 Suicidal ideations; F11.20 Opioid dependence, uncomplicated; Z11.52 Encounter for screening for COVID-19
CPT/HCPCS: 10060; 80053; 80307; 81003; 83605; 85025; 87040; 87635; 93005; 99284; 99285

== ENCOUNTER → 2023-09-24 23:03 | Outpatient (BNV) | payer MEDICAID, SELFPAY | PROVIDERS: Emergency Provider Student in an Organized Health Care Education/Training Program; Visit Provider Internal Medicine Cardiovascular Disease | DX: R00.1 Bradycardia, unspecified (principal) | CPT/HCPCS: 93010 ==

== ENCOUNTER 2023-11-02 02:52 | Inpatient (IN) | payer MEDICAID, OTHER, SELFPAY ==
--- NOTE | 2023-11-02 | ECG_ITS ---
Test Reason : rule out WTC prolongation Blood Pressure : / mmHG Vent. Rate : 059 BPM Atrial Rate : 059 BPM P-R Int : 128 ms QRS Dur : 102 ms QT Int : 424 ms P-R-T Axes : 020 -14 -11 degrees QTc Int : 419 ms Sinus bradycardia Nonspecific T wave abnormality Abnormal ECG When compared with ECG of 24-SEP-2023 23:03, non specific ST coving seen in anterior leads Referred By: Teddy Hein Electronically Signed By:KIERRA SONG
[2023-11-02 03:11] VITALS: BP 122/76; BP 130/84; PULSE 86; PULSE 90; RESP 18; TEMP 36.5; O2SAT 97; O2SAT 98; BMI 29.9
[2023-11-02 04:05] LABS: Amphetamine Screen Urine Not Detected (Not Detect); Barbiturates, Urine Not Detected (Not Detect); Benzodiazepines Screen Urine Not Detected (Not Detect); Cannabinoid Screen Urine Not Detected (Not Detect); Cocaine Screen Urine POSITIVE (Not Detect); Fentanyl, urine POSITIVE (Not Detect); Opiate Screen Urine POSITIVE (Not Detect); Phencyclidine Screen Urine Not Detected (Not Detect)
[2023-11-02 04:10] LABS: Appearance Urine Clear; Color Urine Yellow; Glucose Urine UA Negative (Negative); Leukocyte Esterase Urine Negative (Negative); Nitrite Urine Negative (Negative); Specific Gravity - Urine >= 1.030 (1.005-1.025); UMIC TRIGGER UACC YES; Urine Blood Trace (Negative); Urine Ketones Trace mg/dL (Negative); Urine Protein Negative (Neg-Trace)
[2023-11-02 04:24] LABS: Bacteria Urine None Seen (None Seen); Hyaline Casts Urine 0-2 /LPF (0-2); RBC Urine 0-2 /HPF (0-2); Squamous Epithelial Cell Urine 0-2 /HPF (0-2); WBC Urine 0-5 /HPF (0-5)
[2023-11-02] MEDS: Acetaminophen 325 MG TABLET 975 MG PO (04:28)
[2023-11-02] MEDS: Ibuprofen 600 MG TABLET PO ×2 (04:28→22:00)
--- NOTE | 2023-11-02 04:44 | ED_ITS ---
HPI - General Adult General Chief complaint: Psychiatric Symptoms Stated complaint: SI, TRIED TO OVERDOSE Time Seen by Provider: 11/02/23 04:05 History of Present Illness HPI narrative: The patient is a 33-year-old male with a long history of IV drug use and a history of infections related to IV drug use. Apparently he called 911 earlier this evening stating that he had tried to overdose on heroin and cocaine. He says that his mother 4 days ago. This made him feel sad and suicidal. The patient also has an area on his left forearm of redness, swelling, and pain. The patient seemed to minimize what looks like an infection in his left forearm. He said ?I can pop that any time I want to. ? Related Data Home Medications ?Medication ?Instructions ?Recorded ?Confirmed methadone 10 mg/mL oral concentrate 95 mg PO DAILY 11/16/22 11/02/23 Allergies Allergy/AdvReac Type Severity Reaction Status Date / Time shrimp [SHRIMP] Allergy Intermediate Swelling Verified 11/02/23 03:18 Review of Systems Review of Systems: Yes all other systems are reviewed and are negative PMFSH Past Medical History Medical History Cocaine use disorder Opioid use disorder, severe, dependence Severe recurrent major depression w/psychotic features, mood-congruent IVDU (intravenous drug user) Asthma Social History Social History Household Members: None Household Members Other:: lives in a snf Housing: Apartment Do you presently have visiting nurse or other home services: No Unable to assess alcohol history related to: Unknown Alcohol intake: current Alcohol intake frequency: does not drink Alcohol type: beer Patient Tobacco Use Status: Current everyday Tobacco user Tobacco use type: Cigarette Cigarettes Per Day: 7 Substance Use Type: Heroin Advance Directives: No Advance Directives Information Provided: No service: No Current occupational status: unemployed Sexual orientation: Did not discuss Physical Exam ED Vital Signs: Vital Signs - 24 hr 11/02/23 03:11 Temperature 97.7 F Pulse Rate 90 Respiratory Rate 18 Blood Pressure 122/76 Pulse Oximetry 97 Oxygen Delivery Method Room Air BMI result Body Mass Index 29.9 Const Other: The patient is awake and alert. He was pleasant and cooperative. He looks somewhat unkempt. HENMT Other: Face is symmetrical. Mucous membranes moist. Eyes Other: Pupils are round equal, conjunctivae are clear, extraocular movements intact Neck Other: No neck swelling. Moving his neck easily. Resp Effort & Inspection: normal respiratory effort Auscultation: clear to auscultation bilaterally Cardio Rate: regular rate Rhythm: regular rhythm Heart sounds: S1 normal heart sound present and S2 normal heart sound present GI Other: Abdomen is soft and nontender Skin Other: The patient has the area of swelling and redness to the left dorsal forearm which is quite tender. It is about 10 cm by 6 cm in size. It is tender but not fluctuant. I visualized swelling with ultrasound and there does not appear to be free-flowing fluid. Neuro Other: The patient is awake and alert. Mental status is clear. Cranial nerves are intact. He moves his extremities normally and appropriately. He is neurologically intact. Extrem Other: The patient has a large area of redness and swelling on the dorsal aspect of the left forearm but he has good range of motion of the elbow, wrist, hand, and fingers. Psych Other: The patient has a slightly flattened affect. He has a disheveled appearance. Medications Administered Discontinued Medications Generic Name Dose Route Start Last Admin Trade Name Juveq PRN Reason Stop Dose Admin Acetaminophen 975 mg 11/02/23 04:13 11/02/23 04:28 Acetaminophen 325 Mg Tablet PO 11/02/23 04:14 975 mg ONCE ONE Administration Cephalexin HCl 500 mg 11/02/23 04:43 11/02/23 04:48 Cephalexin 500 Mg Capsule PO 11/02/23 04:44 500 mg ONCE ONE Administration Ibuprofen 600 mg 11/02/23 04:13 11/02/23 04:28 Ibuprofen 600 Mg Tablet PO 11/02/23 04:14 600 mg ONCE ONE Administration Trimethoprim/Sulfamethoxazole 1 tab 11/02/23 04:43 11/02/23 04:48 Sulfamethox/Trimeth 800/160 Tablet PO 11/02/23 04:44 1 tab ONCE ONE Administration Medical Decision Making Medical Decision Making MDM Narrative: The patient is a 33-year-old with a history of depression and a history of substance use disorder who injects himself with opioids and cocaine. He called an ambulance tonight because he is feeling depressed and had suicidal thoughts and claims that he tried to commit suicide by overdosing on an opioid injection. He also has a soft tissue infection on his left forearm. There is an area of redness and swelling on the left forearm which is quite tender. It was tender but not definitely fluctuant. I visualized the soft tissue swelling with ultrasound and I do not feel that there is free-flowing fluid that would indicate that an attempted incision and drainage would be useful. I think this may be more of a phlegmon at the moment. The patient has therefore been started on cephalexin q.i.d. and Bactrim b.i.d.. These should both continued for 10 days I estimate. The patient has refused phlebotomy so far. His vital signs are unremarkable. I think the patient is medically clear for evaluation by the Care team although he will need to continue antibiotics. Lab Data Labs: Lab Results 11/02/23 Range/Units 03:44 Urine Color Yellow Urine Appearance Clear Urine pH 6.0 (5.0-9.0) Ur Specific [place] >= 1.030 H (1.005-1.025) Urine Protein Negative (Neg-Trace) mg/dL Urine Glucose (UA) Negative (Negative) mg/dL Urine Ketones Trace (Negative) mg/dL Urine Blood Trace (Negative) Urine Nitrite Negative (Negative) Ur Leukocyte Esterase Negative (Negative) Urine RBC 0-2 (0-2) /HPF Urine WBC 0-5 (0-5) /HPF Ur Squamous Epith Cells 0-2 (0-2) /HPF Urine Bacteria None Seen (None Seen) Hyaline Casts 0-2 (0-2) /LPF Urine Opiates Screen POSITIVE H (Not Detect) Urine Fentanyl Screen POSITIVE H (Not Detect) Ur Barbiturates Screen Not Detected (Not Detect) Ur Phencyclidine Scrn Not Detected (Not Detect) Ur Amphetamines Screen Not Detected (Not Detect) U Benzodiazepines Scrn Not Detected (Not Detect) Urine Cocaine Screen POSITIVE H (Not Detect) U Marijuana (THC) Screen Not Detected (Not Detect) Discharge Plan Discharge Clinical Impression: Depression, Substance use disorder, Cellulitis of left forearm Patient Disposition: Still a Patient Prescriptions: No Action methadone 10 mg/mL Concentrate 95 mg PO DAILY Interventions: [place]-Suicide Risk Severity Scale Last Done: 11/02/23 04:55 Print Language: [place]
[2023-11-02] MEDS: cephALEXin 500 MG CAPSULE PO ×4 (04:48→22:00)
[2023-11-02] MEDS: Sulfamethox/Trimeth 800/160 TABLET 1 TAB PO ×2 (04:48→17:43)
--- NOTE | 2023-11-02 05:02 | PC.NURSE ---
patient declines labs.
--- NOTE | 2023-11-02 06:59 | HE.PHANOTE ---
Methadone Verification Methadone dose: 95 mg. Last dose 95 mg on 10/29/23 @0886. [facility] per Tank Maldonado RN.
--- NOTE | 2023-11-02 08:36 | PC.NURSE ---
Assumed care of patient at 0645, patient seen by Jose Francisco CARE team at 0830, patient reporting withdrawal symptoms. This RN entered patient's room, inquiring about withdrawal symptoms. Patient unwilling to particpate in conversation with this RN, just stating Gimme my methadone , this RN also inquired about drawing patient's blood work. Patient reports I got a fucking choice, I ain't doing them MD aware, no new orders at this time. Continue plan of care for med clearance and then CARE team deisy
[2023-11-02] MEDS: methADONE HCl 20 MG/2 ML ORAL.CONC 95 MG PO (09:16)
--- NOTE | 2023-11-02 10:01 | PC.NURSE ---
Patient continues to refuse blood draw, unless a trained person who draws blood does it . This Rn attempted to explain that we are trained to draw but patient continues to refuse. Patient requesting finger stick for blood draw. This RN called phlebotomy who will attempt to come draw him
--- NOTE | 2023-11-02 11:13 | PC.NURSE ---
MD Hein in with patient, patient refusing I&D of abscess on arm. Labs that were drawn by phlebotomy clotted, patient refusing repeat draw. MD lopez
[2023-11-02 11:26] LABS: Acetaminophen LAB 4 mcg/mL (<30); Alanine Aminotransferase 20 U/L (0-40); Albumin Level 3.4 g/dL (3.5-5.0); Alkaline Phosphatase 86 U/L (39-117); Anion Gap 12 (12-20); Aspartate Amino Transferase 30 U/L (5-37); Bilirubin Total 0.2 mg/dL (0.0-1.0); Blood Urea Nitrogen 15 mg/dL (9-16); Calcium 8.9 mg/dL (8.4-10.2); Carbon Dioxide 23 mmol/L (22-29); Chloride 108 mmol/L (96-108); Creatinine Clr Calc Pharmacy 157.6; Estimated Glomerular Filt Rate > 60; Ethanol < 10 mg/dL; Glucose Random 100 mg/dL (60-115); Potassium 4.1 mmol/L (3.3-5.1); Salicylate < 5.0 mg/dL (15-30); Sodium 139 mmol/L (135-145); Total Protein 7.6 g/dL (6.5-8.0)
[2023-11-02 15:43] VITALS: BP 94/50; PULSE 57; RESP 16; TEMP 36.4; O2SAT 99
[2023-11-02 15:43] LABS: COVID-19 Test Negative (Negative); IDNOW Serial# 08D9AD1C
--- NOTE | 2023-11-02 16:05 | PC.NURSE ---
Patient refusing EKG at this time, requesting this RN leave him alone
[2023-11-02 17:14] VITALS: BP 105/68; PULSE 59; RESP 16; O2SAT 98
--- NOTE | 2023-11-02 17:56 | PC.NURSE ---
patient on phone yelling at other person on the line. This RN verbally redirected patient to avoid yelling
--- NOTE | 2023-11-02 19:13 | MHC.EDTECH ---
pt continues to refuse EKG. rn aware
--- NOTE | 2023-11-02 19:16 | PC.NURSE ---
patient appears in no distress, relaxing in room presently...maintains safe behavior, intermittently loudly yawns out of room
--- NOTE | 2023-11-02 22:00 | MHC.CARE ---
RAD Team conducted a Dual bed search for this pt. Referral sent to [facility]. Will follow up tomorrow.
[2023-11-03] MEDS: cephALEXin 500 MG CAPSULE PO (05:18)
[2023-11-03] MEDS: Sulfamethox/Trimeth 800/160 TABLET 1 TAB PO (05:21)
--- NOTE | 2023-11-03 07:20 | PC.NURSE ---
PT IS SLEEPING RESP EVEN AND UNLABORED. WILL CONTINUE TO MONITOR.
[2023-11-03 07:35] VITALS: RESP 16
--- NOTE | 2023-11-03 07:36 | MHC.EDTECH ---
Patient asleep, respirations even and unlabored.
--- NOTE | 2023-11-03 09:28 | PC.NURSE ---
PT INTERMITTENTLY YELL OUT WHILE SLEEPING AND REPEATEDLY REPOSITION HIMSELF. WILL CONTINUE TO MONITOR.
--- NOTE | 2023-11-03 09:58 | PHA.MEDREC ---
Pharmacy Consult ? Medication Reconciliation Pharmacy has completed the medication reconciliation. Reviewed med rec done by nursing
[2023-11-03] MEDS: methADONE HCl 20 MG/2 ML ORAL.CONC 95 MG PO (10:00)
[2023-11-03 10:01] VITALS: BP 112/73; PULSE 68; RESP 18; TEMP 36.6; O2SAT 100
--- NOTE | 2023-11-03 10:12 | PC.NURSE ---
PT IS OOB AMB (I) GAIT STEADY TO THE RN STATION REQUESTING/GIVEN HIS METHADONE ORDERED PER MAR. BEFORE RETURNING TO HIS ROOM, PT AGREED TO HAVING THE EKG DONE.
--- NOTE | 2023-11-03 10:33 | PC.NURSE ---
PT REFUSED EKG AND STATES THAT HE DOES NOT WANT TO GO INPATIENT. MD AWARE, WILL CONTINUE TO MONITOR.
--- NOTE | 2023-11-03 11:25 | PC.NURSE ---
PT LYING ON HIS L SIDE IN BED REFUSED HIS 1100 PO ABT STATING I DON'T WANT IT . MD AWARE. WILL CONTINUE TO MONITOR. PT HAS ALSO REFUSED LAB WORK, EKG AND TO HAVE HIS LOWER FOREARM ABSCESS I/D BY THE MD.
--- NOTE | 2023-11-03 11:54 | MHC.EDTECH ---
ED front office representative called stating patient's mother is here to visit. When asked if he wanted his mother to come in to visit, patient refused, stating I'm too tired, tell her to come back tomorrow. ED front office representative notified of patient's request. RN aware.
[2023-11-03 16:45] VITALS: BP 110/56; PULSE 78; TEMP 36.6
--- NOTE | 2023-11-03 21:39 | P.HPPS_ITS ---
HPI Date of Service: 11/03/23 Chief Complaint: SI, TRIED TO OVERDOSE Sources of Information: patient interviewed, chart reviewed and crisis/core team assessment reviewed HPI Subjective Notes: Conditional Voluntary Narrative: 33 yo male with history of polysubstance dependence including IV heroin addiction who is known to [facility] and was last admitted to for SI with plan to overdose on heroin/cocaine with intent to , after detoxing upon arrival to ER. He is here with similar presentation, (per ED note, patient presented to ED stating SI with plan to overdose) however patient denies having made any suicidal statements to the ED, denies any recent SI or attempts and says he simply came to the ED to be seen for a large abscess on his left forearm which is noted to be riddled with track ramirez. His urine drug screen was positive for opiates, fentanyl and cocaine, and his methadone dose was confirmed at 95 mg daily. He currently presents as bright upon contact but only superficially cooperative. He refused care in the ED to have abscess lanced. He initially states he does not belong on the unit because he is not suicidal and thought that having the abscess treated would prolong his stay. However he says he has been on the unit before and knows the best way to get discharged is to just cooperate, which he says he plans to do. He denies any depressive symptoms and says despite ongoing substance issues he has managed to hold down employment and feels his presentation this time is not the same as previous admissions. Aside from the abscess, he states he is otherwise feeling fine. Denies any illness or fever or cough. On inspecting the abscess, he notes that it is quite tender and uncomfortable and will consider allowing it to be lanced if it doesn't spontaneously drain soon. He has been off medications he says but is agreeable with being restarted on the medications he was on during his last admission especially if this hastens his stay and helps with sleep. He denies any SI, HI, AH, VH. He is behavioral control, does not appears internally preoccupied and does not present with symptoms/signs of rosy or psychosis. Past Psychiatric History: IP: 8 EATS:3 Detox: 7 CSS:4 Trials: Pt could not recall. Per record Prozac, Prazosin Nakul [phone]--nothing on file Per [facility]-Olanzapine, Risperdal, Prazosin, Prozac Medical Evaluation Reviewed: Yes [facility] Medical History Cocaine use disorder Opioid use disorder, severe, dependence Severe recurrent major depression w/psychotic features, mood-congruent IVDU (intravenous drug user) Asthma Family History: Addiction history, denies mental health history Social History: Born in [place], raised in [place]. Completed eleventh grade. Single, two children, age 7, 4 and is without contact with them No current employment Substance History: polysubstance dependence including extensive cocaine and heroin addiction on methadone Trauma History: Childhood-mother and step father Man he resided with in the past Loss of child's mom in childbirth 2017 Diagnostics Vital Signs (24Hr): Vital Signs - 24 hr 11/03/23 07:35 11/03/23 10:01 11/03/23 16:45 Temperature 97.9 F 97.9 F Pulse Rate 68 78 Respiratory Rate 16 18 Blood Pressure 112/73 110/56 L Pulse Oximetry 100 Oxygen Delivery Method Room Air BMI result Body Mass Index 29.9 Labs 11/02/23 10:48 11/02/23 10:48 Labs: Laboratory Results - last 48 hr 11/02/23 11/02/23 11/02/23 03:44 10:48 15:26 WBC Cancelled RBC Cancelled Hgb Cancelled Hct Cancelled MCV Cancelled MCH Cancelled MCHC Cancelled RDW Cancelled Plt Count Cancelled MPV Cancelled Immature Gran % (Auto) Cancelled Neut % (Auto) Cancelled Lymph % (Auto) Cancelled [place] % (Auto) Cancelled Eos % (Auto) Cancelled Baso % (Auto) Cancelled Lymph # (Auto) Cancelled [place] # (Auto) Cancelled Eos # (Auto) Cancelled Baso # (Auto) Cancelled Abs Immat Gran (auto) Cancelled Absolute Neuts (auto) Cancelled Absolute Nucleated RBC Cancelled Nucleated RBC % (auto) Cancelled Sodium 139 Potassium 4.1 Chloride 108 Carbon Dioxide 23 Anion Gap 12 BUN 15 Creatinine 0.69 Estim Creat Clear Calc 157.6 Estimated GFR > 60 Random Glucose 100 Calcium 8.9 Total Bilirubin 0.2 AST 30 ALT 20 Alkaline Phosphatase 86 Total Protein 7.6 Albumin 3.4 L Urine Color Yellow Urine Appearance Clear Urine pH 6.0 Ur Specific [place] >= 1.030 H Urine Protein Negative Urine Glucose (UA) Negative Urine Ketones Trace Urine Blood Trace Urine Nitrite Negative Ur Leukocyte Esterase Negative Urine RBC 0-2 Urine WBC 0-5 Ur Squamous Epith Cells 0-2 Urine Bacteria None Seen Hyaline Casts 0-2 Salicylates < 5.0 L Urine Opiates Screen POSITIVE H Urine Fentanyl Screen POSITIVE H Acetaminophen 4 Ur Barbiturates Screen Not Detected Ur Phencyclidine Scrn Not Detected Ur Amphetamines Screen Not Detected U Benzodiazepines Scrn Not Detected Urine Cocaine Screen POSITIVE H U Marijuana (THC) Screen Not Detected Ethyl Alcohol < 10 COVID-19 (NAKUL) Negative COVID-19 Clin Com See Note Meds/Allergies Meds Home Medications ?Medication ?Instructions ?Recorded ?Confirmed ?Type methadone 10 mg/mL oral concentrate 95 mg PO DAILY 11/16/22 11/02/23 History Allergies Allergies Allergy/AdvReac Type Severity Reaction Status Date / Time shrimp [SHRIMP] Allergy Intermediate Swelling Verified 11/02/23 03:18 Mental Status Exam Mental Status Exam Narrative: Patient Appearance: Appropriate Patient Orientation: Person, Place, Time and Situation Level of Consciousness: Alert Patient Behavior: Cooperative and Good Eye Contact, superficial, likely guarded Mood Description: fine Affect Description: Calm Patient Cognition Impaired: No Ability to Follow Directions: Good Speech Pattern: Spontaneous Speech Memory Description: Intact Hallucinations: None Delusions: Not Present Thought Process: Linear, coherent Thought Content: positive for Goal Oriented Judgement: Good Assessment & Plan Assessment & Plan (1) Polysubstance abuse: Status: Acute Code(s): F19.10 - Other psychoactive substance abuse, uncomplicated (2) Major depressive disorder, recurrent, unspecified: Status: Acute Code(s): F33.9 - Major depressive disorder, recurrent, unspecified Plan Admit to unit VS as per protocol will review chart and restart previous medications Engage in milieu Dispo as per TC Patient educated on: diagnosis, medication risk/benefits and substance abuse Reason for continued inpatient stay Substantial Risk for: inability to function, rapid decompensation and med/psych decompensation Statement Statement: I have reviewed the history and physical and performed a pertinent examination on my patient. No changes have occurred unless specified. If the History and Physical was not performed prior to admission, the Hospitalist's service will be consulted for completing the admission physical. Time Spent With Patient Time: Total time managing care of this patient today ____ minutes.
--- NOTE | 2023-11-04 01:47 | PC.ADMIT ---
A , French-speaking, single male, aged 33 years was [facility] at 16:40 following referral from [facility] ED and CARE team. Pt is well known to [facility] with a number of previous admissions and crisis evaluations. Pt was brought to ED on 11/03/23 by EMS after pt called 911 with complaint of an intentional overdose of heroin and cocaine about four hours prior. Pt reported worsening depressive symptoms for the past several months. Pt reported precipitant of his mothers four days prior to coming to ED. ED Pod RN noted that a woman claiming to be pt's mother visited him in ED. Pt declined labs, EKG, and treatment for an abscess on pt's left lower arm. Pt declined two oral antibiotics ordered to treat the abscess. Pt has a history of non-adherence to medications, not engaging with providers and chronic homelessness. Pt reports he is currently housed. Pt is reported to not have been on medications for 7-8 months. Pt reports poor sleep in CARE assessment, but says is sleeping well upon admission. Per previous assessments pt is reported to have had two prior suicide attempts via overdose in the distant past, but no other recent attempts. Pt was cooperative initially upon arrival, consenting to skin check, doing a mini-mental health assessment and menus and was shown around unit. Pt rated anxiety 7/10, depression 2/10. Pt rated pain in left lower arm at 10/10, but declined offer of PRN medication. Pt denied SI/HI and says can seek out staff for help. Pt denied AVH and said had no falls in past 6 months. Pt declined flu shot. Pt is a daily smoker of 4 cigarettes; pt would not say if wanted nicotine replacement therapy. Pt reports recent weight loss of 5lbs. After dinner meal, pt declined to participate further in admission. Pt refused medications and went to sleep. Pt does not have providers at this time. Medical issues include asthma, IVDU, and the abscess on left lower arm. [id number] done and admission orders obtained. Initial treatment plan done, but needs to be signed. Pt still needs to sign legals and do safety tool. Pt is resting in his bed room at his time on 15 minute safety checks.
--- NOTE | 2023-11-04 06:47 | PC.NURSE ---
patient refusing antibiotic medication at this time, says he will only take them at the same time as his methadone
[2023-11-04] MEDS: Acetaminophen 325 MG TABLET 650 MG PO ×3 (06:58→23:01)
[2023-11-04] MEDS: Sulfamethox/Trimeth 800/160 TABLET 1 TAB PO ×2 (06:59→17:45)
[2023-11-04] MEDS: cephALEXin 500 MG CAPSULE PO ×4 (06:59→23:00)
[2023-11-04] MEDS: hydrOXYzine HCL 25 MG TABLET PO ×2 (06:59→12:50)
[2023-11-04] MEDS: methADONE HCl 20 MG/2 ML ORAL.CONC 95 MG PO (08:18)
[2023-11-04 08:39] VITALS: BP 120/79; PULSE 86; RESP 18; TEMP 36.4; O2SAT 98
--- NOTE | 2023-11-04 12:37 | PC.NURSE ---
Attempted to meet with pt 2x to review admission information, do safety tool. Pt refused both times.
[2023-11-04] MEDS: Ibuprofen 600 MG TABLET PO ×2 (14:43→23:00)
[2023-11-04] MEDS: Lidocaine HCl 1 % 10 ML VIAL 30 ML SUBCUT (15:12)
--- NOTE | 2023-11-04 15:16 | PM.CNGS ---
History of Present Illness Consult details Consult date: 11/04/23 Narrative: Patient is admitted to the psych floor. He has history of IV drug abuse and has an infected left forearm which he states is from IV drug injection. Chart was reviewed and patient evaluated PMFSH Past Medical History Medical History Cocaine use disorder Opioid use disorder, severe, dependence Severe recurrent major depression w/psychotic features, mood-congruent IVDU (intravenous drug user) Asthma Social History Social History Household Members: Unknown / Unable to assess Household Members Other:: lives in a long-term Housing: Apartment Do you presently have visiting nurse or other home services: No Unable to assess alcohol history related to: Refusing to respond Alcohol intake: current Alcohol intake frequency: does not drink Alcohol type: beer Patient Tobacco Use Status: Current everyday Tobacco user Tobacco use type: Cigarette Cigarettes Per Day: 4 Years Smoked: unknown Smoked in Last 30 Days: Yes e-Cigarette/Vaping Use: Currently Using Frequency of e-Cigarette/Vaping Use: at times uses vape Patient Given Instructions on How to Stop Smoking: Yes Date Education Initiated: 11/04/23 Use of substances other than those prescribed or required for medical reasons: Yes Substance Use Type: Crack/Cocaine and Opiates Substance Use Frequency: Chronic Longstanding Last Used Substance: Just Prior to Admission Currently Displaying Signs/Symptoms of Drug Intoxication Withdrawal: No Any prior treatment program specific to substance use: Yes (numerous) Do you feel safe in your current relationship?: No Current Relationship Spiritual Healthcare Practices: Unknown; pt unable to participate due to mental status. Congregation Healthcare Practices: Unknown; pt unable to participate due to mental status. Cultural Healthcare Practices: Unknown; pt unable to participate due to mental status. Advance Directives: No Advance Directives Information Provided: No Do you have thoughts of harming others: None Do you have a plan to hurt others: No Plan Recently lost weight without trying: Yes How much weight loss: 2-13 pounds Eating poorly because of decreased appetite: No Nutrition screen score: 3 Nutrition Risks: No Nutritional Risk Poor oral hygiene: No service: No Current occupational status: unemployed Sexual orientation: Did not discuss Meds Allergies Allergy/AdvReac Type Severity Reaction Status Date / Time shrimp [SHRIMP] Allergy Intermediate Swelling Verified 11/02/23 03:18 Active Medications: Current Medications Acetaminophen (Acetaminophen 325 Mg Tablet) 650 mg PO Q6H PRN PRN Reason: Headache/Pain Mild Scale (1-3) Last Admin: 11/04/23 12:46 Dose: 650 mg Al Hydroxide/Mg Hydroxide (Magnesium Hydrox/Alum Hydrox 30 Ml Oral.Susp) 30 ml PO Q6H PRN PRN Reason: Heartburn/Nausea Cephalexin HCl (Cephalexin 500 Mg Capsule) 500 mg PO Q6H [facility] Last Admin: 11/04/23 11:56 Dose: 500 mg Hydroxyzine HCl (Hydroxyzine Hcl 25 Mg Tablet) 25 mg PO Q6H PRN PRN Reason: Anxiety Last Admin: 11/04/23 12:50 Dose: 25 mg Ibuprofen (Ibuprofen 600 Mg Tablet) 600 mg PO Q6H PRN PRN Reason: Pain, Moderate(Pain Scale 4-6) Last Admin: 11/04/23 14:43 Dose: 600 mg Magnesium Hydroxide (Milk Of Magnesia 30 Ml Oral.Susp) 30 ml PO DAILY PRN PRN Reason: Constipation Methadone HCl (Methadone Hcl 20 Mg/2 Ml Oral.Conc) 95 mg PO DAILY [facility] Last Admin: 11/04/23 08:18 Dose: 95 mg Mirtazapine (Mirtazapine 15 Mg Tablet) 15 mg PO BEDTIME [facility] Risperidone (Risperidone 0.5 Mg Tablet) 0.5 mg PO BEDTIME ADRI[facility]N Trazodone HCl (Trazodone Hcl 50 Mg Tablet) 50 mg PO BEDTIME MRX1 PRN PRN Reason: Insomnia Trimethoprim/Sulfamethoxazole (Sulfamethox/Trimeth 800/160 Tablet) 1 tab PO Q12H [facility] Last Admin: 11/04/23 06:59 Dose: 1 tab Home Medications ?Medication ?Instructions ?Recorded ?Confirmed ?Last Taken ?Type methadone 10 mg/mL oral concentrate 95 mg PO DAILY 11/16/22 11/02/23 10/29/23 08:50 History Physical Exam Vital Signs: Vital Signs: Last Vital Signs Temp 97.6 F 11/04/23 08:39 Pulse 86 11/04/23 08:39 Resp 18 11/04/23 08:39 BP 120/79 11/04/23 08:39 Pulse Ox 98 11/04/23 08:39 O2 Del Method Room Air 11/04/23 08:39 BMI result Body Mass Index 29.9 Extrem: Other: Patient has a large proximally 4 x 3 cm left mid forearm abscess with surrounding cellulitis. Extremities grossly neurovascularly intact. Results Labs 11/02/23 10:48 11/02/23 10:48 Labs: BMP 11/04/23 09:53 Sodium Cancelled Potassium Cancelled Chloride Cancelled Carbon Dioxide Cancelled BUN Cancelled Creatinine Cancelled Calcium Cancelled Liver Function 11/04/23 Range/Units 09:53 Total Bilirubin Cancelled AST Cancelled ALT Cancelled Alkaline Phosphatase Cancelled Albumin Cancelled Urine 11/02/23 Range/Units 03:44 Urine Color Yellow Urine Appearance Clear Urine pH 6.0 (5.0-9.0) Ur Specific [place] >= 1.030 H (1.005-1.025) Urine Protein Negative (Neg-Trace) mg/dL Urine Glucose (UA) Negative (Negative) mg/dL All other labs normal. Assessment and Plan (1) Abscess: Status: Inactive Plan Risks, benefits, alternatives of incision drainage of this abscess reviewed the patient included but not limited to bleeding, infection, recurrence, numbness, pain, scarring the patient was to proceed. Positioned appropriate positioned and underwent 1% lidocaine and Betadine to the abscess of the volar aspect of the left mid forearm. This measured approximately 4 x 3 cm. A longitudinal incision was made and copious amounts of purulent material were retrieved. Loculations were broken down and wound was irrigated, secured hemostasis, and packed and dressing applied. Unfortunately, the psychiatric jeffries has no cultures so they were unable to be obtained. There unlikely to affect the care provided. Patient tolerated procedure well Procedures Date of Service Date of Service: 11/04/23
[2023-11-04 18:00] VITALS: RESP 16
[2023-11-04] MEDS: risperiDONE 0.5 MG TABLET PO (21:18)
[2023-11-04] MEDS: Mirtazapine 15 MG TABLET PO (21:18)
--- NOTE | 2023-11-04 23:29 | HO.PSYCHPN ---
Subjective Subjective Date of Service: 11/04/23 Reason For Visit: SI, TRIED TO OVERDOSE Subjective Notes: Conditional Voluntary Interim History: Patient seen asleep in bed late this morning. He was up almost the entire night due abscess causing him pain/discomfort and did not fall asleep until 4 or 5 am this morning. He was barely arousable, and was not agreeable to talk. He did not answer any questions or open his eyes and only asked me to give him one more hour to sleep and that he promised he would get up and meet with me (which he didnt). He is currently waiting for surgical team to come kristofer and drain the abscess and is agreeable to this plan. He pulls his arm out so that I can quickly have a look at it. Otherwise put his arm back under the covers and proceeded to fall back asleep. Medication Compliance: Yes Side effects from medications: No Review of Systems Acute medical concerns: Yes as noted Mental Status Exam Mental Status Exam Narrative: Patient is asleep, appears comfortable and in no acute distress. He was arousable only briefly and minimally cooperative but otherwise calm. No agitation. No concerning statements. He is agreeing to treatment and has been med compliant and treatment compliant. Unable to assess for remaining MSE. Diagnostics Vital Signs (24Hr): Vital Signs - 24 hr 11/04/23 08:39 11/04/23 18:00 Temperature 97.6 F Pulse Rate 86 Respiratory Rate 18 16 Blood Pressure 120/79 Pulse Oximetry 98 Oxygen Delivery Method Room Air BMI result Body Mass Index 29.9 Labs 11/02/23 10:48 11/02/23 10:48 Labs: Laboratory Results - last 48 hr 11/02/23 11/04/23 10:48 09:53 WBC Cancelled RBC Cancelled Hgb Cancelled Hct Cancelled MCV Cancelled MCH Cancelled MCHC Cancelled RDW Cancelled Plt Count Cancelled MPV Cancelled Immature Gran % (Auto) Cancelled Neut % (Auto) Cancelled Lymph % (Auto) Cancelled [place] % (Auto) Cancelled Eos % (Auto) Cancelled Baso % (Auto) Cancelled Lymph # (Auto) Cancelled [place] # (Auto) Cancelled Eos # (Auto) Cancelled Baso # (Auto) Cancelled Abs Immat Gran (auto) Cancelled Absolute Neuts (auto) Cancelled Absolute Nucleated RBC Cancelled Nucleated RBC % (auto) Cancelled Sodium Cancelled Potassium Cancelled Chloride Cancelled Carbon Dioxide Cancelled Anion Gap Cancelled BUN Cancelled Creatinine Cancelled Estim Creat Clear Calc Cancelled Estimated GFR Cancelled Fasting Glucose Cancelled Calcium Cancelled Total Bilirubin Cancelled AST Cancelled ALT Cancelled Alkaline Phosphatase Cancelled Total Protein Cancelled Albumin Cancelled Triglycerides Cancelled Cholesterol Cancelled LDL Cholesterol, Calc Cancelled HDL Cholesterol Cancelled Medications Medications Current Medications Acetaminophen (Acetaminophen 325 Mg Tablet) 650 mg PO Q6H PRN PRN Reason: Headache/Pain Mild Scale (1-3) Last Admin: 11/04/23 23:01 Dose: 650 mg Al Hydroxide/Mg Hydroxide (Magnesium Hydrox/Alum Hydrox 30 Ml Oral.Susp) 30 ml PO Q6H PRN PRN Reason: Heartburn/Nausea Cephalexin HCl (Cephalexin 500 Mg Capsule) 500 mg PO Q6H [facility] Last Admin: 11/04/23 23:00 Dose: 500 mg Hydroxyzine HCl (Hydroxyzine Hcl 25 Mg Tablet) 25 mg PO Q6H PRN PRN Reason: Anxiety Last Admin: 11/04/23 12:50 Dose: 25 mg Ibuprofen (Ibuprofen 600 Mg Tablet) 600 mg PO Q6H PRN PRN Reason: Pain, Moderate(Pain Scale 4-6) Last Admin: 11/04/23 23:00 Dose: 600 mg Magnesium Hydroxide (Milk Of Magnesia 30 Ml Oral.Susp) 30 ml PO DAILY PRN PRN Reason: Constipation Methadone HCl (Methadone Hcl 20 Mg/2 Ml Oral.Conc) 95 mg PO DAILY [facility] Last Admin: 11/04/23 08:18 Dose: 95 mg Mirtazapine (Mirtazapine 15 Mg Tablet) 15 mg PO BEDTIME [facility] Last Admin: 11/04/23 21:18 Dose: 15 mg Risperidone (Risperidone 0.5 Mg Tablet) 0.5 mg PO BEDTIME [facility] Last Admin: 11/04/23 21:18 Dose: 0.5 mg Trazodone HCl (Trazodone Hcl 50 Mg Tablet) 50 mg PO BEDTIME MRX1 PRN PRN Reason: Insomnia Trimethoprim/Sulfamethoxazole (Sulfamethox/Trimeth 800/160 Tablet) 1 tab PO Q12H [facility] Last Admin: 11/04/23 17:45 Dose: 1 tab Allergies Allergies Allergy/AdvReac Type Severity Reaction Status Date / Time shrimp [SHRIMP] Allergy Intermediate Swelling Verified 11/02/23 03:18 Assessment & Plan Assessment & Plan (1) Polysubstance abuse: Status: Acute Code(s): F19.10 - Other psychoactive substance abuse, uncomplicated (2) Major depressive disorder, recurrent, unspecified: Status: Acute Code(s): F33.9 - Major depressive disorder, recurrent, unspecified Plan start mirtazapine 15 mg qhs to help target sleep, appetite, anxiety restart risperidone at 0.5 mg qhs (was discharge on 1 mg in June) Reason for continued inpatient stay Substantial Risk for: rapid decompensation and med/psych decompensation Time Spent With Patient Time: Total time managing care of this patient today ____ minutes.
[2023-11-05] MEDS: Sulfamethox/Trimeth 800/160 TABLET 1 TAB PO ×2 (05:14→17:34)
[2023-11-05] MEDS: cephALEXin 500 MG CAPSULE PO ×3 (05:14→17:34)
[2023-11-05] MEDS: methADONE HCl 20 MG/2 ML ORAL.CONC 95 MG PO (08:54)
[2023-11-05] MEDS: hydrOXYzine HCL 25 MG TABLET PO (10:05)
--- NOTE | 2023-11-05 14:42 | P.PNPSI_ITS ---
Subjective Subjective Date of Service: 11/05/23 Reason For Visit: SI, TRIED TO OVERDOSE Subjective Notes: Conditional Voluntary Healthcare Proxy: No Guardianship: No Medical Problems Affecting Mental Status: Yes (recent absess drained) Interim History: 33 yo HM with arm abscess - focused on his medical health today- not wanting to talk about mental health- spent most of yesterday in bed- Medication Compliance: Yes Side effects from medications: No Attending Groups: No Review of Systems Acute medical concerns: Yes needs wound repacked will get wound consult Medical Review of Systems: unchanged Diagnostics Vital Signs (24Hr): Vital Signs - 24 hr 11/04/23 18:00 Respiratory Rate 16 BMI result Body Mass Index 29.9 Labs 11/02/23 10:48 11/02/23 10:48 Labs: Laboratory Results - last 48 hr 11/04/23 09:53 Sodium Cancelled Potassium Cancelled Chloride Cancelled Carbon Dioxide Cancelled Anion Gap Cancelled BUN Cancelled Creatinine Cancelled Estim Creat Clear Calc Cancelled Estimated GFR Cancelled Fasting Glucose Cancelled Calcium Cancelled Total Bilirubin Cancelled AST Cancelled ALT Cancelled Alkaline Phosphatase Cancelled Total Protein Cancelled Albumin Cancelled Triglycerides Cancelled Cholesterol Cancelled LDL Cholesterol, Calc Cancelled HDL Cholesterol Cancelled Medications Medications Current Medications Acetaminophen (Acetaminophen 325 Mg Tablet) 650 mg PO Q6H PRN PRN Reason: Headache/Pain Mild Scale (1-3) Last Admin: 11/04/23 23:01 Dose: 650 mg Al Hydroxide/Mg Hydroxide (Magnesium Hydrox/Alum Hydrox 30 Ml Oral.Susp) 30 ml PO Q6H PRN PRN Reason: Heartburn/Nausea Cephalexin HCl (Cephalexin 500 Mg Capsule) 500 mg PO Q6H [facility] Last Admin: 11/05/23 10:05 Dose: 500 mg Hydroxyzine HCl (Hydroxyzine Hcl 25 Mg Tablet) 25 mg PO Q6H PRN PRN Reason: Anxiety Last Admin: 11/05/23 10:05 Dose: 25 mg Ibuprofen (Ibuprofen 600 Mg Tablet) 600 mg PO Q6H PRN PRN Reason: Pain, Moderate(Pain Scale 4-6) Last Admin: 11/04/23 23:00 Dose: 600 mg Magnesium Hydroxide (Milk Of Magnesia 30 Ml Oral.Susp) 30 ml PO DAILY PRN PRN Reason: Constipation Methadone HCl (Methadone Hcl 20 Mg/2 Ml Oral.Conc) 95 mg PO DAILY [facility] Last Admin: 11/05/23 08:54 Dose: 95 mg Mirtazapine (Mirtazapine 15 Mg Tablet) 15 mg PO BEDTIME [facility] Last Admin: 11/04/23 21:18 Dose: 15 mg Risperidone (Risperidone 0.5 Mg Tablet) 0.5 mg PO BEDTIME [facility] Last Admin: 11/04/23 21:18 Dose: 0.5 mg Trazodone HCl (Trazodone Hcl 50 Mg Tablet) 50 mg PO BEDTIME MRX1 PRN PRN Reason: Insomnia Trimethoprim/Sulfamethoxazole (Sulfamethox/Trimeth 800/160 Tablet) 1 tab PO Q12H [facility] Last Admin: 11/05/23 05:14 Dose: 1 tab Allergies Allergies Allergy/AdvReac Type Severity Reaction Status Date / Time shrimp [SHRIMP] Allergy Intermediate Swelling Verified 11/02/23 03:18 Assessment & Plan Assessment & Plan (1) Polysubstance abuse: Status: Acute Code(s): F19.10 - Other psychoactive substance abuse, uncomplicated Assessment and Plan: 11/04 refusing to speak with provider (2) Major depressive disorder, recurrent, unspecified: Status: Acute Code(s): F33.9 - Major depressive disorder, recurrent, unspecified Assessment and Plan: 11/04 - continue miratazapine (3) Cellulitis of left forearm: Status: Acute Code(s): L03.114 - Cellulitis of left upper limb Assessment and Plan: 11/04- s/p wound drainage- on bactrim will consult wound care- Plan Risks, benefits, alternatives of incision drainage of this abscess reviewed the patient included but not limited to bleeding, infection, recurrence, numbness, pain, scarring the patient was to proceed. Positioned appropriate positioned and underwent 1% lidocaine and Betadine to the abscess of the volar aspect of the left mid forearm. This measured approximately 4 x 3 cm. A longitudinal incision was made and copious amounts of purulent material were retrieved. Loculations were broken down and wound was irrigated, secured hemostasis, and packed and dressing applied. Unfortunately, the psychiatric jeffries has no cultures so they were unable to be obtained. There unlikely to affect the care provided. Patient tolerated procedure well Informed Consent: further education needed (pt refused interaction with provider) Reason for continued inpatient stay Substantial Risk for: med/psych decompensation Time Spent With Patient Time: Total time managing care of this patient today ____ minutes.
--- NOTE | 2023-11-05 15:01 | P.PNGS_ITS ---
Subjective Subjective Date of Service: 11/05/23 Interval history: I and D of forearm abscess done yesterday by Dr. Pineda no new complaints Physical Exam 2 Vital Signs: Vital Signs: Last Vital Signs Temp 97.6 F 11/04/23 08:39 Pulse 86 11/04/23 08:39 Resp 16 11/04/23 18:00 BP 120/79 11/04/23 08:39 Pulse Ox 98 11/04/23 08:39 O2 Del Method Room Air 11/04/23 08:39 BMI result Body Mass Index 29.9 Const: General: comfortable and no acute distress Resp: Effort & Inspection: normal respiratory effort Cardio: Rate: regular rate Extrem: Other: left forearm I and D - packing in place, removed, no new pus, seems to have less induration and redness Objective Data Active Medications Acetaminophen (Acetaminophen 325 Mg Tablet) 650 mg PO Q6H PRN PRN Reason: Headache/Pain Mild Scale (1-3) Last Admin: 11/04/23 23:01 Dose: 650 mg Documented By: MARY BETH Al Hydroxide/Mg Hydroxide (Magnesium Hydrox/Alum Hydrox 30 Ml Oral.Susp) 30 ml PO Q6H PRN PRN Reason: Heartburn/Nausea Cephalexin HCl (Cephalexin 500 Mg Capsule) 500 mg PO Q6H [facility] Last Admin: 11/05/23 10:05 Dose: 500 mg Documented By: MARCO A Hydroxyzine HCl (Hydroxyzine Hcl 25 Mg Tablet) 25 mg PO Q6H PRN PRN Reason: Anxiety Last Admin: 11/05/23 10:05 Dose: 25 mg Documented By: MARCO A Ibuprofen (Ibuprofen 600 Mg Tablet) 600 mg PO Q6H PRN PRN Reason: Pain, Moderate(Pain Scale 4-6) Last Admin: 11/04/23 23:00 Dose: 600 mg Documented By: MARY BETH Magnesium Hydroxide (Milk Of Magnesia 30 Ml Oral.Susp) 30 ml PO DAILY PRN PRN Reason: Constipation Methadone HCl (Methadone Hcl 20 Mg/2 Ml Oral.Conc) 95 mg PO DAILY [facility] Last Admin: 11/05/23 08:54 Dose: 95 mg Documented By: MARCO A Mirtazapine (Mirtazapine 15 Mg Tablet) 15 mg PO BEDTIME [facility] Last Admin: 11/04/23 21:18 Dose: 15 mg Documented By: MARY BETH Risperidone (Risperidone 0.5 Mg Tablet) 0.5 mg PO BEDTIME [facility] Last Admin: 11/04/23 21:18 Dose: 0.5 mg Documented By: MARY BETH Trazodone HCl (Trazodone Hcl 50 Mg Tablet) 50 mg PO BEDTIME MRX1 PRN PRN Reason: Insomnia Trimethoprim/Sulfamethoxazole (Sulfamethox/Trimeth 800/160 Tablet) 1 tab PO Q12H [facility] Last Admin: 11/05/23 05:14 Dose: 1 tab Documented By: MARY BETH Labs 11/02/23 10:48 11/02/23 10:48 Procedures Date of Service Date of Service: 11/05/23 Progress Note: A&P Assessment and plan (1) Cellulitis of left forearm: Status: Acute Assessment and Plan: S/P I and D yesterday I removed his packing dressings changed much improved continue daily dressing change with dry gauze Time Spent With Patient Time: Total time managing care of this patient today ____ minutes. Quality Stroke Does the patient have a stroke diagnosis?: No VTE Prior VTE?: No VTE Risk Level:: Medical - low VTE Device Contraindication: Treatment Not Indicated VTE Drug Contraindication: Treatment Not Indicated
[2023-11-05 18:00] VITALS: RESP 16
[2023-11-05] MEDS: risperiDONE 0.5 MG TABLET PO (20:42)
[2023-11-05] MEDS: Mirtazapine 15 MG TABLET PO (20:42)
[2023-11-06] MEDS: cephALEXin 500 MG CAPSULE PO ×5 (00:25→21:37)
[2023-11-06] MEDS: Sulfamethox/Trimeth 800/160 TABLET 1 TAB PO ×2 (06:52→18:04)
[2023-11-06 07:45] VITALS: BP 103/57; PULSE 67; RESP 16; TEMP 36.4; O2SAT 99
[2023-11-06] MEDS: methADONE HCl 20 MG/2 ML ORAL.CONC 95 MG PO (09:11)
[2023-11-06] MEDS: Ibuprofen 600 MG TABLET PO (10:19)
--- NOTE | 2023-11-06 12:16 | HO.WOUND ---
Wound Consult: Initial 33yr old? Male admitted to [facility] on 11/03/23 to the behavioral health unit - See progress notes and H&P for detailed history.? Wound consult placed for Left forearm I&D site.? Patient agreeable to assessment and photo documentation.? Left Forearm Etiology: Abscess site secondary to IV Injection site S/P I&D site Measurements: 2.2cm x 1cm x 1cm with undermining from 6-9 oclock max depth of 2cm Wound Bed: wound bed appears clean moist and red Drainage / Odor: No odor noted - when cleansed and palpated pocket of seropurulent drainage was expressed Edges: ? defined and unattached Dory wound: Firm Induration noted approximatly 3cm around - No Fluctuance or Warmth noted Pain: patient reports pain Goals of Treatment: ? Wound packing to allow for continued autolytic debridement and moist wound healing. When discussing wound dressing options patient reported refusal to packing. He reported he is worried it would be to painful and he felt it was not necessary. We discussed my role as an expert wound nurse and he reported understanding and reported he would consider to allow packing tomorrow. We discussed rotating injections sites and skin cleaning and concerns with his drug of use and its effects on tissue health. He reports understanding. We discussed the benefits of packing his current wound. Recommendations: 1. Left Forearm: Cleanse and irrigate with NS, pat dry. Apply skin prep to the periwound allow to dry. Lightly pack wound bed with 1/4 packing strip be sure to leave wick for easy removal. Cover with Foam dressing and Change Daily. Re-consult wound care Nurse for wound deterioration or wound changes.
[2023-11-06] MEDS: busPIRone HCl 5 MG TABLET PO ×2 (18:04→21:34)
[2023-11-06] MEDS: Acetaminophen 325 MG TABLET 650 MG PO (18:04)
--- NOTE | 2023-11-06 18:40 | HO.PSYCHPN ---
Subjective Subjective Date of Service: 11/06/23 Reason For Visit: SI, TRIED TO OVERDOSE Interim History: Met with patient; discussed with team; reviewed chart Patient reiterates that he is no longer suicidal at all and that he is doing overall much better. He explained how when his godmother , who raised him he felt very alone and upset and relapsed for a couple of weeks; he then in a bout of depression got suicidal. He is grateful that he is doing better. Discussed medication and patient said he used to be on BuSpar which he would like to get back on. He would like to remain on Risperdal which was also on before and was happy to hear that mirtazapine, started on admission is for both anxiety and depression and helps with insomnia. Reviewed history and denies any manic type episodes. Hopeful about discharge soon and placed a 3 day notice, saying he would like to get back to his life, back to work since he has a job. Discussed abscess on left forearm; patient said he refused the packing because he hates pain and knows he should a given it a chance. He said he will give it a try and let the wound nurse pack it tomorrow Mental Status Exam Mental Status Exam Narrative: Pt is alert and oriented; behavior is cooperative, friendly and calm; patient is not in distress; dressed in casual attire with unkempt hair but adequate hygiene; mood is described as good and affect congruent; eye contact appropriate; Speech is normal rate, volume and prosody and not pressured; no psychomotor agitation/retardation present; thought process is organized and goal directed; Thought content is on tx; otherwise pertinent to relevant topics and without any delusional content, paranoid ideations or grandiosity; denies any SI/HI. There is no evidence of perceptual disturbance. Patients insight and judgment appear intact. Diagnostics Vital Signs (24Hr): Vital Signs - 24 hr 11/06/23 07:45 Temperature 97.6 F Pulse Rate 67 Respiratory Rate 16 Blood Pressure 103/57 L Pulse Oximetry 99 Oxygen Delivery Method Room Air BMI result Body Mass Index 29.9 Labs 11/02/23 10:48 11/02/23 10:48 Medications Medications Current Medications Acetaminophen (Acetaminophen 325 Mg Tablet) 650 mg PO Q6H PRN PRN Reason: Headache/Pain Mild Scale (1-3) Last Admin: 11/06/23 18:04 Dose: 650 mg Al Hydroxide/Mg Hydroxide (Magnesium Hydrox/Alum Hydrox 30 Ml Oral.Susp) 30 ml PO Q6H PRN PRN Reason: Heartburn/Nausea Buspirone HCl (Buspirone Hcl 5 Mg Tablet) 5 mg PO BID [facility] Cephalexin HCl (Cephalexin 500 Mg Capsule) 500 mg PO Q6H [facility] Last Admin: 11/06/23 18:04 Dose: 500 mg Hydroxyzine HCl (Hydroxyzine Hcl 25 Mg Tablet) 25 mg PO Q6H PRN PRN Reason: Anxiety Last Admin: 11/05/23 10:05 Dose: 25 mg Ibuprofen (Ibuprofen 600 Mg Tablet) 600 mg PO Q6H PRN PRN Reason: Pain, Moderate(Pain Scale 4-6) Last Admin: 11/06/23 10:19 Dose: 600 mg Magnesium Hydroxide (Milk Of Magnesia 30 Ml Oral.Susp) 30 ml PO DAILY PRN PRN Reason: Constipation Methadone HCl (Methadone Hcl 20 Mg/2 Ml Oral.Conc) 95 mg PO DAILY [facility] Last Admin: 11/06/23 09:11 Dose: 95 mg Mirtazapine (Mirtazapine 15 Mg Tablet) 15 mg PO BEDTIME [facility] Last Admin: 11/05/23 20:42 Dose: 15 mg Nicotine (Nicotine 21 Mg Patch.Td24) 21 mg TRANSDERMA DAILY PRN PRN Reason: smoking cessation Nicotine Polacrilex (Nicotine Polacrilex 2 Mg Gum) 4 mg BUCCAL Q2H PRN PRN Reason: nicotine cravings Risperidone (Risperidone 0.5 Mg Tablet) 0.5 mg PO BEDTIME [facility] Last Admin: 11/05/23 20:42 Dose: 0.5 mg Trazodone HCl (Trazodone Hcl 50 Mg Tablet) 50 mg PO BEDTIME MRX1 PRN PRN Reason: Insomnia Trimethoprim/Sulfamethoxazole (Sulfamethox/Trimeth 800/160 Tablet) 1 tab PO Q12H [facility] Last Admin: 11/06/23 18:04 Dose: 1 tab Allergies Allergies Allergy/AdvReac Type Severity Reaction Status Date / Time shrimp [SHRIMP] Allergy Intermediate Swelling Verified 11/02/23 03:18 Assessment & Plan Assessment & Plan (1) Major depressive disorder, recurrent, unspecified: Status: Acute Code(s): F33.9 - Major depressive disorder, recurrent, unspecified (2) Polysubstance abuse: Status: Acute Code(s): F19.10 - Other psychoactive substance abuse, uncomplicated Plan Hospital course: on admission: start mirtazapine 15 mg qhs to help target sleep, appetite, anxiety restart risperidone at 0.5 mg qhs (was discharge on 1 mg in June) 11/05Patient reiterates that he is no longer suicidal at all and that he is doing overall much better. He explained how when his godmother , who raised him he felt very alone and upset and relapsed for a couple of weeks; he then in a bout of depression got suicidal. He is grateful that he is doing better. Discussed medication and patient said he used to be on BuSpar which he would like to get back on. He would like to remain on Risperdal which was also on before and was happy to hear that mirtazapine, started on admission is for both anxiety and depression and helps with insomnia. Reviewed history and denies any manic type episodes. Hopeful about discharge soon and placed a 3 day notice, saying he would like to get back to his life, back to work since he has a job. Discussed abscess on left forearm; patient said he refused the packing because he hates pain and knows he should a given it a chance. He said he will give it a try and let the wound nurse pack it tomorrow -although patient wants to discharge he said he very much wants help setting up aftercare, with a prescriber and a therapist Patient educated on: diagnosis, medication risk/benefits, substance abuse and medical condition Informed Consent: understands Reason for continued inpatient stay Substantial Risk for: stable for discharge Time Spent With Patient Time: Total time managing care of this patient today ____ minutes.
[2023-11-06 21:30] VITALS: BP 126/78; PULSE 75; TEMP 36.7
[2023-11-06] MEDS: Mirtazapine 15 MG TABLET PO (21:34)
[2023-11-06] MEDS: risperiDONE 0.5 MG TABLET PO (21:34)
[2023-11-06] MEDS: traZODone HCL 50 MG TABLET PO (21:36)
[2023-11-07] MEDS: cephALEXin 500 MG CAPSULE PO ×4 (06:15→21:21)
[2023-11-07] MEDS: Sulfamethox/Trimeth 800/160 TABLET 1 TAB PO ×2 (06:15→21:12)
[2023-11-07 08:25] VITALS: BP 108/66; PULSE 59; RESP 16; TEMP 36.4; O2SAT 98
[2023-11-07] MEDS: busPIRone HCl 5 MG TABLET PO ×2 (09:24→21:13)
[2023-11-07] MEDS: methADONE HCl 20 MG/2 ML ORAL.CONC 95 MG PO (09:24)
--- NOTE | 2023-11-07 10:09 | P.PNPSI_ITS ---
Subjective Subjective Date of Service: 11/07/23 Reason For Visit: SI, TRIED TO OVERDOSE Interim History: Met with patient; discussed with team Patient remains in good mood; feels ready for discharge tomorrow. Grateful for medication which he says continues to help. Denies any depression, SI and is future oriented saying he is looking forward to getting back to work and sobriety. Patient again refused packing for abscess; agrees however to continue with antibiotics until course is completed. Although patient was thoroughly educated on wound care and importance of treatment, keeping it covered He remains Craig about treatment and is ambivalent about whether not he will follow-up Mental Status Exam Mental Status Exam Narrative: Pt is alert and oriented; behavior is cooperative, friendly and calm; patient is not in distress; dressed in casual attire with unkempt hair but adequate hygiene; mood is described as good and affect congruent; eye contact appropriate; Speech is normal rate, volume and prosody and not pressured; no psychomotor agitation/retardation present; thought process is organized and goal directed; Thought content is on tx; otherwise pertinent to relevant topics and without any delusional content, paranoid ideations or grandiosity; denies any SI/HI. There is no evidence of perceptual disturbance. Patients insight and judgment fair Diagnostics Vital Signs (24Hr): Vital Signs - 24 hr 11/06/23 21:30 11/07/23 08:25 Temperature 98.0 F 97.5 F Pulse Rate 75 59 Respiratory Rate 16 Blood Pressure 126/78 108/66 Pulse Oximetry 98 Oxygen Delivery Method Room Air BMI result Body Mass Index 29.9 Labs 11/02/23 10:48 11/02/23 10:48 Medications Medications Current Medications Acetaminophen (Acetaminophen 325 Mg Tablet) 650 mg PO Q6H PRN PRN Reason: Headache/Pain Mild Scale (1-3) Last Admin: 11/06/23 18:04 Dose: 650 mg Al Hydroxide/Mg Hydroxide (Magnesium Hydrox/Alum Hydrox 30 Ml Oral.Susp) 30 ml PO Q6H PRN PRN Reason: Heartburn/Nausea Buspirone HCl (Buspirone Hcl 5 Mg Tablet) 5 mg PO BID [facility] Last Admin: 11/07/23 09:24 Dose: 5 mg Cephalexin HCl (Cephalexin 500 Mg Capsule) 500 mg PO Q6H [facility] Last Admin: 11/07/23 06:15 Dose: 500 mg Hydroxyzine HCl (Hydroxyzine Hcl 25 Mg Tablet) 25 mg PO Q6H PRN PRN Reason: Anxiety Last Admin: 11/05/23 10:05 Dose: 25 mg Ibuprofen (Ibuprofen 600 Mg Tablet) 600 mg PO Q6H PRN PRN Reason: Pain, Moderate(Pain Scale 4-6) Last Admin: 11/06/23 10:19 Dose: 600 mg Magnesium Hydroxide (Milk Of Magnesia 30 Ml Oral.Susp) 30 ml PO DAILY PRN PRN Reason: Constipation Methadone HCl (Methadone Hcl 20 Mg/2 Ml Oral.Conc) 95 mg PO DAILY [facility] Last Admin: 11/07/23 09:24 Dose: 95 mg Mirtazapine (Mirtazapine 15 Mg Tablet) 15 mg PO BEDTIME [facility] Last Admin: 11/06/23 21:34 Dose: 15 mg Nicotine (Nicotine 21 Mg Patch.Td24) 21 mg TRANSDERMA DAILY PRN PRN Reason: smoking cessation Nicotine Polacrilex (Nicotine Polacrilex 2 Mg Gum) 4 mg BUCCAL Q2H PRN PRN Reason: nicotine cravings Risperidone (Risperidone 0.5 Mg Tablet) 0.5 mg PO BEDTIME [facility] Last Admin: 11/06/23 21:34 Dose: 0.5 mg Trazodone HCl (Trazodone Hcl 50 Mg Tablet) 50 mg PO BEDTIME MRX1 PRN PRN Reason: Insomnia Last Admin: 11/06/23 21:36 Dose: 50 mg Trimethoprim/Sulfamethoxazole (Sulfamethox/Trimeth 800/160 Tablet) 1 tab PO Q12H [facility] Last Admin: 11/07/23 06:15 Dose: 1 tab Allergies Allergies Allergy/AdvReac Type Severity Reaction Status Date / Time shrimp [SHRIMP] Allergy Intermediate Swelling Verified 11/02/23 03:18 Assessment & Plan Assessment & Plan (1) Polysubstance abuse: Status: Acute Code(s): F19.10 - Other psychoactive substance abuse, uncomplicated (2) Major depressive disorder, recurrent, unspecified: Status: Acute Code(s): F33.9 - Major depressive disorder, recurrent, unspecified Plan Hospital course: on admission: start mirtazapine 15 mg qhs to help target sleep, appetite, anxiety restart risperidone at 0.5 mg qhs (was discharge on 1 mg in June) 11/05Patient reiterates that he is no longer suicidal at all and that he is doing overall much better. He explained how when his godmother , who raised him he felt very alone and upset and relapsed for a couple of weeks; he then in a bout of depression got suicidal. He is grateful that he is doing better. Discussed medication and patient said he used to be on BuSpar which he would like to get back on. He would like to remain on Risperdal which was also on before and was happy to hear that mirtazapine, started on admission is for both anxiety and depression and helps with insomnia. Reviewed history and denies any manic type episodes. Hopeful about discharge soon and placed a 3 day notice, saying he would like to get back to his life, back to work since he has a job. Discussed abscess on left forearm; patient said he refused the packing because he hates pain and knows he should a given it a chance. He said he will give it a try and let the wound nurse pack it tomorrow -although patient wants to discharge he said he very much wants help setting up aftercare, with a prescriber and a therapist 11/06 Patient remains in good mood; feels ready for discharge tomorrow. Grateful for medication which he says continues to help. Denies any depression, SI and is future oriented saying he is looking forward to getting back to work and sobriety. Patient again refused packing for abscess; agrees however to continue with antibiotics until course is completed. Although patient was thoroughly educated on wound care and importance of treatment, keeping it covered He remains Craig about treatment and is ambivalent about whether not he will follow-up Patient's 3 day notice is coming due. He is remained in good behavioral and impulse control throughout his time in the unit. Depression and SI fully resolved. Patient is future oriented and on medications that he is found helpful in the past. He is also set up with aftercare appointments. Patient is eager to get back home and get back to work. He has not in imminent risk for harm to self or others and request for discharge honored Patient educated on: diagnosis, medication risk/benefits and medical condition Informed Consent: understands Reason for continued inpatient stay Substantial Risk for: stable for discharge Time Spent With Patient Time: Total time managing care of this patient today ____ minutes.
--- NOTE | 2023-11-07 14:23 | HO.WOUND ---
Wound Consult: Follow up 33yr old? Male admitted to [facility] on 11/03/23 to the behavioral health unit - See progress notes and H&P for detailed history.? Wound consult placed for Left forearm I&D site.? Discussed with direct care nurse patient refused packing at todays assessment, will defer follow up assessment to tomorrow. Given patients packing refusal will switch dressing to Durafiber AG and Foam dressing in an effort to drawn moisture away from wound bed even if patient does not allow for significant packing. Left Forearm Etiology: Abscess site secondary to IV Injection site S/P I&D site Goals of Treatment: ? Wound packing to allow for continued autolytic debridement and moist wound healing. Recommendations: 1. Left Forearm: Cleanse and irrigate with NS, pat dry. Apply skin prep to the periwound allow to dry. Lightly pack wound bed cut Durafiber AG be sure to leave wick for easy removal. Cover with Foam dressing and Change everyother day and PRN. Re-consult wound care Nurse for wound deterioration or wound changes.
[2023-11-07] MEDS: hydrOXYzine HCL 25 MG TABLET PO (17:16)
[2023-11-07] MEDS: Nicotine Polacrilex 2 MG GUM 4 MG BUCCAL (17:16)
[2023-11-07 20:00] VITALS: BP 116/79; PULSE 81; RESP 16; TEMP 36.8; O2SAT 99
[2023-11-07] MEDS: Mirtazapine 15 MG TABLET PO (21:12)
[2023-11-07] MEDS: risperiDONE 0.5 MG TABLET PO (21:12)
[2023-11-07] MEDS: traZODone HCL 50 MG TABLET PO (21:12)
[2023-11-08] MEDS: cephALEXin 500 MG CAPSULE PO ×2 (06:24→10:09)
[2023-11-08] MEDS: Sulfamethox/Trimeth 800/160 TABLET 1 TAB PO (06:24)
[2023-11-08 07:00] VITALS: BMI 26.7
[2023-11-08] MEDS: methADONE HCl 20 MG/2 ML ORAL.CONC 95 MG PO (08:44)
[2023-11-08] MEDS: busPIRone HCl 5 MG TABLET PO (08:44)
[2023-11-08 08:59] VITALS: BP 109/60; PULSE 58; RESP 18; TEMP 36.9; O2SAT 98
--- NOTE | 2023-11-08 10:05 | P.DS_ITS ---
DS: Providers Provider Date of Service: 11/08/23 Date of admission: 11/03/23 15:24 Date of discharge: 11/08/23 Primary care physician: None Physician Attending physician on admission: Leda Danielle Consults: 11/03/23 18:51 Consult to Hospitalist Routine Comment: Consulting Provider: Hospitalist Reason For Exam: abscess eval 11/04/23 13:02 Consult to General Surgery Routine Consulting Provider: [facility] [facility] General Surgeons Reason for consultation: abscess eval/I&D 11/05/23 16:07 Consult to Wound Care Routine Reason for consultation: nursing unsure how to care for wound appropriately- re packing wound Attending physician on discharge: Gonzalo Regalado DS: Diagnosis Discharge Diagnosis (1) Polysubstance abuse: Status: Acute (2) Major depressive disorder, recurrent, unspecified: Status: Acute DS: Medications Discharge Medications Home Medications: Home Medications ?Medication ?Instructions ?Recorded ?Confirmed methadone 10 mg/mL oral concentrate 95 mg PO DAILY 11/16/22 11/02/23 Previous Rx's ?Medication ?Instructions ?Recorded buspirone 5 mg tablet 5 mg PO BID 30 days #60 tabs 11/07/23 hydroxyzine HCl 25 mg tablet 25 mg PO Q6H PRN Anxiety 30 days 11/07/23 #90 tabs mirtazapine 15 mg tablet 15 mg PO BEDTIME 30 days #30 tabs 11/07/23 nicotine (polacrilex) 4 mg gum 4 mg buccal Q2H 30 days #100 ea 11/07/23 risperidone 0.5 mg tablet 0.5 mg PO BEDTIME 30 days #30 tabs 11/07/23 trazodone 50 mg tablet 50 mg PO BEDTIME PRN Insomnia 30 11/07/23 days #30 tabs cephalexin 500 mg capsule 500 mg PO QID 2 days #8 caps 11/08/23 sulfamethoxazole 800 1 tab PO BID 2 days #4 tabs 11/08/23 mg-trimethoprim 160 mg tablet Mental Status Exam Mental Status Exam Narrative: Pt is alert and oriented; behavior is cooperative, friendly and calm; patient is not in distress; dressed in casual attire with unkempt hair but adequate hygiene; mood is described as good and affect congruent, bright, calm; eye contact appropriate; Speech is normal rate, volume and prosody and not pressured; no psychomotor agitation/retardation present; thought process is organized and goal directed; Thought content is on tx; otherwise pertinent to relevant topics and without any delusional content, paranoid ideations or grandiosity; denies any SI/HI. There is no evidence of perceptual disturbance. Patients insight and judgment fair Data Data Completed and Pending Completed studies during hospitalization [Text1]: 11/02/23 11/02/23 11/02/23 03:44 10:48 15:26 WBC Cancelled RBC Cancelled Hgb Cancelled Hct Cancelled MCV Cancelled MCH Cancelled MCHC Cancelled RDW Cancelled Plt Count Cancelled MPV Cancelled Immature Gran % (Auto) Cancelled Neut % (Auto) Cancelled Lymph % (Auto) Cancelled Winn % (Auto) Cancelled Eos % (Auto) Cancelled Baso % (Auto) Cancelled Lymph # (Auto) Cancelled Winn # (Auto) Cancelled Eos # (Auto) Cancelled Baso # (Auto) Cancelled Abs Immat Gran (auto) Cancelled Absolute Neuts (auto) Cancelled Absolute Nucleated RBC Cancelled Nucleated RBC % (auto) Cancelled Sodium 139 Potassium 4.1 Chloride 108 Carbon Dioxide 23 Anion Gap 12 BUN 15 Creatinine 0.69 Estim Creat Clear Calc 157.6 Estimated GFR > 60 Random Glucose 100 Fasting Glucose Calcium 8.9 Total Bilirubin 0.2 AST 30 ALT 20 Alkaline Phosphatase 86 Total Protein 7.6 Albumin 3.4 L Triglycerides Cholesterol LDL Cholesterol, Calc HDL Cholesterol Urine Color Yellow Urine Appearance Clear Urine pH 6.0 Ur Specific Shoshoni >= 1.030 H Urine Protein Negative Urine Glucose (UA) Negative Urine Ketones Trace Urine Blood Trace Urine Nitrite Negative Ur Leukocyte Esterase Negative Urine RBC 0-2 Urine WBC 0-5 Ur Squamous Epith Cells 0-2 Urine Bacteria None Seen Hyaline Casts 0-2 Salicylates < 5.0 L Urine Opiates Screen POSITIVE H Urine Fentanyl Screen POSITIVE H Acetaminophen 4 Ur Barbiturates Screen Not Detected Ur Phencyclidine Scrn Not Detected Ur Amphetamines Screen Not Detected U Benzodiazepines Scrn Not Detected Urine Cocaine Screen POSITIVE H U Marijuana (THC) Screen Not Detected Ethyl Alcohol < 10 COVID-19 ([facility]) Negative COVID-19 Clin Com See Note 11/04/23 09:53 WBC RBC Hgb Hct MCV MCH MCHC RDW Plt Count MPV Immature Gran % (Auto) Neut % (Auto) Lymph % (Auto) Winn % (Auto) Eos % (Auto) Baso % (Auto) Lymph # (Auto) Winn # (Auto) Eos # (Auto) Baso # (Auto) Abs Immat Gran (auto) Absolute Neuts (auto) Absolute Nucleated RBC Nucleated RBC % (auto) Sodium Cancelled Potassium Cancelled Chloride Cancelled Carbon Dioxide Cancelled Anion Gap Cancelled BUN Cancelled Creatinine Cancelled Estim Creat Clear Calc Cancelled Estimated GFR Cancelled Random Glucose Fasting Glucose Cancelled Calcium Cancelled Total Bilirubin Cancelled AST Cancelled ALT Cancelled Alkaline Phosphatase Cancelled Total Protein Cancelled Albumin Cancelled Triglycerides Cancelled Cholesterol Cancelled LDL Cholesterol, Calc Cancelled HDL Cholesterol Cancelled Urine Color Urine Appearance Urine pH Ur Specific Shoshoni Urine Protein Urine Glucose (UA) Urine Ketones Urine Blood Urine Nitrite Ur Leukocyte Esterase Urine RBC Urine WBC Ur Squamous Epith Cells Urine Bacteria Hyaline Casts Salicylates Urine Opiates Screen Urine Fentanyl Screen Acetaminophen Ur Barbiturates Screen Ur Phencyclidine Scrn Ur Amphetamines Screen U Benzodiazepines Scrn Urine Cocaine Screen U Marijuana (THC) Screen Ethyl Alcohol COVID-19 ([facility]) COVID-19 Clin Com DS: Summary Hospital Course Hospital Course: HPI: 33 yo male with history of polysubstance dependence including IV heroin addiction who is known to [facility] and was last admitted to for SI with plan to overdose on heroin/cocaine with intent to , after detoxing upon arrival to ER. He is here with similar presentation, (per ED note, patient presented to ED stating SI with plan to overdose) however patient denies having made any suicidal statements to the ED, denies any recent SI or attempts and says he simply came to the ED to be seen for a large abscess on his left forearm which is noted to be riddled with track ramirez. His urine drug screen was positive for opiates, fentanyl and cocaine, and his methadone dose was confirmed at 95 mg daily. He currently presents as bright upon contact but only superficially cooperative. He refused care in the ED to have abscess lanced. He initially states he does not belong on the unit because he is not suicidal and thought that having the abscess treated would prolong his stay. However he says he has been on the unit before and knows the best way to get discharged is to just cooperate, which he says he plans to do. He denies any depressive symptoms and says despite ongoing substance issues he has managed to hold down employment and feels his presentation this time is not the same as previous admissions. Aside from the abscess, he states he is otherwise feeling fine. Denies any illness or fever or cough. On inspecting the abscess, he notes that it is quite tender and uncomfortable and will consider allowing it to be lanced if it doesn't spontaneously drain soon. He has been off medications he says but is agreeable with being restarted on the medications he was on during his last admission especially if this hastens his stay and helps with sleep. He denies any SI, HI, AH, VH. He is behavioral control, does not appears internally preoccupied and does not present with symptoms/signs of rosy or psychosis. Past Psychiatric History: IP: 8 EATS:3 Detox: 7 CSS:4 Hospital course: on admission, pt said he was not suicidal. He was started mirtazapine 15 mg qhs to help target sleep, appetite, anxiety and restarted risperidone at 0.5 mg qhs Patient reported depression resolved and mood had improved. He said he just needed to mourn the loss of his loved 1. Patient is grateful to be sober again. 11/05 Throughout subsequent days, Patient reiterates that he is no longer suicidal at all and that he is doing overall much better. He explained how when his godmother , who raised him he felt very alone and upset and relapsed for a couple of weeks; he then in a bout of depression got suicidal. He is grateful that he is doing better. Discussed medication and patient said he used to be on BuSpar which he would like to get back on. He would like to remain on Risperdal which was also on before and was happy to hear that mirtazapine, started on admission is for both anxiety and depression and helps with insomnia. Reviewed history and denies any manic type episodes. Hopeful about discharge soon and placed a 3 day notice, saying he would like to get back to his life, back to work since he has a job. Discussed abscess on left forearm; patient said he refused the packing because he hates pain and knows he should a given it a chance. He said he will give it a try and let the wound nurse pack it tomorrow -although patient wants to discharge he said he very much wants help setting up aftercare, with a prescriber and a therapist 11/06 Patient remains in good mood; feels ready for discharge tomorrow. Grateful for medication which he says continues to help. Denies any depression, SI and is future oriented saying he is looking forward to getting back to work and sobriety. Patient again refused packing for abscess; agrees however to continue with antibiotics until course is completed. Patient was thoroughly educated on wound care by both wound nurse and automobile and property underwriter and included the importance of treatment, keeping it covered and risks of not doing; he understood though remained Spencer about treatment and is ambivalent about whether not he will follow-up On day of discharge, pt remained in good behavioral and impulse control as he had throughout his time in the unit. Patient's 3 day notice is due. He reports Depression and SI fully resolved and is future oriented and on medications that he is found helpful in the past. He is also set up with aftercare appointments. Patient is eager to get back home and get back to work. While he remains at risk for relapse and decompensation, this is a chronic issue for him, 1 which will not resolve with longer stay on inpatient unit. He has not in imminent risk for harm to self or others, appropriate to return to the community for treatment and his request for discharge honored -automobile and property underwriter discussed case with wound nurse who thinks that wound is healing well (she gave him supplies, strongly encouraged follow up) -automobile and property underwriter discussed case with ID who recommend 7 days total for both antibiotics Time spent discussing smoking cessation with patient: 3 to 10 minutes Status at Discharge Functional status at discharge: independent ambulation Overall status at discharge: patient is back to baseline Time Spent with Patient Time attestation: Total time managing care of this patient today _40___ minutes. Time spent: Greater than 30 minutes Discharge Plan Discharge Anticipated Discharge Date/Time: 11/08/23 11:30 Patient Disposition: Home, Self-Care Discharge Diagnosis: MDD, recurrent, severe without psychotic features, in full remission Referrals: [facility] : Therapy [Other] - 11/14/23 9:00 am (Initial Diagnostic evaluation for therapy Appointment is in person at [facility] ) [facility] : Psychiatry [Other] - 12/13/23 11:00 am (Initial Psychiatric evaluation for psychiatric medication management Appointment is by telehealth. ) [facility] : Psychiatry [Other] - 01/08/24 10:00 am (Medication management appointment Appointment is by tele-health ) Physician,None [Primary Care Provider] - 1 Week Discharge Medications: New nicotine (polacrilex) 4 mg gum 4 mg buccal Q2H 30 Days Qty: 100 0RF buspirone 5 mg Tablet 5 mg PO BID 30 Days Qty: 60 0RF hydroxyzine HCl 25 mg Tablet 25 mg PO Q6H PRN (Reason: Anxiety) 30 Days Qty: 90 0RF mirtazapine 15 mg Tablet 15 mg PO BEDTIME 30 Days Qty: 30 0RF risperidone 0.5 mg Tablet 0.5 mg PO BEDTIME 30 Days Qty: 30 0RF trazodone 50 mg Tablet 50 mg PO BEDTIME PRN (Reason: Insomnia) 30 Days Qty: 30 0RF cephalexin 500 mg Capsule 500 mg PO QID 2 Days Qty: 8 0RF sulfamethoxazole-trimethoprim 800-160 mg Tablet 1 tab PO BID 2 Days Qty: 4 0RF Continued methadone 10 mg/mL Concentrate 95 mg PO DAILY Discharge Orders: Discharge Order (Routine); Ordered 11/08/23 Ordered By: Gonzalo Regalado Diet: Regular diet Activity on Discharge: As tolerated Stand Alone Forms: Patient Portal Discharge page, Community Support Print Language: Kinyarwanda Care Plan Goals: Maintain mood and safe behaviors Take medications as prescribed Continue to pursue sobriety Practice coping skills Continue with outpatient providers and reach out to them as needed Health Concerns: Mood stability and behaviors Sobriety Abscess left forearm Plan of Treatment: Follow up with your PCP, psychiatric provider and other outpatient providers regarding above concerns Take medications as prescribed Assessment: Risk assessment at time of discharge:? Patient was interviewed prior to discharge and found to be fully oriented and without any SI or HI. Patient has improved insight and judgment and wants to continue treatment. Patient is not in imminent risk of harm to self or others and has a safety plan that includes presenting to the closest ER or calling 911 if feeling unsafe.? Patient has been observed closely by nursing and unit staff throughout admission; patient has not engaged in any behaviors that suggest dangerousness to self or others and has demonstrated appropriate behaviors and impulse control Discharge Date/Time: 11/08/23 11:51
[2023-11-08] MEDS: hydrOXYzine HCL 25 MG TABLET PO (10:09)
--- NOTE | 2023-11-08 11:05 | HO.WOUND ---
Wound Consult: Follow up 33yr old? Male admitted to [facility] [place] 11/03/23 to the behavioral health unit - See progress notes and H&P for detailed history.? Wound consult placed for Left forearm I&D site.? Follow up prior to D/C to home. Of note patient was given topical wound care supplies and [facility] wound clinic printout and information. I recommend Durafiber dressing for moisture management and antimibcrobial properties. At todays assessment slight erythema noted, no active s/s of infection and no packable area noted when probed with Q-tip. Discussed with patient follow up care and continued wound assessment - he refused outpt wound clinic and when discussed [facility] did not refuse but was noncommittal to follow up. I educated him on the importance of keep a dressing in place and keeping clean and moist wound healing - he reports understanding. Left Forearm Todays assessment 11/08/23 Etiology: Abscess site secondary to IV Injection site S/P I&D site Measurements: 2cm x 0.8cm x 0.3cm No undermining noted Wound Bed: wound bed appears clean moist and red scattered adherent yellow slough noted Drainage / Odor: No odor noted - No drainage noted Edges: ? defined and attached Dory wound: Firm Induration noted approximately 3cm around - No Fluctuance or Warmth noted Slight pink erythema noted Pain: patient denies pain and tenderness Goals of Treatment: ?Durafiber to allow for continued autolytic debridement and moist wound healing. Recommendations: 1. Left Forearm: Cleanse and irrigate with NS, pat dry. Apply skin prep to the periwound allow to dry. Place cut to size Durafiber AG to cover wound bed. Cover with dry gauze and Change every other day and PRN. Re-consult wound care Nurse for wound deterioration or wound changes.
== END 2023-11-08 11:51 | disposition home or self-care (01) | DRG 751 ==
LOC: HO.ED 08:37 → HO.PM5 11-03 15:44
PROVIDERS: Emergency Medicine; Admitting Provider Psychiatry & Neurology Psychiatry; Emergency Provider Emergency Medicine Emergency Medical Services; Visit Provider Psychiatry & Neurology Psychiatry
DX: F33.2 Major depressive disorder, recurrent severe without psychotic features (principal); R45.851 Suicidal ideations; F11.20 Opioid dependence, uncomplicated; L03.114 Cellulitis of left upper limb; F19.20 Other psychoactive substance dependence, uncomplicated; L02.414 Cutaneous abscess of left upper limb; F17.210 Nicotine dependence, cigarettes, uncomplicated; Z71.6 Tobacco abuse counseling; Z20.822 Contact with and (suspected) exposure to COVID-19; Z79.899 Other long term (current) drug therapy
CPT/HCPCS: 36415; 80053; 80061; 80143; 80179; 80307; 81001; 85025; 87635; 93005; 99285; S9485

== ENCOUNTER → 2023-11-02 | Outpatient (BNV) | payer MEDICAID, SELFPAY | PROVIDERS: Admitting Provider Psychiatry & Neurology Psychiatry; Emergency Provider Emergency Medicine Emergency Medical Services; Visit Provider Internal Medicine | DX: R00.1 Bradycardia, unspecified (principal) | CPT/HCPCS: 93010 ==

== ENCOUNTER → 2023-11-03 15:24 | Outpatient (BNV) | payer OTHER, SELFPAY | PROVIDERS: Admitting Provider Psychiatry & Neurology Psychiatry; Emergency Provider Emergency Medicine Emergency Medical Services; Visit Provider Psychiatry & Neurology Psychiatry | DX: F33.2 Major depressive disorder, recurrent severe without psychotic features (principal); F19.10 Other psychoactive substance abuse, uncomplicated | CPT/HCPCS: 99231; 99232 ==

== ENCOUNTER → 2023-11-03 15:24 | Outpatient (BNV) | payer MEDICAID, SELFPAY | PROVIDERS: Admitting Provider Psychiatry & Neurology Psychiatry; Emergency Provider Emergency Medicine Emergency Medical Services; Visit Provider Surgery | DX: L03.114 Cellulitis of left upper limb (principal) | CPT/HCPCS: 10060; 99024; 99222 ==

== ENCOUNTER 2024-02-23 22:02 | Emergency (ER) | payer MEDICAID, SELFPAY ==
[2024-02-23 22:23] VITALS: BP 115/78; PULSE 92; RESP 16; TEMP 36.7; O2SAT 99; BMI 26.6
[2024-02-24 00:43] VITALS: BP 101/54; PULSE 65; RESP 12; TEMP 36.4; O2SAT 97
--- NOTE | 2024-02-24 00:45 | PC.NURSE ---
Pt arousable to verbal stimuli, Pt reports left eye pain and unable to open it. Pt believes he has a bug in his eye that is still in there. Pt also reports he used dope and cocaine about an hour before coming to the ED. Plan of care ongoing.
--- NOTE | 2024-02-24 01:20 | ED_ITS ---
HPI - General Adult General Chief complaint: Eye Problems Stated complaint: foreign object in eye Time Seen by Provider: 02/24/24 01:20 History of Present Illness ED Provider: Chandler PALMER narrative: Patient is a 34-year-old male who says that he was using IV drugs to get high tonight when he felt that there was something in his eye. He thought that it might be a bug. He says that he rubbed his eye a great deal to try to get foreign body out of his eye. He developed a lot of swelling and purulence and finally had an ambulance bring him to the hospital for this problem. He says that he used both heroin and cocaine about an hour prior to arrival. Related Data Home Medications ?Medication ?Instructions ?Recorded ?Confirmed methadone 10 mg/mL oral concentrate 95 mg PO DAILY 11/16/22 11/02/23 Previous Rx's ?Medication ?Instructions ?Recorded buspirone 5 mg tablet 5 mg PO BID 30 days #60 tabs 11/07/23 hydroxyzine HCl 25 mg tablet 25 mg PO Q6H PRN Anxiety 30 days 11/07/23 #90 tabs mirtazapine 15 mg tablet 15 mg PO BEDTIME 30 days #30 tabs 11/07/23 nicotine (polacrilex) 4 mg gum 4 mg buccal Q2H 30 days #100 ea 11/07/23 risperidone 0.5 mg tablet 0.5 mg PO BEDTIME 30 days #30 tabs 11/07/23 trazodone 50 mg tablet 50 mg PO BEDTIME PRN Insomnia 30 11/07/23 days #30 tabs cephalexin 500 mg capsule 500 mg PO QID 2 days #8 caps 11/08/23 sulfamethoxazole 800 1 tab PO BID 2 days #4 tabs 11/08/23 mg-trimethoprim 160 mg tablet erythromycin 5 mg/gram (0.5 %) eye 0.5 inch ophthalmic (eye) QID #3.5 02/24/24 ointment grams ibuprofen 600 mg tablet 600 mg PO Q6H PRN pain #14 tabs 02/24/24 Allergies Allergy/AdvReac Type Severity Reaction Status Date / Time shrimp [SHRIMP] Allergy Intermediate Swelling Verified 02/23/24 22:27 Review of Systems Review of Systems: Yes all other systems are reviewed and are negative PMFSH Past Medical History Medical History Cocaine use disorder Opioid use disorder, severe, dependence Severe recurrent major depression w/psychotic features, mood-congruent IVDU (intravenous drug user) Asthma Social History Social History Household Members: Unknown / Unable to assess Household Members Other:: lives in a senior care Housing: Apartment Do you presently have visiting nurse or other home services: No Unable to assess alcohol history related to: Refusing to respond Alcohol intake: current Alcohol intake frequency: does not drink Alcohol type: beer Patient Tobacco Use Status: Current everyday Tobacco user Tobacco use type: Cigarette Cigarettes Per Day: 4 Years Smoked: unknown e-Cigarette/Vaping Use: Currently Using Use of substances other than those prescribed or required for medical reasons: Yes Substance Use Type: Crack/Cocaine and Heroin Advance Directives: No Advance Directives Information Provided: No Do you have a plan to hurt others: No Plan service: No Current occupational status: unemployed Sexual orientation: Straight/Heterosexual Physical Exam ED Vital Signs: Vital Signs - 24 hr 02/23/24 22:23 02/24/24 00:43 02/24/24 06:44 Temperature 98.1 F 97.6 F 97.8 F Pulse Rate 92 65 52 Respiratory Rate 16 12 16 Blood Pressure 115/78 101/54 L 105/64 Pulse Oximetry 99 97 100 Oxygen Delivery Method Room Air Room Air 02/24/24 08:05 Temperature 97.0 F Pulse Rate 50 Respiratory Rate 20 Blood Pressure 100/53 L Pulse Oximetry 97 Oxygen Delivery Method Room Air BMI result Body Mass Index 26.6 Const Other: The patient was asleep. He was arousable with tactile stimuli. He has some obvious soft tissue swelling to the eyelids of the left eye with a lot of purulence to the eyelashes. HENMT Other: There was soft tissue swelling of the lids of the left eye. Otherwise the appearance of the face was unremarkable. Mucous membranes moist. Airway clear. Eyes Other: The lids of the left eye were swollen and there was a lot of purulent discharge at the left eye. The right eye and eyelids were normal. With some difficulty I was able to get the left eye open and instill tetracaine drops. The patient had some relief. At that point it was apparent that pupils were round and equal. There was injection to the conjunctiva of the left eye. Slit-lamp exam revealed a small dark foreign body on the cornea at about the 3 o'clock position about care home from the center of the cornea to the edge of the cornea. Neck Other: Moving his neck easily Resp Effort & Inspection: normal respiratory effort Auscultation: clear to auscultation bilaterally Cardio Rate: regular rate Rhythm: regular rhythm Heart sounds: S1 normal heart sound present and S2 normal heart sound present GI Other: Abdomen is soft and nontender Skin Other: Skin is dry and unremarkable Neuro Other: The patient seemed drowsy but arousable. When aroused he was alert and appropriate with a reasonably clear mental status. Cranial nerves are intact. He moves his extremities symmetrically and seems grossly neurologically intact. Extrem Other: Extremities are unremarkable Medications Administered Discontinued Medications Generic Name Dose Route Start Last Admin Trade Name Freq PRN Reason Stop Dose Admin Acetaminophen 975 mg 02/24/24 02:34 02/24/24 02:38 Acetaminophen 325 Mg Tablet PO 02/24/24 02:35 975 mg ONCE ONE Administration Acetaminophen 975 mg 02/24/24 08:03 02/24/24 08:17 Acetaminophen 325 Mg Tablet PO 02/24/24 08:04 975 mg ONCE ONE Administration Erythromycin 1 cm 02/24/24 02:23 02/24/24 02:32 Erythromycin Base 0.5% Oph Oin 1 Gm Tube EYE-LEFT 02/24/24 02:24 1 cm ONCE ONE Administration Erythromycin 1 cm 02/24/24 07:39 02/24/24 07:52 Erythromycin Base 0.5% Oph Oin 1 Gm Tube EYE-LEFT 02/24/24 07:40 1 cm ONCE ONE Administration Ibuprofen 600 mg 02/24/24 02:34 02/24/24 02:38 Ibuprofen 600 Mg Tablet PO 02/24/24 02:35 600 mg ONCE ONE Administration Ibuprofen 600 mg 02/24/24 08:03 02/24/24 08:18 Ibuprofen 600 Mg Tablet PO 02/24/24 08:04 600 mg ONCE ONE Administration Tetracaine HCl 3 drop 02/24/24 01:45 02/24/24 02:32 Tetracaine Hcl/Pf 0.5% Oph Nataly 4 Ml Drops EYE-LEFT 02/24/24 01:46 3 drop ONCE ONE Administration Medical Decision Making Medical Decision Making MDM Narrative: The patient is a 34-year-old male who presents with left eye discomfort, left eyelid swelling, and left eyelid purulence. On exam with a slit lamp the patient seemed to have a very small corneal foreign body at the 3 o'clock position about care home between the center of the cornea and the edge of the cornea. Prior to slit-lamp examination the patient has been given tetracaine eyedrops for comfort relief. After the slit-lamp revealed the presence of a small foreign body on the cornea I was able to remove the foreign body using a cotton swab. I then re-examined the eye by slit lamp using fluorescein staining. The foreign body was removed with no residual foreign body. There was no rust ring (I do not think the foreign body was metallic). There was a smudge of fluorescein uptake in the area where the foreign body has been. There was a negative Jenni sign. The patient was given erythromycin ointment. The patient was kept in the emergency department until the morning. He slept soundly in deeply. He is due for methadone dosing this morning. [facility] [place] to confirm his methadone dose. We were only able to reach an answering service and so could not confirm the dose. The patient will therefore be discharged to go to the clinic this morning in person. He will be given a prescription for erythromycin ointment which he should apply every 6 hours. He is given the name and number of Dr. Guerrier of Ophthalmology and should call the office tomorrow morning for a recheck by an network infrastructure architect. Ultimately the patient was able to call for a ride to be taken to his methadone clinic. Discharge Plan Discharge Clinical Impression: Acute foreign body of cornea, Conjunctivitis Patient Disposition: Home, Self-Care Additional Instructions: You had a small foreign body on your cornea which seems to have caused a lot of inflammation and a reaction to your left eye. The foreign body has been removed. Please apply erythromycin ointment to the eye 4 times a day, approximately every 6 hours. You may use acetaminophen and ibuprofen as needed for pain. We were unable to confirm your methadone dose today. Therefore we have been unable to give your methadone dose. Please go to your regular clinic at [facility] this morning for your dose today. Given the amount of inflammation in your left eye you should see an network infrastructure architect. The contact information for Dr. Guerrier is attached. His office is across the street from the emergency room at [address] here on the [facility] campus. Please call the ophthalmology office in the morning for an appointment tomorrow for a recheck with the network infrastructure architect. Return to the emergency room if significantly worse. Prescriptions: New erythromycin 5 mg/gram (0.5 %) ointment 0.5 inch ophthalmic (eye) QID Qty: 3.5 0RF ibuprofen 600 mg tablet 600 mg PO Q6H PRN (Reason: pain) Qty: 14 0RF No Action methadone 10 mg/mL Concentrate 95 mg PO DAILY nicotine (polacrilex) 4 mg gum 4 mg buccal Q2H 30 Days Qty: 100 0RF buspirone 5 mg Tablet 5 mg PO BID 30 Days Qty: 60 0RF hydroxyzine HCl 25 mg Tablet 25 mg PO Q6H PRN (Reason: Anxiety) 30 Days Qty: 90 0RF mirtazapine 15 mg Tablet 15 mg PO BEDTIME 30 Days Qty: 30 0RF risperidone 0.5 mg Tablet 0.5 mg PO BEDTIME 30 Days Qty: 30 0RF trazodone 50 mg Tablet 50 mg PO BEDTIME PRN (Reason: Insomnia) 30 Days Qty: 30 0RF cephalexin 500 mg Capsule 500 mg PO QID 2 Days Qty: 8 0RF sulfamethoxazole-trimethoprim 800-160 mg Tablet 1 tab PO BID 2 Days Qty: 4 0RF Referrals: Roe Guerrier [Physician] - (The patient who had corneal foreign body has significant conjunctivitis with purulent discharge) Print Language: Upper Sorbian
[2024-02-24] MEDS: Erythromycin Base 0.5% Oph Oin 1 GM TUBE 1 CM EYE-LEFT ×2 (02:32→07:52)
[2024-02-24] MEDS: Tetracaine HCl/PF 0.5% Oph Sol 4 ML DROPS 3 DROP EYE-LEFT (02:32)
--- NOTE | 2024-02-24 02:35 | PC.NURSE ---
Pt medicated per sep. Plan of care ongoing.
[2024-02-24] MEDS: Acetaminophen 325 MG TABLET 975 MG PO ×2 (02:38→08:17)
[2024-02-24] MEDS: Ibuprofen 600 MG TABLET PO ×2 (02:38→08:18)
--- NOTE | 2024-02-24 02:41 | PC.NURSE ---
Pt medicated per sep. Plan of care ongoing.
[2024-02-24 06:44] VITALS: BP 105/64; PULSE 52; RESP 16; TEMP 36.6; O2SAT 100
--- NOTE | 2024-02-24 07:15 | PC.NURSE ---
Attempting to verify pt.'s Methadone dosage. Pt. goes to [facility] at [address] [place] [address] [address], [place] [address]. Attempted to verify, but [facility] is closed on weekends and call went to their answering service. Ssis Developer took pt. information for a call back re: how to obtain dosing information outside of normal business hours. Dose not verified at this time - pt. and aware.
[2024-02-24 08:05] VITALS: BP 100/53; PULSE 50; RESP 20; TEMP 36.1; O2SAT 97
--- NOTE | 2024-02-24 08:21 | PC.NURSE ---
Pt. medicated per SEP. Requesting a breakfast tray
--- NOTE | 2024-02-24 09:07 | PC.NURSE ---
Pt. refusing discharge vital signs
[2024-02-24 09:34] VITALS: BP 100/53; PULSE 50; RESP 20; TEMP 36.1; O2SAT 97
== END 2024-02-24 09:35 | disposition home or self-care (01) ==
PROVIDERS: Emergency Provider Emergency Medicine
DX: S00.252A Superficial foreign body of left eyelid and periocular area, initial encounter (principal); H10.32 Unspecified acute conjunctivitis, left eye; T15.02XA Foreign body in cornea, left eye, initial encounter; X58.XXXA Exposure to other specified factors, initial encounter; W44.8XXA Other foreign body entering into or through a natural orifice, initial encounter; Y93.89 Activity, other specified; Y92.89 Other specified places as the place of occurrence of the external cause; Y99.8 Other external cause status; F11.10 Opioid abuse, uncomplicated; F14.10 Cocaine abuse, uncomplicated; Z79.899 Other long term (current) drug therapy
CPT/HCPCS: 65222; 99284

== ENCOUNTER 2024-05-01 00:45 | Emergency (ER) | payer MEDICAID, SELFPAY ==
[2024-05-01 00:54] VITALS: BP 123/61; BP 130/76; PULSE 69; PULSE 72; RESP 17; TEMP 37; O2SAT 98; BMI 23.5
--- NOTE | 2024-05-01 01:09 | PC.NURSE ---
pt biba from home. pt is a&ox4, vss, respirations even and unlabored. per pt, last used heroin 3 hrs ago. uses IV/snorts heroin/cocaine. pt reports SI with plan to OD. pt denies HI at this time. pt reports triggers include family tension, loss of car/apartment, loss of custody of child/loosing girlfriend. pt changed over into green gown by security, pt belongings placed in decon.
--- NOTE | 2024-05-01 01:21 | MHC.EDTECH ---
Patient BIBA,security called to assist with changeover,patient changed into crisis attire,all belongings placed in DEACON,patient was given a book to read to help keep himself calm,patient is calm/cooperative at this time,khoa roque given per request
--- NOTE | 2024-05-01 02:05 | ED_ITS ---
HPI - Psych General Chief Complaint: Psychiatric Symptoms Stated Complaint: SEEKING HELP AFTER DRUG USE Time Seen by Provider: 05/01/24 02:01 Source: patient and EMS Mode of arrival: EMS Limitations: no limitations History of Present Illness ED Provider: Dr. Diana Morris HPI Narrative: Patient comes to the emergency room complaining of suicidal ideation. Patient states that he would like to OD with drugs. Patient denies HI. Patient states that he would like to be restarted on his medications for mental health. Patient has stopped taking his meds approximately 5 months ago. Patient states that he never got refilled and he never follow-up with his psychiatrist. Patient states that he would like to be restarted with the therapist and his meds. Related Data Home Medications ?Medication ?Instructions ?Recorded ?Confirmed methadone 10 mg/mL oral concentrate 95 mg PO DAILY 11/16/22 11/02/23 Previous Rx's ?Medication ?Instructions ?Recorded buspirone 5 mg tablet 5 mg PO BID 30 days #60 tabs 11/07/23 hydroxyzine HCl 25 mg tablet 25 mg PO Q6H PRN Anxiety 30 days 11/07/23 #90 tabs mirtazapine 15 mg tablet 15 mg PO BEDTIME 30 days #30 tabs 11/07/23 nicotine (polacrilex) 4 mg gum 4 mg buccal Q2H 30 days #100 ea 11/07/23 risperidone 0.5 mg tablet 0.5 mg PO BEDTIME 30 days #30 tabs 11/07/23 trazodone 50 mg tablet 50 mg PO BEDTIME PRN Insomnia 30 11/07/23 days #30 tabs cephalexin 500 mg capsule 500 mg PO QID 2 days #8 caps 11/08/23 sulfamethoxazole 800 1 tab PO BID 2 days #4 tabs 11/08/23 mg-trimethoprim 160 mg tablet erythromycin 5 mg/gram (0.5 %) eye 0.5 inch ophthalmic (eye) QID #3.5 02/24/24 ointment grams ibuprofen 600 mg tablet 600 mg PO Q6H PRN pain #14 tabs 02/24/24 Allergies Allergy/AdvReac Type Severity Reaction Status Date / Time shrimp [SHRIMP] Allergy Intermediate Swelling Verified 05/01/24 01:00 Review of Systems Review of Systems: Constitutional : No Weight loss, No Fever, No Chills, No Night Sweats, No Fatigue, No Malaise ENT/Mouth : No Hearing loss, No Ear Pain, No Nasal Congestion, No Sinus Pain, No Hoarseness, No sore throat, No Rhinorrhea, No Swallowing Difficulty Eyes: No Eye Pain, No Swelling, No Redness, No Foreign Body, No Discharge, No Vision Changes Cardiovascular : No Chest Pain, No SOB, No Dyspnea on Exertion, No Orthopnea, No Edema, No Palpitations Respiratory : No Cough, No Sputum, No Wheezing, No Smoke Exposure, No Dyspnea Gastrointestinal : No Nausea, No Vomiting, No Diarrhea, No Constipation, No abdominal Pain, No Hematochezia, No Melena Genitourinary : no irregular bleeding, No Dysuria, No Urinary Frequency, No Hematuria, No Urinary Incontinence, No Urgency, No Flank Pain, No Urinary Flow Changes, No Hesitancy Musculoskeletal : No joint pain, No Myalgias, No Joint Swelling Skin : No Skin Lesions, No rash Neuro : No Weakness, No Numbness, No Paresthesias, No Loss of Consciousness, No Dizziness, No Headache Psych : Complaining of anxiety, depression, suicidal ideation planning to OD with street drugs, history of polysubstance abuse Heme/Lymph: No Bruising, No Bleeding,No Lymphadenopathy Endocrine : No Polyuria, No Polydipsia, No Temperature Intolerance PMFSH Past Medical History Medical History Depression Polysubstance abuse Cocaine use disorder Opioid use disorder, severe, dependence Severe recurrent major depression w/psychotic features, mood-congruent IVDU (intravenous drug user) Asthma Social History Social History Household Members: Unknown / Unable to assess Household Members Other:: lives in a [facility] Housing: Apartment Do you presently have visiting nurse or other home services: No Unable to assess alcohol history related to: Refusing to respond Alcohol intake: current Alcohol intake frequency: does not drink Alcohol type: beer Patient Tobacco Use Status: Current everyday Tobacco user Tobacco use type: Cigarette Cigarettes Per Day: 4 Years Smoked: unknown Smoked in Last 30 Days: Yes e-Cigarette/Vaping Use: Currently Using Use of substances other than those prescribed or required for medical reasons: Yes Substance Use Type: Crack/Cocaine, Heroin and IV Drugs Advance Directives: No Advance Directives Information Provided: Yes Do you have a plan to hurt others: No Plan service: No Current occupational status: unemployed Sexual orientation: Straight/Heterosexual Physical Exam Vital Signs: Vital Signs: Last Vital Signs Temp 98.6 F 05/01/24 00:54 Pulse 69 05/01/24 00:54 Resp 17 05/01/24 00:54 BP 123/61 05/01/24 00:54 Pulse Ox 98 05/01/24 00:54 O2 Del Method Room Air 05/01/24 00:54 BMI result Body Mass Index 23.5 Const: Other: Appearance: Alert. Oriented X3. No acute distress. Eyes: Pupils equal, round and reactive to light. ENT: Pharynx normal. Neck: Normal inspection. Neck supple. No lymph nodes noted. No crepitus CVS: Normal heart rate and rhythm. Pulses normal. Normal S1 and S2 Respiratory: No respiratory distress. Breath sounds normal. No Wheezing. No rales Abdomen: Soft and nontender. No rigidity. No distention. Skin: Skin warm and dry. Normal skin color. Normal skin turgor. Extremities: No lower extremity edema. No Lacerations. No Rash Neuro: Oriented X 3. No motor deficit. No sensory deficit. Moving all extremities. No slurred speech. CN 2 through 12 grossly intact Psych: calm, cooperative, normal affect Course Course Course Narrative: -all of patient's labs pending -care team consult pending -physician observation started at 2 06:00 Medical Decision Making Differential Diagnosis Differential Diagnoses: The differential diagnosis associated with the presentation includes (Anxiety, depression, polysubstance abuse, alcohol abuse, suicidal ideation) Admission/Observation Consideration of admission/observation: Escalation of care including admission/observation considered (Patient is under physician observation waiting to be seen by the care team) Critical Care Time Critical Care Time Critical Care Time: Yes Total Critical Care Time: 35 Attestation: I have personally provided critical care time. Time includes review of lab data, radiology results, discussion with consultants, and monitoring for potential decompensation. Intervention performed as documented. Discharge Plan Discharge Clinical Impression: Polysubstance abuse, Suicidal ideation, Depression with anxiety Patient Disposition: Still a Patient Prescriptions: No Action erythromycin 5 mg/gram (0.5 %) ointment 0.5 inch ophthalmic (eye) QID Qty: 3.5 0RF ibuprofen 600 mg tablet 600 mg PO Q6H PRN (Reason: pain) Qty: 14 0RF methadone 10 mg/mL Concentrate 95 mg PO DAILY nicotine (polacrilex) 4 mg gum 4 mg buccal Q2H 30 Days Qty: 100 0RF buspirone 5 mg Tablet 5 mg PO BID 30 Days Qty: 60 0RF hydroxyzine HCl 25 mg Tablet 25 mg PO Q6H PRN (Reason: Anxiety) 30 Days Qty: 90 0RF mirtazapine 15 mg Tablet 15 mg PO BEDTIME 30 Days Qty: 30 0RF risperidone 0.5 mg Tablet 0.5 mg PO BEDTIME 30 Days Qty: 30 0RF trazodone 50 mg Tablet 50 mg PO BEDTIME PRN (Reason: Insomnia) 30 Days Qty: 30 0RF cephalexin 500 mg Capsule 500 mg PO QID 2 Days Qty: 8 0RF sulfamethoxazole-trimethoprim 800-160 mg Tablet 1 tab PO BID 2 Days Qty: 4 0RF Interventions: [place]-Suicide Risk Severity Scale Last Done: 05/01/24 01:01 Print Language: Swedish
[2024-05-01 02:28] LABS: MANUAL DIFF FLAG NO
[2024-05-01 02:29] LABS: Basophils Absolute Auto 0.1 X10*3/uL (0.0-0.2); Basophils Percent Auto 0.8 % (0-2); Eosinophils Absolute Auto 0.1 X10*3/uL (0.0-0.4); Eosinophils Percent Auto 1.6 % (0-4); Hematocrit 29.7 % (42.0-52.0); Hemoglobin 9.3 g/dl (14.0-18.0); Imm Gran Abs Auto 0.01 X10*3/uL (0.00-0.03); Imm Gran Pct Auto 0.2 % (0.0-0.4); Lymphocytes Absolute Auto 2.3 X10*3/uL (1.2-4.9); Lymphocytes Percent Auto 35.9 % (20-40); Mean Corpuscular HGB Conc 31.3 g/dl (31.0-36.0); Mean Corpuscular Hemoglobin 21.6 pg (27.0-33.0); Mean Corpuscular Volume 69.1 fL (80.0-98.0); Mean Platelet Volume 9.9 fL (9.4-12.4); Monocytes Absolute Auto 0.4 X10*3/uL (0.1-1.2); Monocytes Percent Auto 6.8 % (2-11); Neutrophils Absolute Auto 3.5 x10*3/uL (2.0-8.3); Neutrophils Percent Auto 54.7 % (45-73); Platelet Count 341 X10*3/uL (160-400); Red Cell Distribution Width 15.7 % (11.0-16.0); White Blood Count 6.3 X10*3/uL (4.8-10.8)
[2024-05-01 02:33] VITALS: BP 115/59; PULSE 68; RESP 18; TEMP 36.8; O2SAT 99
--- NOTE | 2024-05-01 02:35 | MHC.EDTECH ---
Hourly rounds and vitals completed,labs drawn and sent to lab,unable to give a urine at this time,cup of apple juice given per request,pt is calm,1:1 sitter at bedside
[2024-05-01 02:51] LABS: Anion Gap 13 (12-20); Blood Urea Nitrogen 19 mg/dL (9-16); Calcium 8.8 mg/dL (8.4-10.2); Carbon Dioxide 23 mmol/L (22-29); Chloride 107 mmol/L (96-108); Creatinine Clr Calc Pharmacy 103.2; Estimated Glomerular Filt Rate > 60; Ethanol < 10 mg/dL; Glucose Random 95 mg/dL (60-115); Potassium 3.9 mmol/L (3.3-5.1); Sodium 139 mmol/L (135-145)
[2024-05-01 06:05] LABS: Amphetamine Screen Urine Not Detected (Not Detect); Barbiturates, Urine Not Detected (Not Detect); Benzodiazepines Screen Urine Not Detected (Not Detect); Buprenorphine Scr Not Detected (Not Detect); Cannabinoid Screen Urine Not Detected (Not Detect); Cocaine Screen Urine POSITIVE (Not Detect); Fentanyl, urine POSITIVE (Not Detect); Methadone Screen, Urine Positive (Not Detect); Opiate Screen Urine POSITIVE (Not Detect); Oxycodone Screen Urine Not Detected (Not Detect); Phencyclidine Screen Urine Not Detected (Not Detect)
[2024-05-01 06:18] VITALS: RESP 16
--- NOTE | 2024-05-01 07:00 | HE.PHANOTE ---
Addendum entered by Ashely Bentley hector 05/01/24 08:25: methadone sheet karlos Pham RN asked patient, last dose was take home bottle on 04/30/2024. Original Note: RE: methadone Last dose 110mg at [facility] on 04/28/24 with take home bottles for 02/27-03/04; last dose 05/01 @0624
--- NOTE | 2024-05-01 08:00 | PC.NURSE ---
Assumed care of patient at 0645, patient appears to be in no apparent distress this am, sitting upright on couch in BH 8 eating breakfast. patient offers no complaints to this RN. Pending CARE team eval at this time
[2024-05-01 08:28] LABS: Appearance Urine Clear; Color Urine Yellow; Glucose Urine UA Negative (Negative); Leukocyte Esterase Urine Negative (Negative); Nitrite Urine Negative (Negative); Urine Blood Negative (Negative); Urine Ketones Negative (Negative); Urine Protein Negative (Neg-Trace)
[2024-05-01] MEDS: methADONE HCl 20 MG/2 ML ORAL.CONC 110 MG PO (08:53)
[2024-05-01 10:35] VITALS: BP 115/59; PULSE 68; RESP 18; TEMP 36.8; O2SAT 99
--- NOTE | 2024-05-01 10:36 | PC.NURSE ---
patient refusing to participate in assessment or conversation with this RN
== END 2024-05-01 10:37 | disposition home or self-care (01) ==
PROVIDERS: Emergency Provider Emergency Medicine
DX: F33.1 Major depressive disorder, recurrent, moderate (principal); R45.851 Suicidal ideations; F41.1 Generalized anxiety disorder; F43.0 Acute stress reaction; F11.10 Opioid abuse, uncomplicated; F14.10 Cocaine abuse, uncomplicated; Z51.81 Encounter for therapeutic drug level monitoring; Z79.899 Other long term (current) drug therapy
CPT/HCPCS: 36415; 80048; 80307; 81003; 85025; 99285; S9485

== ENCOUNTER 2025-07-19 06:31 | Emergency (ER) | payer MEDICAID, SELFPAY ==
--- OUTSIDE RECORDS SUMMARY | 2025-04-04 16:00 | XMS_ITS ---
Author Organization [facility] Address [address] [place] [id number] Care Team Providers Care Enzyme Chemist Name Role Phone Waqar Elizabeth Primary Care Provider [facility] Unavail able Unavailable Migration, Provider Unavailable Unavailable Allergies Allergen (clinical drug ingredient) Drug/Non Drug Allergy documented on EMR Reaction Allergy Type Onset Date Status Dust Mites asthma/allergy sx Allergy Active Pollen POLLEN (uncoded) allergic rhinitis Allergy Active REASON FOR VISIT Multum To Medispan Conversion Encounter Encounters Encounter Location Date Provider Diagnosis [address] [address] 04/04/2025 Provider Migration Plan Of Treatment No Information Progress Notes * Marc JOHNSON PDOB: [birth year] (35 yo M)Acc No.[id number]:04/04/2025 Patient: Marc DAILEY Provider: :1990 A ge:35 Y S ex:Male Date:04/04/2025 Address:[place] [address] Pcp:Waqar Elizabeth Subjective: * Chief Complaints: * 1 . Multum To Medispan Conversion Encounter. * Medical History: * Allergies: P OLLEN: allergic rhinitis, Dust Mites: asthma/allergy sx. Objective: * Vitals: Assessment: Plan: * Treatment: * Images: Billing Information: * Visit Code: * Procedure Codes: * Electronic signature of Prov ider Migration on 07/19/2025 at 06:56 AM EST Sign off status: Pending * Provider: Date: 0 04/04/2025 Generated for Printi ng/Faxing/eTransmitting on: 1 09/19/2024 06:56 AM EST
[2025-07-19 06:35] VITALS: BP 170/80; PULSE 90; O2SAT 100
[2025-07-19 06:36] VITALS: BP 130/76; PULSE 91; RESP 16; TEMP 36.9; O2SAT 98; BMI 23.0
--- NOTE | 2025-07-19 06:49 | ED.GENADULT ---
HPI - General Adult General Chief complaint: Dental/Oral Stated complaint: DENTAL PAIN/FACIAL SWELLING Time Seen by Provider: 07/19/25 06:49 History of Present Illness ED Provider: Chandler PALMER narrative: The patient is a 35-year-old male who says that he has not seen a dentist in many many years and that he has a history of severely decayed teeth. He says that 1 of his left upper teeth broke yesterday and he has had worsening pain for the last 2 days with swelling of the left side of his face. No definite fevers. He purchased what he thought was an antibiotic at a store. He feels extremely uncomfortable and took an ambulance to the hospital this morning. Related Data Home Medications ?Medication ?Instructions ?Recorded ?Confirmed methadone 10 mg/mL oral concentrate 110 mg PO DAILY 11/16/22 05/01/24 Previous Rx's ?Medication ?Instructions ?Recorded acetaminophen 500 mg capsule 1,000 mg (2 x 500 mg) PO Q8H PRN 07/19/25 fever or pain #14 caps clindamycin HCl 300 mg capsule 600 mg (2 x 300 mg) PO TID 7 days 07/19/25 (Cleocin HCl) #42 caps ibuprofen 400 mg tablet 400 mg PO Q6H PRN pain #14 tabs 07/19/25 Allergies Allergy/AdvReac Type Severity Reaction Status Date / Time shrimp (SHRIMP) Allergy Intermediate Swelling Verified 07/19/25 06:41 Review of Systems Review of Systems: Yes all other systems are reviewed and are negative PMFSH Past Medical History Medical History Depression Polysubstance abuse Cocaine use disorder Opioid use disorder, severe, dependence Severe recurrent major depression w/psychotic features, mood-congruent IVDU (intravenous drug user) Asthma Social History Social History Household Members: Unknown / Unable to assess Household Members Other:: lives in a assisted Housing: Apartment Do you presently have visiting nurse or other home services: No Unable to assess alcohol history related to: Unknown Alcohol intake: current Alcohol intake frequency: does not drink Alcohol type: beer Patient Tobacco Use Status: Current everyday Tobacco user Tobacco use type: Cigarette Cigarettes Per Day: 4 Years Smoked: unknown Smoked in Last 30 Days: Yes e-Cigarette/Vaping Use: Currently Using Use of substances other than those prescribed or required for medical reasons: Unknown Substance Use Type: Crack/Cocaine, Heroin and IV Drugs Advance Directives: No Advance Directives Information Provided: Yes service: No Current occupational status: unemployed Sexual orientation: Straight/Heterosexual Physical Exam ED Vital Signs: Vital Signs - 24 hr 07/19/25 06:36 Temperature 98.5 F Pulse Rate 91 Respiratory Rate 16 Blood Pressure 130/76 Pulse Oximetry 98 Oxygen Delivery Method Room Air BMI result Body Mass Index 23.0 Const Other: The patient looks as though he is an ordinarily healthy and fit 35-year-old. He is awake and alert. He has some obvious soft tissue swelling to the left cheek. He is pleasant and cooperative although apprehensive. Orientation/consciousness: patient oriented x3 HENMT Other: There is some swelling to the left side of the face in the region of the left cheek. The patient is extremely in the tender over the left maxilla. There is no trismus. Almost all of the patient's rear left maxillary teeth are fully decayed down to the gum line. There is soft tissue swelling evident at the roof of the vestibule of the mouth on the left side where the patient is exquisitely tender to palpation. Eyes Other: Pupils are round equal, conjunctivae are clear, extraocular movements intact Neck Neck: Yes normal visual inspection, Yes full ROM and Yes no lymphadenopathy Resp Effort & Inspection: normal respiratory effort Auscultation: clear to auscultation bilaterally Cardio Rate: regular rate Rhythm: regular rhythm Heart sounds: S1 normal heart sound present and S2 normal heart sound present Skin Other: The skin of the left cheek is swollen but not red. Neuro General: patient oriented x3, gait normal, tone normal, moves all extremities, no focal motor deficits and CN's II-XI intact bilaterally Extrem Other: Extremities unremarkable Medications Administered Discontinued Medications Generic Name Dose Route Start Last Admin Trade Name Freq PRN Reason Stop Dose Admin Acetaminophen 975 mg 07/19/25 06:42 07/19/25 06:47 Acetaminophen 325 Mg Tablet PO 07/19/25 06:43 975 mg ONCE ONE Administration Sodium Chloride 1,000 mls @ 999 mls/hr 07/19/25 07:15 07/19/25 08:54 Ns IV 07/19/25 08:15 Infused .Q1H1M ADRIÁN Infusion Clindamycin Phosphate 900 mg in 50 mls @ 50 mls/hr 07/19/25 07:13 07/19/25 08:55 Cleocin IV 07/19/25 08:12 Infused ONCE ONE Infusion Acetaminophen 1,000 mg in 100 mls @ 400 mls/hr 07/19/25 07:13 07/19/25 08:14 Ofirmev IV 07/19/25 07:27 Infused ONCE ONE Infusion Ibuprofen 600 mg 07/19/25 06:42 07/19/25 06:47 Ibuprofen 600 Mg Tablet PO 07/19/25 06:43 600 mg ONCE ONE Administration Ketorolac Tromethamine 15 mg 07/19/25 07:13 07/19/25 07:51 Ketorolac Tromethamine 15 Mg/Ml Vial IVPUSH 07/19/25 07:14 15 mg ONCE ONE Administration Lidocaine/Epinephrine 10 ml 07/19/25 07:00 07/19/25 07:07 Lidocaine Hcl 1%/Epi 1:100,000 10 Ml Vial INFILTRATI 07/19/25 07:01 10 ml ONCE ONE Administration Procedures Abscess I/D Site: oral (Dental abscess of left maxilla) Side (if applicable): left Local Anesthetic: lidocaine 1% and with epi Amount of anesthesia used (mL): 1 Technique: needle aspiration and incised with blade Amount of fluid expressed (mL): 2 Sent for culture/gram staining?: No Irrigation: No Packing used?: none Medical Decision Making Medical Decision Making MDM Narrative: The patient is a 35-year-old male with very poor dentition. He presents with the acute pain and swelling in the region of the left maxilla. He has such generalized dental decay that it was difficult to determine exactly which tooth was the problem tooth but there was definitely soft tissue swelling at the roof of the vestibule of the mouth at a proximally the level of the 1st premolar. I felt this was likely an abscess. I applied topical anesthesia and then used 1% lidocaine with epinephrine through a 30 gauge needle to anesthetize the mucosal surface. I then used an 18 gauge needle and was able to aspirate pus. I then used a 11. Blade to make an incision in the area. The incision did not seemed to release a lot of pus. I reintroduce the 18 gauge needle and aspirated additional pus for a total of about 2-2.5 mL of pus. The patient was given 900 mg of IV clindamycin, IV ketorolac and IV acetaminophen. He felt considerably better. He has not seen a dentist in many years. He will be given a list of local dental offices for follow up. He will be discharged with clindamycin 600 mg t.i.d. x7 days. Also ibuprofen and acetaminophen. Discharge Plan Discharge Clinical Impression: Dental abscess Patient Disposition: Home, Self-Care Additional Instructions: You had an abscess at the site of your broken tooth. Some of the pus from the abscess was drained in the emergency room. You has been started on the antibiotic clindamycin. Please take this 3 times a day as prescribed. You may use ibuprofen and acetaminophen as well as needed. Use warm compresses to your left cheek as well. You has been provided with a list of dental offices. Please contact these offices tomorrow to see if you can arrange outpatient dental follow up. Return to the emergency room if significantly worse. Prescriptions: New clindamycin HCl [Cleocin HCl] 300 mg capsule 600 mg PO TID 7 Days Qty: 42 0RF ibuprofen 400 mg tablet 400 mg PO Q6H PRN (Reason: pain) Qty: 14 0RF acetaminophen 500 mg capsule 1,000 mg PO Q8H PRN (Reason: fever or pain) Qty: 14 0RF No Action methadone 10 mg/mL Concentrate 110 mg PO DAILY Print Language: Korean
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
[2025-07-19] MEDS: Lidocaine HCl 1%/Epi 1:100,000 10 ML VIAL INFILTRATI (07:07)
[2025-07-19 09:09] VITALS: BP 109/80; PULSE 69; RESP 16; TEMP 36.8; O2SAT 99
== END 2025-07-19 09:10 | disposition home or self-care (01) ==
PROVIDERS: Emergency Provider Emergency Medicine
DX: K04.7 Periapical abscess without sinus (principal); K02.9 Dental caries, unspecified; Z59.01 Sheltered homelessness; F17.210 Nicotine dependence, cigarettes, uncomplicated
CPT/HCPCS: 41800; 96365; 96367; 96375; 99284; J0131; J0736; J1885; J2004